=== PATIENT | male | born 1975 | race Caucasian/White ===

== ENCOUNTER 2016-09-22 22:10 | Inpatient (IN) | payer OTHER ==
[~2016-09-22] VITALS: Ht 180.3 cm; Wt 194.6 kg
[~2016-09-22 22:10] MED LIST: APIX1TAB PO; FLUO20CA36 PO; FLUT1INH INH; IPRASOL4 INH; LISI-461 PO; LPT40 PO; LSX80 PO; MCRK20 PO; OMEP40CA41 PO; OXGN; RQP25 PO; SPRIN/30 INH; VNTHFA/IN PO; ZLF50 PO; ZRX5 PO
[2016-09-22] MEDS ORDERED: FUROSEMIDE 40 MG/4 ML VIAL IV STA (22:25)
[2016-09-22] MEDS ORDERED: ALBUT/IPRATROP 3MG/0.5MG NEB 3 ML VIAL INH ONE (22:30)
--- NOTE | 2016-09-22 22:31 | EMERGENCY ROOM VISIT NOTE ---
History Report prepared by Hernandez: Rufina Pacheco Under the Supervision of: Dr. Bharathi Rodas M.D. First contact with patient: 22:20 Chief Complaint: SWELLING TO EXTREMITY Stated Complaint: LEGS SWOLLEN, RIGHT LARGEST History of Present Illness The patient is a 40 year old male who presents to the Emergency Room with complaints of worsening swelling to the right lower extremity starting 2 days SOFTWARE PROGRAM MANAGER. The patient states that he has ran out of his fluid pills 4 days ago and stopped taking them 2 days ago. The patient states that along with the swelling to his legs, he has had worsening SOB. The patient states he usually wears 3 L oxygen at home. Source of History: patient Onset: 2 days SOFTWARE PROGRAM MANAGER Position: leg (right) Timing: worsening Associated Symptoms: + SOB Review of Systems See HPI for pertinent positives & negatives. A total of 10 systems reviewed and were otherwise negative. Past Medical & Surgical Medical Problems: (1) Abscess or cellulitis of foot (2) Anticoagulants,Lt,Current Use (3) Asthma (4) Farley's esophagus (5) Cellulitis (6) Cellulitis of right lower extremity (7) CHF (congestive heart failure) (8) COPD (chronic obstructive pulmonary disease) (9) COPD exacerbation (10) Depression (11) Diaphragmatic Hernia (12) GERD (gastroesophageal reflux disease) (13) History of DVT (deep vein thrombosis) (14) History of metastatic adenocarcinoma (15) History of pulmonary embolus (PE) (16) Hypertension (17) Hypertension Nos (18) Morbid Obesity (19) Morbid obesity with BMI of 50.0-59.9, adult (20) Osteoarthros Nos-Unspec (21) Personal History Of Pulmonary Embolism (22) Reflux Esophagitis (23) S/p insertion of A port (24) S/p sinusotomy and septoplasty (25) Scrotal edema (26) Sleep apnea (27) Tobacco use disorder (28) Unspecified Sleep Apnea (29) UTI (urinary tract infection) Surgical Problems: (1) H/O arthroscopic knee surgery (2) H/O esophagogastroduodenoscopy (3) H/O lymph node biopsy Family History Cancer FATHER (colon CA age 56) Cardiac disorder Diabetes mellitus MOTHER Heart disease MOTHER (DE age 54) FATHER (DE) BROTHER (DE age 48) BROTHER (DE age 57) Hypertension MOTHER Social History Smoking Status: Current Every Day Smoker Alcohol Use: none Drug Use: none Marital Status: Housing Status: lives with family Occupation Status: unemployed, disabled Current/Historical Medications Scheduled Apixaban (Eliquis), 2.5 MG PO BID Atorvastatin (Atorvastatin Calcium), 40 MG PO DAILY Fluoxetine HCl (Fluoxetine HCl), 20 MG PO QAM Fluticasone Furoate-Vilanterol (Breo Ellipta), 1 PUFF INH DAILY Furosemide (Furosemide), 80 MG PO DAILY Lisinopril (Lisinopril), 10 MG PO DAILY Metolazone (Metolazone), 5 MG PO DAILY Omeprazole (Prilosec), 40 MG PO DAILY Oxygen (Oxygen), 2 LITERS NA CONTINOUS Potassium Chloride (Klor-Con M20), 40 MEQ PO QAM Ropinirole Hydrochloride (Requip), 0.5 MG PO HS Sertraline HCl (Sertraline HCl), 50 MG PO DAILY Tiotropium [place] (Spiriva Handihaler), 1 CAP INH DAILY Scheduled PRN Albuterol Hfa (Ventolin Hfa), 2 PUFFS PO Q4H PRN for SOB/Wheezing Ipratropium-Albuterol (Duoneb), 3 ML INH QID PRN for SOB/Wheezing Allergies Coded Allergies: Iodinated Diagnostic Agents (Unverified Allergy, Unknown, turns bright red and on fire feeling, RASH, 09/22/16) Physical Exam Vital Signs Date Time Temp Pulse Resp B/P Pulse Ox O2 Delivery O2 Flow Rate FiO2 09/23/16 00:25 114 22 115/68 96 Nasal Cannula 3.0 09/22/16 23:04 3.0 09/22/16 23:04 Room Air 09/22/16 23:04 112 09/22/16 22:50 113 20 95 Nasal Cannula 3.0 09/22/16 22:16 36.7 116 22 92/55 93 Nasal Cannula 3.0 Physical Exam GENERAL: Patient is a morbidly obese male, covered in dirt HEAD: Normocephalic atraumatic EYES: Ocular movements intact pupils equal and react to light OROPHARYNX mucous membranes are moist no exudates present no erythema or edema present NECK: Supple no nuchal rigidity CHEST: Good equal expansion LUNGS: Tachypneic on exam. CARDIAC: Normal S1 and S2 ABDOMEN: Soft nontender no guarding BACK: No CVA tenderness EXTREMITIES: No pain upon palpation normal muscle strength in all groups. Right leg is bright red with multiple wounds on it. NEURO: Patient is following commands is answering questions appropriately. Alert and oriented x3 Cranial Nerves 2-12 grossly intact Medical Decision & Procedures ER Provider Diagnostic Interpretation: X-ray results as stated below per interpretation by me: Chest X-ray 1 View: pulmonary edema. Ultrasound venous right lower extremity: Exam limited by patient's body habitus. No evidence of deep vein thrombosis. Few borderline enlarged right inguinal lymph nodes, which are nonspecific, including 1.3 cm short axis lymph node. Laboratory Results 09/22/16 22:35 Red Blood Count 3.91, Mean Corpuscular Volume 85.4, Mean Corpuscular Hemoglobin 28.6, Mean Corpuscular Hemoglobin Concent 33.5, Mean Platelet Volume 8.9, Neutrophils (%) (Auto) 89.4, Lymphocytes (%) (Auto) 3.8, Monocytes (%) (Auto) 6.2, Eosinophils (%) (Auto) 0.2, Basophils (%) (Auto) 0.1, Neutrophils # (Auto) 17.39, Lymphocytes # (Auto) 0.74, Monocytes # (Auto) 1.21, Eosinophils # (Auto) 0.03, Basophils # (Auto) 0.02 09/22/16 22:35 Test 09/22/16 22:35 White Blood Count 19.44 K/uL (4.8-10.8) Red Blood Count 3.91 M/uL (4.7-6.1) Hemoglobin 11.2 g/dL (14.0-18.0) Hematocrit 33.4 % (42-52) Mean Corpuscular Volume 85.4 fL (80-100) Mean Corpuscular Hemoglobin 28.6 pg (25-34) Mean Corpuscular Hemoglobin Concent 33.5 g/dl (32-36) Platelet Count 308 K/uL (130-400) Mean Platelet Volume 8.9 fL (7.4-10.4) Neutrophils (%) (Auto) 89.4 % Lymphocytes (%) (Auto) 3.8 % Monocytes (%) (Auto) 6.2 % Eosinophils (%) (Auto) 0.2 % Basophils (%) (Auto) 0.1 % Neutrophils # (Auto) 17.39 K/uL (1.4-6.5) Lymphocytes # (Auto) 0.74 K/uL (1.2-3.4) Monocytes # (Auto) 1.21 K/uL (0.11-0.59) Eosinophils # (Auto) 0.03 K/uL (0-0.5) Basophils # (Auto) 0.02 K/uL (0-0.2) RDW Standard Deviation 50.3 fL (36.4-46.3) RDW Coefficient of Variation 16.0 % (11.5-14.5) Immature Granulocyte % (Auto) 0.3 % Immature Granulocyte # (Auto) 0.05 K/uL (0.00-0.02) Nucleated RBC Absolute Count (auto) 0.06 K/uL (0-0) Nucleated Red Blood Cells % 0.3 % Polychromasia 1+ Basophilic Stippling 1+ Anion Gap 10.0 mmol/L (3-11) Est Creatinine Clear Calc Drug Dose 132.9 ml/min Estimated GFR () 79.7 Estimated GFR (Non- 68.7 BUN/Creatinine Ratio 15.0 (10-20) Calcium Level 8.9 mg/dl (8.5-10.1) Total Bilirubin 1.0 mg/dl (0.2-1) Aspartate Amino Transf (AST/SGOT) 8 U/L (15-37) Alanine Aminotransferase (ALT/SGPT) 13 U/L (12-78) Alkaline Phosphatase 83 U/L (45-117) Total Creatine Kinase 60 U/L (39-308) Creatine Kinase MB < 0.5 ng/ml (0.5-3.6) Creatine Kinase MB Ratio (0-3.0) Troponin I < 0.015 ng/ml (0-0.045) Pro-B-Type Natriuretic Peptide 275 pg/ml (0-450) Total Protein 7.6 gm/dl (6.4-8.2) Albumin 2.8 gm/dl (3.4-5.0) Globulin 4.8 gm/dl (2.5-4.0) Albumin/Globulin Ratio 0.6 (0.9-2) Labs reviewed by ED physician. Medications Administered Medications (Trade) Dose Ordered Sig/Karissa Route Start Time Stop Time Status Last Admin Dose Admin Albuterol/ Ipratropium (Duoneb) 12 ml ONE ONCE INH 09/22/16 22:30 09/22/16 22:31 DC 09/22/16 22:49 12 ML Furosemide (Lasix Inj) 40 mg NOW STAT IV 09/22/16 22:25 09/22/16 22:28 DC 09/22/16 23:00 40 MG Ceftriaxone Sodium (Rocephin Inj) 1 gm NOW STAT IV 09/22/16 23:16 09/22/16 23:17 DC 09/22/16 23:23 1 GM Vancomycin HCl (Vancomycin 1gm/ 270ml Nss) 1 gm NOW STAT IV 09/22/16 23:16 09/22/16 23:17 DC 09/23/16 00:20 1 GM Potassium Chloride (Klor-Con M10) 40 meq NOW STAT PO 09/22/16 23:35 09/22/16 23:36 DC 09/23/16 00:20 40 MEQ ECG Indication: other (edema) Rate (beats per minute): 110 Rhythm: sinus tachycardia Findings: RBBB, no acute ischemic change, no ectopy ED Course 0: Past medical records reviewed. The patient was evaluated in room B12. A complete history and physical examination was performed. 2225: Ordered Lasix Inj 40 mg IV. 2230: Ordered Duoneb 12 ml INH.] 2316: Ordered Vancomycin HCl 1 gm IV, Rocephin Inj 1 gm IV. 2335: Ordered Zofran Inj 4 mg IV, Potassium Chloride 40 meq PO. Medical Decision Differential diagnosis: Etiologies such as infections, reactive airway disease, pneumonia, pneumothorax , COPD, CHF, cardiac ischemia, pulmonary embolism, musculoskeletal, gastrointestinal, as well as others were entertained. This is a 40-year-old male who presents emergency department complaining of right lower extremity swelling as well as acute shortness of breath. The patient did not get Lasix filled and was out of it for 2 days. He is acutely short of breath upon arrival to the emergency department and has an elevation in his carbon dioxide level. His potassium is also low. For these reasons the patient was given potassium in the emergency department along with hour-long breathing treatment and Lasix. He does have a high elevation in his white blood count which I believe is due to the cellulitis of the right lower extremity. He was started on Rocephin and vancomycin here in the emergency department. I did discuss the case with the hospitalist service who agreed to admit the patient. Patient family were in agreement with treatment plan. Impression Primary Impression: CHF (congestive heart failure) Additional Impression: Cellulitis Scribe Attestation The scribe's documentation has been prepared under my direction and personally reviewed by me in its entirety. I confirm that the note above accurately reflects all work, treatment, procedures, and medical decision making performed by me. Departure Information Dispostion Home / Self-Care Referrals Sundar Guerrero M.D.([facility]) (PCP) Patient Instructions My [facility] Problem Qualifiers Primary Impression: CHF (congestive heart failure) Congestive heart failure type: unspecified congestive heart failure type Congestive heart failure chronicity: unspecified congestive heart failure chronicity Qualified Codes: I50.9 - Heart failure, unspecified Additional Impression: Cellulitis Site of cellulitis: extremity Site of cellulitis of extremity: lower extremity Laterality: right Qualified Codes: L03.115 - Cellulitis of right lower limb
[2016-09-22] MEDS ORDERED: ROPI0.5T PO (22:44)
[2016-09-22 22:50] VITALS: PULSE 113; O2SAT 95
[2016-09-22 23:12] LABS: HEMATOCRIT 33.4 % (42-52); MEAN CELL VOLUME 85.4 fL (80-100); MEAN CORPUSCULAR HEMOGLOBIN 28.6 pg (25-34); MEAN CORPUSCULAR HGB CONC 33.5 g/dl (32-36); MEAN PLATELET VOLUME 8.9 fL (7.4-10.4); PLATELET COUNT 308 K/uL (130-400); RED BLOOD COUNT 3.91 M/uL (4.7-6.1); WHITE BLOOD COUNT 19.44 K/uL (4.8-10.8)
[2016-09-22] MEDS ORDERED: CEFTRIAXONE SOD INJ 1 GM ADDVIAL IV STA (23:16)
[2016-09-22] MEDS ORDERED: VANCOMYCIN 1GM/270ML NSS IV STA (23:16)
[2016-09-22 23:31] LABS: ALKALINE PHOSPHATASE 83 U/L (45-117); ALT/SGPT 13 U/L (12-78); AST/SGOT 8 U/L (15-37); BLOOD UREA NITROGEN 20 mg/dl (7-18); CALCIUM 8.9 mg/dl (8.5-10.1); CARBON DIOXIDE 40 mmol/L (21-32); CHLORIDE 84 mmol/L (98-107); GLUCOSE 206 mg/dl (70-99); POTASSIUM 2.6 mmol/L (3.5-5.1); SODIUM 133 mmol/L (136-145)
[2016-09-22] MEDS ORDERED: POTASSIUM CHLORIDE 10 MEQ TABCR PO STA (23:35)
[2016-09-22] MEDS: ONDANSETRON INJ 2 MG/ML 2 ML VIAL IV STA (23:35)
[2016-09-22 23:50] LABS: BASO % 0.1 %; BASO ABS # 0.02 K/uL (0-0.2); COMPLETE YES; EOS % 0.2 %; IG% 0.3 %; LYMPH % 3.8 %; LYMPH ABS # 0.74 K/uL (1.2-3.4); MONO % 6.2 %; NEUT % 89.4 %; POLYCHROMASIA 1+
[2016-09-22 23:52] LABS: ALB/GLOB RATIO 0.6 (0.9-2)
[2016-09-23] VITALS (13 sets, daily range): BP systolic 92–131; BP diastolic 50–71; PULSE 110–119; TEMP 36.9–37.2; O2SAT 91–94; Ht 180.3 cm; Wt 194.6 kg
[2016-09-23] MEDS ORDERED: ALBUTEROL HFA 8 GM INHALER INH PRN (01:00)
[2016-09-23] MEDS ORDERED: ALUMINUM/MAGNESIUM/SIMETH (MAALOX MAX) 30 ML UDC PO PRN (01:15)
[2016-09-23] MEDS ORDERED: NITROGLYCERIN 0.4 MG SL PER TAB CHARGE SL PRN (01:15)
[2016-09-23] MEDS ORDERED: ONDANSETRON INJ 2 MG/ML 2 ML VIAL IV PRN (01:15)
[2016-09-23] MEDS ORDERED: MAGNESIUM HYDROXIDE SUSP 30 ML UDC PO PRN (01:15)
[2016-09-23] MEDS ORDERED: POLYETHYLENE (MIRALAX) 17 GM PACK PO PRN (01:15)
[2016-09-23] MEDS ORDERED: ZOLPIDEM TARTRATE 5 MG TAB PO PRN (01:15)
[2016-09-23 01:36] LABS: PROTHROMBIN TIME (PATIENT) 10.9 SECONDS (9.0-12.0)
[2016-09-23] MEDS ORDERED: VANCOMYCIN CONSULT ACTIVE PRN (01:45)
[2016-09-23] MEDS: MoRPHine SULFATE 2 MG/ML CARP IV PRN ×2 (02:35→19:41)
[2016-09-23] MEDS ORDERED: VANCOMYCIN INJ 2,800 MG in SODIUM CHLORIDE 0.9% 500ML 500 ML IV SCH (02:45)
[2016-09-23 02:53] LABS: URINE APPEARANCE CLEAR (CLEAR); URINE BILIRUBIN NEG (NEG); URINE COLOR DK YELLOW; URINE EPITHELIAL CELL AUTO >30 /lpf (0-5); URINE NITRITE NEG (NEG); URINE PH 6.5 (4.5-7.5); URINE SPECIFIC GRAVITY 1.013 (1.000-1.030); UROBILINOGEN POS (NEG); ZZUR CULT IF INDIC CLEAN CATCH YES
[2016-09-23 02:57] LABS: MANUAL MICROSCOPIC REQUIRED? NO; REVIEW REQ? YES
--- NOTE | 2016-09-23 03:58 | History and Physical ---
History & Physical Date & Time of Service: Sep 23, 2016 at 03:57 Chief Complaint: Cellulitis Of Rt Lower Extremity Primary Care Physician: Sundar Guerrero M.D.(ESTEFANY) History of Present Illness Source: patient This is a 40 yo male with medical hx of Morbid Obesity , ESTEFANI -poorly compliant with CPAP , Pulmonary HTN due to ESTEFANI /obesity Hypoventilation syndrome Bilateral lower ext severe Lymphedema , recurrent lower ext cellulitis , Hx of PE on Eliquis presents to [facility] ED with complains of worsening of swelling of lower leg R/L will foul smelling drainage form rt lower ext infection /cellulitis no complain of chest pain or SOB no Orthopnea no fever or chills Past Medical/Surgical History Medical Problems: (1) Anticoagulants,Lt,Current Use Permanent Comment: Eliquis Status: Chronic (2) Asthma Status: Chronic (3) Farley's esophagus Status: Chronic (4) COPD (chronic obstructive pulmonary disease) Status: Chronic (5) Depression Status: Chronic (6) Diaphragmatic Hernia Status: Chronic (7) GERD (gastroesophageal reflux disease) Status: Chronic (8) History of DVT (deep vein thrombosis) Permanent Comment: LUE Status: Chronic (9) History of metastatic adenocarcinoma Permanent Comment: left axillary lymph liudmila metastatic adenocarcinoma, unknown primary, dx 2007, s/p chemotherapy completed in 2008 Status: Chronic (10) History of pulmonary embolus (PE) Status: Chronic (11) Hypertension Status: Chronic (12) Hypertension Nos Status: Chronic (13) Morbid Obesity Status: Chronic (14) Morbid obesity with BMI of 50.0-59.9, adult Status: Chronic (15) Osteoarthros Nos-Unspec Status: Chronic (16) Personal History Of Pulmonary Embolism Status: Chronic (17) Reflux Esophagitis Status: Chronic (18) S/p insertion of A port Status: Chronic (19) S/p sinusotomy and septoplasty Status: Chronic (20) Sleep apnea Permanent Comment: did not tolerate CPAP Status: Chronic (21) Tobacco use disorder Status: Chronic (22) Unspecified Sleep Apnea Status: Chronic Surgical Problems: (1) H/O arthroscopic knee surgery Status: Chronic (2) H/O esophagogastroduodenoscopy Status: Chronic (3) H/O lymph node biopsy Status: Chronic Family History Cancer FATHER (colon CA age 56) Cardiac disorder Diabetes mellitus MOTHER Heart disease MOTHER (PR age 54) FATHER (PR) BROTHER (PR age 48) BROTHER (PR age 57) Hypertension MOTHER Social History Smoking Status: Current Every Day Smoker Drug Use: none Marital Status: Housing status: lives with family Occupational Status: unemployed, disabled Immunizations History of Influenza Vaccine: No History of Tetanus Vaccine?: Unknown Tetanus Immunization Date: Oct 01, 2004 History of Pneumococcal: No History of Hepatitis B Vaccine: No Multi-Drug Resistant Organisms History of MDRO: Yes Type of MDRO: MRSA Allergies Coded Allergies: Iodinated Diagnostic Agents (Unverified Allergy, Unknown, turns bright red and on fire feeling, RASH, 09/22/16) Home Medications Scheduled Apixaban (Eliquis), 2.5 MG PO BID Atorvastatin (Atorvastatin Calcium), 40 MG PO DAILY Fluoxetine HCl (Fluoxetine HCl), 20 MG PO QAM Fluticasone Furoate-Vilanterol (Breo Ellipta), 1 PUFF INH DAILY Furosemide (Furosemide), 80 MG PO DAILY Lisinopril (Lisinopril), 10 MG PO DAILY Metolazone (Metolazone), 5 MG PO DAILY Omeprazole (Prilosec), 40 MG PO DAILY Oxygen (Oxygen), 2 LITERS NA CONTINOUS Potassium Chloride (Klor-Con M20), 40 MEQ PO QAM Ropinirole Hydrochloride (Requip), 0.5 MG PO HS Sertraline HCl (Sertraline HCl), 50 MG PO DAILY Tiotropium [place] (Spiriva Handihaler), 1 CAP INH DAILY Scheduled PRN Albuterol Hfa (Ventolin Hfa), 2 PUFFS PO Q4H PRN for SOB/Wheezing Ipratropium-Albuterol (Duoneb), 3 ML INH QID PRN for SOB/Wheezing Review of Systems Constitutional: + chills, + fatigue, + weakness Cardiovascular: + edema Abdomen: + nausea Musculoskeletal: + problem reported (severe lower ext edema ; with drainage wound on rt lower ext ) Neurologic: + weakness Psychiatric: + depression symptoms Endocrine: + fatigue Integumentary: + problem reported (bilateral lower ext chronic venous statis change, shallow ulcer on rt lower ext with drainage ) Physical Exam Vital Signs Date Time Temp Pulse Resp B/P Pulse Ox O2 Delivery O2 Flow Rate FiO2 09/23/16 02:52 37.0 118 18 105/52 94 Nasal Cannula 3.0 09/23/16 01:06 113 24 119/71 95 09/23/16 00:25 114 22 115/68 96 Nasal Cannula 3.0 09/22/16 23:04 3.0 09/22/16 23:04 Room Air 09/22/16 23:04 112 09/22/16 22:50 113 20 95 Nasal Cannula 3.0 09/22/16 22:16 36.7 116 22 92/55 93 Nasal Cannula 3.0 General Appearance: + obese (morbid obesity ) Head: normocephalic, atraumatic Eyes: sclerae normal Respiratory/Chest: no respiratory distress, + pertinent finding (diminishe breath sound ) Cardiovascular: regular rate, rhythm, + pertinent finding (severe bilat lower ext edema ) Abdomen/GI: soft Extremities/Musculoskelatal: + pedal edema, + pertinent finding (severe bilat lower ext lymphedema extending to lower thigh, shallow ulcer on rt lower leg with dranainge ) Neurologic/Psych: alert, oriented x 3 Diagnostics Laboratory Results Results Past 24 Hours Test 09/22/16 22:35 09/23/16 01:58 Range/Units White Blood Count 19.44 4.8-10.8 K/uL Red Blood Count 3.91 4.7-6.1 M/uL Hemoglobin 11.2 14.0-18.0 g/dL Hematocrit 33.4 42-52 % Mean Corpuscular Volume 85.4 80-100 fL Mean Corpuscular Hemoglobin 28.6 25-34 pg Mean Corpuscular Hemoglobin Concent 33.5 32-36 g/dl Platelet Count 308 130-400 K/uL Mean Platelet Volume 8.9 7.4-10.4 fL Neutrophils (%) (Auto) 89.4 % Lymphocytes (%) (Auto) 3.8 % Monocytes (%) (Auto) 6.2 % Eosinophils (%) (Auto) 0.2 % Basophils (%) (Auto) 0.1 % Neutrophils # (Auto) 17.39 1.4-6.5 K/uL Lymphocytes # (Auto) 0.74 1.2-3.4 K/uL Monocytes # (Auto) 1.21 0.11-0.59 K/uL Eosinophils # (Auto) 0.03 0-0.5 K/uL Basophils # (Auto) 0.02 0-0.2 K/uL RDW Standard Deviation 50.3 36.4-46.3 fL RDW Coefficient of Variation 16.0 11.5-14.5 % Immature Granulocyte % (Auto) 0.3 % Immature Granulocyte # (Auto) 0.05 0.00-0.02 K/uL Nucleated RBC Absolute Count (auto) 0.06 0-0 K/uL Nucleated Red Blood Cells % 0.3 % Polychromasia 1+ Basophilic Stippling 1+ Prothrombin Time 10.9 9.0-12.0 SECONDS Prothromb Time International Ratio 1.0 0.9-1.1 Sodium Level 133 136-145 mmol/L Potassium Level 2.6 3.5-5.1 mmol/L Chloride Level 84 98-107 mmol/L Carbon Dioxide Level 40 21-32 mmol/L Anion Gap 10.0 3-11 mmol/L Blood Urea Nitrogen 20 7-18 mg/dl Creatinine 1.30 0.60-1.40 mg/dl Est Creatinine Clear Calc Drug Dose 132.9 ml/min Estimated GFR () 79.7 Estimated GFR (Non- 68.7 BUN/Creatinine Ratio 15.0 10-20 Random Glucose 206 70-99 mg/dl Calcium Level 8.9 8.5-10.1 mg/dl Total Bilirubin 1.0 0.2-1 mg/dl Aspartate Amino Transf (AST/SGOT) 8 15-37 U/L Alanine Aminotransferase (ALT/SGPT) 13 12-78 U/L Alkaline Phosphatase 83 45-117 U/L Total Creatine Kinase 60 39-308 U/L Creatine Kinase MB < 0.5 0.5-3.6 ng/ml Creatine Kinase MB Ratio 0-3.0 Troponin I < 0.015 0-0.045 ng/ml Pro-B-Type Natriuretic Peptide 275 0-450 pg/ml Total Protein 7.6 6.4-8.2 gm/dl Albumin 2.8 3.4-5.0 gm/dl Globulin 4.8 2.5-4.0 gm/dl Albumin/Globulin Ratio 0.6 0.9-2 Urine Color DK YELLOW Urine Appearance CLEAR CLEAR Urine pH 6.5 4.5-7.5 Urine Specific [place] 1.013 1.000-1.030 Urine Protein NEG NEG Urine Glucose (UA) NEG NEG Urine Ketones NEG NEG Urine Occult Blood NEG NEG Urine Nitrite NEG NEG Urine Bilirubin NEG NEG Urine Urobilinogen POS NEG Urine Leukocyte Esterase TRACE NEG Urine WBC (Auto) 5-10 0-5 /hpf Urine RBC (Auto) 5-10 0-4 /hpf Urine Hyaline Casts (Auto) 10-30 0-5 /lpf Urine Epithelial Cells (Auto) >30 0-5 /lpf Urine Bacteria (Auto) NEG NEG Urine Renal Epithelial Cells 0-5 /lpf Urine Pathogenic Casts 0 /lpf Urine Yeast (Auto) NONE PRSENT Microbiology Results 09/23/16 Blood Culture, Received Pending 09/23/16 Blood Culture, Received Pending 09/23/16 Urine Culture, Received Pending Diagnostic Radiology RT LOWER EXT DOPPLER : NEGATIVE FOR DVT Normal EKG Impression Assessment and Plan This is a 40 year old male with severe morbid obesity, obesity hypoventilation and ESTEFANI refusing CPAP, severe COPD and chronic respiratory failure on 3L O2 at home, severe lymphedema of b/l LE, hx. of PE on anticoagulation, and multiple other issues presents with worsening swelling of right lower extremity Right Lower Extremity Cellulitis in the setting of Chronic Lymphedema RLE U/S = no DVT noted lymphedema and numerous ulcerations has a hx. of MRSA presented with leukocytosis and tachycardia started on IV Vanco and Rocephin wound culture ordered for Rt lower ext open ulcer wound care consult requested ID consulted Hx. of PE On Eliquis Chronic Respiratory Failure due to obesity hypoventilation syndrome /COPD chronic 2-3L O2 at home was evaluated by Sleep medicine in ED -found to have severe ESTEFANI pt mentions he never got CPAP at home due to insurance issue ordered for CPAP at night continue home inhalers Likely Right Heart Failure with Pulmonary HTN : ECHO ordered prior ECHO was inconclusive study due to body habitus given Lasix 40 IV in ED for concern for CHF /pulmonary congestion in CXray pt is on Lasix 80 po daily changed to 40 mg IV BID -starting form AM had to assess vol status -due to morbid obesity , bilat severe lymphedema Cardiology eval requested FULL CODE DVT ppx Eliquis FULL CODE DISPOSITION ; lives at home with and children at baseline -pretty much stays in [place] , limited activity due to severe lymphedema , body habitus PT/OT eval requested Social Service consulted for discharge planning Medicine follow up with Dr Margot abdi Level of Care Telemetry Advanced Directives Existing Living Will: No Existing Power of Loan Operations Manager: No Resuscitation Status FULL RESUSCITATION VTE Prophylaxis VTE Risk Assessment Done? Y/N: Yes Risk Level: High Given or contraindicated: Other Anticoagulation (Eliquis) Note In my clinical judgment this beneficiary meets acute admission criteria, established by [facility], that includes being hospitalized through two midnights. Additional Copies To Margot Barber D.O.
[2016-09-23] MEDS ORDERED: NURSING VERBAL MED ORDER ONE (04:00)
[2016-09-23] MEDS: NICOTINE 21 MG/24 HR TDSY EXT SCH ×2 (04:27→09:36)
[2016-09-23] MEDS: ACETAMINOPHEN 325 MG TAB PO PRN ×3 (05:39→19:41)
[2016-09-23 06:40] LABS: HEMATOCRIT 30.9 % (42-52); MEAN CELL VOLUME 85.1 fL (80-100); MEAN CORPUSCULAR HEMOGLOBIN 28.1 pg (25-34); MEAN PLATELET VOLUME 8.7 fL (7.4-10.4); PLATELET COUNT 274 K/uL (130-400); RED BLOOD COUNT 3.63 M/uL (4.7-6.1)
[2016-09-23 06:58] LABS: BLOOD UREA NITROGEN 23 mg/dl (7-18); BUN/CREATININE RATIO 17.7 (10-20); CARBON DIOXIDE 40 mmol/L (21-32); CHLORIDE 83 mmol/L (98-107); CHOLESTEROL 135 mg/dl (0-200); GLUCOSE 146 mg/dl (70-99); MAGNESIUM 1.7 mg/dl (1.8-2.4); POTASSIUM 2.7 mmol/L (3.5-5.1); SODIUM 132 mmol/L (136-145); TRIGLYCERIDES 73 mg/dl (0-150); VERY LOW DENSITY LIPOPROT CALC 15 mg/dl
[2016-09-23 07:01] LABS: HDL CHOLESTEROL 34 mg/dl; LDL CHOLESTEROL CALCULATED 86 mg/dl
--- NOTE | 2016-09-23 07:18 | DIAGNOSTIC IMAGING REPORT ---
RIGHT LOWER EXTREMITY VENOUS DOPPLER HISTORY: Right leg swelling. COMPARISON STUDY: Venous Doppler 08/22/2015. FINDINGS: There is normal compressibility, flow, and augmentation within the right lower extremity deep venous system. There are enlarged right inguinal lymph nodes measuring 5.0 x 1.3 x 3.7 cm. IMPRESSION: No DVT within the right lower extremity. Right inguinal lymphadenopathy. Electronically signed by: Rich Chen M.D. 09/23/2016 7:16 AM Dictated Date/Time: 09/23/2016 7:15 AM
[2016-09-23] MEDS: ALBUT/IPRATROP 3MG/0.5MG NEB 3 ML VIAL INH PRN ×3 (07:26→23:08)
--- NOTE | 2016-09-23 07:43 | DIAGNOSTIC IMAGING REPORT ---
SINGLE VIEW CHEST CLINICAL HISTORY: CHF. FINDINGS: An AP, portable, upright chest radiograph is compared to study dated 09/22/2016. The examination is significantly degraded by portable technique, large body habitus, and apical lordotic positioning. The heart is enlarged and the pulmonary vasculature is congested. Bibasilar atelectasis is observed. No large pleural effusion or pneumothorax is seen. The bony thorax is grossly intact. IMPRESSION: Cardiomegaly with evidence of congestive failure. This has not significant changed from yesterday. Electronically signed by: Cruz Christian M.D. 09/23/2016 7:41 AM Dictated Date/Time: 09/23/2016 7:40 AM
[2016-09-23] MEDS ORDERED: POTASSIUM CHLR 20 MEQ / WTR 40 MEQ in PREMIXED WATER 100 ML IV STA (07:44)
--- NOTE | 2016-09-23 08:06 | DIAGNOSTIC IMAGING REPORT ---
CHEST ONE VIEW PORTABLE HISTORY: Short of breath. COMPARISON: Chest 02/17/2016. FINDINGS: The heart is borderline enlarged. There is diffuse interstitial and vascular thickening consistent with mild pulmonary edema. No pleural effusions. No pneumothorax. IMPRESSION: Cardiomegaly with mild interstitial thickening suggesting developing pulmonary edema. This is similar to the prior study. Electronically signed by: Rich Chen M.D. 09/23/2016 8:04 AM Dictated Date/Time: 09/23/2016 7:44 AM
[2016-09-23] MEDS ORDERED: FUROSEMIDE 80 MG TAB PO SCH (09:00)
[2016-09-23] MEDS ORDERED: FUROSEMIDE INJ 40 MG in SYRINGE 0 ML IV SCH (09:00)
[2016-09-23] MEDS ORDERED: APIXABAN 2.5 MG TAB PO SCH (09:00)
[2016-09-23] MEDS ORDERED: METOLAZONE 5 MG TAB PO SCH (09:00)
[2016-09-23] MEDS: POTASSIUM CHLR 10MEQ / WTR IV SCH ×4 (09:27→13:14)
[2016-09-23] MEDS: MAGNESIUM SULFATE 1GM / D5W 1 GM in PREMIXED IN D5W 100 ML IV SCH ×2 (09:27→10:52)
[2016-09-23] MEDS: ASPIRIN 81 MG ECTAB PO SCH (09:36)
[2016-09-23] MEDS: FLUOXETINE HCL 20 MG CAP PO SCH (09:36)
[2016-09-23] MEDS: SERTRALINE HCL 50 MG TAB PO SCH (09:37)
[2016-09-23] MEDS: POTASSIUM CHLORIDE 20 MEQ TABCR PO SCH (09:37)
[2016-09-23] MEDS: LISINOPRIL 10 MG TAB PO SCH (09:37)
[2016-09-23] MEDS: ATORVASTATIN 40 MG TAB PO SCH (09:37)
[2016-09-23] MEDS: TIOTROPIUM BROMIDE 5 PUFF/90 MCG INH INH SCH (09:41)
[2016-09-23] MEDS: PANTOprazole SOD 40 MG TAB PO SCH ×2 (09:42→12:04)
--- NOTE | 2016-09-23 10:08 | CARDIOLOGY CONSULTATION ---
DATE OF CONSULTATION: 09/23/2016 CONSULTATION REQUESTED BY: Dr. Melendrez. REASON FOR CONSULTATION: Questionable heart failure. HISTORY OF PRESENT ILLNESS: Mr. Garcia is a morbidly obese and medically complex 40-year-old gentleman, who presented to [facility] Emergency Department late in the evening of 09/22/2016 with a complaint of right lower extremity edema. The patient states that for the last 2-3 days, he has noticed that his lower extremities have been swollen more than normal, particularly his right. He does not remember any trauma and states it has become swollen to the point where he is having difficulty bearing weight on it. He does admit that he has run out of his water pills and has not taken any for the last 2 days. Otherwise, he states that he is short of breath, but this is a chronic issue and has not significantly changed recently. He denies any chest pain, palpitations, lightheadedness, dizziness, or syncope. He states he has been taking his medications as directed without issue. Upon admission, lower extremity Doppler ruled out DVT and he was started on antibiotics for possible cellulitis. Of note, this is similar presentation to previous episodes of cellulitis in the patient. PAST SURGICAL HISTORY: 1. Lymph node biopsies. 2. Multiple colonoscopies. 3. Multiple upper endoscopies. 4. Knee arthroscopy. 5. Sinus surgery. 6. A-port placement and subsequent removal for chemotherapy. PAST MEDICAL HISTORY: 1. Morbid obesity. 2. Obesity hypoventilation. 3. Obstructive sleep apnea, noncompliant with CPAP. 4. Tobacco abuse. 5. History of PE on long-term DVT prevention with Eliquis. 6. Adenocarcinoma, status post chemoradiation. 7. Farley's esophagitis. 8. Depression. 9. GERD. 10. Hypertension. 11. Prolonged QT interval. FAMILY HISTORY: Noncontributory. SOCIAL HISTORY: The patient is a lifelong smoker and continues to smoke about half pack a day. Denies alcohol or recreational drug use. He is and lives at home with his . He does not work. REVIEW OF SYSTEMS: As per HPI, all other review of systems reviewed and negative at this time. ALLERGIES: IODINE CONTRAST AGENTS CAUSE A RASH; HOWEVER, THE PATIENT STATES HE TOLERATES IT IF BEING PREPPED WITH STEROIDS PRIOR TO RECEIVING THE AGENT. MEDICATIONS AN OUTPATIENT: 1. Eliquis 2.5 mg b.i.d. 2. Atorvastatin 40 mg daily. 3. Lisinopril 10 mg daily. 4. Metolazone 5 mg daily. 5. Lasix 80 mg daily. 6. Potassium chloride 40 mEq daily. 7. Requip daily. 8. Prozac daily. 9. Prilosec daily. 10. Breo inhaler daily. 11. Spiriva daily. 12. Ventolin as needed. PHYSICAL EXAMINATION: VITALS: Temperature 36.9, pulse 114, respiratory rate 16, blood pressure 92/62, and saturating 93% on 3 liters nasal cannula. GENERAL: Awake, alert, and oriented x3 in no acute distress. Morbidly obese. Poor hygiene. HEENT: Normocephalic and atraumatic. Pupils equal, round, and reactive to light and accommodation. Extraocular muscles intact. Anicteric sclerae. Moist mucous membranes. Poor dentition. NECK: No JVD and no bruit. CARDIOVASCULAR: Regular and fast, but distant. Unable to appreciate murmurs, rubs or gallops. PULMONARY: Poor air movement bilaterally, but clear. No rales, rhonchi, or wheezing. ABDOMEN: Obese. Soft. No rebound, guarding, or tenderness. Unable to appreciate any organomegaly. EXTREMITIES: Profound right lower extremity edema. Very tender to palpation. Erythematous. +2 pedal pulses bilaterally. SKIN: Warm and dry. TEST RESULTS: Lower extremity Doppler of the right was negative for DVT. Chest x-ray was read as cardiomegaly with mild interstitial thickening, suggesting developing pulmonary edema similar to prior study. LABORATORY STUDIES OF SIGNIFICANCE: White count of 21.1, hemoglobin 10.2, and platelet count 274. Sodium 132, potassium 2.7, BUN 23, creatinine 1.3, and magnesium 1.7. IMPRESSION: 1. Right lower extremity cellulitis. 2. Possible slight right-sided heart failure secondary to obesity hypoventilation and chronic obstructive pulmonary disease. 3. Morbid obesity. 4. High suspicion for pulmonary embolism. 5. Tobacco abuse. 6. Hyponatremia. 7. Hypokalemia. 8. Prerenal azotemia. RECOMMENDATIONS: Mr. Garcia has an obviously very complex case and I do not see any profound cardiac involvement. There may be some slight RV failure due to his obesity hypoventilation, COPD and obstructive sleep apnea; however, by number, he is volume depleted and I do not believe any further diuretics are necessary at this time. I will give him a trial of fluids and follow his numbers and would consider possibly consulting our nephrology colleagues to further evaluate. My main concern is the fact that I am suspicion that he did have a clot at some point in his leg and given the fact that he is now tachycardic, which is new for him and given that he is normally bradycardic, I do believe that a PE needs to be ruled out, especially since he has been on Eliquis for DVT prevention; however, given his BMI of 60, it is likely not effective. So at this point, I would recommend IV heparin anticoagulation, initiation of Coumadin, discontinuation of Eliquis and a CTA of the chest to rule out PE. He will need steroid prep prior to receiving contrast. Again, the patient states he has had this before and tolerated it well. Otherwise, he was started on antibiotics for likely cellulitis, which I agree with. His potassium is being aggressively repleted. We will attempt an echocardiogram; however, given his body habitus, it had been very limited pictures in the past and I highly doubt that it will be a more successful at this time, but we will attempt it. Also of note, we have attempted to put him through nuclear study in the past; however, he was unable to fit within the machine and the testing was not completed.
--- NOTE | 2016-09-23 10:32 | Medical Consult ---
Consultation Date of Consultation: Sep 23, 2016. Attending Physician: Pedro Luis Bey DO Reason for Consultation: Lower extremity edema History of Present Illness Patient is a 40 yo morbidly obese male presented to the ED with complaints of pain, swelling, and worsening edema of the right lower extremity. He ran out of his 'fluid pills' a few days prior to admission and did have some increased swelling because of that. He did however start to have severe pain especially with walking of the right lower extremity. Resting did make this better. He was having some sweats HUNTER GUIDE but denies chills or fever. He does also have baseline SOB and "smoker's cough" which has not worsened. He otherwise denies chest pain , N/V/D, or urinary symptoms. Blood, urine, and wound cultures are pending. Initial CXR showed cardiomegaly with mild interstitial thickening suggesting pulmonary edema. Right lower extremity Venous Doppler showed no DVT but did show right inguinal lymphadenopathy. WBC count was 19.44 on admission. Urinalysis showed trace leukocyte esterase and only 5-10 WBC's. Past Medical/Surgical History Medical Problems: (1) Bilateral lower extremity edema Status: Acute (2) Bilateral lower leg cellulitis Status: Acute (3) Cellulitis Status: Acute (4) Cellulitis Status: Acute (5) Cellulitis of perineum Status: Acute (6) Cellulitis of right leg Status: Acute (7) Cellulitis of thigh Status: Acute (8) Failure of outpatient treatment Status: Acute (9) Fluid overload Status: Acute (10) Hyperglycemia Status: Acute (11) Hypokalemia Status: Acute (12) Hypoxia Status: Acute (13) Infected stasis ulcer of right lower extremity Status: Acute (14) Intertrigo Status: Acute (15) Lower extremity edema Status: Acute (16) Morbid obesity Status: Acute (17) Shortness of breath Status: Acute (18) UTI (urinary tract infection) Status: Acute Medical Problems: (1) Abscess or cellulitis of foot (2) Anticoagulants,Lt,Current Use (3) Asthma (4) Farley's esophagus (5) Cellulitis (6) Cellulitis of right lower extremity (7) CHF (congestive heart failure) (8) COPD (chronic obstructive pulmonary disease) (9) COPD exacerbation (10) Depression (11) Diaphragmatic Hernia (12) GERD (gastroesophageal reflux disease) (13) History of DVT (deep vein thrombosis) (14) History of metastatic adenocarcinoma (15) History of pulmonary embolus (PE) (16) Hypertension (17) Hypertension Nos (18) Morbid Obesity (19) Morbid obesity with BMI of 50.0-59.9, adult (20) Osteoarthros Nos-Unspec (21) Personal History Of Pulmonary Embolism (22) Reflux Esophagitis (23) S/p insertion of A port (24) S/p sinusotomy and septoplasty (25) Scrotal edema (26) Sleep apnea (27) Tobacco use disorder (28) Unspecified Sleep Apnea (29) UTI (urinary tract infection) Surgical Problems: (1) H/O arthroscopic knee surgery (2) H/O esophagogastroduodenoscopy (3) H/O lymph node biopsy Family History Cancer FATHER (colon CA age 56) Cardiac disorder Diabetes mellitus MOTHER Heart disease MOTHER ([place] age 54) FATHER ([place]) BROTHER ([place] age 48) BROTHER ([place] age 57) Hypertension MOTHER Noncontributory Social History Smoking Status: Current Every Day Smoker Drug Use: none Marital Status: Housing Status: lives with family Occupation Status: unemployed, disabled Allergies Coded Allergies: Iodinated Diagnostic Agents (Unverified Allergy, Unknown, turns bright red and on fire feeling, RASH, 09/22/16) Home Medications Reported Home Medications Medications Dose Route/Sig Max Daily Dose Days Date Category Dose Instructions Requip (Ropinirole Hydrochloride) 0.5 Mg Tab 0.5 Mg PO HS 09/22/16 Reported Klor-Con M20 (Potassium Chloride) 20 Meq Tabcr 40 Meq PO QAM 30 05/29/16 Rx Sertraline HCl 50 Mg Tab 50 Mg PO DAILY 30 05/29/16 Rx Fluoxetine HCl 20 Mg Cap 20 Mg PO QAM 30 05/29/16 Rx Oxygen Gas 2 Liters NA CONTINOUS 02/17/16 Reported Spiriva Handihaler (Tiotropium [place]) 30 Puff/540 Mcg Aerp 1 Cap INH DAILY 02/17/16 Reported Prilosec (Omeprazole) 40 Mg Cap 40 Mg PO DAILY 02/17/16 Reported TAKE THIS MEDICATION ONCE DAILY ONE HOUR BEFORE FIRST MEAL OF THE DAY Atorvastatin Calcium (Atorvastatin) 40 Mg Tab 40 Mg PO DAILY 02/17/16 Reported Metolazone 5 Mg Tab 5 Mg PO DAILY 02/17/16 Reported Eliquis (Apixaban) 2.5 Mg Tab 2.5 Mg PO BID 08/22/15 Reported Furosemide 80 Mg Tab 80 Mg PO DAILY 08/22/15 Reported Duoneb (Ipratropium-Albuterol) 3 Ml Nebu 3 Ml INH QID PRN 08/22/15 Reported Breo Ellipta (Fluticasone Furoate-Vilanterol) 1 Inh Inh 1 Puff INH DAILY 08/22/15 Reported Ventolin Hfa (Albuterol) 200 Puffs/44713 Mcg Aers 2 Puffs PO Q4H PRN 04/28/15 Reported Lisinopril 10 Mg Tab 10 Mg PO DAILY 04/28/15 Reported Current Inpatient Medications Current Inpatient Medications Medications (Trade) Dose Ordered Sig/Karissa Route Start Time Stop Time Status Last Admin Dose Admin Albuterol (Ventolin Hfa Inhaler) 2 puffs Q4H PRN INH 09/23/16 01:00 10/23/16 00:59 Atorvastatin Calcium (Lipitor Tab) 40 mg DAILY PO 09/23/16 09:00 10/23/16 08:59 09/23/16 09:37 40 MG Fluoxetine HCl (Prozac Cap) 20 mg QAM PO 09/23/16 09:00 10/23/16 08:59 09/23/16 09:36 20 MG Albuterol/ Ipratropium (Duoneb) 3 ml QID PRN INH 09/23/16 01:00 10/23/16 00:59 09/23/16 07:26 3 ML Lisinopril (Zestril Tab) 10 mg DAILY PO 09/23/16 09:00 10/23/16 08:59 Metolazone (Zaroxolyn Tab) 5 mg DAILY PO 09/23/16 09:00 10/23/16 08:59 Future Hold 09/23/16 09:38 5 MG Potassium Chloride (Klor-Con Tab) 40 meq QAM PO 09/23/16 09:00 10/23/16 08:59 09/23/16 09:37 40 MEQ Ropinirole HCl (Requip Tab) 0.5 mg HS PO 09/23/16 21:00 10/23/16 20:59 Sertraline HCl (Zoloft Tab) 50 mg DAILY PO 09/23/16 09:00 10/23/16 08:59 09/23/16 09:37 50 MG Tiotropium [place] (Spiriva Handihaler Inhaler) 1 puff DAILY INH 09/23/16 09:00 10/23/16 08:59 09/23/16 09:41 1 PUFF Miscellaneous Information (Order Awaiting Action) 1 ea QS N/A 09/23/16 08:00 10/23/16 07:59 Pantoprazole Sodium 40 mg 40 mg QAM PO 09/23/16 09:00 10/23/16 08:59 Ceftriaxone Sodium 1 gm/ Dextrose 50 ml @ 100 mls/hr Q24H IV 09/23/16 22:00 10/03/16 21:59 Furosemide/Syringe (Lasix Inj/ Syringe) 4 ml @ 4 mls/min Q12 IV 09/23/16 09:00 10/23/16 08:59 Future Hold 09/23/16 09:41 4 MLS/MIN Acetaminophen (Tylenol Tab) 650 mg Q4H PRN PO 09/23/16 01:15 10/23/16 01:14 09/23/16 05:39 650 MG Al Hydrox/Mg Hydrox/Simethicone (Maalox Max Susp) 15 ml Q4H PRN PO 09/23/16 01:15 10/23/16 01:14 Magnesium Hydroxide (Milk Of Magnesia Susp) 30 ml Q12H PRN PO 09/23/16 01:15 10/23/16 01:14 Zolpidem Tartrate (Ambien Tab) 5 mg HSZ PRN PO 09/23/16 01:15 10/23/16 01:14 Ondansetron HCl (Zofran Inj) 4 mg Q6H PRN IV 09/23/16 01:15 10/23/16 01:14 Nitroglycerin (Nitrostat Tab) 0.4 mg UD PRN SL 09/23/16 01:15 10/23/16 01:14 Aspirin (Ecotrin Tab) 81 mg QAM PO 09/23/16 09:00 10/23/16 08:59 09/23/16 09:36 81 MG Polyethylene (Miralax Powder Packet) 17 gm DAILY PRN PO 09/23/16 01:15 10/23/16 01:14 Vancomycin HCl (Consult) 1 ea UD PRN N/A 09/23/16 01:45 10/23/16 01:44 Morphine Sulfate (MoRPHine SULFATE INJ) 1 mg Q4 PRN IV 09/23/16 02:30 10/07/16 02:29 09/23/16 02:35 1 MG Nicotine (Nicoderm Cq 21MG Patch) 1 patch QAM EXT 09/23/16 04:15 10/23/16 04:14 09/23/16 09:36 1 PATCH Miscellaneous 1 ea 1 ea QAM N/A 09/24/16 09:00 10/24/16 08:59 Magnesium Sulfate 1 gm/Prmx 100 ml @ 100 mls/hr Q1H IV 09/23/16 08:30 09/23/16 10:29 09/23/16 09:27 100 MLS/HR Potassium Chloride/Prmx (Kcl 10 Meq / Wtr/Premixed Water) 100 ml @ 100 mls/hr Q1H IV 09/23/16 08:30 09/23/16 12:29 09/23/16 09:27 100 MLS/HR Heparin Sodium/ Dextrose 1 ea NOW STAT N/A 09/23/16 09:57 09/23/16 09:58 UNV Prednisone (PredniSONE TAB) 50 mg PRE-TREAT PO 09/23/16 10:00 10/23/16 09:59 UNV Diphenhydramine HCl (Benadryl Cap) 50 mg PRE-TREAT ONCE PO 09/23/16 10:00 09/23/16 10:01 UNV Review of Systems Constitutional: + fatigue, + sweats, No chills, No fever Eyes: No worsening of vision ENT: No hearing loss, No sore throat Respiratory: + cough, + dyspnea on exertion, + shortness of breath Cardiovascular: No chest pain Abdomen: No diarrhea, No nausea, No pain, No vomiting Musculoskeletal: + joint pain, + swelling (right lower extremity, especially ankle) Genitourinary - Male: No dysuria, No hematuria Integumentary: + color change (erythema RLE, chronic posterior RLE wounds), No itch, No rash Physical Exam Date Time Temp Pulse Resp B/P Pulse Ox O2 Delivery O2 Flow Rate FiO2 09/23/16 07:14 114 20 93 Nasal Cannula 3.0 09/23/16 04:06 115 93 3.0 09/23/16 04:00 36.9 117 16 92/62 93 Nasal Cannula 3.0 09/23/16 03:59 Nasal Cannula 3.0 09/23/16 02:52 37.0 118 18 105/52 94 Nasal Cannula 3.0 09/23/16 01:06 113 24 119/71 95 09/23/16 00:25 114 22 115/68 96 Nasal Cannula 3.0 09/22/16 23:04 3.0 09/22/16 23:04 Room Air 09/22/16 23:04 112 09/22/16 22:50 113 20 95 Nasal Cannula 3.0 09/22/16 22:16 36.7 116 22 92/55 93 Nasal Cannula 3.0 General Appearance: + mild distress (respiratory), + obese (morbidly) Head: normocephalic, atraumatic Eyes: normal inspection, sclerae normal ENT: hearing grossly normal Neck: supple, trachea midline Respiratory/Chest: chest non-tender, + respiratory distress, + wheezing (mild throughout all lobes) Cardiovascular: + tachycardia Abdomen/GI: + tenderness (very mild tenderness generalized of abdomen), + distended, + pertinent finding (obese) Extremities/Musculoskelatal: + swelling ( moderately severe edema right ankle and lower extremity. Tenderness to palpation of the right ankle especially. ) Neurologic/Psych: alert, normal mood/affect Skin: warm/dry, no rash, + pertinent finding (erythema of the right lower extremity) Laboratory Results CHEST ONE VIEW PORTABLE HISTORY: Short of breath. COMPARISON: Chest 02/17/2016. FINDINGS: The heart is borderline enlarged. There is diffuse interstitial and vascular thickening consistent with mild pulmonary edema. No pleural effusions. No pneumothorax. IMPRESSION: Cardiomegaly with mild interstitial thickening suggesting developing pulmonary edema. This is similar to the prior study. RIGHT LOWER EXTREMITY VENOUS DOPPLER HISTORY: Right leg swelling. COMPARISON STUDY: Venous Doppler 08/22/2015. FINDINGS: There is normal compressibility, flow, and augmentation within the right lower extremity deep venous system. There are enlarged right inguinal lymph nodes measuring 5.0 x 1.3 x 3.7 cm. IMPRESSION: No DVT within the right lower extremity. Right inguinal lymphadenopathy. Item Value Date Time Gram Stain Ordered 09/23/16 0430 Ulcer Leg Right Lower Pending Blood Culture Received 09/23/16 0300 Blood Pending Blood Culture Received 09/23/16 0250 Blood Pending Urine Culture Received 09/23/16 0158 Urine , Clean Catch Pending Last 24 Hours Test 09/22/16 22:35 09/23/16 01:58 09/23/16 06:33 09/23/16 10:01 White Blood Count 19.44 K/uL 21.10 K/uL Red Blood Count 3.91 M/uL 3.63 M/uL Hemoglobin 11.2 g/dL 10.2 g/dL Hematocrit 33.4 % 30.9 % Mean Corpuscular Volume 85.4 fL 85.1 fL Mean Corpuscular Hemoglobin 28.6 pg 28.1 pg Mean Corpuscular Hemoglobin Concent 33.5 g/dl 33.0 g/dl Platelet Count 308 K/uL 274 K/uL Mean Platelet Volume 8.9 fL 8.7 fL Neutrophils (%) (Auto) 89.4 % Lymphocytes (%) (Auto) 3.8 % Monocytes (%) (Auto) 6.2 % Eosinophils (%) (Auto) 0.2 % Basophils (%) (Auto) 0.1 % Neutrophils # (Auto) 17.39 K/uL Lymphocytes # (Auto) 0.74 K/uL Monocytes # (Auto) 1.21 K/uL Eosinophils # (Auto) 0.03 K/uL Basophils # (Auto) 0.02 K/uL RDW Standard Deviation 50.3 fL 50.2 fL RDW Coefficient of Variation 16.0 % 16.0 % Immature Granulocyte % (Auto) 0.3 % Immature Granulocyte # (Auto) 0.05 K/uL Nucleated RBC Absolute Count (auto) 0.06 K/uL Nucleated Red Blood Cells % 0.3 % Polychromasia 1+ Basophilic Stippling 1+ Prothrombin Time 10.9 SECONDS Prothromb Time International Ratio 1.0 Sodium Level 133 mmol/L 132 mmol/L Potassium Level 2.6 mmol/L 2.7 mmol/L Chloride Level 84 mmol/L 83 mmol/L Carbon Dioxide Level 40 mmol/L 40 mmol/L Anion Gap 10.0 mmol/L 9.0 mmol/L Blood Urea Nitrogen 20 mg/dl 23 mg/dl Creatinine 1.30 mg/dl 1.30 mg/dl Est Creatinine Clear Calc Drug Dose 132.9 ml/min 133.8 ml/min Estimated GFR () 79.7 79.7 Estimated GFR (Non- 68.7 68.7 BUN/Creatinine Ratio 15.0 17.7 Random Glucose 206 mg/dl 146 mg/dl Calcium Level 8.9 mg/dl 8.3 mg/dl Total Bilirubin 1.0 mg/dl Aspartate Amino Transf (AST/SGOT) 8 U/L Alanine Aminotransferase (ALT/SGPT) 13 U/L Alkaline Phosphatase 83 U/L Total Creatine Kinase 60 U/L 104 U/L Creatine Kinase MB < 0.5 ng/ml < 0.5 ng/ml Creatine Kinase MB Ratio Troponin I < 0.015 ng/ml < 0.015 ng/ml Pro-B-Type Natriuretic Peptide 275 pg/ml Total Protein 7.6 gm/dl Albumin 2.8 gm/dl Globulin 4.8 gm/dl Albumin/Globulin Ratio 0.6 Urine Color DK YELLOW Urine Appearance CLEAR Urine pH 6.5 Urine Specific [place] 1.013 Urine Protein NEG Urine Glucose (UA) NEG Urine Ketones NEG Urine Occult Blood NEG Urine Nitrite NEG Urine Bilirubin NEG Urine Urobilinogen POS Urine Leukocyte Esterase TRACE Urine WBC (Auto) 5-10 /hpf Urine RBC (Auto) 5-10 /hpf Urine Hyaline Casts (Auto) 10-30 /lpf Urine Epithelial Cells (Auto) >30 /lpf Urine Bacteria (Auto) NEG Urine Renal Epithelial Cells /lpf Urine Pathogenic Casts /lpf Urine Yeast (Auto) Magnesium Level 1.7 mg/dl Triglycerides Level 73 mg/dl Cholesterol Level 135 mg/dl HDL Cholesterol 34 mg/dl LDL Cholesterol, Calculated 86 mg/dl VLDL Cholesterol, Calculated 15 mg/dl Cholesterol/HDL Ratio 4.0 Assessment & Plan Morbidly obese with right lower extremity cellulitis, chronic wounds of the right lower extremity, and severe right ankle swelling and tenderness. Cultures pending. Patient is currently on IV Vancomycin and IV Ceftriaxone. Will change to IV Ceftaroline due to previous history of MRSA with Vancomycin [place] of 2 and morbid obesity. This will cover previous gram negatives as well until cultures are available. Will also check X-Ray of the right ankle to R/O effusion. We will follow. case reviewed and agree with above assessment.
[2016-09-23 10:43] LABS: MEAN CORPUSCULAR HEMOGLOBIN 28.2 pg (25-34); PLATELET COUNT 272 K/uL (130-400); RED BLOOD COUNT 3.72 M/uL (4.7-6.1)
[2016-09-23 10:51] LABS: MEAN CORPUSCULAR HGB CONC 32.8 g/dl (32-36)
[2016-09-23 10:54] LABS: INR 1.1 (0.9-1.1); PARTIAL THROMBOPLASTIN RATIO 1.3; PROTHROMBIN TIME (PATIENT) 11.3 SECONDS (9.0-12.0)
--- NOTE | 2016-09-23 12:03 | DIAGNOSTIC IMAGING REPORT ---
RIGHT ANKLE 3 VIEWS CLINICAL HISTORY: Right ankle swelling. FINDINGS: 3 views of the right ankle are obtained. No prior studies are available for comparison at the time of dictation. The skeletal structures are well mineralized. No fracture is seen. The ankle mortise is intact. A tiny plantar calcaneal enthesophyte is identified. There is no significant joint effusion. Diffuse soft tissue edema is present throughout the right lower extremity. IMPRESSION: Soft tissue edema with no acute bony abnormality seen in the right ankle. Electronically signed by: Cruz Christian M.D. 09/23/2016 12:00 PM Dictated Date/Time: 09/23/2016 11:59 AM
[2016-09-23] MEDS: CEFTAROLINE FOSAMIL INJ 600 MG in SODIUM CHLORIDE 0.9% 250ML 250 ML IV SCH (12:05)
[2016-09-23] MEDS: HEPARIN 25,000 UNIT/500ML D5W 500 ML IV PRN ×3 (12:06→22:28)
--- NOTE | 2016-09-23 12:31 | Progress Note ---
Subjective Date of Service: Sep 23, 2016. Subjective Pt evaluation today including: conversation w/ patient, physical exam, lab review, review of studies, review of inpatient medication list Saw/examined the patient in room 103 He is doing okay, somewhat short of breath, but tells me he is at baseline Complains of right ankle swelling and pain; right lower extremity with chronic skin changes/edematous Problem List Medical Problems: (1) Bilateral lower extremity edema Status: Acute (2) Bilateral lower leg cellulitis Status: Acute (3) Cellulitis Status: Acute (4) Cellulitis Status: Acute (5) Cellulitis of perineum Status: Acute (6) Cellulitis of right leg Status: Acute (7) Cellulitis of thigh Status: Acute (8) Failure of outpatient treatment Status: Acute (9) Fluid overload Status: Acute (10) Hyperglycemia Status: Acute (11) Hypokalemia Status: Acute (12) Hypoxia Status: Acute (13) Infected stasis ulcer of right lower extremity Status: Acute (14) Intertrigo Status: Acute (15) Lower extremity edema Status: Acute (16) Morbid obesity Status: Acute (17) Shortness of breath Status: Acute (18) UTI (urinary tract infection) Status: Acute Review of Systems Constitutional: + weakness, No chills, No fever Respiratory: + dyspnea at rest, + dyspnea on exertion, + shortness of breath ( baseline), + wheezing, No cough, No hemoptysis, No sputum Cardiac: + edema, No chest pain, No palpitations Abdomen: No diarrhea, No nausea, No pain, No vomiting Musculoskeletal: + calf pain, + joint pain, + muscle pain, + swelling (RLE) Male : No dysuria, No urinary frequency Heme: No abnormal bleeding/bruising Medications Current Inpatient Medications Medications (Trade) Dose Ordered Sig/Karissa Route Start Time Stop Time Status Last Admin Dose Admin Albuterol (Ventolin Hfa Inhaler) 2 puffs Q4H PRN INH 09/23/16 01:00 10/23/16 00:59 Atorvastatin Calcium (Lipitor Tab) 40 mg DAILY PO 09/23/16 09:00 10/23/16 08:59 09/23/16 09:37 40 MG Fluoxetine HCl (Prozac Cap) 20 mg QAM PO 09/23/16 09:00 10/23/16 08:59 09/23/16 09:36 20 MG Albuterol/ Ipratropium (Duoneb) 3 ml QID PRN INH 09/23/16 01:00 10/23/16 00:59 09/23/16 07:26 3 ML Lisinopril (Zestril Tab) 10 mg DAILY PO 09/23/16 09:00 10/23/16 08:59 Metolazone (Zaroxolyn Tab) 5 mg DAILY PO 09/23/16 09:00 10/23/16 08:59 Future Hold 09/23/16 09:38 5 MG Potassium Chloride (Klor-Con Tab) 40 meq QAM PO 09/23/16 09:00 10/23/16 08:59 09/23/16 09:37 40 MEQ Ropinirole HCl (Requip Tab) 0.5 mg HS PO 09/23/16 21:00 10/23/16 20:59 Sertraline HCl (Zoloft Tab) 50 mg DAILY PO 09/23/16 09:00 10/23/16 08:59 09/23/16 09:37 50 MG Tiotropium [place] (Spiriva Handihaler Inhaler) 1 puff DAILY INH 09/23/16 09:00 10/23/16 08:59 09/23/16 09:41 1 PUFF Miscellaneous Information (Order Awaiting Action) 1 ea QS N/A 09/23/16 08:00 10/23/16 07:59 Pantoprazole Sodium 40 mg 40 mg QAM PO 09/23/16 09:00 10/23/16 08:59 09/23/16 12:04 40 MG Furosemide/Syringe (Lasix Inj/ Syringe) 4 ml @ 4 mls/min Q12 IV 09/23/16 09:00 10/23/16 08:59 Future Hold 09/23/16 09:41 4 MLS/MIN Acetaminophen (Tylenol Tab) 650 mg Q4H PRN PO 09/23/16 01:15 10/23/16 01:14 09/23/16 05:39 650 MG Al Hydrox/Mg Hydrox/Simethicone (Maalox Max Susp) 15 ml Q4H PRN PO 09/23/16 01:15 10/23/16 01:14 Magnesium Hydroxide (Milk Of Magnesia Susp) 30 ml Q12H PRN PO 09/23/16 01:15 10/23/16 01:14 Zolpidem Tartrate (Ambien Tab) 5 mg HSZ PRN PO 09/23/16 01:15 10/23/16 01:14 Ondansetron HCl (Zofran Inj) 4 mg Q6H PRN IV 09/23/16 01:15 10/23/16 01:14 Nitroglycerin (Nitrostat Tab) 0.4 mg UD PRN SL 09/23/16 01:15 10/23/16 01:14 Aspirin (Ecotrin Tab) 81 mg QAM PO 09/23/16 09:00 10/23/16 08:59 09/23/16 09:36 81 MG Polyethylene (Miralax Powder Packet) 17 gm DAILY PRN PO 09/23/16 01:15 10/23/16 01:14 Morphine Sulfate (MoRPHine SULFATE INJ) 1 mg Q4 PRN IV 09/23/16 02:30 10/07/16 02:29 09/23/16 02:35 1 MG Nicotine (Nicoderm Cq 21MG Patch) 1 patch QAM EXT 09/23/16 04:15 10/23/16 04:14 09/23/16 09:36 1 PATCH Miscellaneous 1 ea 1 ea QAM N/A 09/24/16 09:00 10/24/16 08:59 Potassium Chloride/Prmx (Kcl 10 Meq / Wtr/Premixed Water) 100 ml @ 100 mls/hr Q1H IV 09/23/16 08:30 09/23/16 12:29 09/23/16 12:04 100 MLS/HR Prednisone (PredniSONE TAB) 50 mg TODAY@0100,0700,1900 PO 09/23/16 19:00 09/24/16 07:01 Diphenhydramine HCl 50 mg 50 mg TODAY@0700 ONCE PO 09/24/16 07:00 09/24/16 07:01 Ceftaroline Fosamil 600 mg/ Sodium Chloride 270 ml @ 250 mls/hr Q12H IV 09/23/16 12:00 10/03/16 11:59 09/23/16 12:05 250 MLS/HR Heparin Sodium/ Dextrose (Heparin 25,000 Unit/500ml D5W) 500 ml @ 45 mls/hr Q11H7M PRN IV 09/23/16 11:00 10/23/16 10:59 09/23/16 12:06 45 MLS/HR Objective Vital Signs Date Time Temp Pulse Resp B/P Pulse Ox O2 Delivery O2 Flow Rate FiO2 09/23/16 07:14 114 20 93 Nasal Cannula 3.0 09/23/16 04:06 115 93 3.0 09/23/16 04:00 36.9 117 16 92/62 93 Nasal Cannula 3.0 09/23/16 03:59 Nasal Cannula 3.0 09/23/16 02:52 37.0 118 18 105/52 94 Nasal Cannula 3.0 09/23/16 01:06 113 24 119/71 95 09/23/16 00:25 114 22 115/68 96 Nasal Cannula 3.0 09/22/16 23:04 3.0 09/22/16 23:04 Room Air 09/22/16 23:04 112 09/22/16 22:50 113 20 95 Nasal Cannula 3.0 09/22/16 22:16 36.7 116 22 92/55 93 Nasal Cannula 3.0 Physical Exam General Appearance: no apparent distress, + obese (morbid obesity) Respiratory/Chest: no respiratory distress, no accessory muscle use, + decreased breath sounds Cardiovascular: no murmur, + tachycardia Extremities: + swelling, + pertinent finding (chronic venous stasis dermatitis , ulcerations, lymphedematous changes; with skin tautness and redness on the RLE ; warm to touch) Neurologic/Psychiatric: no motor/sensory deficits, alert, normal mood/affect Laboratory Results Last 24 Hours Test 09/22/16 22:35 09/23/16 01:58 09/23/16 06:33 09/23/16 10:01 White Blood Count 19.44 K/uL 21.10 K/uL Red Blood Count 3.91 M/uL 3.63 M/uL Hemoglobin 11.2 g/dL 10.2 g/dL Hematocrit 33.4 % 30.9 % Mean Corpuscular Volume 85.4 fL 85.1 fL Mean Corpuscular Hemoglobin 28.6 pg 28.1 pg Mean Corpuscular Hemoglobin Concent 33.5 g/dl 33.0 g/dl Platelet Count 308 K/uL 274 K/uL Mean Platelet Volume 8.9 fL 8.7 fL Neutrophils (%) (Auto) 89.4 % Lymphocytes (%) (Auto) 3.8 % Monocytes (%) (Auto) 6.2 % Eosinophils (%) (Auto) 0.2 % Basophils (%) (Auto) 0.1 % Neutrophils # (Auto) 17.39 K/uL Lymphocytes # (Auto) 0.74 K/uL Monocytes # (Auto) 1.21 K/uL Eosinophils # (Auto) 0.03 K/uL Basophils # (Auto) 0.02 K/uL RDW Standard Deviation 50.3 fL 50.2 fL RDW Coefficient of Variation 16.0 % 16.0 % Immature Granulocyte % (Auto) 0.3 % Immature Granulocyte # (Auto) 0.05 K/uL Nucleated RBC Absolute Count (auto) 0.06 K/uL Nucleated Red Blood Cells % 0.3 % Polychromasia 1+ Basophilic Stippling 1+ Prothrombin Time 10.9 SECONDS Prothromb Time International Ratio 1.0 Sodium Level 133 mmol/L 132 mmol/L Potassium Level 2.6 mmol/L 2.7 mmol/L Chloride Level 84 mmol/L 83 mmol/L Carbon Dioxide Level 40 mmol/L 40 mmol/L Anion Gap 10.0 mmol/L 9.0 mmol/L Blood Urea Nitrogen 20 mg/dl 23 mg/dl Creatinine 1.30 mg/dl 1.30 mg/dl Est Creatinine Clear Calc Drug Dose 132.9 ml/min 133.8 ml/min Estimated GFR () 79.7 79.7 Estimated GFR (Non- 68.7 68.7 BUN/Creatinine Ratio 15.0 17.7 Random Glucose 206 mg/dl 146 mg/dl Calcium Level 8.9 mg/dl 8.3 mg/dl Total Bilirubin 1.0 mg/dl Aspartate Amino Transf (AST/SGOT) 8 U/L Alanine Aminotransferase (ALT/SGPT) 13 U/L Alkaline Phosphatase 83 U/L Total Creatine Kinase 60 U/L 104 U/L Creatine Kinase MB < 0.5 ng/ml < 0.5 ng/ml Creatine Kinase MB Ratio Troponin I < 0.015 ng/ml < 0.015 ng/ml Pro-B-Type Natriuretic Peptide 275 pg/ml Total Protein 7.6 gm/dl Albumin 2.8 gm/dl Globulin 4.8 gm/dl Albumin/Globulin Ratio 0.6 Urine Color DK YELLOW Urine Appearance CLEAR Urine pH 6.5 Urine Specific [place] 1.013 Urine Protein NEG Urine Glucose (UA) NEG Urine Ketones NEG Urine Occult Blood NEG Urine Nitrite NEG Urine Bilirubin NEG Urine Urobilinogen POS Urine Leukocyte Esterase TRACE Urine WBC (Auto) 5-10 /hpf Urine RBC (Auto) 5-10 /hpf Urine Hyaline Casts (Auto) 10-30 /lpf Urine Epithelial Cells (Auto) >30 /lpf Urine Bacteria (Auto) NEG Urine Renal Epithelial Cells /lpf Urine Pathogenic Casts /lpf Urine Yeast (Auto) Magnesium Level 1.7 mg/dl Triglycerides Level 73 mg/dl Cholesterol Level 135 mg/dl HDL Cholesterol 34 mg/dl LDL Cholesterol, Calculated 86 mg/dl VLDL Cholesterol, Calculated 15 mg/dl Cholesterol/HDL Ratio 4.0 Assessment and Plan This is a 40 year old male with severe morbid obesity, obesity hypoventilation and ESTEFANI refusing CPAP, severe COPD and chronic respiratory failure on 3L O2 at home, severe lymphedema of b/l LE, hx. of PE on anticoagulation, and multiple other issues presents with worsening swelling of right lower extremity Right Lower Extremity Cellulitis in the setting of Chronic Lymphedema RLE U/S = no DVT noted Right Ankle Radiograph = soft tissue edema around right ankle morbid obesity; chronic lymphedema and numerous ulcerations has a hx. of MRSA presented with leukocytosis and tachycardia appreciate ID input - Vanco and Rocephin switched to Teflaro Hx. of PE in the setting of Tachycardia and Shortness of Breath d/c'd Eliquis due to patient's weight IV Heparin --> Coumadin bridge CT chest to r/o PE pretreat with prednisone and Benadryl Severe COPD and Chronic Respiratory Failure chronic 2-3L O2 continue home inhalers no acute exacerbation Likely Right Heart Failure due to Morbid Obesity will hold diuretics for now likely intravascularly depleted Obesity-Hypoventilation refusing nocturnal CPAP DVT ppx IV heparin FULL CODE
[2016-09-23 15:01] LABS: CALCIUM 8.8 mg/dl (8.5-10.1)
[2016-09-23 15:17] LABS: CKMB/CK RATIO 0.9 (0-3.0)
[2016-09-23 18:41] LABS: PARTIAL THROMBOPLASTIN RATIO 1.5
[2016-09-23] MEDS: ROPINIROLE HCL 0.25 MG TAB PO SCH (19:42)
[2016-09-23] MEDS ORDERED: HEPARIN IV BOLUS 10,000 UNIT in SYRINGE 0 ML IV ONE (19:45)
[2016-09-23] MEDS ORDERED: CEFTRIAXONE SOD INJ 1 GM in DEXTROSE 5% ADD-VANTAGE 50ML 50 ML IV SCH (22:00)
[2016-09-24] VITALS (11 sets, daily range): BP systolic 105–135; BP diastolic 57–76; PULSE 101–109; TEMP 36.6–37.1; O2SAT 92–94
[2016-09-24] MEDS: CEFTAROLINE FOSAMIL INJ 600 MG in SODIUM CHLORIDE 0.9% 250ML 250 ML IV SCH ×3 (00:35→23:35)
[2016-09-24] MEDS ORDERED: OPTIRAY 320 IV PRN (01:15)
[2016-09-24 02:39] LABS: PARTIAL THROMBOPLASTIN RATIO 1.7
[2016-09-24] MEDS ORDERED: HEPARIN IV BOLUS 5,000 UNIT in SYRINGE 0 ML IV ONE (04:15)
[2016-09-24] MEDS: HEPARIN 25,000 UNIT/500ML D5W 500 ML IV PRN ×4 (04:21→23:29)
[2016-09-24] MEDS: TIOTROPIUM BROMIDE 5 PUFF/90 MCG INH INH SCH (08:00)
[2016-09-24] MEDS: NICOTINE 21 MG/24 HR TDSY EXT SCH (08:00)
[2016-09-24] MEDS: ASPIRIN 81 MG ECTAB PO SCH (08:04)
[2016-09-24] MEDS: ATORVASTATIN 40 MG TAB PO SCH (08:04)
[2016-09-24] MEDS: SERTRALINE HCL 50 MG TAB PO SCH (08:04)
[2016-09-24] MEDS: POTASSIUM CHLORIDE 20 MEQ TABCR PO SCH (08:04)
[2016-09-24 08:05] LABS: HEMATOCRIT 33.2 % (42-52); MEAN CELL VOLUME 86.2 fL (80-100); MEAN CORPUSCULAR HEMOGLOBIN 29.1 pg (25-34); MEAN CORPUSCULAR HGB CONC 33.7 g/dl (32-36); PLATELET COUNT 321 K/uL (130-400); RED BLOOD COUNT 3.85 M/uL (4.7-6.1); WHITE BLOOD COUNT 19.22 K/uL (4.8-10.8)
[2016-09-24] MEDS: FLUOXETINE HCL 20 MG CAP PO SCH (08:05)
[2016-09-24] MEDS: LISINOPRIL 10 MG TAB PO SCH (08:05)
[2016-09-24] MEDS: PANTOprazole SOD 40 MG TAB PO SCH (08:06)
[2016-09-24 08:29] LABS: PARTIAL THROMBOPLASTIN RATIO 1.8
--- NOTE | 2016-09-24 09:26 | DIAGNOSTIC IMAGING REPORT ---
CHEST CTA for PULMONARY ARTERIES CT DOSE: 837.49 mGy.cm HISTORY: Short of breath. TECHNIQUE: Multiaxial CT images of the chest were performed following the intravenous administration of contrast to evaluate the pulmonary arteries. Maximal intensity projection images were also obtained. COMPARISON STUDY: Chest CT 05/17/2007. FINDINGS: Stable mild anterior wedging within the lower thoracic spine vertebral bodies consistent with old compression deformities. Normal caliber thoracic aorta with no evidence for dissection. The heart is normal in size. No pleural or pericardial effusions. Suboptimal opacification of the subsegmental pulmonary arteries primarily due to artifact from the patient's large body habitus which results in near nondiagnostic evaluation. Otherwise, the remaining pulmonary arteries show no filling defects to suggest pulmonary embolus. Hepatomegaly demonstrating mild fatty change. No hilar lymphadenopathy. No change in the dominant 2.0 x 1.5 cm AP window lymph node. No significant hilar lymphadenopathy. Left axillary lymphadenopathy has decreased in size from the 2009 PET/CT. Dominant left axillary lymph node measures 1.8 cm. Left chest wall subcutaneous venous collaterals persist. Bilateral gynecomastia. The heart remains normal in size. No pneumothorax. The central airways are patent. Punctate calcified granuloma within the left upper lobe. Mild interlobular septal thickening. Bilateral lower lobe densities suggest atelectasis. Stable 9 mm subpleural right upper lobe pulmonary nodule on image 70. Stable 4 mm right lower lobe pulmonary nodule on image 66. Stable 5 mm nodule within the right lung and image 83. Given the long-term stability, these are considered to be benign. No new pulmonary nodules identified. IMPRESSION: 1. No evidence for pulmonary embolus with limitations as described above. 2. Mild interlobular septal thickening consistent with mild congestive change. 3. Decrease in size in left axillary lymphadenopathy. Stable single enlarged AP window lymph node. 4. Left chest wall subcutaneous venous collaterals persists. 5. Stable right lung subcentimeter pulmonary nodules. Therefore, these are considered to be benign. Electronically signed by: Rich Chen M.D. 09/24/2016 9:24 AM Dictated Date/Time: 09/24/2016 9:11 AM
[2016-09-24 09:50] LABS: BUN/CREATININE RATIO 18.1 (10-20); CALCIUM 9.8 mg/dl (8.5-10.1); CREATININE 0.95 mg/dl (0.60-1.40); MAGNESIUM 2.6 mg/dl (1.8-2.4)
[2016-09-24 10:49] LABS: PARTIAL THROMBOPLASTIN RATIO 1.5
--- NOTE | 2016-09-24 12:07 | Infectious Disease Progress Nt ---
Progress Note Date of Service Sep 24, 2016. Subjective Pt evaluation today including: conversation w/ patient, conversation w/ family (), physical exam, chart review, lab review, review of studies, review of inpatient medication list WBC count 19.22 this morning, but he is also on Prednisone. He feels that his right leg has improved. His pain is much less today. He is able to move his foot without worsening pain. Blood cultures showing no growth to date. Urine culture is pending. CTA of the chest showed no evidence of PE, mild interlobular septal thickening consistent with congestive change, and no other acute changes. All Other Systems: Reviewed and Negative Medications Current Inpatient Medications Medications (Trade) Dose Ordered Sig/Karissa Route Start Time Stop Time Status Last Admin Dose Admin Albuterol (Ventolin Hfa Inhaler) 2 puffs Q4H PRN INH 09/23/16 01:00 10/23/16 00:59 Atorvastatin Calcium (Lipitor Tab) 40 mg DAILY PO 09/23/16 09:00 10/23/16 08:59 09/24/16 08:04 40 MG Fluoxetine HCl (Prozac Cap) 20 mg QAM PO 09/23/16 09:00 10/23/16 08:59 09/24/16 08:05 20 MG Albuterol/ Ipratropium (Duoneb) 3 ml QID PRN INH 09/23/16 01:00 10/23/16 00:59 09/23/16 23:08 3 ML Lisinopril (Zestril Tab) 10 mg DAILY PO 09/23/16 09:00 10/23/16 08:59 09/24/16 08:05 10 MG Metolazone (Zaroxolyn Tab) 5 mg DAILY PO 09/23/16 09:00 10/23/16 08:59 Future Hold 09/23/16 09:38 5 MG Potassium Chloride (Klor-Con Tab) 40 meq QAM PO 09/23/16 09:00 10/23/16 08:59 09/24/16 08:04 40 MEQ Ropinirole HCl (Requip Tab) 0.5 mg HS PO 09/23/16 21:00 10/23/16 20:59 09/23/16 19:42 0.5 MG Sertraline HCl (Zoloft Tab) 50 mg DAILY PO 09/23/16 09:00 10/23/16 08:59 09/24/16 08:04 50 MG Tiotropium [place] (Spiriva Handihaler Inhaler) 1 puff DAILY INH 09/23/16 09:00 10/23/16 08:59 09/24/16 08:00 1 PUFF Miscellaneous Information (Order Awaiting Action) 1 ea QS N/A 09/23/16 08:00 10/23/16 07:59 Pantoprazole Sodium 40 mg 40 mg QAM PO 09/23/16 09:00 10/23/16 08:59 09/24/16 08:06 40 MG Furosemide/Syringe (Lasix Inj/ Syringe) 4 ml @ 4 mls/min Q12 IV 09/23/16 09:00 10/23/16 08:59 Future Hold 09/23/16 09:41 4 MLS/MIN Acetaminophen (Tylenol Tab) 650 mg Q4H PRN PO 09/23/16 01:15 10/23/16 01:14 09/23/16 19:41 650 MG Al Hydrox/Mg Hydrox/Simethicone (Maalox Max Susp) 15 ml Q4H PRN PO 09/23/16 01:15 10/23/16 01:14 Magnesium Hydroxide (Milk Of Magnesia Susp) 30 ml Q12H PRN PO 09/23/16 01:15 10/23/16 01:14 Zolpidem Tartrate (Ambien Tab) 5 mg HSZ PRN PO 09/23/16 01:15 10/23/16 01:14 Ondansetron HCl (Zofran Inj) 4 mg Q6H PRN IV 09/23/16 01:15 10/23/16 01:14 Nitroglycerin (Nitrostat Tab) 0.4 mg UD PRN SL 09/23/16 01:15 10/23/16 01:14 Aspirin (Ecotrin Tab) 81 mg QAM PO 09/23/16 09:00 10/23/16 08:59 09/24/16 08:04 81 MG Polyethylene (Miralax Powder Packet) 17 gm DAILY PRN PO 09/23/16 01:15 10/23/16 01:14 Morphine Sulfate (MoRPHine SULFATE INJ) 1 mg Q4 PRN IV 09/23/16 02:30 10/07/16 02:29 09/23/16 19:41 1 MG Nicotine (Nicoderm Cq 21MG Patch) 1 patch QAM EXT 09/23/16 04:15 10/23/16 04:14 09/24/16 08:00 1 PATCH Miscellaneous 1 ea 1 ea QAM N/A 09/24/16 09:00 10/24/16 08:59 09/24/16 08:02 1 EA Ceftaroline Fosamil 600 mg/ Sodium Chloride 270 ml @ 250 mls/hr Q12H IV 09/23/16 12:00 10/03/16 11:59 09/24/16 00:35 250 MLS/HR Heparin Sodium/ Dextrose (Heparin 25,000 Unit/500ml D5W) 500 ml @ 70 mls/hr Q7H9M PRN IV 09/23/16 11:00 10/23/16 10:59 09/24/16 04:21 60 MLS/HR Ioversol 125 ml 125 ml UD PRN IV 09/24/16 01:15 09/28/16 01:14 Heparin Sodium (Porcine)/Syringe (Heparin Iv Bolus/Syringe) 10 ml @ 10 mls/min NOW ONCE IV 09/24/16 12:15 09/24/16 12:16 Objective Vital Signs Date Time Temp Pulse Resp B/P Pulse Ox O2 Delivery O2 Flow Rate FiO2 09/24/16 11:21 36.8 104 22 133/57 92 Nasal Cannula 2.0 09/24/16 08:00 92 Nasal Cannula 3.0 09/24/16 07:40 36.7 105 20 135/71 92 Nasal Cannula 3.0 09/24/16 04:00 37.1 104 20 105/61 93 3.0 09/24/16 04:00 Nasal Cannula 3.0 09/24/16 00:00 Nasal Cannula 3.0 09/24/16 00:00 37.1 101 20 135/64 92 3.0 09/23/16 23:08 112 20 92 Nasal Cannula 3.0 09/23/16 21:33 37.1 115 18 93 3.0 09/23/16 20:53 37.1 112 18 118/58 91 Nasal Cannula 3.0 09/23/16 20:00 Nasal Cannula 3.0 09/23/16 20:00 37.1 119 15 131/71 93 Nasal Cannula 3.0 09/23/16 19:26 113 14 119/62 91 Nasal Cannula 3.0 09/23/16 16:40 115 20 92 Nasal Cannula 3.0 09/23/16 16:00 37.0 117 22 122/53 94 Nasal Cannula 3.0 09/23/16 16:00 Nasal Cannula 3.0 09/23/16 12:13 37.1 110 20 96/62 92 Nasal Cannula 3.0 Physical Exam General Appearance: no apparent distress, + obese Eyes: normal inspection, sclerae normal ENT: hearing grossly normal Neck: supple, trachea midline Respiratory/Chest: chest non-tender, no respiratory distress, no accessory muscle use, + wheezing (mild wheezing throughout right lung, very mild wheezing of left lower lobe) Cardiovascular: + tachycardia Abdomen: normal bowel sounds, + distended Extremities: + swelling (moderate edema of b/l LE, improvement of edema of right ankle. Very mild tenderness today) Neurologic/Psychiatric: alert, normal mood/affect Skin: warm/dry, no rash, + pertinent finding (very mild erythema of RLE, improved. ) Laboratory Results CHEST CTA for PULMONARY ARTERIES CT DOSE: 837.49 mGy.cm HISTORY: Short of breath. TECHNIQUE: Multiaxial CT images of the chest were performed following the intravenous administration of contrast to evaluate the pulmonary arteries. Maximal intensity projection images were also obtained. COMPARISON STUDY: Chest CT 05/17/2007. FINDINGS: Stable mild anterior wedging within the lower thoracic spine vertebral bodies consistent with old compression deformities. Normal caliber thoracic aorta with no evidence for dissection. The heart is normal in size. No pleural or pericardial effusions. Suboptimal opacification of the subsegmental pulmonary arteries primarily due to artifact from the patient's large body habitus which results in near nondiagnostic evaluation. Otherwise, the remaining pulmonary arteries show no filling defects to suggest pulmonary embolus. Hepatomegaly demonstrating mild fatty change. No hilar lymphadenopathy. No change in the dominant 2.0 x 1.5 cm AP window lymph node. No significant hilar lymphadenopathy. Left axillary lymphadenopathy has decreased in size from the 2009 PET/CT. Dominant left axillary lymph node measures 1.8 cm. Left chest wall subcutaneous venous collaterals persist. Bilateral gynecomastia. The heart remains normal in size. No pneumothorax. The central airways are patent. Punctate calcified granuloma within the left upper lobe. Mild interlobular septal thickening. Bilateral lower lobe densities suggest atelectasis. Stable 9 mm subpleural right upper lobe pulmonary nodule on image 70. Stable 4 mm right lower lobe pulmonary nodule on image 66. Stable 5 mm nodule within the right lung and image 83. Given the long-term stability, these are considered to be benign. No new pulmonary nodules identified. IMPRESSION: 1. No evidence for pulmonary embolus with limitations as described above. 2. Mild interlobular septal thickening consistent with mild congestive change. 3. Decrease in size in left axillary lymphadenopathy. Stable single enlarged AP window lymph node. 4. Left chest wall subcutaneous venous collaterals persists. 5. Stable right lung subcentimeter pulmonary nodules. Therefore, these are considered to be benign. Item Value Date Time Blood Culture - Preliminary Resulted 09/23/16 0300 Blood NO GROWTH TO DATE. Blood Culture - Preliminary Resulted 09/23/16 0250 Blood NO GROWTH TO DATE. Urine Culture Received 09/23/16 0158 Urine , Clean Catch Pending Last 24 Hours Test 09/23/16 14:46 09/23/16 18:20 09/24/16 02:20 09/24/16 07:51 Total Creatine Kinase 175 U/L Creatine Kinase MB 1.6 ng/ml Creatine Kinase MB Ratio 0.9 Troponin I 0.075 ng/ml Activated Partial Thromboplast Time 37.8 SECONDS 44.8 SECONDS 47.8 SECONDS Partial Thromboplastin Ratio 1.5 1.7 1.8 White Blood Count 19.22 K/uL Red Blood Count 3.85 M/uL Hemoglobin 11.2 g/dL Hematocrit 33.2 % Mean Corpuscular Volume 86.2 fL Mean Corpuscular Hemoglobin 29.1 pg Mean Corpuscular Hemoglobin Concent 33.7 g/dl RDW Standard Deviation 49.0 fL RDW Coefficient of Variation 15.4 % Platelet Count 321 K/uL Mean Platelet Volume 9.0 fL Sodium Level 129 mmol/L Potassium Level 3.0 mmol/L Chloride Level 82 mmol/L Carbon Dioxide Level 42 mmol/L Anion Gap 5.0 mmol/L Blood Urea Nitrogen 17 mg/dl Creatinine 0.95 mg/dl Est Creatinine Clear Calc Drug Dose 182.1 ml/min Estimated GFR () 116.4 Estimated GFR (Non- 100.4 BUN/Creatinine Ratio 18.1 Random Glucose 228 mg/dl Calcium Level 9.8 mg/dl Magnesium Level 2.6 mg/dl Test 09/24/16 10:26 Activated Partial Thromboplast Time 37.9 SECONDS Partial Thromboplastin Ratio 1.5 Assessment and Plan Morbidly obese male with CHF, severe COPD, and right lower extremity cellulitis , chronic wounds of the right lower extremity, and severe right ankle swelling and tenderness- now improving. Blood cultures showing no growth to date. Patient is currently on IV Ceftaroline. Will continue current therapy pending further improvement. Case reviewed and agree with above assessment.
[2016-09-24] MEDS ORDERED: HEPARIN IV BOLUS 10,000 UNIT in SYRINGE 0 ML IV ONE (12:15)
--- NOTE | 2016-09-24 13:06 | ECHOCARDIOGRAM REPORT ---
*NOTICE TO RECEIVING CON[employer]UTION [employer]Y AGENCY This information is strictly Confidential and protected under [place] law. [place] law prohibits you from making any further disclosure of this information unless further disclosure is expressly permitted by the written consent of the person to whom it pertains or is authorized by law. A general authorization for the release of medical or other information is not sufficient for this purpose. Hospital accepts no responsibility if the information is made available to any other person, INCLUDING THE PATIENT. Interpretation Summary * Name: PRUDENCIO GUERRA Study Date: 09/24/2016 09:43 AM BP: 135/71 mmHg * Patient Location: [facility]\S\N279\S\1 HR: 105 * : 1975 (M/d/yyyy) Gender: Male Height: 71 in * Age: 40 yrs Ethnicity: [place] Weight: 429 lb * Ordering Physician: Amy Melendrez * Performed By: Senia Cuadra RDCS * * Reason For Study: CHF * BSA: 2.9 m2 * -- Conclusions -- * The study was technically difficult. * Limited views were obtained. * The left ventricle is not well visualized. * The left ventricular ejection fraction is grossly normal. * The aortic valve is not well visualized. * Aortic stenosis is absent. * The mitral valve is grossly normal. * Significant mitral regurgitation is absent. * There is no mitral valve stenosis. * There is no pericardial effusion. * The inferior vena cava is moderately dilated. Procedure Details * A complete two-dimensional transthoracic echocardiogram was performed (2D, M-mode, Doppler and color flow Doppler). * The study was technically limited. * The study was technically difficult. * Limited views were obtained. * There were technical limitations due to patient'sbody habitus Left Ventricle * The left ventricle is not well visualized. * The left ventricular ejection fraction is grossly normal. Mitral Valve * The mitral valve is grossly normal. * There is no mitral valve stenosis. * Significant mitral regurgitation is absent. Aortic Valve * The aortic valve is not well visualized. * Aortic stenosis is absent. Pericardium/Pleural * There is no pericardial effusion. Great Vessels * The inferior vena cava is moderately dilated. * Dilated inferior vena cava with reduced collapsability with sniff indicates an elevated right atrial pressure of 15 mmHg
[2016-09-24] MEDS: ACETAMINOPHEN 325 MG TAB PO PRN (13:08)
[2016-09-24 18:34] LABS: PARTIAL THROMBOPLASTIN RATIO 1.6
--- NOTE | 2016-09-24 18:53 | Progress Note ---
Subjective Date of Service: Sep 24, 2016. Subjective Pt evaluation today including: conversation w/ patient, conversation w/ family , physical exam, lab review, review of studies, review of inpatient medication list Saw/examined the patient in room 279 He's doing well, seated in a chair, no chest pain or shortness of breath his leg feels better - denies any other symptoms Problem List Medical Problems: (1) Bilateral lower extremity edema Status: Acute (2) Bilateral lower leg cellulitis Status: Acute (3) Cellulitis Status: Acute (4) Cellulitis Status: Acute (5) Cellulitis of perineum Status: Acute (6) Cellulitis of right leg Status: Acute (7) Cellulitis of thigh Status: Acute (8) Failure of outpatient treatment Status: Acute (9) Fluid overload Status: Acute (10) Hyperglycemia Status: Acute (11) Hypokalemia Status: Acute (12) Hypoxia Status: Acute (13) Infected stasis ulcer of right lower extremity Status: Acute (14) Intertrigo Status: Acute (15) Lower extremity edema Status: Acute (16) Morbid obesity Status: Acute (17) Shortness of breath Status: Acute (18) UTI (urinary tract infection) Status: Acute Review of Systems Respiratory: + shortness of breath (chronic), No cough, No dyspnea on exertion , No sputum, No wheezing Cardiac: No chest pain Musculoskeletal: + muscle pain (left lower extremity, improving) Medications Current Inpatient Medications Medications (Trade) Dose Ordered Sig/Karissa Route Start Time Stop Time Status Last Admin Dose Admin Albuterol (Ventolin Hfa Inhaler) 2 puffs Q4H PRN INH 09/23/16 01:00 10/23/16 00:59 Atorvastatin Calcium (Lipitor Tab) 40 mg DAILY PO 09/23/16 09:00 10/23/16 08:59 09/24/16 08:04 40 MG Fluoxetine HCl (Prozac Cap) 20 mg QAM PO 09/23/16 09:00 10/23/16 08:59 09/24/16 08:05 20 MG Albuterol/ Ipratropium (Duoneb) 3 ml QID PRN INH 09/23/16 01:00 10/23/16 00:59 09/23/16 23:08 3 ML Lisinopril (Zestril Tab) 10 mg DAILY PO 09/23/16 09:00 10/23/16 08:59 09/24/16 08:05 10 MG Metolazone (Zaroxolyn Tab) 5 mg DAILY PO 09/23/16 09:00 10/23/16 08:59 Future Hold 09/23/16 09:38 5 MG Potassium Chloride (Klor-Con Tab) 40 meq QAM PO 09/23/16 09:00 10/23/16 08:59 09/24/16 08:04 40 MEQ Ropinirole HCl (Requip Tab) 0.5 mg HS PO 09/23/16 21:00 10/23/16 20:59 09/23/16 19:42 0.5 MG Sertraline HCl (Zoloft Tab) 50 mg DAILY PO 09/23/16 09:00 10/23/16 08:59 09/24/16 08:04 50 MG Tiotropium [place] (Spiriva Handihaler Inhaler) 1 puff DAILY INH 09/23/16 09:00 10/23/16 08:59 09/24/16 08:00 1 PUFF Miscellaneous Information (Order Awaiting Action) 1 ea QS N/A 09/23/16 08:00 10/23/16 07:59 Pantoprazole Sodium 40 mg 40 mg QAM PO 09/23/16 09:00 10/23/16 08:59 09/24/16 08:06 40 MG Furosemide/Syringe (Lasix Inj/ Syringe) 4 ml @ 4 mls/min Q12 IV 09/23/16 09:00 10/23/16 08:59 Future Hold 09/23/16 09:41 4 MLS/MIN Acetaminophen (Tylenol Tab) 650 mg Q4H PRN PO 09/23/16 01:15 10/23/16 01:14 09/24/16 13:08 650 MG Al Hydrox/Mg Hydrox/Simethicone (Maalox Max Susp) 15 ml Q4H PRN PO 09/23/16 01:15 10/23/16 01:14 Magnesium Hydroxide (Milk Of Magnesia Susp) 30 ml Q12H PRN PO 09/23/16 01:15 10/23/16 01:14 Zolpidem Tartrate (Ambien Tab) 5 mg HSZ PRN PO 09/23/16 01:15 5/12/17 01:14 Ondansetron HCl (Zofran Inj) 4 mg Q6H PRN IV 09/23/16 01:15 10/23/16 01:14 Nitroglycerin (Nitrostat Tab) 0.4 mg UD PRN SL 09/23/16 01:15 10/23/16 01:14 Aspirin (Ecotrin Tab) 81 mg QAM PO 09/23/16 09:00 10/23/16 08:59 09/24/16 08:04 81 MG Polyethylene (Miralax Powder Packet) 17 gm DAILY PRN PO 09/23/16 01:15 10/23/16 01:14 Morphine Sulfate (MoRPHine SULFATE INJ) 1 mg Q4 PRN IV 09/23/16 02:30 10/07/16 02:29 09/23/16 19:41 1 MG Nicotine (Nicoderm Cq 21MG Patch) 1 patch QAM EXT 09/23/16 04:15 10/23/16 04:14 09/24/16 08:00 1 PATCH Miscellaneous 1 ea 1 ea QAM N/A 09/24/16 09:00 10/24/16 08:59 09/24/16 08:02 1 EA Ceftaroline Fosamil 600 mg/ Sodium Chloride 270 ml @ 250 mls/hr Q12H IV 09/23/16 12:00 10/03/16 11:59 09/24/16 13:01 250 MLS/HR Heparin Sodium/ Dextrose (Heparin 25,000 Unit/500ml D5W) 500 ml @ 70 mls/hr Q7H9M PRN IV 09/23/16 11:00 10/23/16 10:59 09/24/16 16:15 70 MLS/HR Ioversol (Optiray 320) 125 ml UD PRN IV 09/24/16 01:15 09/28/16 01:14 Objective Vital Signs Date Time Temp Pulse Resp B/P Pulse Ox O2 Delivery O2 Flow Rate FiO2 09/24/16 16:03 37.0 109 22 123/70 92 Nasal Cannula 3.0 09/24/16 16:00 92 Nasal Cannula 3.0 09/24/16 12:00 92 Nasal Cannula 3.0 09/24/16 11:21 36.8 104 22 133/57 92 Nasal Cannula 2.0 09/24/16 08:00 92 Nasal Cannula 3.0 09/24/16 07:40 36.7 105 20 135/71 92 Nasal Cannula 3.0 09/24/16 04:00 37.1 104 20 105/61 93 3.0 09/24/16 04:00 Nasal Cannula 3.0 09/24/16 00:00 Nasal Cannula 3.0 09/24/16 00:00 37.1 101 20 135/64 92 3.0 09/23/16 23:08 112 20 92 Nasal Cannula 3.0 09/23/16 21:33 37.1 115 18 93 3.0 09/23/16 20:53 37.1 112 18 118/58 91 Nasal Cannula 3.0 09/23/16 20:00 Nasal Cannula 3.0 09/23/16 20:00 37.1 119 15 131/71 93 Nasal Cannula 3.0 09/23/16 19:26 113 14 119/62 91 Nasal Cannula 3.0 Physical Exam General Appearance: no apparent distress, + obese (morbid obesity) Respiratory/Chest: no respiratory distress, no accessory muscle use, + decreased breath sounds Cardiovascular: regular rate, rhythm, no edema, no murmur Extremities: + swelling (LE edema b/l, chronic lymphedematous changes, LLE erythema improving) Laboratory Results Last 24 Hours Test 09/24/16 02:20 09/24/16 07:51 09/24/16 10:26 09/24/16 18:12 Activated Partial Thromboplast Time 44.8 SECONDS 47.8 SECONDS 37.9 SECONDS 41.5 SECONDS Partial Thromboplastin Ratio 1.7 1.8 1.5 1.6 White Blood Count 19.22 K/uL Red Blood Count 3.85 M/uL Hemoglobin 11.2 g/dL Hematocrit 33.2 % Mean Corpuscular Volume 86.2 fL Mean Corpuscular Hemoglobin 29.1 pg Mean Corpuscular Hemoglobin Concent 33.7 g/dl RDW Standard Deviation 49.0 fL RDW Coefficient of Variation 15.4 % Platelet Count 321 K/uL Mean Platelet Volume 9.0 fL Sodium Level 129 mmol/L Potassium Level 3.0 mmol/L Chloride Level 82 mmol/L Carbon Dioxide Level 42 mmol/L Anion Gap 5.0 mmol/L Blood Urea Nitrogen 17 mg/dl Creatinine 0.95 mg/dl Est Creatinine Clear Calc Drug Dose 182.1 ml/min Estimated GFR () 116.4 Estimated GFR (Non- 100.4 BUN/Creatinine Ratio 18.1 Random Glucose 228 mg/dl Calcium Level 9.8 mg/dl Magnesium Level 2.6 mg/dl Assessment and Plan This is a 40 year old male with severe morbid obesity, obesity hypoventilation and ESTEFANI refusing CPAP, severe COPD and chronic respiratory failure on 3L O2 at home, severe lymphedema of b/l LE, hx. of PE on anticoagulation, and multiple other issues presents with worsening swelling of right lower extremity Right Lower Extremity Cellulitis in the setting of Chronic Lymphedema 09/24 appreciate ID input switched abx. to Teflaro cultures pending 09/23 RLE U/S = no DVT noted Right Ankle Radiograph = soft tissue edema around right ankle morbid obesity; chronic lymphedema and numerous ulcerations has a hx. of MRSA presented with leukocytosis and tachycardia appreciate ID input - Vanco and Rocephin switched to Teflaro Hx. of PE in the setting of Tachycardia and Shortness of Breath 09/24 CTA negative for PE switch Eliquis to Coumadin IV heparin --> Coumadin bridge 09/23 d/c'd Eliquis due to patient's weight IV Heparin --> Coumadin bridge CT chest to r/o PE pretreat with prednisone and Benadryl Severe COPD and Chronic Respiratory Failure chronic 2-3L O2 continue home inhalers no acute exacerbation Likely Right Heart Failure due to Morbid Obesity will hold diuretics for now likely intravascularly depleted Obesity-Hypoventilation refusing nocturnal CPAP DVT ppx IV heparin FULL CODE
[2016-09-24] MEDS ORDERED: HEPARIN IV BOLUS 5,000 UNIT in SYRINGE 0 ML IV SCH (19:00)
[2016-09-24] MEDS: ROPINIROLE HCL 0.25 MG TAB PO SCH (20:42)
[2016-09-25] VITALS (8 sets, daily range): BP systolic 119–136; BP diastolic 68–77; PULSE 92–103; TEMP 36.4–37; O2SAT 93–96
[2016-09-25] MEDS: HEPARIN 25,000 UNIT/500ML D5W 500 ML IV PRN ×4 (06:23→20:00)
[2016-09-25 06:57] LABS: MEAN CORPUSCULAR HGB CONC 32.5 g/dl (32-36); PLATELET COUNT 349 K/uL (130-400); RED BLOOD COUNT 3.72 M/uL (4.7-6.1); WHITE BLOOD COUNT 12.95 K/uL (4.8-10.8)
[2016-09-25 07:20] LABS: PARTIAL THROMBOPLASTIN RATIO 1.6
[2016-09-25 08:00] LABS: BUN/CREATININE RATIO 19.3 (10-20); CALCIUM 9.2 mg/dl (8.5-10.1); CREATININE 0.83 mg/dl (0.60-1.40); MAGNESIUM 2.6 mg/dl (1.8-2.4); POTASSIUM 2.8 mmol/L (3.5-5.1)
[2016-09-25] MEDS ORDERED: HEPARIN IV BOLUS 5,000 UNIT in SYRINGE 0 ML IV ONE (08:00)
[2016-09-25] MEDS: NICOTINE 21 MG/24 HR TDSY EXT SCH (08:24)
[2016-09-25] MEDS: TIOTROPIUM BROMIDE 5 PUFF/90 MCG INH INH SCH (08:28)
[2016-09-25] MEDS: POTASSIUM CHLORIDE 20 MEQ TABCR PO SCH (08:29)
[2016-09-25] MEDS: ATORVASTATIN 40 MG TAB PO SCH (08:30)
[2016-09-25] MEDS: ASPIRIN 81 MG ECTAB PO SCH (08:30)
[2016-09-25] MEDS: SERTRALINE HCL 50 MG TAB PO SCH (08:31)
[2016-09-25] MEDS: PANTOprazole SOD 40 MG TAB PO SCH (08:32)
[2016-09-25] MEDS: LISINOPRIL 10 MG TAB PO SCH (08:32)
[2016-09-25] MEDS: FLUOXETINE HCL 20 MG CAP PO SCH (08:33)
[2016-09-25] MEDS ORDERED: POTASSIUM CHLORIDE 20 MEQ TABCR PO ONE (09:00)
[2016-09-25] MEDS: ALBUT/IPRATROP 3MG/0.5MG NEB 3 ML VIAL INH PRN ×2 (11:20→22:00)
--- NOTE | 2016-09-25 12:05 | Infectious Disease Progress Nt ---
Progress Note Date of Service Sep 25, 2016. Subjective Pt evaluation today including: conversation w/ patient, physical exam, chart review, lab review, review of studies, conversation w/ lending consultant, review of inpatient medication list Patient is feeling improved today. He states that he continues to have mild pain in the right lower extremity but it is much improved. Moving his foot does not cause increased pain. He continues to have some SOB on and off. He denies N/ V/D. He is tolerating his abx well. WBC count trending down to 12.95 today. Patient did also have an echocardiogram completed which showed limited views due to patient's body habitus, but showed moderately dilated IVC but was otherwise grossly normal. All Other Systems: Reviewed and Negative Medications Current Inpatient Medications Medications (Trade) Dose Ordered Sig/Karissa Route Start Time Stop Time Status Last Admin Dose Admin Albuterol (Ventolin Hfa Inhaler) 2 puffs Q4H PRN INH 09/23/16 01:00 10/23/16 00:59 Atorvastatin Calcium (Lipitor Tab) 40 mg DAILY PO 09/23/16 09:00 10/23/16 08:59 09/25/16 08:30 40 MG Fluoxetine HCl (Prozac Cap) 20 mg QAM PO 09/23/16 09:00 10/23/16 08:59 09/25/16 08:33 20 MG Albuterol/ Ipratropium (Duoneb) 3 ml QID PRN INH 09/23/16 01:00 10/23/16 00:59 09/25/16 11:20 3 ML Lisinopril (Zestril Tab) 10 mg DAILY PO 09/23/16 09:00 10/23/16 08:59 09/25/16 08:32 10 MG Metolazone (Zaroxolyn Tab) 5 mg DAILY PO 09/23/16 09:00 10/23/16 08:59 Future Hold 09/23/16 09:38 5 MG Potassium Chloride (Klor-Con Tab) 40 meq QAM PO 09/23/16 09:00 10/23/16 08:59 09/25/16 08:29 40 MEQ Ropinirole HCl (Requip Tab) 0.5 mg HS PO 09/23/16 21:00 10/23/16 20:59 09/24/16 20:42 0.5 MG Sertraline HCl (Zoloft Tab) 50 mg DAILY PO 09/23/16 09:00 10/23/16 08:59 09/25/16 08:31 50 MG Tiotropium [place] (Spiriva Handihaler Inhaler) 1 puff DAILY INH 09/23/16 09:00 10/23/16 08:59 09/25/16 08:28 1 PUFF Miscellaneous Information (Order Awaiting Action) 1 ea QS N/A 09/23/16 08:00 10/23/16 07:59 Pantoprazole Sodium 40 mg 40 mg QAM PO 09/23/16 09:00 10/23/16 08:59 09/25/16 08:32 40 MG Furosemide/Syringe (Lasix Inj/ Syringe) 4 ml @ 4 mls/min Q12 IV 09/23/16 09:00 10/23/16 08:59 Future Hold 09/23/16 09:41 4 MLS/MIN Acetaminophen (Tylenol Tab) 650 mg Q4H PRN PO 09/23/16 01:15 10/23/16 01:14 09/24/16 13:08 650 MG Al Hydrox/Mg Hydrox/Simethicone (Maalox Max Susp) 15 ml Q4H PRN PO 09/23/16 01:15 10/23/16 01:14 Magnesium Hydroxide (Milk Of Magnesia Susp) 30 ml Q12H PRN PO 09/23/16 01:15 10/23/16 01:14 Zolpidem Tartrate (Ambien Tab) 5 mg HSZ PRN PO 09/23/16 01:15 10/23/16 01:14 Ondansetron HCl (Zofran Inj) 4 mg Q6H PRN IV 09/23/16 01:15 10/23/16 01:14 Nitroglycerin (Nitrostat Tab) 0.4 mg UD PRN SL 09/23/16 01:15 10/23/16 01:14 Aspirin (Ecotrin Tab) 81 mg QAM PO 09/23/16 09:00 10/23/16 08:59 09/25/16 08:30 81 MG Polyethylene (Miralax Powder Packet) 17 gm DAILY PRN PO 09/23/16 01:15 10/23/16 01:14 Morphine Sulfate (MoRPHine SULFATE INJ) 1 mg Q4 PRN IV 09/23/16 02:30 10/07/16 02:29 09/23/16 19:41 1 MG Nicotine (Nicoderm Cq 21MG Patch) 1 patch QAM EXT 09/23/16 04:15 10/23/16 04:14 09/25/16 08:24 1 PATCH Miscellaneous 1 ea 1 ea QAM N/A 09/24/16 09:00 10/24/16 08:59 09/25/16 08:27 1 EA Ceftaroline Fosamil 600 mg/ Sodium Chloride 270 ml @ 250 mls/hr Q12H IV 09/23/16 12:00 10/03/16 11:59 09/24/16 23:35 250 MLS/HR Heparin Sodium/ Dextrose (Heparin 25,000 Unit/500ml D5W) 500 ml @ 80 mls/hr Q6H15M PRN IV 09/23/16 11:00 10/23/16 10:59 09/25/16 06:23 75 MLS/HR Ioversol (Optiray 320) 125 ml UD PRN IV 09/24/16 01:15 09/28/16 01:14 Objective Vital Signs Date Time Temp Pulse Resp B/P Pulse Ox O2 Delivery O2 Flow Rate FiO2 09/25/16 11:20 95 20 94 Nasal Cannula 3.0 09/25/16 11:15 36.5 92 16 136/72 95 2.0 09/25/16 10:42 Nasal Cannula 3.0 09/25/16 08:06 36.4 96 16 123/71 93 09/25/16 04:47 37.0 103 18 130/77 93 2.0 09/25/16 04:00 Nasal Cannula 3.0 09/25/16 00:00 Nasal Cannula 3.0 09/24/16 23:50 37.0 102 17 117/76 93 Nasal Cannula 3.0 09/24/16 20:00 92 Nasal Cannula 3.0 09/24/16 19:50 36.6 101 22 118/61 94 Nasal Cannula 2.0 09/24/16 16:03 37.0 109 22 123/70 92 Nasal Cannula 3.0 09/24/16 16:00 92 Nasal Cannula 3.0 Physical Exam General Appearance: + obese (morbidly) Eyes: normal inspection, sclerae normal ENT: hearing grossly normal Neck: supple Respiratory/Chest: no accessory muscle use, + respiratory distress (mild) Cardiovascular: regular rate, rhythm Abdomen: + distended Extremities: + swelling (mild edema of the right lower extremity today. Very mild tenderness to palpation) Neurologic/Psychiatric: alert, normal mood/affect Skin: warm/dry, no rash, + pertinent finding (mild erythema of the right lower extremity- stable) Laboratory Results Last 24 Hours Test 09/24/16 18:12 09/25/16 01:04 09/25/16 06:20 Activated Partial Thromboplast Time 41.5 SECONDS 51.2 SECONDS 42.6 SECONDS Partial Thromboplastin Ratio 1.6 2.0 1.6 White Blood Count 12.95 K/uL Red Blood Count 3.72 M/uL Hemoglobin 10.4 g/dL Hematocrit 32.0 % Mean Corpuscular Volume 86.0 fL Mean Corpuscular Hemoglobin 28.0 pg Mean Corpuscular Hemoglobin Concent 32.5 g/dl RDW Standard Deviation 49.0 fL RDW Coefficient of Variation 15.5 % Platelet Count 349 K/uL Mean Platelet Volume 9.0 fL Sodium Level 134 mmol/L Potassium Level 2.8 mmol/L Chloride Level 86 mmol/L Carbon Dioxide Level 40 mmol/L Anion Gap 8.0 mmol/L Blood Urea Nitrogen 16 mg/dl Creatinine 0.83 mg/dl Est Creatinine Clear Calc Drug Dose 208.4 ml/min Estimated GFR () 128.5 Estimated GFR (Non- 110.8 BUN/Creatinine Ratio 19.3 Random Glucose 163 mg/dl Calcium Level 9.2 mg/dl Magnesium Level 2.6 mg/dl Assessment and Plan Morbidly obese male with CHF, severe COPD, and right lower extremity cellulitis , chronic wounds of the right lower extremity, and severe right ankle swelling and tenderness- now improving. Blood cultures showing no growth to date. Patient is currently on IV Ceftaroline. He likely would benefit from at least 1 more day of IV therapy but then may be able to transition to PO Bactrim DS BID and PO Keflex 500 mg QID for at least another week. We will follow up with him as an outpatient. Case reviewed and agree with above assessment.
[2016-09-25] MEDS: CEFTAROLINE FOSAMIL INJ 600 MG in SODIUM CHLORIDE 0.9% 250ML 250 ML IV SCH (12:14)
[2016-09-25 15:05] LABS: PARTIAL THROMBOPLASTIN RATIO 1.6
[2016-09-25] MEDS ORDERED: HEPARIN IV BOLUS 10,000 UNIT in SYRINGE 0 ML IV ONE (15:30)
--- NOTE | 2016-09-25 15:41 | PROGRESS NOTE ---
DATE: 09/25/2016 CARDIOLOGY CONSULTATION FOLLOWUP NOTE SUBJECTIVE: The patient was requested to be seen. Telemetry revealed earlier today while sleeping, transient bradycardia with a single dropped AV conduction beat, on 2 separate occasions. The patient was asymptomatic when aroused. EKG demonstrates sinus rhythm with right bundle branch block and no acute changes from prior studies, there have been no further arrhythmias. The patient notes no changes or acute complaints. He is on no medications to account for increasing AV block with only concern being Requip. The patient notes this medication has been with limited effect. Plan will be to discontinue it. Continue patient on telemetry. Suspect part of bradyarrhythmias was reflection of the patient's underlying hypoventilation syndrome/sleep apnea, currently no indications for pacemaker insertion. FIDEL
[2016-09-25] MEDS ORDERED: NURSING DECISION MEDICATION ORDER SCH ×2 (15:45→16:30)
[2016-09-25] MEDS ORDERED: MICONAZOLE NITRATE POWDER 43 GM EXT PRN (16:30)
[2016-09-25] MEDS: EUCERIN CR 120 GM JAR EXT SCH (20:00)
[2016-09-25] MEDS: ACETAMINOPHEN 325 MG TAB PO PRN (20:00)
--- NOTE | 2016-09-25 22:09 | Progress Note ---
Internal Med Progress Note Date of Service: Sep 25, 2016. Provider Documentation: SUBJECTIVE: feels much better , bilateral lower ext edema, much improved no complain of SOB very eager to go home tomorrow to spend Wednesday with family members OBJECTIVE: Vital Signs-as noted below Exam: General-morbidly obese , no sign of distress Eyes-sclera non icteric Lungs-diminished, Heart-regular S1/S2 Abdomen-soft, Extremities-improved bilateral lower ext since admission, rt lower ext persisted erythema, minimum warmth Neuro-AAO x3, no focal neurological deficit Lab data as noted below. ASSESSMENT & PLAN: Right Lower Extremity Cellulitis in the setting of Chronic Lymphedema hx chronic wound on rt lower ext Blood cultures showing no growth to date. Patient is currently on IV Ceftaroline. appreciate ID input recommend to transition to PO Bactrim DS BID and PO Keflex 500 mg QID for at least another week. outpatient.follow up with ID BRADYCARDIA : Transient Bradycardia while sleeping pt was asymptomatic EKG demonstrates sinus rhythm with right bundle branch block and no acute changes from prior studies, appreciate eval form Cardiology bradyarrhythmias secondary to patient's underlying hypoventilation syndrome/ sleep apnea, recommend continue CPAP while sleeping ( which pt been refusing ) no indications for pacemaker insertion. Hx. of PE CTA negative for PE Eliquis may not be appropriate for anticoagulation for pt;s wt Eliquis D/c IV heparin bridge / Coumadin Severe COPD and Chronic Respiratory Failure chronic 2-3L O2 continue home inhalers no acute exacerbation Likely Right Heart Failure due to Morbid Obesity will benefit form CPAP /wt loss pt has been refusing CPAP Obesity-Hypoventilation refusing nocturnal CPAP DVT ppx IV heparin Coumadin FULL CODE DISPOSITION Possible discharge home tomorrow Vital Signs: Date Time Temp Pulse Resp B/P Pulse Ox O2 Delivery O2 Flow Rate FiO2 09/25/16 19:43 36.8 96 22 132/70 96 Nasal Cannula 2.0 09/25/16 16:01 36.4 101 22 119/68 93 2.0 09/25/16 16:00 93 Nasal Cannula 3.0 09/25/16 14:34 Nasal Cannula 3.0 09/25/16 11:20 95 20 94 Nasal Cannula 3.0 09/25/16 11:15 36.5 92 16 136/72 95 2.0 09/25/16 10:42 Nasal Cannula 3.0 09/25/16 08:06 36.4 96 16 123/71 93 09/25/16 04:47 37.0 103 18 130/77 93 2.0 09/25/16 04:00 Nasal Cannula 3.0 09/25/16 00:00 Nasal Cannula 3.0 09/24/16 23:50 37.0 102 17 117/76 93 Nasal Cannula 3.0 Lab Results: Results Past 24 Hours Test 09/25/16 01:04 09/25/16 06:20 09/25/16 14:44 09/25/16 22:00 Range/Units Activated Partial Thromboplast Time 51.2 42.6 40.9 21.0-31.0 SECONDS Partial Thromboplastin Ratio 2.0 1.6 1.6 White Blood Count 12.95 4.8-10.8 K/uL Red Blood Count 3.72 4.7-6.1 M/uL Hemoglobin 10.4 14.0-18.0 g/dL Hematocrit 32.0 42-52 % Mean Corpuscular Volume 86.0 80-100 fL Mean Corpuscular Hemoglobin 28.0 25-34 pg Mean Corpuscular Hemoglobin Concent 32.5 32-36 g/dl RDW Standard Deviation 49.0 36.4-46.3 fL RDW Coefficient of Variation 15.5 11.5-14.5 % Platelet Count 349 130-400 K/uL Mean Platelet Volume 9.0 7.4-10.4 fL Sodium Level 134 136-145 mmol/L Potassium Level 2.8 3.5-5.1 mmol/L Chloride Level 86 98-107 mmol/L Carbon Dioxide Level 40 21-32 mmol/L Anion Gap 8.0 3-11 mmol/L Blood Urea Nitrogen 16 7-18 mg/dl Creatinine 0.83 0.60-1.40 mg/dl Est Creatinine Clear Calc Drug Dose 208.4 ml/min Estimated GFR () 128.5 Estimated GFR (Non- 110.8 BUN/Creatinine Ratio 19.3 10-20 Random Glucose 163 70-99 mg/dl Calcium Level 9.2 8.5-10.1 mg/dl Magnesium Level 2.6 1.8-2.4 mg/dl
[2016-09-25 22:50] LABS: PARTIAL THROMBOPLASTIN RATIO 2.3
[2016-09-25] MEDS ORDERED: NURSING VERBAL MED ORDER ONE (23:30)
[2016-09-26] VITALS: BP 124/71; PULSE 101; TEMP 37; O2SAT 93; O2SAT 94
[2016-09-26] MEDS: ALBUT/IPRATROP 3MG/0.5MG NEB 3 ML VIAL INH PRN (01:05)
[2016-09-26 04:00] VITALS: O2SAT 93
[2016-09-26 04:21] VITALS: BP 119/60; PULSE 99; TEMP 36.8; O2SAT 95
[2016-09-26 06:41] LABS: HEMATOCRIT 33.9 % (42-52); MEAN CELL VOLUME 87.6 fL (80-100); MEAN CORPUSCULAR HEMOGLOBIN 28.4 pg (25-34); MEAN CORPUSCULAR HGB CONC 32.4 g/dl (32-36); PLATELET COUNT 356 K/uL (130-400); RED BLOOD COUNT 3.87 M/uL (4.7-6.1); WHITE BLOOD COUNT 9.48 K/uL (4.8-10.8)
[2016-09-26 06:54] LABS: INR 0.9 (0.9-1.1); PARTIAL THROMBOPLASTIN RATIO 1.2; PROTHROMBIN TIME (PATIENT) 10.1 SECONDS (9.0-12.0)
[2016-09-26 07:32] LABS: BUN/CREATININE RATIO 18.6 (10-20); CALCIUM 9.2 mg/dl (8.5-10.1); CREATININE 0.76 mg/dl (0.60-1.40); MAGNESIUM 2.5 mg/dl (1.8-2.4); POTASSIUM 3.2 mmol/L (3.5-5.1)
[2016-09-26 07:35] VITALS: BP 160/79; PULSE 98; TEMP 36.7; O2SAT 89
[2016-09-26] MEDS: NICOTINE 21 MG/24 HR TDSY EXT SCH (08:18)
[2016-09-26] MEDS: EUCERIN CR 120 GM JAR EXT SCH (08:21)
[2016-09-26] MEDS: POTASSIUM CHLORIDE 20 MEQ TABCR PO SCH (08:22)
[2016-09-26] MEDS: ATORVASTATIN 40 MG TAB PO SCH (08:22)
[2016-09-26] MEDS: PANTOprazole SOD 40 MG TAB PO SCH (08:22)
[2016-09-26] MEDS: ASPIRIN 81 MG ECTAB PO SCH (08:22)
[2016-09-26] MEDS: TIOTROPIUM BROMIDE 5 PUFF/90 MCG INH INH SCH (08:22)
[2016-09-26] MEDS: LISINOPRIL 10 MG TAB PO SCH (08:22)
[2016-09-26] MEDS: SERTRALINE HCL 50 MG TAB PO SCH (08:22)
[2016-09-26] MEDS: FLUOXETINE HCL 20 MG CAP PO SCH (08:23)
[2016-09-26] MEDS ORDERED: POTASSIUM CHLORIDE 10 MEQ TABCR PO STA (11:16)
[2016-09-26] MEDS ORDERED: ASPEC81 PO (11:20)
[2016-09-26] MEDS: CEFTAROLINE FOSAMIL INJ 600 MG in SODIUM CHLORIDE 0.9% 250ML 250 ML IV SCH ×3 (11:41)
[2016-09-26] MEDS ORDERED: WARFARIN SOD 5 MG TAB PO ONE (11:45)
[2016-09-26 11:47] VITALS: BP 122/78; PULSE 93; TEMP 36.6; O2SAT 92
[2016-09-26] MEDS ORDERED: CEPHALEXIN MONOHYDRATE 500 MG CAP PO SCH (12:00)
[2016-09-26] MEDS ORDERED: SULFAMETHOXAZOLE/TRIMETHOPRIM DS 800/160MG TAB PO SCH (12:00)
[2016-09-26] MEDS ORDERED: FUROSEMIDE 80 MG TAB PO SCH (12:00)
--- NOTE | 2016-09-26 14:13 | Discharge Instructions ---
Discharge Instructions Date of Service Sep 26, 2016. Admission Reason for Admission: Cellulitis Of Rt Lower Extremity Discharge Discharge Diagnosis / Problem: RIGHT LOWER EXTREMITY CELLULITIS /HX OF DVT / PULMONARY HTN /ESTEFANI Discharge Goals Goal(s): Improve disease control, Diagnostic testing, Therapeutic intervention Activity Recommendations Activity Limitations: resume your previous activity . Instructions / Follow-Up Instructions / Follow-Up HOSPITAL FOLLOW UP ON 10/01/2016 @ 1:10 PM Sundar Guerrero MD Family [facility] FOLLOW UP WITH INFECTIOUS DISEASE DR MATIAS IN 1-2 WEEK , PLEASE CALL OFFICE FOR APPOINTMENT MEDICATION CHANGE : DO NOT TAKE ELIQUIS YOU ARE STARTED ON A NEW MEDICATION BLOOD THINNERS( TO PREVENT BLOOD CLOT ) IT IS COUMADIN /WARFARIN WILL NEED PERIODIC BLOOD WORK /PT-INR CHECK AND FOLLOW UP WITH ANTICOAGULATION CLINIC PLEASE HAVE LAB WORK PT/INR CHECK ON 09/28 FINISH THE ANTIBIOTIC COURSE NEED TO FOLLOW UP WITH ID DR MATIAS FOR CONTINUED CARE FOR THE LOWER EXTREMITY CELLULITIS Current Hospital Diet Patient's current hospital diet: AHA Diet (Heart Healthy) Discharge Diet Recommended Diet: AHA Diet (Heart Healthy) Pending Studies Studies pending at discharge: yes List of pending studies: LAB CHECK PT/INR ON 09/28/16 Laboratory Results Lipid Panel Test 09/23/16 06:33 Range/Units Triglycerides Level 73 0-150 mg/dl Cholesterol Level 135 0-200 mg/dl HDL Cholesterol 34 mg/dl Cholesterol/HDL Ratio 4.0 LDL Cholesterol, Calculated 86 mg/dl Medical Emergencies . Who to Call and When: Medical Emergencies: If at any time you feel your situation is an emergency, please call 911 immediately. . Non-Emergent Contact Non-Emergency issues call your: Primary Care Provider . . "Provider Documentation" section prepared by Amy Melendrez. VTE Core Measure Inpt VTE Proph given/why not?: Warfarin (Coumadin)
[2016-09-26] MEDS ORDERED: CEPH500C2 PO (14:16)
[2016-09-26] MEDS ORDERED: SULF800T23 PO (14:16)
[2016-09-26] MEDS ORDERED: CMD75 PO (14:16)
[2016-09-26 14:25] VITALS: BP 122/78; PULSE 93; TEMP 36.6; O2SAT 92
--- NOTE | 2016-09-26 15:23 | Discharge Summary ---
Discharge Summary Date of Service Sep 26, 2016. Discharge Summary Admission Date: Sep 23, 2016 at 00:55 Discharge Date: Sep 26, 2016 Discharge Disposition: Home with services Principal Diagnosis: RIGHT LOWER EXTREMITY CELLULITIS /HX OF DVT /PULMONARY HTN /ESTEFANI Procedures: ECHO 09/24/2016 : The study was technically difficult. Limited views were obtained. The left ventricle is not well visualized. The left ventricular ejection fraction is grossly normal. The aortic valve is not well visualized. Aortic stenosis is absent. The mitral valve is grossly normal. Significant mitral regurgitation is absent. There is no mitral valve stenosis. There is no pericardial effusion. The inferior vena cava is moderately dilated. CHEST CTA for PULMONARY ARTERIES IMPRESSION: 1. No evidence for pulmonary embolus with limitations as described above. 2. Mild interlobular septal thickening consistent with mild congestive change. 3. Decrease in size in left axillary lymphadenopathy. Stable single enlarged AP window lymph node. 4. Left chest wall subcutaneous venous collaterals persists. 5. Stable right lung subcentimeter pulmonary nodules. Therefore, these are considered to be benign. RIGHT LOWER EXTREMITY VENOUS DOPPLER HISTORY: Right leg swelling. COMPARISON STUDY: Venous Doppler 08/22/2015. FINDINGS: There is normal compressibility, flow, and augmentation within the right lower extremity deep venous system. There are enlarged right inguinal lymph nodes measuring 5.0 x 1.3 x 3.7 cm. IMPRESSION: No DVT within the right lower extremity. Right inguinal lymphadenopathy. Consultations: ID DR MONTALVO -LOWER EXTREMITY RECURRENT CELLULITIS [facility] Pending Studies/Follow-Up: HOSPITAL FOLLOW UP ON 10/01/2016 @ 1:10 PM Sundar Guerrero MD Family [facility] FOLLOW UP WITH INFECTIOUS DISEASE DR MONTALVO IN 1-2 WEEK , PLEASE CALL OFFICE FOR APPOINTMENT MEDICATION CHANGE : DO NOT TAKE ELIQUIS YOU ARE STARTED ON A NEW MEDICATION BLOOD THINNERS( TO PREVENT BLOOD CLOT ) IT IS COUMADIN /WARFARIN WILL NEED PERIODIC BLOOD WORK /PT-INR CHECK AND FOLLOW UP WITH ANTICOAGULATION CLINIC PLEASE HAVE LAB WORK PT/INR CHECK ON 09/28 FINISH THE ANTIBIOTIC COURSE NEED TO FOLLOW UP WITH RILEY MONTALVO FOR CONTINUED CARE FOR THE LOWER EXTREMITY CELLULITIS Medication Reconciliation New Medications: Cephalexin Monohydrate (Keflex) 500 Mg Cap 500 MG PO QID for 7 Days, #28 CAP Sulfa/Trimethoprim (Bactrim Ds 800MG/160MG) Tab 1 TAB PO BID for 7 Days, #14 TAB Warfarin Sod (Coumadin) 7.5 Mg Tab 1 TAB PO DAILY for 30 Days, #30 TABS 5 Refills Aspirin (Aspirin EC Low Dose) 81 Mg Ectab 81 MG PO QAM for 30 Days, #30 TABS 3 Refills Continued Medications: Albuterol Hfa (Ventolin Hfa) 200 Puffs/63369 Mcg Aers 2 PUFFS PO Q4H PRN for SOB/Wheezing Atorvastatin (Atorvastatin Calcium) 40 Mg Tab 40 MG PO DAILY Fluoxetine HCl (Fluoxetine HCl) 20 Mg Cap 20 MG PO QAM for 30 Days, #30 CAP 5 Refills Fluticasone Furoate-Vilanterol (Breo Ellipta) 1 Inh Inh 1 PUFF INH DAILY Furosemide (Furosemide) 80 Mg Tab 80 MG PO DAILY Ipratropium-Albuterol (Duoneb) 3 Ml Nebu 3 ML INH QID PRN for SOB/Wheezing, INHA Lisinopril (Lisinopril) 10 Mg Tab 10 MG PO DAILY Metolazone (Metolazone) 5 Mg Tab 5 MG PO DAILY Omeprazole (Prilosec) 40 Mg Cap 40 MG PO DAILY TAKE THIS MEDICATION ONCE DAILY ONE HOUR BEFORE FIRST MEAL OF THE DAY Oxygen (Oxygen) Gas 2 LITERS NA CONTINOUS Potassium Chloride (Klor-Con M20) 20 Meq Tabcr 40 MEQ PO QAM for 30 Days, #30 MEQ 6 Refills Sertraline HCl (Sertraline HCl) 50 Mg Tab 50 MG PO DAILY for 30 Days, #30 TAB 6 Refills Tiotropium [place] (Spiriva Handihaler) 30 Puff/540 Mcg Aerp 1 CAP INH DAILY, INHALER Discontinued Medications: Apixaban (Eliquis) 2.5 Mg Tab 2.5 MG PO BID Ropinirole Hydrochloride (Requip) 0.5 Mg Tab 0.5 MG PO HS, #30 Referrals At Discharge Follow up Referrals: Physician Referral - Please Call For Appointment with Oumar Montalvo MD Admission Information HPI (per Admitting provider): This is a 40 yo male with medical hx of Morbid Obesity , ESTEFANI -poorly compliant with CPAP , Pulmonary HTN due to ESTEFANI /obesity Hypoventilation syndrome Bilateral lower ext severe Lymphedema , recurrent lower ext cellulitis , Hx of PE on Eliquis presents to [facility] ED with complains of worsening of swelling of lower leg R/L will foul smelling drainage form rt lower ext infection /cellulitis no complain of chest pain or SOB no Orthopnea no fever or chills Physical Exam (per Admitting): General Appearance: + obese (morbid obesity ) Head: normocephalic, atraumatic Eyes: sclerae normal Respiratory/Chest: no respiratory distress, + pertinent finding (diminishe breath sound ) Cardiovascular: regular rate, rhythm, + pertinent finding (severe bilat lower ext edema ) Abdomen/GI: soft Extremities/Musculoskelatal: + pedal edema, + pertinent finding (severe bilat lower ext lymphedema extending to lower thigh, shallow ulcer on rt lower leg with dranainge ) Neurologic/Psych: alert, oriented x 3 Hospital Course EXAM ON DAY OF DISCHARGE : Exam: General-morbidly obese , no sign of distress Eyes-sclera non icteric Lungs-diminished, Heart-regular S1/S2 Abdomen-soft, Extremities-markedly improved bilateral lower ext since admission, minimum erythema on rt lower ext bilateral lower ext chronic venous stasis change Neuro-AAO x3, no focal neurological deficit A/p Right Lower Extremity Cellulitis in the setting of Chronic Lymphedema hx chronic wound on rt lower ext Blood cultures showing no growth to date. Patient is was treated with IV Ceftaroline. appreciate ID input transitioned to PO Bactrim DS BID and PO Keflex 500 mg QID for 1 week -as per ID recommendation script sent to Pharmacy outpatient.follow up with ID pt is asked to call and schedule appointment with Dr Montalvo in 1-2 weeks after completion of antibiotic treatment patient will benefit form out patient Lymphedema clinic Cont on Lasix BRADYCARDIA : Transient Bradycardia while sleeping -possible due to ESTEFANI pt was asymptomatic EKG demonstrates sinus rhythm with right bundle branch block and no acute changes from prior studies, appreciate eval form Cardiology bradyarrhythmias secondary to patient's underlying hypoventilation syndrome/ sleep apnea, recommend continue CPAP while sleeping ( which pt been refusing ) no indications for pacemaker insertion. Hx. of PE CTA negative for PE Eliquis may not be appropriate for anticoagulation for pt;s wt Eliquis discontinued pt was started on IV Heparin bridge and Coumadin not a candidate for home Lovenox bridge therapy , Morbid obesity -high dose on 1mg/kg SC dose , increased risk for sub q hematoma pt is discharged home with PO Coumadin only will need to be establish care with Coumadin clinic PT/INR monitoring as out patient Severe COPD and Chronic Respiratory Failure chronic home oxygen 2-3L O2 ; which he wears continuously at 2-3L and is supplied by [facility]. pt has portable O2 tanks. continue home inhalers not in acute exacerbation Likely Right Heart Failure due to Morbid Obesity will benefit form CPAP /wt loss pt has been refusing CPAP cont Lasix Obesity-Hypoventilation refusing nocturnal CPAP has been following with Sleep Medicine Dr chen at [facility] DVT ppx Coumadin FULL CODE DISPOSITION Discharge home today Total time spent on discharge = 40 MINS This includes examination of the patient, discharge planning, medication reconciliation, and communication with other providers. Discharge Instructions Discharge Instructions Date of Service Sep 26, 2016. Admission Reason for Admission: Cellulitis Of Rt Lower Extremity Discharge Discharge Diagnosis / Problem: RIGHT LOWER EXTREMITY CELLULITIS /HX OF DVT / PULMONARY HTN /ESTEFANI Discharge Goals Goal(s): Improve disease control, Diagnostic testing, Therapeutic intervention Activity Recommendations Activity Limitations: resume your previous activity . Instructions / Follow-Up Instructions / Follow-Up HOSPITAL FOLLOW UP ON 10/01/2016 @ 1:10 PM Sundar Guerrero MD Family Practice [facility] FOLLOW UP WITH INFECTIOUS DISEASE DR MONTALVO IN 1-2 WEEK , PLEASE CALL OFFICE FOR APPOINTMENT MEDICATION CHANGE : DO NOT TAKE ELIQUIS YOU ARE STARTED ON A NEW MEDICATION BLOOD THINNERS( TO PREVENT BLOOD CLOT ) IT IS COUMADIN /WARFARIN WILL NEED PERIODIC BLOOD WORK /PT-INR CHECK AND FOLLOW UP WITH ANTICOAGULATION CLINIC PLEASE HAVE LAB WORK PT/INR CHECK ON 09/28 FINISH THE ANTIBIOTIC COURSE NEED TO FOLLOW UP WITH ID DR MONTALVO FOR CONTINUED CARE FOR THE LOWER EXTREMITY CELLULITIS Current Hospital Diet Patient's current hospital diet: AHA Diet (Heart Healthy) Discharge Diet Recommended Diet: AHA Diet (Heart Healthy) Pending Studies Studies pending at discharge: yes List of pending studies: LAB CHECK PT/INR ON 09/28/16 Laboratory Results Lipid Panel Test 09/23/16 06:33 Range/Units Triglycerides Level 73 0-150 mg/dl Cholesterol Level 135 0-200 mg/dl HDL Cholesterol 34 mg/dl Cholesterol/HDL Ratio 4.0 LDL Cholesterol, Calculated 86 mg/dl Medical Emergencies . Who to Call and When: Medical Emergencies: If at any time you feel your situation is an emergency, please call 911 immediately. . Non-Emergent Contact Non-Emergency issues call your: Primary Care Provider . . "Provider Documentation" section prepared by Amy Melendrez. VTE Core Measure Inpt VTE Proph given/why not?: Warfarin (Coumadin) Additional Copies To Sundar Guerrero M.D.(ESTEFANY) Oumar Montalvo MD
== END 2016-09-26 16:20 | disposition home or self-care (01) | DRG 603 ==
LOC: ENRESERVDT → ENRESERVTM → C.EDB 22:11 → C.MSICU 09-23 00:55 → C.MED 09-23 21:47
PROVIDERS: ADMIT Hospitalist; ATTEND Hospitalist
DX: L03.115 Cellulitis of right lower limb (principal); E87.1 Hypo-osmolality and hyponatremia; E66.2 Morbid (severe) obesity with alveolar hypoventilation; Z68.44 Body mass index [BMI] 60.0-69.9, adult; J96.10 Chronic respiratory failure, unspecified whether with hypoxia or hypercapnia; E87.6 Hypokalemia; I50.9 Heart failure, unspecified; R00.1 Bradycardia, unspecified; K21.9 Gastro-esophageal reflux disease without esophagitis; I10 Essential (primary) hypertension; J44.9 Chronic obstructive pulmonary disease, unspecified; F17.210 Nicotine dependence, cigarettes, uncomplicated; I89.0 Lymphedema, not elsewhere classified; D72.829 Elevated white blood cell count, unspecified; I45.10 Unspecified right bundle-branch block; R00.0 Tachycardia, unspecified; F32.9 Major depressive disorder, single episode, unspecified; I45.81 Long QT syndrome; K22.70 Barrett's esophagus without dysplasia; J45.909 Unspecified asthma, uncomplicated; K44.9 Diaphragmatic hernia without obstruction or gangrene; I44.30 Unspecified atrioventricular block; R79.89 Other specified abnormal findings of blood chemistry; I27.2 Other secondary pulmonary hypertension; Z53.29 Procedure and treatment not carried out because of patient's decision for other reasons; M19.90 Unspecified osteoarthritis, unspecified site; Z86.718 Personal history of other venous thrombosis and embolism; Z91.15 Patient's noncompliance with renal dialysis; Z85.858 Personal history of malignant neoplasm of other endocrine glands; Z92.21 Personal history of antineoplastic chemotherapy; Z86.711 Personal history of pulmonary embolism; Z86.14 Personal history of Methicillin resistant Staphylococcus aureus infection; Z99.81 Dependence on supplemental oxygen; Z79.01 Long term (current) use of anticoagulants; Z79.899 Other long term (current) drug therapy; Z79.51 Long term (current) use of inhaled steroids; Z95.828 Presence of other vascular implants and grafts

== ENCOUNTER 2017-01-18 23:06 | Emergency (ER) | payer OTHER ==
[~2017-01-18] VITALS: Ht 180.3 cm; Wt 195.0 kg
[~2017-01-18 23:06] MED LIST changes: -APIX1TAB PO; +ASPEC81 PO; +CMD75 PO; -RQP25 PO
[2017-01-18 23:14] VITALS: TEMP 36.7; Ht 180.3 cm; Wt 195.0 kg
[2017-01-18] MEDS ORDERED: METHYLPREDNISOLONE 125 MG VIAL IV STA (23:25)
[2017-01-18] MEDS ORDERED: ALBUT/IPRATROP 3MG/0.5MG NEB 3 ML VIAL INH ONE (23:30)
[2017-01-19] MEDS ORDERED: RQP25 PO
[2017-01-19] MEDS ORDERED: POTA20TA13 PO
[2017-01-19] MEDS ORDERED: GLC500 PO
[2017-01-19 01:01] LABS: BASO % 0.2 %; BASO ABS # 0.02 K/uL (0-0.2); COMPLETE YES; EOS % 2.5 %; HEMATOCRIT 37.2 % (42-52); IG% 0.4 %; LYMPH % 11.1 %; LYMPH ABS # 1.11 K/uL (1.2-3.4); MEAN CELL VOLUME 90.7 fL (80-100); MEAN CORPUSCULAR HEMOGLOBIN 28.8 pg (25-34); MEAN CORPUSCULAR HGB CONC 31.7 g/dl (32-36); MEAN PLATELET VOLUME 8.7 fL (7.4-10.4); MONO % 5.3 %; NEUT % 80.5 %; PLATELET COUNT 329 K/uL (130-400); WHITE BLOOD COUNT 9.99 K/uL (4.8-10.8)
[2017-01-19 01:07] LABS: VEN BLOOD GAS BASE EXCESS 12.3 mEq/L
[2017-01-19 01:09] LABS: INR 0.9 (0.9-1.1); PARTIAL THROMBOPLASTIN RATIO 1.1; PROTHROMBIN TIME (PATIENT) 10.1 SECONDS (9.0-12.0)
[2017-01-19 01:19] LABS: ALT/SGPT 21 U/L (12-78); AST/SGOT 13 U/L (15-37); BLOOD UREA NITROGEN 11 mg/dl (7-18); BUN/CREATININE RATIO 13.8 (10-20); CALCIUM 9.2 mg/dl (8.5-10.1); CARBON DIOXIDE 38 mmol/L (21-32); CHLORIDE 95 mmol/L (98-107); CREATININE 0.77 mg/dl (0.60-1.40); GLUCOSE 126 mg/dl (70-99); POTASSIUM 3.2 mmol/L (3.5-5.1); SODIUM 138 mmol/L (136-145)
[2017-01-19 01:23] LABS: ALB/GLOB RATIO 0.6 (0.9-2); ALKALINE PHOSPHATASE 83 U/L (45-117)
[2017-01-19] MEDS ORDERED: AZITTAB PO (02:07)
[2017-01-19] MEDS ORDERED: PRED50TA PO (02:07)
[2017-01-19] MEDS ORDERED: WARFARIN SOD 5 MG TAB PO ONE (02:15)
[2017-01-19 02:30] VITALS: BP 116/68; PULSE 101; O2SAT 94
--- NOTE | 2017-01-19 03:39 | EMERGENCY ROOM VISIT NOTE ---
History First contact with patient: 23:20 Chief Complaint: RESPIRATORY PROBLEMS Stated Complaint: TROUBLE BREATHING Nursing Triage Summary: Increasing dyspnea, pt is on 3 lpm oxygen at home at all times. History of Present Illness The patient is a 41 year old male who presents to the Emergency Room with complaints of difficulty breathing over the past one to 2 days. The patient has a history of COPD and is on 3 L of oxygen at home. The patient has not had fever or chills. He does not have a productive cough. The patient has used his inhalers at home with only minimal improvement of symptoms. He rates his overall discomfort a 4/10. He does not have distinct chest pain or abdominal pain. Review of Systems More than 10 systems were reviewed and otherwise negative with the exception of history of present illness. Past Medical/Surgical History Medical Problems: (1) Abscess or cellulitis of foot (2) Anticoagulants,Lt,Current Use (3) Asthma (4) Farley's esophagus (5) Cellulitis (6) Cellulitis of right lower extremity (7) CHF (congestive heart failure) (8) COPD (chronic obstructive pulmonary disease) (9) COPD exacerbation (10) Depression (11) Diaphragmatic Hernia (12) GERD (gastroesophageal reflux disease) (13) History of DVT (deep vein thrombosis) (14) History of metastatic adenocarcinoma (15) History of pulmonary embolus (PE) (16) Hypertension (17) Hypertension Nos (18) Morbid Obesity (19) Morbid obesity with BMI of 50.0-59.9, adult (20) Osteoarthros Nos-Unspec (21) Personal History Of Pulmonary Embolism (22) Reflux Esophagitis (23) S/p insertion of A port (24) S/p sinusotomy and septoplasty (25) Scrotal edema (26) Sleep apnea (27) Tobacco use disorder (28) Unspecified Sleep Apnea (29) UTI (urinary tract infection) Surgical Problems: (1) H/O arthroscopic knee surgery (2) H/O esophagogastroduodenoscopy (3) H/O lymph node biopsy Family History Cancer FATHER (colon CA age 56) Cardiac disorder Diabetes mellitus MOTHER Heart disease MOTHER ([place] age 54) FATHER ([place]) BROTHER ([place] age 48) BROTHER ([place] age 57) Hypertension MOTHER Social History Smoking Status: Current Every Day Smoker Alcohol Use: none Drug Use: none Marital Status: Housing Status: lives with family Occupation Status: unemployed, disabled Current/Historical Medications Scheduled Atorvastatin (Atorvastatin Calcium), 40 MG PO DAILY Azithromycin (Zithromax Z-Nilay), 0 PO UD Fluoxetine HCl (Fluoxetine HCl), 20 MG PO QAM Furosemide (Furosemide), 80 MG PO DAILY Home O2 Therapy (Oxygen), 2 LITERS NA CONTINOUS Lisinopril (Lisinopril), 10 MG PO DAILY Metformin HCl (Metformin HCl), 500 MG PO DAILY Metolazone (Metolazone), 5 MG PO DAILY Omeprazole (Prilosec), 40 MG PO DAILY Potassium Chloride Microencaps (Potassium Chloride Er), 20 MEQ PO BID Prednisone (Prednisone), 50 MG PO DAILY Ropinirole HCl (Ropinirole HCl), 0.25 MG PO HS Warfarin Sod (Coumadin), 1 TAB PO DAILY Scheduled PRN Albuterol Hfa (Ventolin Hfa), 2 PUFFS PO Q4H PRN for SOB/Wheezing Ipratropium-Albuterol (Duoneb), 3 ML INH QID PRN for SOB/Wheezing Physical Exam Vital Signs Date Time Temp Pulse Resp B/P (MAP) Pulse Ox O2 Delivery O2 Flow Rate FiO2 01/19/17 02:30 101 20 116/68 94 Nasal Cannula 2.0 01/19/17 02:16 116/68 94 01/19/17 02:01 164/71 01/19/17 01:31 107/80 01/19/17 01:12 132/68 01/19/17 01:11 105 15 01/19/17 00:56 101 16 01/19/17 00:41 96 26 01/19/17 00:36 100 19 98 01/19/17 00:21 96 24 100 01/19/17 00:06 99 30 98 01/18/17 23:51 99 26 100 Nasal Cannula 3.0 01/18/17 23:36 96 26 97 01/18/17 23:34 97 01/18/17 23:30 131/63 01/18/17 23:14 36.7 98 18 114/68 97 Nasal Cannula Pain Rating (0-10): 0 Physical Exam VITALS: Vitals are noted on the nurse's note and reviewed by myself. Vital signs stable. GENERAL: Well-developed, well-nourished, white male, who is in no acute distress and resting comfortably. Patient is cooperative with the examination. NECK: Supple without nuchal rigidity. No lymphadenopathy. No thyromegaly. Cervical spine is nontender. HEART: Regular rate and rhythm without murmurs gallops or rubs. LUNGS: Coarse breath sounds throughout. After DuoNeb and prednisone breath sounds were significantly improved with scattered wheezing. NEURO: Patient was alert and oriented to person place and time. Medical Decision & Procedures Laboratory Results 01/19/17 00:51 Red Blood Count 4.10, Mean Corpuscular Volume 90.7, Mean Corpuscular Hemoglobin 28.8, Mean Corpuscular Hemoglobin Concent 31.7, Mean Platelet Volume 8.7, Neutrophils (%) (Auto) 80.5, Lymphocytes (%) (Auto) 11.1, Monocytes (%) (Auto) 5.3, Eosinophils (%) (Auto) 2.5, Basophils (%) (Auto) 0.2, Neutrophils # (Auto) 8.04, Lymphocytes # (Auto) 1.11, Monocytes # (Auto) 0.53, Eosinophils # (Auto) 0.25, Basophils # (Auto) 0.02 01/19/17 00:51 Test 01/19/17 00:51 White Blood Count 9.99 K/uL (4.8-10.8) Red Blood Count 4.10 M/uL (4.7-6.1) Hemoglobin 11.8 g/dL (14.0-18.0) Hematocrit 37.2 % (42-52) Mean Corpuscular Volume 90.7 fL (80-100) Mean Corpuscular Hemoglobin 28.8 pg (25-34) Mean Corpuscular Hemoglobin Concent 31.7 g/dl (32-36) Platelet Count 329 K/uL (130-400) Mean Platelet Volume 8.7 fL (7.4-10.4) Neutrophils (%) (Auto) 80.5 % Lymphocytes (%) (Auto) 11.1 % Monocytes (%) (Auto) 5.3 % Eosinophils (%) (Auto) 2.5 % Basophils (%) (Auto) 0.2 % Neutrophils # (Auto) 8.04 K/uL (1.4-6.5) Lymphocytes # (Auto) 1.11 K/uL (1.2-3.4) Monocytes # (Auto) 0.53 K/uL (0.11-0.59) Eosinophils # (Auto) 0.25 K/uL (0-0.5) Basophils # (Auto) 0.02 K/uL (0-0.2) RDW Standard Deviation 52.3 fL (36.4-46.3) RDW Coefficient of Variation 15.7 % (11.5-14.5) Immature Granulocyte % (Auto) 0.4 % Immature Granulocyte # (Auto) 0.04 K/uL (0.00-0.02) Nucleated RBC Absolute Count (auto) 0.02 K/uL (0-0) Nucleated Red Blood Cells % 0.2 % Prothrombin Time 10.1 SECONDS (9.0-12.0) Prothromb Time International Ratio 0.9 (0.9-1.1) Activated Partial Thromboplast Time 27.5 SECONDS (21.0-31.0) Partial Thromboplastin Ratio 1.1 Venous Blood pH 7.44 (7.36-7.41) Venous Blood Partial Pressure CO2 59 mmHg (38.0-50.0) Venous Blood Partial Pressure O2 36 mmHg Venous Blood HCO3 39 mmol/L Venous Blood Oxygen Saturation 67.0 % Venous Blood Base Excess 12.3 mEq/L Anion Gap 5.0 mmol/L (3-11) Est Creatinine Clear Calc Drug Dose 222.1 ml/min Estimated GFR () 131.6 Estimated GFR (Non- 113.5 BUN/Creatinine Ratio 13.8 (10-20) Calcium Level 9.2 mg/dl (8.5-10.1) Total Bilirubin 0.3 mg/dl (0.2-1) Aspartate Amino Transf (AST/SGOT) 13 U/L (15-37) Alanine Aminotransferase (ALT/SGPT) 21 U/L (12-78) Alkaline Phosphatase 83 U/L (45-117) Troponin I < 0.015 ng/ml (0-0.045) Total Protein 7.7 gm/dl (6.4-8.2) Albumin 3.0 gm/dl (3.4-5.0) Globulin 4.7 gm/dl (2.5-4.0) Albumin/Globulin Ratio 0.6 (0.9-2) Medications Administered Medications (Trade) Dose Ordered Sig/Karissa Route Start Time Stop Time Status Last Admin Dose Admin Methylprednisolone Sodium Succinate (Solu-Medrol IV) 125 mg NOW STAT IV 01/18/17 23:25 01/18/17 23:28 DC 01/19/17 01:07 125 MG Albuterol/ Ipratropium (Duoneb) 3 ml NOW ONCE INH 01/18/17 23:30 01/18/17 23:31 DC 01/18/17 23:40 3 ML Warfarin Sodium (Coumadin Tab) 10 mg NOW ONCE PO 01/19/17 02:15 01/19/17 02:16 DC 01/19/17 02:42 10 MG ED Course Physical exam and history were performed. Nursing notes, EMR, and Medication List were personally reviewed. Patient appears to have shortness of breath with wheezing and coughing. On examination the patient does not appear toxic. He has a history of COPD. IV access was established and labs were obtained. EKG was sinus rhythm at 98 bpm without evidence of ischemia. This is essentially unchanged from previous EKGs. The patient was placed on a immigration lawyer. He was given IV Solu- Medrol and a breathing treatment. X-ray was performed. The patient's blood work is as above and was reviewed. He does not have a significant elevated white blood cell count, gross anemia, bandemia, or significant electrolyte imbalance. Troponin 1 is negative. X-ray does not show obvious process with radiology read pending. His INR is low, as he is evidently being treated for a past history of DVT. He was given additional dose of his Coumadin here in the department. On reevaluation the patient felt significantly improved. I discussed options of care with the patient including admission to the hospital for further management. The patient was insistent on discharge home. I explained the importance of very close follow-up with his primary care physician, preferably in the next 12-24 hours. The patient will be given a course of Zithromax and prednisone as I suspect that he has a COPD exacerbation. The patient states that his symptoms do seem similar to an episode like this, and he was comfortable with going home. The patient was certainly invited back to the ER with any new, worsening, or concerning symptoms. The chart was completed utilizing [employer] Voice Recognition Software. Grammatical errors, random word insertions, pronoun errors, and incomplete sentences are an occasional consequence of this system due to software limitations, ambient noise, and hardware issues. Any formal questions or concerns about the content, text, or information contained within the body of this dictation should be directly addressed to the provider for clarification. . Medical Decision Differential diagnosis: Etiologies such as infections, reactive airway disease, pneumonia, pneumothorax , COPD, CHF, cardiac ischemia, pulmonary embolism, musculoskeletal, gastrointestinal, as well as others were entertained. Blood Pressure Screening Blood pressure disposition: Referred to PCP Impression Primary Impression: COPD with exacerbation Departure Information Dispostion Home / Self-Care Condition GOOD Prescriptions Prednisone (Prednisone) 50 Mg Tab 50 MG PO DAILY for 4 Days, #4 TAB Prov: Colten Pan PA-C 01/19/17 Azithromycin (ZITHROMAX Z-NILAY) 250 Mg Tab 0 PO UD, #1 PKT 2 TABS DAY 1, THEN 1 TAB DAILY FOR 4 DAYS Prov: Colten Pan PA-C 01/19/17 Forms HOME CARE DOCUMENTATION FORM, IMPORTANT VISIT INFORMATION Patient Instructions [facility] Additional Instructions You were seen and evaluated today on an emergency basis only. This is not a substitute for, or an effort to provide, complete comprehensive medical care. It is not possible to recognize and treat all injuries or illnesses in a single emergency department visit. For this reason it is recommended that you followup with your primary care physician in the next 1-2 days for recheck of your condition. Take Zithromax as prescribed. Take prednisone as prescribed. Continue your at-home medications. Contact your Coumadin clinic as your Coumadin number was low ([phone]) today. You are welcome to return to the emergency department anytime with new, worsening, or concerning symptoms.
--- NOTE | 2017-01-19 06:48 | DIAGNOSTIC IMAGING REPORT ---
CHEST 2 VIEWS ROUTINE CLINICAL HISTORY: Chest pain. Shortness of breath. COMPARISON STUDY: Chest radiograph September 23, [address] September 24, 2016. FINDINGS: There is no pneumothorax or pleural effusion. There is no lobar consolidation. Prominent pleural/extrapleural opacity within each hemithorax is due to extrapleural fat shown on prior CT. Mild interstitial thickening is present which has been shown on prior imaging studies. Cardiomegaly is unchanged. IMPRESSION: No change in appearance of the chest. Stable cardiomegaly and age indeterminate interstitial thickening. This may reflect mild pulmonary edema. Electronically signed by: Jamar Garcia M.D. 01/19/2017 6:46 AM Dictated Date/Time: 01/19/2017 6:43 AM
== END 2017-01-19 02:44 | disposition home or self-care (01) ==
LOC: C.EDB 23:07
DX: J44.1 Chronic obstructive pulmonary disease with (acute) exacerbation (principal); I10 Essential (primary) hypertension; K21.0 Gastro-esophageal reflux disease with esophagitis; J45.909 Unspecified asthma, uncomplicated; F32.9 Major depressive disorder, single episode, unspecified; K22.70 Barrett's esophagus without dysplasia; I50.9 Heart failure, unspecified; M19.90 Unspecified osteoarthritis, unspecified site; G47.39 Other sleep apnea; F17.200 Nicotine dependence, unspecified, uncomplicated; Z87.440 Personal history of urinary (tract) infections; Z86.711 Personal history of pulmonary embolism; Z86.718 Personal history of other venous thrombosis and embolism; Z85.9 Personal history of malignant neoplasm, unspecified; Z86.19 Personal history of other infectious and parasitic diseases; Z79.01 Long term (current) use of anticoagulants; Z79.84 Long term (current) use of oral hypoglycemic drugs; Z79.899 Other long term (current) drug therapy; Z80.9 Family history of malignant neoplasm, unspecified; Z83.3 Family history of diabetes mellitus; Z82.49 Family history of ischemic heart disease and other diseases of the circulatory system

== ENCOUNTER 2017-05-28 20:39 | Inpatient (IN) | payer OTHER ==
[~2017-05-28] VITALS: Ht 175.3 cm; Wt 206.0 kg
[~2017-05-28 20:39] MED LIST changes: -ASPEC81 PO; -FLUT1INH INH; +GLC500 PO; -MCRK20 PO; +POTA20TA13 PO; +RQP25 PO; -SPRIN/30 INH; -ZLF50 PO
[2017-05-28 21:29] LABS: ISTAT CARBON DIOXIDE > 40 mEq/l (24-31); ISTAT CHLORIDE 92 mEq/L (101-112); ISTAT CREATININE 0.8 mg/dl (0.6-1.3); ISTAT HEMATOCRIT 34 % (42-52); ISTAT HEMOGLOBIN 11.6 g/dl (14.0-18.0); ISTAT IONIZED CALCIUM 1.09 mmol/l (1.12-1.32); ISTAT SODIUM 138 mEq/L (135-144)
[2017-05-28] MEDS ORDERED: ROPI0.5T15 PO (21:45)
[2017-05-28] MEDS ORDERED: WARF-284 PO ×2 (21:45)
--- NOTE | 2017-05-28 21:45 | DIAGNOSTIC IMAGING REPORT ---
CHEST ONE VIEW PORTABLE CLINICAL HISTORY: 41 years-old Male presenting with fever. TECHNIQUE: Portable upright AP view of the chest was obtained. COMPARISON: 01/19/2017. FINDINGS: The cardiac silhouette is moderately enlarged, unchanged. Prominence of pulmonary vasculature. Hazy perihilar opacities suggested. Overall limited image quality secondary to body habitus. No large pleural effusions. No pneumothorax. Osseous structures poorly assessed. IMPRESSION: 1. Cardiomegaly with evidence of volume overload and possible early pulmonary edema area no focal infiltrate to suggest pneumonia. Overall limited image quality secondary to body habitus. Electronically signed by: Bharat Dubois M.D. 05/28/2017 9:44 PM Dictated Date/Time: 05/28/2017 9:43 PM
[2017-05-28 21:46] LABS: BASO % 0.2 %; BASO ABS # 0.02 K/uL (0-0.2); COMPLETE YES; HEMATOCRIT 37.9 % (42-52); IG% 0.3 %; LYMPH % 9.6 %; LYMPH ABS # 1.01 K/uL (1.2-3.4); MEAN CELL VOLUME 91.3 fL (80-100); MEAN CORPUSCULAR HEMOGLOBIN 28.4 pg (25-34); MEAN CORPUSCULAR HGB CONC 31.1 g/dl (32-36); MEAN PLATELET VOLUME 9.3 fL (7.4-10.4); MONO % 6.7 %; NEUT % 81.2 %; PLATELET COUNT 312 K/uL (130-400); RED BLOOD COUNT 4.15 M/uL (4.7-6.1); WHITE BLOOD COUNT 10.48 K/uL (4.8-10.8)
[2017-05-28] MEDS ORDERED: VANCOMYCIN 1GM/270ML NSS IV STA (21:52)
[2017-05-28 21:58] LABS: ISTAT CREATININE 0.7 mg/dl (0.6-1.3); ISTAT HEMOGLOBIN 12.2 g/dl (14.0-18.0); ISTAT IONIZED CALCIUM 1.06 mmol/l (1.12-1.32)
[2017-05-28 22:07] LABS: ALT/SGPT 18 U/L (12-78); BLOOD UREA NITROGEN 14 mg/dl (7-18); BUN/CREATININE RATIO 17.8 (10-20); CALCIUM 8.6 mg/dl (8.5-10.1); CARBON DIOXIDE 37 mmol/L (21-32); CHLORIDE 95 mmol/L (98-107); CREATININE 0.79 mg/dl (0.60-1.40); GLUCOSE 237 mg/dl (70-99); POTASSIUM 3.8 mmol/L (3.5-5.1); SODIUM 136 mmol/L (136-145)
[2017-05-28 22:13] LABS: ALKALINE PHOSPHATASE 87 U/L (45-117); AST/SGOT 11 U/L (15-37)
[2017-05-28] MEDS ORDERED: INSULIN GLARGINE SOLOSTAR 100 UNITS/ML 3 ML PEN SC STA (22:23)
[2017-05-28] MEDS ORDERED: GLUCOSE 40% GEL 15 GM TUBE PO PRN ×2 (22:30→23:30)
[2017-05-28] MEDS ORDERED: GLUCOSE 10 TABS/TUBE PO PRN ×2 (22:30→23:30)
[2017-05-28] MEDS ORDERED: GLUCAGON FOR INJ 1 MG VIAL SQ PRN ×2 (22:30→23:30)
[2017-05-28] MEDS ORDERED: DEXTROSE 50% 50 ML SYR IV PRN ×2 (22:30→23:30)
[2017-05-28 22:46] LABS: PROTHROMBIN TIME (PATIENT) 10.8 SECONDS (9.0-12.0)
--- NOTE | 2017-05-28 23:03 | EMERGENCY ROOM VISIT NOTE ---
History Report prepared by Hernandez: Pk Ruiz Under the Supervision of: Dr. Cristo Rivera D.O. First contact with patient: 20:43 Chief Complaint: WOUND INFECTION Stated Complaint: SOB/LOWER EXTREM-CELLULITIS Nursing Triage Summary: cellulitis in BLLE with open cuts History of Present Illness The patient is a 41 year old male who presents to the Emergency Room with complaints of constant lower extremity swelling that started two days ago. He rates his discomfort as an 8/10 in severity. He reports that he has been here five times for the same problem and was diagnosed with cellulitis. The patient states that his legs have been intermittently red and constantly swollen for the last two days. He reports that he takes Lasix for his history of hypertension and lower extremity swelling, but denies any relief of symptoms. The patient states that he saw his PCP who told him to report to the ED. He states that he has a history of hypertension, hyperlipidemia, and borderline diabetes. The patient states that he typically wears 3 L of oxygen and uses a walker to get around. He denies chest pain and shortness of breath. Source of History: patient Onset: two days ago Position: leg (bilateral) Symptom Intensity: 8/10 Quality: other (swelling, erythema) Timing: constant Associated Symptoms: No chest pain, No SOB Review of Systems See HPI for pertinent positives & negatives. A total of 10 systems reviewed and were otherwise negative. Past Medical & Surgical Medical Problems: (1) Abscess or cellulitis of foot (2) Anticoagulants,Lt,Current Use (3) Asthma (4) Farley's esophagus (5) Cellulitis (6) Cellulitis of right lower extremity (7) CHF (congestive heart failure) (8) COPD (chronic obstructive pulmonary disease) (9) COPD exacerbation (10) Depression (11) Diaphragmatic Hernia (12) GERD (gastroesophageal reflux disease) (13) History of DVT (deep vein thrombosis) (14) History of metastatic adenocarcinoma (15) History of pulmonary embolus (PE) (16) Hypertension (17) Hypertension Nos (18) Morbid Obesity (19) Morbid obesity with BMI of 50.0-59.9, adult (20) Osteoarthros Nos-Unspec (21) Personal History Of Pulmonary Embolism (22) Reflux Esophagitis (23) Respiratory failure (24) S/p insertion of A port (25) S/p sinusotomy and septoplasty (26) Scrotal edema (27) Sleep apnea (28) Tobacco use disorder (29) Unspecified Sleep Apnea (30) UTI (urinary tract infection) Surgical Problems: (1) H/O arthroscopic knee surgery (2) H/O esophagogastroduodenoscopy (3) H/O lymph node biopsy Family History Cancer FATHER (colon CA age 56) Cardiac disorder Diabetes mellitus MOTHER Heart disease MOTHER (MO age 54) FATHER (MO) BROTHER (MO age 48) BROTHER (MO age 57) Hypertension MOTHER Social History Smoking Status: Current Every Day Smoker Alcohol Use: none Drug Use: none Marital Status: Housing Status: lives with family Occupation Status: unemployed, disabled Current/Historical Medications Scheduled Atorvastatin (Atorvastatin Calcium), 40 MG PO DAILY Fluoxetine HCl (Fluoxetine HCl), 20 MG PO QAM Furosemide (Furosemide), 80 MG PO DAILY Home O2 Therapy (Oxygen), 3 LITERS NA CONTINOUS Lisinopril (Lisinopril), 10 MG PO DAILY Metformin HCl (Metformin HCl), 500 MG PO DAILY Metolazone (Metolazone), 5 MG PO DAILY Omeprazole (Prilosec), 40 MG PO DAILY Potassium Chloride Microencaps (Potassium Chloride Er), 20 MEQ PO BID Ropinirole (Requip), 0.5 MG PO HS Ropinirole HCl (Ropinirole HCl), 0.25 MG PO HS Warfarin Sodium (Warfarin Sodium), 7.5 MG PO 5XD Warfarin Sodium (Warfarin Sodium), 15 MG PO 2XWK Scheduled PRN Albuterol Hfa (Ventolin Hfa), 2 PUFFS PO Q4H PRN for SOB/Wheezing Ipratropium-Albuterol (Duoneb), 3 ML INH QID PRN for SOB/Wheezing Allergies Coded Allergies: Iodinated Diagnostic Agents (Unverified Allergy, Unknown, turns bright red and on fire feeling, RASH, 05/28/17) Physical Exam Vital Signs Date Time Temp Pulse Resp B/P (MAP) Pulse Ox O2 Delivery O2 Flow Rate FiO2 05/28/17 22:13 110 112/51 93 Nasal Cannula 3.0 05/28/17 21:05 110 05/28/17 20:42 36.9 119 20 123/59 95 Nasal Cannula 3.0 Physical Exam GENERAL: morbidly obese, chronically ill appearing, covered in dirt and stool, on nasal canula 3 L of oxygen. EYE EXAM: normal conjunctiva. OROPHARYNX: no exudate, no erythema, lips, buccal mucosa, and tongue normal and mucous membranes are moist NECK: supple, no nuchal rigidity, no adenopathy, non-tender LUNGS: Clear to auscultation. Normal chest wall mechanics HEART: Distant beat, no murmurs, S1 normal and S2 normal ABDOMEN: Morbidly obese abdomen soft, non-tender, normo-active bowel sounds, no masses, no rebound or guarding. BACK: Back is symmetrical on inspection and there is no deformity, no midline tenderness, no CVA tenderness. SKIN: no rashes and no bruising UPPER EXTREMITIES: upper extremities are grossly normal. LOWER EXTREMITIES: Bilateral pitting edema with bilateral erythema. NEURO EXAM: Normal sensorium, cranial nerves II-XII intact, normal speech, no weakness of arms, no weakness of legs. Gross sensation intact. : erythema of the scrotum and inguinal canals. Erythema from medial thighs tracking posteriorly to both buttocks. Foul smelling stool engulfing upper posterior thighs. Abrasion to right inguinal canal. Medical Decision & Procedures ER Provider Diagnostic Interpretation: Radiology results as stated below per my review and the radiologist's interpretation: CHEST ONE VIEW PORTABLE CLINICAL HISTORY: 41 years-old Male presenting with fever. TECHNIQUE: Portable upright AP view of the chest was obtained. COMPARISON: 01/19/2017. FINDINGS: The cardiac silhouette is moderately enlarged, unchanged. Prominence of pulmonary vasculature. Hazy perihilar opacities suggested. Overall limited image quality secondary to body habitus. No large pleural effusions. No pneumothorax. Osseous structures poorly assessed. IMPRESSION: 1. Cardiomegaly with evidence of volume overload and possible early pulmonary edema area no focal infiltrate to suggest pneumonia. Overall limited image quality secondary to body habitus. Electronically signed by: Bharat Dubois M.D. 05/28/2017 9:44 PM Dictated Date/Time: 05/28/2017 9:43 PM Laboratory Results 05/28/17 21:30 Red Blood Count 4.15, Mean Corpuscular Volume 91.3, Mean Corpuscular Hemoglobin 28.4, Mean Corpuscular Hemoglobin Concent 31.1, Mean Platelet Volume 9.3, Neutrophils (%) (Auto) 81.2, Lymphocytes (%) (Auto) 9.6, Monocytes (%) (Auto) 6.7, Eosinophils (%) (Auto) 2.0, Basophils (%) (Auto) 0.2, Neutrophils # (Auto) 8.51, Lymphocytes # (Auto) 1.01, Monocytes # (Auto) 0.70, Eosinophils # (Auto) 0.21, Basophils # (Auto) 0.02 05/28/17 21:30 Test 05/28/17 21:30 05/28/17 21:39 05/28/17 21:46 05/28/17 22:17 White Blood Count 10.48 K/uL (4.8-10.8) Red Blood Count 4.15 M/uL (4.7-6.1) Hemoglobin 11.8 g/dL (14.0-18.0) Hematocrit 37.9 % (42-52) Mean Corpuscular Volume 91.3 fL (80-100) Mean Corpuscular Hemoglobin 28.4 pg (25-34) Mean Corpuscular Hemoglobin Concent 31.1 g/dl (32-36) Platelet Count 312 K/uL (130-400) Mean Platelet Volume 9.3 fL (7.4-10.4) Neutrophils (%) (Auto) 81.2 % Lymphocytes (%) (Auto) 9.6 % Monocytes (%) (Auto) 6.7 % Eosinophils (%) (Auto) 2.0 % Basophils (%) (Auto) 0.2 % Neutrophils # (Auto) 8.51 K/uL (1.4-6.5) Lymphocytes # (Auto) 1.01 K/uL (1.2-3.4) Monocytes # (Auto) 0.70 K/uL (0.11-0.59) Eosinophils # (Auto) 0.21 K/uL (0-0.5) Basophils # (Auto) 0.02 K/uL (0-0.2) RDW Standard Deviation 52.9 fL (36.4-46.3) RDW Coefficient of Variation 15.8 % (11.5-14.5) Immature Granulocyte % (Auto) 0.3 % Immature Granulocyte # (Auto) 0.03 K/uL (0.00-0.02) Est Creatinine Clear Calc Drug Dose 223.7 ml/min Estimated GFR () 130.2 Estimated GFR (Non- 112.3 BUN/Creatinine Ratio 17.8 (10-20) Calcium Level 8.6 mg/dl (8.5-10.1) Magnesium Level 2.0 mg/dl (1.8-2.4) Total Bilirubin 0.2 mg/dl (0.2-1) Direct Bilirubin < 0.1 mg/dl (0-0.2) Aspartate Amino Transf (AST/SGOT) 11 U/L (15-37) Alanine Aminotransferase (ALT/SGPT) 18 U/L (12-78) Alkaline Phosphatase 87 U/L (45-117) Total Creatine Kinase 57 U/L (39-308) Troponin I < 0.015 ng/ml (0-0.045) Pro-B-Type Natriuretic Peptide 31 pg/ml (0-450) Total Protein 7.6 gm/dl (6.4-8.2) Albumin 3.0 gm/dl (3.4-5.0) Bedside Hemoglobin 12.2 g/dl (14.0-18.0) Bedside Hematocrit 36 % (42-52) Bedside Sodium 138 mEq/L (135-144) Bedside Potassium 3.8 mEq/L (3.3-5.0) Bedside Chloride 93 mEq/L (101-112) Bedside Total CO2 37 mEq/l (24-31) Anion Gap 13.0 mmol/L (16-25) Bedside Blood Urea Nitrogen 15 mg/dl (7-18) Bedside Creatinine 0.7 mg/dl (0.6-1.3) Bedside Glucose (other) 247 mg/dl (70-99) Bedside Ionized Calcium (Sheyla) 1.06 mmol/l (1.12-1.32) Bedside Lactic Acid Venous 1.76 mmol/L (0.90-1.70) Test 05/28/17 22:26 05/28/17 22:28 Prothrombin Time 10.8 SECONDS (9.0-12.0) Prothromb Time International Ratio 1.0 (0.9-1.1) Laboratory results per my review. Medications Administered Medications (Trade) Dose Ordered Sig/Karissa Route Start Time Stop Time Status Last Admin Dose Admin Vancomycin HCl (Vancomycin 1gm/ 270ml Nss) 2 gm NOW STAT IV 05/28/17 21:52 05/28/17 21:54 DC 05/28/17 22:08 2 GM Insulin Glargine (Lantus Solostar Pen) 10 units NOW STAT SC 05/28/17 22:23 05/28/17 22:24 DC 05/28/17 22:37 10 UNITS ECG Indication: SOB/dyspnea Rate (beats per minute): 112 Rhythm: sinus tachycardia Findings: RBBB, ST depression (Lateral, Inferior) Comparison ECG Date: 01/18/17 Change: no significant change ED Course ED COURSE: Vital signs were reviewed and showed tachycardia. The patients medical record was reviewed The above diagnostic studies were performed and reviewed. ED treatments and interventions as stated above. 2046: The patient was evaluated in room C06. A complete history and physical examination was performed. 2151: Ordered Vancomycin HCl 2 gm IV. 2199: I discussed the patient's case with Flakita Martel. He understands the patient's condition and agrees to accept the patient. The patient will be further evaluated. 2201: I reevaluated the patient and updated him on his results. I discussed his treatment plan and he agrees. The patient will be further evaluated. Medical Decision Differential diagnoses includes but is not limited to pneumonia, bronchitis, COPD/Asthma exacerbation, pneumothorax, pulmonary embolism, congestive heart failure, acute coronary syndrome. Patient is a 41-year-old male who presents to ER for swelling in his lower extremities associated with erythema. On exam he has diffuse pitting edema and erythema. He is morbidly obese. CBC along with BMP was unremarkable. INR was normal. Patient was on his typical 3 L nasal cannula. He is given IV Ancef and vancomycin. EKG was unremarkable. He was updated bedside. Chest x-ray shows faint pulmonary edema. He is admitted to internal medicine for cellulitis associated with CHF. Medication Reconcilliation Current Medication List: was personally reviewed by me Blood Pressure Screening Patient's blood pressure: Normal blood pressure Consults Time Called: 2199 Consulting Physician: Flakita Martel Returned Call: 2199 I discussed the patient's case with Flakita Martel. He understands the patient's condition and agrees to accept the patient. The patient will be further evaluated. Impression Primary Impression: Bilateral cellulitis of lower leg Additional Impression: CHF (congestive heart failure) Scribe Attestation The scribe's documentation has been prepared under my direction and personally reviewed by me in its entirety. I confirm that the note above accurately reflects all work, treatment, procedures, and medical decision making performed by me. Departure Information Dispostion Being Evaluated By Hospitalist Referrals Sundar Guerrero M.D.([facility]) (PCP) Patient Instructions My [facility] Problem Qualifiers Additional Impression: CHF (congestive heart failure) Congestive heart failure type: unspecified congestive heart failure type Congestive heart failure chronicity: unspecified congestive heart failure chronicity Qualified Codes: I50.9 - Heart failure, unspecified
[2017-05-28] MEDS ORDERED: LEVALBUTEROL/IPRATROPIUM NEB INH STA (23:11)
[2017-05-28 23:14] VITALS: BP 133/69; PULSE 113; TEMP 36.9; BMI 68.4
[2017-05-28] MEDS ORDERED: LEVALBUTEROL/IPRATROPIUM NEB INH PRN (23:15)
[2017-05-28] MEDS ORDERED: ENOXAPARIN 30 MG/0.3 ML SYR SQ ONE (23:18)
[2017-05-28] MEDS ORDERED: DOXYCYCLINE IV 100 MG in DEXTROSE 5% 100ML 100 ML IV STA (23:20)
[2017-05-28] MEDS ORDERED: INSULIN ASPART 100 UNITS/ML 3 ML PEN SC ONE (23:22)
[2017-05-28] MEDS ORDERED: LEVALBUTEROL 1.25MG/0.5ML NEB INH STA (23:24)
[2017-05-28] MEDS ORDERED: IPRATROPIUM BROMIDE NEB SOLN 0.02% 2.5 ML VIAL INH STA (23:24)
[2017-05-28] MEDS ORDERED: WARFARIN SOD 5 MG TAB PO STA (23:25)
[2017-05-28 23:29] LABS: PARTIAL THROMBOPLASTIN RATIO 0.9
[2017-05-28] MEDS ORDERED: LEVALBUTEROL 1.25MG/0.5ML NEB INH PRN (23:30)
[2017-05-28] MEDS ORDERED: NITROGLYCERIN 0.4 MG SL PER TAB CHARGE SL PRN (23:30)
[2017-05-28] MEDS ORDERED: TRAMADOL HCL 50 MG TAB PO PRN (23:30)
[2017-05-28] MEDS ORDERED: IPRATROPIUM BROMIDE NEB SOLN 0.02% 2.5 ML VIAL INH PRN (23:30)
[2017-05-28] MEDS ORDERED: PROCHLORPERAZINE INJ 5 MG in SYRINGE 4 ML IV PRN (23:30)
[2017-05-28] MEDS ORDERED: HYDROmorphone INJ 0.5 MG/0.5 ML SYR IV PRN (23:30)
[2017-05-28] MEDS ORDERED: ACETAMINOPHEN 325 MG TAB PO PRN (23:30)
[2017-05-28] MEDS ORDERED: ENOXAPARIN 100 MG/1ML SYR SQ STA (23:40)
[2017-05-28] MEDS ORDERED: ENOXAPARIN 80 MG/0.8 ML SYR SQ STA (23:40)
[2017-05-28] MEDS ORDERED: METHYLPREDNISOLONE IV 20 MG in SYRINGE 0 ML IV STA (23:41)
[2017-05-29] VITALS (9 sets, daily range): BP systolic 111–136; BP diastolic 47–85; PULSE 102–120; TEMP 36.7–37.2; O2SAT 87–96
[2017-05-29 00:08] LABS: URINE APPEARANCE CLEAR (CLEAR); URINE BILIRUBIN NEG (NEG); URINE COLOR DK YELLOW; URINE EPITHELIAL CELL AUTO 20-30 /lpf (0-5); URINE NITRITE NEG (NEG); URINE SPECIFIC GRAVITY 1.029 (1.000-1.030); UROBILINOGEN NEG (NEG); ZZUR CULT IF INDIC CLEAN CATCH NO
[2017-05-29 00:10] LABS: MANUAL MICROSCOPIC REQUIRED? NO; REVIEW REQ? NO
[2017-05-29] MEDS ORDERED: FUROSEMIDE INJ 80 MG in SYRINGE 0 ML IV STA (00:14)
[2017-05-29 00:15] LABS: VEN BLD GAS O2 SATURATION 70.7 %; VEN BLOOD GAS BASE EXCESS 10.8 mEq/L
[2017-05-29] MEDS ORDERED: POTASSIUM CHLORIDE 10 MEQ TABCR PO STA (00:29)
[2017-05-29] MEDS: IPRATROPIUM BROMIDE NEB SOLN 0.02% 2.5 ML VIAL INH SCH ×4 (02:03→19:22)
[2017-05-29] MEDS: LEVALBUTEROL 1.25MG/0.5ML NEB INH SCH ×4 (02:03→19:22)
[2017-05-29] MEDS: ROPINIROLE HCL 0.25 MG TAB PO SCH ×2 (02:30→20:27)
--- NOTE | 2017-05-29 02:31 | HISTORY & PHYSICAL EXAMINATION ---
DATE OF ADMISSION: 05/28/2017 PCP : Dr. Guerrero. CHIEF COMPLAINT: Leg swelling, pain. HISTORY OF PRESENT ILLNESS: History obtained from patient, patient's , and records. Medical history significant for chronic respiratory failure secondary to COPD, OHS, CPAP intolerance, hypertension, ongoing tobacco abuse, DM2 on oral medications, pulmonary embolism on Coumadin, chronic anemia (baseline hemoglobin of 12), hx adenocarcinoma of unknown primary sp chemotherapy. Recent confinement last September 2016 for right lower extremity cellulitis in the setting of chronic lymphedema. Last few days, the patient noted more bilateral leg swelling, redness than usual. Unquantified weight gain over the last few months despite compliance with home diuretics. A little more short of breath than usual, cough productive of yellow sputum. Denies aspiration. No chest pain. Patient brought to Emergency Room by . Given vancomycin in the ER for cellulitis. MEDICAL HISTORY: As above. Previously on CPAP for sleep disordered breathing. Encountered insurance issues due to the patient's inability to wear a CPAP mask for long. Still has to reschedule a new sleep study for titration as per outpatient notes. 2D echo from September 2016 showed grossly normal EF, aortic valve not well visualized. No aortic stenosis. The patient had a moderate IVC dilatation. SURGERIES: Knee surgery, lymph node biopsy, sinus surgery. HOME MEDICATIONS: Include albuterol, atorvastatin, furosemide, home O2, DuoNeb, lisinopril, metformin, metolazone, Prilosec, potassium chloride, propranolol, Requip, Coumadin. ALLERGIES: DYE. FAMILY HISTORY: Leukemia, diabetes, breast cancer and lung cancer. PERSONAL AND SOCIAL HISTORY: Half pack daily. No chronic intake of alcoholic beverages. Disabled. REVIEW OF SYSTEMS: As per HPI, all 10 systems reviewed. All other ROS negative. PHYSICAL EXAMINATION: VITAL SIGNS: Blood pressure was noted to be 133/69, pulse rate 110, RR 22, temperature 36.9, sats 98 on 3 liters. GENERAL: Noted to be obese, uncomfortable, looks older for stated age. some respiratory distress. speaks in phrases. Unkempt SKIN: Pallor, warm. HEENT: Pale palpebral conjunctivae, no ptosis. dry buccal mucosa. NECK: Short, supple. No tenderness. CHEST: Occasional expiratory wheezes. Diminished breath sounds. HEART: Tachycardic. No murmur. ABDOMEN: Some distention, nontender. EXTREMITIES: Bilateral lower extremity edema, induration, minimal tenderness. NEUROLOGIC: Coherent , no gross focality. LABORATORY DATA: Hemoglobin 11, hematocrit 37.9, white cell count 10.4, platelets noted to be 312. Sodium noted to be 136, potassium 3.8, chloride 95, CO2 37, BUN 40, creatinine 0.7, glucose 240. Troponin 0, BNP was normal. INR 1 Hemoglobin A1c from 02/28/2016 was 6.6. EKG as per my interpretation, rate 115, sinus tachycardia, right bundle branch block. TW abnormality inferior leads Chest x-ray cardiomegaly, congestion. ASSESSMENT: 1. Acute on chronic hypoxemic, hypercapnic respiratory failure Multifactorial : chronic obstructive pulmonary disease exacerbation/complicated bronchitis, no sepsis congestive heart failure exacerbation, right-sided heart failure (Weight gain of about 15 pounds from patient baseline from 3 months ago on review of recent inpatient weights, OHS, CPAP noncompliance) 2. History of pulmonary embolism/deep venous thrombosis on Coumadin. INR subtherapeutic ? compliance. 3. HTN, stable 4. Bilateral LE cellulitis Underlying chronic venous insufficiency/lymphedema as per records Increased LE redness as per patient account No sepsis Rule out LE DVT 5. DM2, on oral meds elevated blood sugars at home and on admission blood work well controlled as of recent outpatient hemoglobin A1c from last year however 6. history of adenocarcinoma unknown primary sp chemotherapy. 7. Chronic anemia, hemoglobin at baseline 8. Ongoing tobacco abuse PLAN: PCU supplemental O2 baseline ABG. May need BiPAP Doxycycline for complicated bronchitis and LE cellulitis. Nebs RTC, prn steroids Pulmonary consult RE respiratory failure, COPD exacerbation diuretic therapy. CHF education, strict IOS, daily weights. Cardiology consult. RE decompensated heart failure Need to reschedule outpatient sleep study upon discharge. (Patient willing to retry home CPAP.) Venous LE Dopplers RE LE Swelling rule out DVT Basal insulin, ISS BG goal 140-180. Patient due for hemoglobin A1C recheck. May need diabetic education pending HgA1c results Nicotine patch DVT prophylaxis. Coumadin-Lovenox bridge tx (Lovenox 180 mg SQ BID dosing as per Pharmacy recommendations for now.) Full code. MTDD
[2017-05-29] MEDS ORDERED: LEVALBUTEROL/IPRATROPIUM NEB INH SCH (03:00)
[2017-05-29] MEDS ORDERED: INSULIN GLARGINE SOLOSTAR 100 UNITS/ML 3 ML PEN SC ONE (06:38)
--- NOTE | 2017-05-29 06:54 | DIAGNOSTIC IMAGING REPORT ---
BILATERAL LOWER EXTREMITY VENOUS DOPPLER HISTORY: leg swelling COMPARISON STUDY: None. FINDINGS: Near nondiagnostic study due to the patient's body habitus. No definite evidence for DVT within the right lower extremity. The left lower extremity was not evaluated due to patient unable to cooperate for the examination. IMPRESSION: 1. No definite DVT within the right lower extremity. 2. The left lower extremity was not evaluated. Electronically signed by: Rich Chen M.D. 05/29/2017 6:53 AM Dictated Date/Time: 05/29/2017 6:51 AM
--- NOTE | 2017-05-29 06:55 | DIAGNOSTIC IMAGING REPORT ---
ASCITES-ABDOMEN LIMITED CLINICAL HISTORY: abd distension COMPARISON STUDY: None. FINDINGS: Hepatic steatosis. No ascites identified. IMPRESSION: No ascites. Electronically signed by: Rich Chen M.D. 05/29/2017 6:53 AM Dictated Date/Time: 05/29/2017 6:53 AM
[2017-05-29 06:58] LABS: ESTIMATED AVERAGE GLUCOSE 206 mg/dl; HA1C FLAG Normal (Normal)
[2017-05-29 07:05] LABS: BASO % 0.2 %; BASO ABS # 0.02 K/uL (0-0.2); COMPLETE YES; EOS % 0.2 %; IG% 0.3 %; LYMPH % 4.8 %; LYMPH ABS # 0.46 K/uL (1.2-3.4); MEAN CELL VOLUME 90.7 fL (80-100); MEAN CORPUSCULAR HEMOGLOBIN 28.2 pg (25-34); MEAN CORPUSCULAR HGB CONC 31.1 g/dl (32-36); MEAN PLATELET VOLUME 9.2 fL (7.4-10.4); MONO % 3.2 %; NEUT % 91.3 %; PLATELET COUNT 284 K/uL (130-400); RED BLOOD COUNT 4.19 M/uL (4.7-6.1); WHITE BLOOD COUNT 9.63 K/uL (4.8-10.8)
[2017-05-29 07:31] LABS: INR 1.1 (0.9-1.1); PROTHROMBIN TIME (PATIENT) 11.9 SECONDS (9.0-12.0)
[2017-05-29 07:32] LABS: BLOOD UREA NITROGEN 14 mg/dl (7-18); BUN/CREATININE RATIO 19.4 (10-20); CALCIUM 8.7 mg/dl (8.5-10.1); CARBON DIOXIDE 38 mmol/L (21-32); CHLORIDE 97 mmol/L (98-107); CREATININE 0.71 mg/dl (0.60-1.40); GLUCOSE 195 mg/dl (70-99); SODIUM 135 mmol/L (136-145)
[2017-05-29] MEDS: INSULIN ASPART 100 UNITS/ML 3 ML PEN SC SCH ×4 (08:18→20:29)
[2017-05-29] MEDS: INSULIN GLARGINE SOLOSTAR 100 UNITS/ML 3 ML PEN SC SCH ×2 (08:19→21:52)
[2017-05-29] MEDS: ATORVASTATIN 40 MG TAB PO SCH (08:22)
[2017-05-29] MEDS: FLUOXETINE HCL 20 MG CAP PO SCH (08:22)
[2017-05-29] MEDS: LISINOPRIL 10 MG TAB PO SCH (08:22)
[2017-05-29] MEDS: POTASSIUM CHLORIDE 20 MEQ TABCR PO SCH ×2 (08:22→20:28)
[2017-05-29] MEDS: NICOTINE 14 MG/24 HR TDSY TD SCH (08:23)
[2017-05-29] MEDS: PANTOprazole SOD 40 MG TAB PO SCH (08:23)
[2017-05-29] MEDS ORDERED: INSULIN GLARGINE SOLOSTAR 100 UNITS/ML 3 ML PEN SC SCH ×3 (09:00→21:00)
[2017-05-29] MEDS ORDERED: FUROSEMIDE INJ 80 MG in SYRINGE 0 ML IV SCH (09:00)
[2017-05-29] MEDS ORDERED: ENOXAPARIN 30 MG/0.3 ML SYR SQ SCH ×2 (09:00)
[2017-05-29] MEDS: DOXYCYCLINE IV 100 MG in DEXTROSE 5% 100ML 100 ML IV SCH ×2 (09:08→21:57)
[2017-05-29] MEDS ORDERED: HEPARIN 25,000 UNIT/500ML D5W 500 ML IV PRN (10:00)
[2017-05-29] MEDS ORDERED: PERFLUTREN LIPID MICROSPHERE (DEFINITY) IV ONE (10:01)
[2017-05-29 11:20] LABS: PARTIAL THROMBOPLASTIN RATIO 1.2
--- NOTE | 2017-05-29 12:46 | ECHOCARDIOGRAM REPORT ---
*NOTICE TO RECEIVING CONSTITUTION PARTY AGENCY This information is strictly Confidential and protected under [place] law. [place] law prohibits you from making any further disclosure of this information unless further disclosure is expressly permitted by the written consent of the person to whom it pertains or is authorized by law. A general authorization for the release of medical or other information is not sufficient for this purpose. Hospital accepts no responsibility if the information is made available to any other person, INCLUDING THE PATIENT. Interpretation Summary * Conclusions -- * The study was technically difficult. * Limited views were obtained. * Limited images obtained due to body habitus, subcostal images reveal grossly normal LV systolic function. * Grossly normal RV size and borderline reduced systolic function visually. * Valves inadequately viewed. Procedure Details * The study was technically limited. * The study was technically difficult. * Limited views were obtained. * There were technical limitations due to patient'sbody habitus * A contrast injection of Definity was performed to improve assessment of LV function. * Contrast was injected into an intravenous site in the right arm. * One vial of Definity ultrasound contrast was diluted in normal saline to a total volume of 10 ml. A total of '4' ml of solution was administered during imaging. * Lot # [id number] of Definity utilized for procedure. * Expiration date JUN 01. * The attending nurse who injected the contrast agent was EMILIA MORENO, RN. Left Ventricle * Limited images obtained due to body habitus, subcostal images reveal grossly normal LV systolic function. Right Ventricle * The right ventricle is normal size. * The right ventricular systolic function is borderline reduced. Atria * The left atrium is not well visualized. * Right atrium not well visualized. Mitral Valve * Grossly normal in appearance without significant stenosis or regurgitaton with limited views obtained. Tricuspid Valve * Grossly normal in appearance without significant stenosis or regurgitaton with limited views obtained. Aortic Valve * The aortic valve is not well visualized. Pulmonic Valve * The pulmonic valve is not well visualized. Pericardium/Pleural * There is no pericardial effusion. Great Vessels * Normal inferior vena cava size and collapsability with sniff indicates a normal right atrial pressure of 3 mmHg
[2017-05-29] MEDS: ENOXAPARIN 100 MG/1ML SYR SQ SCH (13:02)
--- NOTE | 2017-05-29 15:14 | CARDIOLOGY CONSULTATION ---
DATE OF CONSULTATION: 05/29/2017 CONSULTATION REQUESTED BY: Buck Hidalgo MD REASON FOR CONSULTATION: Volume overload, questionable CHF. HISTORY OF PRESENT ILLNESS: Mr. Garcia is a very medically complex 41-year-old gentleman who I had previously seen when he was admitted here in September. He presented to [facility] in the evening of 05/28/2017 with a complaint of lower extremity edema and redness. The patient states that this is exactly similar to his multiple previous admissions. He states that over the last several days, he has noticed bilateral lower extremities becoming swollen, and red and erythematous. He states that this is exactly similar to his previous episode of cellulitis. He states that with his legs swelling, he did not experience any chest pain, shortness of breath, palpitations, lightheadedness, dizziness, or syncope. He states it is just his legs bother him. He states he has been compliant with all his medications at home; however, he is on Coumadin and his INR was only 1.1. Upon admission, he was given antibiotics for cellulitis and he was started on a heparin bridge for his INR. He was also given a dose of IV Lasix, but he denies any significant diuresis. PAST SURGICAL HISTORY: 1. Lymph node biopsies. 2. Multiple colonoscopies. 3. Multiple upper endoscopies. 4. Knee arthroscopy. 5. Sinus surgery. 6. A-port placement and subsequent removal for chemotherapy. 7. Morbid obesity. 8. Obesity hypoventilation. 9. Obstructive sleep apnea, noncompliant with CPAP. 10. Ongoing tobacco abuse. 11. History of PE and DVT. 12. Adenocarcinoma of unknown source, status post chemoradiation. 13. Farley esophagitis. 14. Prolonged QT interval with some hypertension. 15. Diabetes. 16. Chronic anemia. 17. Recurrent lower extremity cellulitis. FAMILY HISTORY: Noncontributory. SOCIAL HISTORY: The patient is a lifelong smoker and continues to smoke daily. Denies any alcohol or recreational drug use. He is and lives at home with his . He does not work. He is on disability. REVIEW OF SYSTEMS: As per HPI. All other review of systems reviewed and negative at this time. ALLERGIES: IODINE CONTRAST AGENTS CAUSE A RASH. However, patient states he tolerates ____ if prepped with steroids prior to receiving the AGENTS. MEDICATIONS AN OUTPATIENT: 1. Zaroxolyn 5 mg daily. 2. Atorvastatin 40 mg daily 3. Lisinopril 10 mg daily. 4. Coumadin alternating doses of 7.5 and 15 mg daily as directed by the [facility]madin Clinic. 5. Requip at bedtime. 6. Nicotine patch. 7. Lasix 80 mg p.o. daily. 8. Prozac daily. 9. Potassium chloride 20 mEq daily. 10. Nebulizers. PHYSICAL EXAMINATION: VITALS: Temperature 37, pulse 112, respiratory rate 14, blood pressure 114/85, saturating 95% on 3 liters nasal cannula. GENERAL: Awake, alert, oriented x3 in no acute distress. Morbidly obese, very unkempt in appearance. HEENT: Normocephalic, atraumatic. Pupils equal, round, and reactive to light and accommodation. Extraocular muscles intact. Anicteric sclerae. Moist mucous membranes. Poor dentition. NECK: No JVD, no bruit. CARDIOVASCULAR: Regular but distant. Unable to appreciate any murmurs, rubs or gallops. PULMONARY: Poor air movement bilaterally but clear. No rales, rhonchi or wheezing. ABDOMEN: Bowel sounds x4, soft. No rebound, guarding, tenderness. No organomegaly. EXTREMITIES: +2 bilateral lower extremity pitting edema with diffuse erythema, +1 pedal pulses bilaterally. TEST RESULTS: A 12-lead EKG performed in the Emergency Department, independently reviewed at this time shows sinus tachycardia at 112 beats per minute, underlying right bundle branch block, inverted T waves in the anterior leads are improved compared to previous studies. Most recent echocardiogram performed on 09/24/2016, was read as technically difficult study, limited views, left ventricle was not well visualized but grossly normal systolic function, poorly visualized valvular structures with no significant regurgitation or stenosis by Doppler. The inferior vena cava is mildly dilated. Chest x-ray is a poor study secondary to body habitus. LABORATORY STUDIES OF SIGNIFICANCE: White count 9.6, hemoglobin 11.8, platelet count 284. INR of 1. Sodium 135, potassium 4, BUN 14, creatinine 0.7. IMPRESSION: 1. Bilateral lower extremity cellulitis. 2. Chronic venous insufficiency. 3. Likely underlying cor pulmonale with severe chronic obstructive pulmonary disease, obesity hypoventilation, obstructive sleep apnea, and history of pulmonary embolisms. 4. Morbid obesity. 5. Diabetes. 6. Questionable noncompliance. RECOMMENDATIONS: Mr. Garcia is an obviously very complex medical conditions, but I did not see any profound cardiac involvement at this time. I have no doubt that ____ likely reduced RV function. Given his multiple pulmonary issues, but again due to his body habitus, we were unable to perform adequate an echocardiogram, and nuclear testing has been unhelpful in the past, given the fact the patient and patient's habitus precluded him from having the study completed. So, at this point I agree with ongoing antibiotics to treat his lower extremity edema. He should have his INR bridged and restarted on Coumadin. Review of EPIC notes show multiple no shows for his Coumadin Clinic and this makes me significantly suspicious that he is not compliant with his medications, especially given his INR of 1. He has also been placed on Lasix 80 mg b.i.d. for now. I have no reason to stop it at this point. We will follow his volume status.
--- NOTE | 2017-05-29 15:23 | Pulmonary Consultation ---
History General Date of Service: May 29, 2017. Stated Complaint: Lower extremity edema/cellulitis and history of chronic respiratory insufficiency. HPI The patient is a 41 year old male who presents to [facility] with complaints of Respiratory Failure. The patient's primary care provider is Sundar Guerrero M.D.(ESTEFANY). 41-year-old gentleman admitted with lower extremity wounds/edema possible cellulitis. He has a PmHx: Significant for severe obstructive sleep apnea/ obesity hypoventilation syndrome and poor compliance with his BiPAP machine. The patient has been experiencing increasing lower extremity edema and discomfort over the last 2 days in initially rated his pain at 8/10 currently only at 4/10. He has had multiple admissions for similar episodes. At this time he denies: Fever, chills, shortness of breath, productive cough, pleurisy , classic cardiac chest pain, hemoptysis or GERD. EKG: Sinus tachycardia, right bundle-branch block WBC: 10K (Neutro# > 8.79) Platelet: 284K VB.40/63 correction factor 7.44/53 INR: 1.1 APTT: > 31.5 Albumin: < 3.0 CO2: 38 UA: Ketones-trace, leukocyte Estrace-trace, WBCs-within normal limits Microbiology: Expectorated sputum, blood x2 pending Echocardiogram 05/28/2017 Left ventricle: Grossly normal poor visualization Right ventricle: Normal in size and function Atria: Poor visualization Valves: Grossly within normal limits Great vessels: Good IVC collapsibility during sniff exam Radiology CXR: Poor penetration, cephalization, peribronchial cuffing, right costophrenic blunting CT of the abdomen: No ascites DVT study: No DVT within the right lower extremity CTA chest 09/24/2016 next o Minimal bilateral dependent atelectasis CXR 09/23/2016: Hilar fullness, peribronchial cuffing, signs of volume overload Microbiology Throat 08/09/99: Beta hemolytic strep group C Left leg 08/22/2015: Group B beta strep, MRSA Right leg 10/30/2015: Alpha strep, Escherichia coli Right leg 11/23/2015: Enterococcus faecalis, MRSA Right leg 01/13/2016: S trachea coli, Morganella morganii Blood 02/17/2016: Coag-negative staph x1 Urine and 05/25/2016: MRSA PmHx: 1. Morbid obesity 2. Chronic bilateral lower extremity edema 3. History of Bilateral lower extremity cellulitis 4. Cellulitis of perineum 5. Cellulitis of right thigh 6. Intertrigo 7. History of asthma 8. History of Farley's esophagus 9. Asthma/COPD diagnosis 10. Depression 11. Diaphragmatic hernia 12. Esophageal reflux disease 13. History of deep venous thrombosis 14. History of metastatic adenocarcinoma--uncertain primary status post chemotherapy for left axillary lymph node 15. History of pulmonary embolism/DVT--unspecified date 16. Hypertension 17. Osteoarthritis 18. Severe ESTEFANI (C-PAP: Auto titration setting of 5-15 cm of water pressure/AHI : 57) 19. Tobacco use disorder PsHx: 1. Insertion of a Port-A-Cath 2. Septoplasty/sinus-ostomy 3. Arthroscopic knee surgery 4. EGD 5. Lymph node biopsy Family history Father: of lung cancer age 56, cardiac disease, diabetes mellitus Mother: Heart disease Brother: Hypertension Social history Tobacco: Current every day smoker (started age 15, 2-2.5 packs per day) IV drug use: No history Marital status: How seeing status: Lives with his family Occupation: Unemployed/disabled Allergies Iodinated diagnostic agents Historian: patient, EMS Review of Systems Constitutional: reports: as stated in HPI Eyes: reports: no symptoms ENT: reports: no symptoms Cardiovascular: reports: no symptoms Respiratory: reports: as stated in HPI Gastrointestinal: reports: no symptoms Genitourinary - Male: reports: no symptoms Musculoskeletal: reports: as stated in HPI Integumentary: reports: as stated in HPI Neurologic: reports: no symptoms Psychiatric: reports: no symptoms Endocrine: no symptoms Hematologic / Lymphatic: no symptoms Allergic / Immunologic: no symptoms Past Medical History Past Medical History: Please see HPI Past Surgical History: Please refer to the HPI Family History Cancer FATHER (colon CA age 56) Cardiac disorder Diabetes mellitus MOTHER Heart disease MOTHER (CT age 54) FATHER (CT) BROTHER (CT age 48) BROTHER (CT age 57) Hypertension MOTHER Please refer to the HPI Social History Please refer to the HPI Hx Tobacco Use In Past Year?: Yes Smoking Status: Current Every Day Smoker Marital status: Housing status: lives with family Occupational Status: unemployed, disabled Immunizations History of Influenza Vaccine: No History of Tetanus Vaccine?: Unknown Tetanus Immunization Date: Oct 01, 2004 History of Pneumococcal: No History of Hepatitis B Vaccine: No History of MDRO History of MDRO: Yes Type of MDRO: MRSA Allergies Coded Allergies: Iodinated Diagnostic Agents (Unverified Allergy, Unknown, turns bright red and on fire feeling, RASH, 05/28/17) Current Medications Reported Home Medications Medications Dose Route/Sig Max Daily Dose Days Date Category Dose Instructions Requip (Ropinirole HCl) 0.5 Mg Tab 0.5 Mg PO HS 05/28/17 Reported Warfarin Sodium 7.5 Mg Tab 15 Mg PO 2XWK 05/28/17 Reported TAKES THURS AND SUN Warfarin Sodium 7.5 Mg Tab 7.5 Mg PO 5XD 05/28/17 Reported TAKES MON,TUES,WED,FRI,SAT, Potassium Chloride Er (Potassium Chloride Microencaps) 20 Meq Tab 20 Meq PO BID 01/19/17 Reported Metformin HCl 500 Mg Tab 500 Mg PO DAILY 01/19/17 Reported Ropinirole HCl 0.25 Mg Tab 0.25 Mg PO HS 01/19/17 Reported Fluoxetine HCl 20 Mg Cap 20 Mg PO QAM 30 05/29/16 Rx Oxygen Gas 3 Liters NA CONTINOUS 02/17/16 Reported Prilosec (Omeprazole) 40 Mg Cap 40 Mg PO DAILY 02/17/16 Reported TAKE THIS MEDICATION ONCE DAILY ONE HOUR BEFORE FIRST MEAL OF THE DAY Atorvastatin Calcium (Atorvastatin) 40 Mg Tab 40 Mg PO DAILY 02/17/16 Reported Metolazone 5 Mg Tab 5 Mg PO DAILY 02/17/16 Reported Furosemide 80 Mg Tab 80 Mg PO DAILY 08/22/15 Reported Duoneb (Ipratropium-Albuterol) 3 Ml Nebu 3 Ml INH QID PRN 08/22/15 Reported Ventolin Hfa (Albuterol) 200 Puffs/37408 Mcg Aers 2 Puffs PO Q4H PRN 04/28/15 Reported Lisinopril 10 Mg Tab 10 Mg PO DAILY 04/28/15 Reported Physical Physical Exam Vital Signs: Date Time Temp Pulse Resp B/P (MAP) Pulse Ox O2 Delivery O2 Flow Rate FiO2 05/29/17 14:13 109 20 87 Room Air 05/29/17 12:00 Nasal Cannula 3.0 05/29/17 11:39 37.0 116 28 127/52 (77) 96 3.0 05/29/17 08:17 37.0 112 26 114/85 (95) 95 3.0 05/29/17 08:00 Nasal Cannula 3.0 05/29/17 07:24 102 20 94 Nasal Cannula 3.0 97 05/29/17 04:08 37.2 106 22 136/78 (97) 95 Nasal Cannula 3.0 05/29/17 04:00 Nasal Cannula 3.0 05/29/17 02:02 108 20 94 Nasal Cannula 3.0 05/29/17 00:00 Nasal Cannula 3.0 05/28/17 23:14 36.9 113 23 133/69 Nasal Cannula 3.0 05/28/17 23:00 107 92/47 93 05/28/17 22:13 110 112/51 93 Nasal Cannula 3.0 05/28/17 21:05 110 05/28/17 20:42 36.9 119 20 123/59 95 Nasal Cannula 3.0 General Appearance: NO APPARENT DISTRESS, obese Head: NORMOCEPHALIC, ATRAUMATIC Eyes: PERRLA, NO DISCHARGE, EOMI, SCLERAE NORMAL, CONJUNCTIVAE NORMAL ENT: NORMAL EAR EXAM, NORMAL NASAL EXAM, NORMAL MOUTH EXAM, NORMAL THROAT EXAM Neck: other (Short thick neck no stridor noted midline trachea) Respiratory: other (Decreased breath sounds bilaterally but no active wheezing or rhonchi appreciated) Cardiovasular: other (Regular rate and rhythm distant heart sounds unable to auscultate for murmurs rubs or gallops) Abdomen: NON TENDER, NORMAL BOWEL SOUNDS, NO REBOUND Genitourinary - Male: other (Fair catheter in place no signs of tissue breakdown at this time erythema noted throughout the groin region status post cleaning) Back: NORMAL INSPECTION, NO MIDLINE TENDERNESS, NO CVA TENDERNESS Upper Extremities: NO EDEMA, NO DEFORMITY, NORMAL ROM Lower Extremities: other (Bilateral lower extremity 3+ edema with erythema noted) Pulses: carotid (R) (2+), carotid (L) (2+), dorsalis pedis (R) (Unable to palpate but good cap refill noted), dorsalis pedis (L) (Unable to palpate but good cap refill noted) Neuro: ALERT, ORIENTED x 3, NORMAL MOTOR EXAM, NORMAL SENSATION, NORMAL CEREBELLAR EXAM Reflexes: biceps (R) (1+), bicpes (L) (1+), achilles (R) (0), achilles (L) (0) Babinski Testing: right (equivocal), left (equivocal) Psychiatric: NORMAL AFFECT, NO SUICIDAL IDEATION Diagnostics Labs Results Past 24 Hours Test 05/28/17 20:53 05/28/17 21:17 05/28/17 21:30 05/28/17 21:39 Range/Units Activated Partial Thromboplast Time 22.3 21.0-31.0 SECONDS Partial Thromboplastin Ratio 0.9 Bedside Hemoglobin 11.6 12.2 14.0-18.0 g/dl Bedside Hematocrit 34 36 42-52 % Bedside Sodium 138 138 135-144 mEq/L Bedside Potassium 4.4 3.8 3.3-5.0 mEq/L Bedside Chloride 92 93 101-112 mEq/L Bedside Total CO2 > 40 37 24-31 mEq/l Anion Gap 9.0 3.0 13.0 16-25 mmol/L Bedside Blood Urea Nitrogen 17 15 7-18 mg/dl Bedside Creatinine 0.8 0.7 0.6-1.3 mg/dl Bedside Glucose (other) 252 247 70-99 mg/dl Bedside Ionized Calcium ([place]yla) 1.09 1.06 1.12-1.32 mmol/l White Blood Count 10.48 4.8-10.8 K/uL Red Blood Count 4.15 4.7-6.1 M/uL Hemoglobin 11.8 14.0-18.0 g/dL Hematocrit 37.9 42-52 % Mean Corpuscular Volume 91.3 80-100 fL Mean Corpuscular Hemoglobin 28.4 25-34 pg Mean Corpuscular Hemoglobin Concent 31.1 32-36 g/dl Platelet Count 312 130-400 K/uL Mean Platelet Volume 9.3 7.4-10.4 fL Neutrophils (%) (Auto) 81.2 % Lymphocytes (%) (Auto) 9.6 % Monocytes (%) (Auto) 6.7 % Eosinophils (%) (Auto) 2.0 % Basophils (%) (Auto) 0.2 % Neutrophils # (Auto) 8.51 1.4-6.5 K/uL Lymphocytes # (Auto) 1.01 1.2-3.4 K/uL Monocytes # (Auto) 0.70 0.11-0.59 K/uL Eosinophils # (Auto) 0.21 0-0.5 K/uL Basophils # (Auto) 0.02 0-0.2 K/uL RDW Standard Deviation 52.9 36.4-46.3 fL RDW Coefficient of Variation 15.8 11.5-14.5 % Immature Granulocyte % (Auto) 0.3 % Immature Granulocyte # (Auto) 0.03 0.00-0.02 K/uL Sodium Level 136 136-145 mmol/L Potassium Level 3.8 3.5-5.1 mmol/L Chloride Level 95 98-107 mmol/L Carbon Dioxide Level 37 21-32 mmol/L Blood Urea Nitrogen 14 7-18 mg/dl Creatinine 0.79 0.60-1.40 mg/dl Est Creatinine Clear Calc Drug Dose 223.7 ml/min Estimated GFR () 130.2 Estimated GFR (Non- 112.3 BUN/Creatinine Ratio 17.8 10-20 Random Glucose 237 70-99 mg/dl Calcium Level 8.6 8.5-10.1 mg/dl Magnesium Level 2.0 1.8-2.4 mg/dl Total Bilirubin 0.2 0.2-1 mg/dl Direct Bilirubin < 0.1 0-0.2 mg/dl Aspartate Amino Transf (AST/SGOT) 11 15-37 U/L Alanine Aminotransferase (ALT/SGPT) 18 12-78 U/L Alkaline Phosphatase 87 45-117 U/L Total Creatine Kinase 57 39-308 U/L Troponin I < 0.015 0-0.045 ng/ml Pro-B-Type Natriuretic Peptide 31 0-450 pg/ml Total Protein 7.6 6.4-8.2 gm/dl Albumin 3.0 3.4-5.0 gm/dl Test 05/28/17 21:46 05/28/17 22:17 05/28/17 22:26 05/28/17 23:45 Range/Units Bedside Lactic Acid Venous 1.76 0.90-1.70 mmol/L Estimated Average Glucose 206 mg/dl Hemoglobin A1c 8.8 4.5-5.6 % Lactic Acid Level 1.3 0.4-2.0 mmol/L Thyroid Stimulating Hormone (TSH) 3.960 0.300-4.500 uIu/ml Prothrombin Time 10.8 9.0-12.0 SECONDS Prothromb Time International Ratio 1.0 0.9-1.1 Urine Color DK YELLOW Urine Appearance CLEAR CLEAR Urine pH 5.0 4.5-7.5 Urine Specific [place] 1.029 1.000-1.030 Urine Protein NEG NEG Urine Glucose (UA) NEG NEG Urine Ketones TRACE NEG Urine Occult Blood NEG NEG Urine Nitrite NEG NEG Urine Bilirubin NEG NEG Urine Urobilinogen NEG NEG Urine Leukocyte Esterase TRACE NEG Urine WBC (Auto) 1-5 0-5 /hpf Urine RBC (Auto) 0-4 0-4 /hpf Urine Hyaline Casts (Auto) 5-10 0-5 /lpf Urine Epithelial Cells (Auto) 20-30 0-5 /lpf Urine Bacteria (Auto) NEG NEG Test 05/29/17 00:07 05/29/17 00:18 05/29/17 06:17 05/29/17 06:50 Range/Units Venous Blood pH 7.40 7.36-7.41 Venous Blood Partial Pressure CO2 63 38.0-50.0 mmHg Venous Blood Partial Pressure O2 38 mmHg Venous Blood HCO3 38 mmol/L Venous Blood Oxygen Saturation 70.7 % Venous Blood Base Excess 10.8 mEq/L Bedside Glucose 212 206 70-99 mg/dl White Blood Count 9.63 4.8-10.8 K/uL Red Blood Count 4.19 4.7-6.1 M/uL Hemoglobin 11.8 14.0-18.0 g/dL Hematocrit 38.0 42-52 % Mean Corpuscular Volume 90.7 80-100 fL Mean Corpuscular Hemoglobin 28.2 25-34 pg Mean Corpuscular Hemoglobin Concent 31.1 32-36 g/dl Platelet Count 284 130-400 K/uL Mean Platelet Volume 9.2 7.4-10.4 fL Neutrophils (%) (Auto) 91.3 % Lymphocytes (%) (Auto) 4.8 % Monocytes (%) (Auto) 3.2 % Eosinophils (%) (Auto) 0.2 % Basophils (%) (Auto) 0.2 % Neutrophils # (Auto) 8.79 1.4-6.5 K/uL Lymphocytes # (Auto) 0.46 1.2-3.4 K/uL Monocytes # (Auto) 0.31 0.11-0.59 K/uL Eosinophils # (Auto) 0.02 0-0.5 K/uL Basophils # (Auto) 0.02 0-0.2 K/uL RDW Standard Deviation 52.8 36.4-46.3 fL RDW Coefficient of Variation 16.0 11.5-14.5 % Immature Granulocyte % (Auto) 0.3 % Immature Granulocyte # (Auto) 0.03 0.00-0.02 K/uL Prothrombin Time 11.9 9.0-12.0 SECONDS Prothromb Time International Ratio 1.1 0.9-1.1 Sodium Level 135 136-145 mmol/L Potassium Level 4.0 3.5-5.1 mmol/L Chloride Level 97 98-107 mmol/L Carbon Dioxide Level 38 21-32 mmol/L Anion Gap 0.0 3-11 mmol/L Blood Urea Nitrogen 14 7-18 mg/dl Creatinine 0.71 0.60-1.40 mg/dl Est Creatinine Clear Calc Drug Dose 249.2 ml/min Estimated GFR () 136.0 Estimated GFR (Non- 117.4 BUN/Creatinine Ratio 19.4 10-20 Random Glucose 195 70-99 mg/dl Calcium Level 8.7 8.5-10.1 mg/dl Troponin I < 0.015 0-0.045 ng/ml Test 05/29/17 10:52 05/29/17 11:17 Range/Units Activated Partial Thromboplast Time 31.5 21.0-31.0 SECONDS Partial Thromboplastin Ratio 1.2 Bedside Glucose 202 70-99 mg/dl Microbiology Results 05/28/17 Blood Culture, Received Pending 05/28/17 Blood Culture, Received Pending Diagnostic Radiology Please refer to HPI EKG Please refer to HPI Impression Assessment and Plan 41-year-old gentleman with chronic severe sleep apnea and obesity hypoventilation syndrome: 1. Obesity hypoventilation syndrome/ESTEFANI: The patient does not have a definitive diagnosis of obesity hypoventilation syndrome but does fit criteria having an elevated serum bicarbonate greater than 27, awake PA CO2 greater than 45 and notable PaO2 less than 70 mmHg. There has been multiple times to get this patient to be compliant with his BiPAP and also repeat polysomnogram so for continual evaluation. At this time the patient has agreed to attempt BiPAP with nocturnal desaturation study performed. I will order BiPAP at low pressures of 10/5 and bleed in oxygen as required to maintain SaO2 greater than 88% in monitor with oximetry study. Prior to discharge will have to work on acquiring home BiPAP which may require an overnight non BiPAP oximetry study. 2. Respiratory: I believe at this time the patient has baseline respiratory status.
--- NOTE | 2017-05-29 15:41 | Pharmacy Progress Note ---
Enoxaparin Dosing Consult Date of Service: May 29, 2017. Pharmacy Dosing Scope Pharmacy is consulted to ORDER enoxaparin for DVT prophylaxis in setting of extreme body habitus & order Xa levels as appropriate. Subjective The patient is a 41 year old male admitted on May 28, 2017 at 22:30 for Respiratory Failure, leg pain/swelling. * Pt is on warfarin as an out-patient, there is a question of non-compliance. * warfarin reported as 15mg po q /, 7.5mg x 5 days = 67.5mg/week. Pertinent PMH: BMI 69, history PE/DVT-last event 2005, hx adenocarcinoma s/p chemo, HTN, chronic anemia. Objective Height (Feet): 5 Height (Inches): 9.00 Weight (Kilograms): 212.400 BMI (kg/m2): 69.1 Laboratory Results: Last 24 Hours Test 05/28/17 20:53 05/28/17 21:30 05/29/17 06:50 05/29/17 10:52 Activated Partial Thromboplast Time 22.3 SECONDS (21.0-31.0) 31.5 SECONDS (21.0-31.0) Partial Thromboplastin Ratio 0.9 1.2 Blood Urea Nitrogen 14 mg/dl (7-18) 14 mg/dl (7-18) Creatinine 0.79 mg/dl (0.60-1.40) 0.71 mg/dl (0.60-1.40) White Blood Count 10.48 K/uL (4.8-10.8) 9.63 K/uL (4.8-10.8) Red Blood Count 4.15 M/uL (4.7-6.1) 4.19 M/uL (4.7-6.1) Hemoglobin 11.8 g/dL (14.0-18.0) 11.8 g/dL (14.0-18.0) Hematocrit 37.9 % (42-52) 38.0 % (42-52) Mean Corpuscular Volume 91.3 fL (80-100) 90.7 fL (80-100) Mean Corpuscular Hemoglobin 28.4 pg (25-34) 28.2 pg (25-34) Mean Corpuscular Hemoglobin Concent 31.1 g/dl (32-36) 31.1 g/dl (32-36) Platelet Count 312 K/uL (130-400) 284 K/uL (130-400) Mean Platelet Volume 9.3 fL (7.4-10.4) 9.2 fL (7.4-10.4) Neutrophils (%) (Auto) 81.2 % 91.3 % Lymphocytes (%) (Auto) 9.6 % 4.8 % Monocytes (%) (Auto) 6.7 % 3.2 % Eosinophils (%) (Auto) 2.0 % 0.2 % Basophils (%) (Auto) 0.2 % 0.2 % Neutrophils # (Auto) 8.51 K/uL (1.4-6.5) 8.79 K/uL (1.4-6.5) Lymphocytes # (Auto) 1.01 K/uL (1.2-3.4) 0.46 K/uL (1.2-3.4) Monocytes # (Auto) 0.70 K/uL (0.11-0.59) 0.31 K/uL (0.11-0.59) Eosinophils # (Auto) 0.21 K/uL (0-0.5) 0.02 K/uL (0-0.5) Basophils # (Auto) 0.02 K/uL (0-0.2) 0.02 K/uL (0-0.2) Last 72 Hours Test 05/28/17 21:30 05/28/17 22:26 05/29/17 06:50 Alanine Aminotransferase (ALT/SGPT) 18 U/L Aspartate Amino Transf (AST/SGOT) 11 U/L Direct Bilirubin < 0.1 mg/dl White Blood Count 10.48 K/uL 9.63 K/uL Red Blood Count 4.15 M/uL 4.19 M/uL Hemoglobin 11.8 g/dL 11.8 g/dL Hematocrit 37.9 % 38.0 % Mean Corpuscular Volume 91.3 fL 90.7 fL Mean Corpuscular Hemoglobin 28.4 pg 28.2 pg Mean Corpuscular Hemoglobin Concent 31.1 g/dl 31.1 g/dl Platelet Count 312 K/uL 284 K/uL Mean Platelet Volume 9.3 fL 9.2 fL Neutrophils (%) (Auto) 81.2 % 91.3 % Lymphocytes (%) (Auto) 9.6 % 4.8 % Monocytes (%) (Auto) 6.7 % 3.2 % Eosinophils (%) (Auto) 2.0 % 0.2 % Basophils (%) (Auto) 0.2 % 0.2 % Neutrophils # (Auto) 8.51 K/uL 8.79 K/uL Lymphocytes # (Auto) 1.01 K/uL 0.46 K/uL Monocytes # (Auto) 0.70 K/uL 0.31 K/uL Eosinophils # (Auto) 0.21 K/uL 0.02 K/uL Basophils # (Auto) 0.02 K/uL 0.02 K/uL Total Bilirubin 0.2 mg/dl Prothromb Time International Ratio 1.0 1.1 Recent Anticoagulant Meds * warfarin 15mg po x 1 on admission (05/28/17), warfarin 15mg today@16. * enoxaparin 180mg (0.85mg/kg) sub-q x 1 05/28/17 @ 2352 * Changed to IV Wt-based heparin (no bolus) 05/29 1000 (for therapeutic AC therapy in setting of extreme habitus pending review from [facility] [place] [facility]) Assessment & Plan Dr Sinclair ([facility] [place]) spoke with [facility] Lin to change to PROPHYLACTIC AC therapy. PLAN: Scr 0.71 (est GFR > 100mL/min) * D/C Therapeutic UFH * Continue warfarin. Goal INR 2-3. * Start bridge, enox 0.5mg/kg sub-q daily for DVT prophy in setting of morbid obesity * D/C enox for INR 2 or above on warfarin * Draw peak LMWH Xa level 4 hours after dose @ Css (after 4 doses for q 24 hour frequency). Goal LMWH Xa 0.2-0.4iu/mL. Labs: * Ongoing Labs (P&T Approved): CBC q 2 days x 2 weeks, serum creat q 2 days Discussed this plan of care with Dr. Guerrero. We will continue to monitor this patient and make adjustments as needed. Thank you.
--- NOTE | 2017-05-29 16:27 | Progress Note ---
Medicine Progress Note Date & Time of Visit: May 29, 2017 at 11:17. Subjective 41 yoM with chronic O2-dependence 2/2 severe COPD, ESTEFANI/obesity hypoventilation syndrome presents with worsening LE edema. He currently denies SOB, chest pain , cough, fevers, chills. Objective Last 8 Hrs Date Time Temp Pulse Resp B/P (MAP) Pulse Ox O2 Delivery O2 Flow Rate FiO2 05/29/17 08:17 37.0 112 26 114/85 (95) 95 3.0 05/29/17 07:24 102 20 94 Nasal Cannula 3.0 97 05/29/17 04:08 37.2 106 22 136/78 (97) 95 Nasal Cannula 3.0 05/29/17 04:00 Nasal Cannula 3.0 Physical Exam: GEN: obese, in no acute distress, alert and appropriate, no conversational dyspnea on 3L NC HEENT: NC/AT, normal sclerae, MMM CARDIO: reg rate, S1/2 heard without m/g/r LUNGS: CTA bilaterally, diminished breath sounds bilaterally ABD: soft, non-tender, non-distended, no rebound or guarding, large skin folds that are causing pressure on lower pelvic area and enlarged scrotum with interfold skin breakdown. Powder in folds. Odor present. EXTREMITY: very large, edematous legs with changes consistent with chronic swelling including woody appearance to skin, dark hues to skin on LEs bilaterally (R>L). Warm to touch. NEURO: CN 2-12 grossly intact, sensation intact throughout MUSC: 5/5 strength throughout, no gross focal deficits, limited movement 2/2 body habitus SKIN: warm and dry and as above. Laboratory Results: 05/29/17 06:50 Red Blood Count 4.19, Mean Corpuscular Volume 90.7, Mean Corpuscular Hemoglobin 28.2, Mean Corpuscular Hemoglobin Concent 31.1, Mean Platelet Volume 9.2, Neutrophils (%) (Auto) 91.3, Lymphocytes (%) (Auto) 4.8, Monocytes (%) (Auto) 3.2, Eosinophils (%) (Auto) 0.2, Basophils (%) (Auto) 0.2, Neutrophils # (Auto) 8.79, Lymphocytes # (Auto) 0.46, Monocytes # (Auto) 0.31, Eosinophils # (Auto) 0.02, Basophils # (Auto) 0.02 05/29/17 06:50 Test 05/28/17 21:30 05/28/17 21:39 05/28/17 21:46 05/28/17 22:17 Magnesium Level 2.0 mg/dl (1.8-2.4) Total Bilirubin 0.2 mg/dl (0.2-1) Direct Bilirubin < 0.1 mg/dl (0-0.2) Aspartate Amino Transf (AST/SGOT) 11 U/L (15-37) Alanine Aminotransferase (ALT/SGPT) 18 U/L (12-78) Alkaline Phosphatase 87 U/L (45-117) Total Creatine Kinase 57 U/L (39-308) Pro-B-Type Natriuretic Peptide 31 pg/ml (0-450) Total Protein 7.6 gm/dl (6.4-8.2) Albumin 3.0 gm/dl (3.4-5.0) Bedside Hemoglobin 12.2 g/dl (14.0-18.0) Bedside Hematocrit 36 % (42-52) Bedside Sodium 138 mEq/L (135-144) Bedside Potassium 3.8 mEq/L (3.3-5.0) Bedside Chloride 93 mEq/L (101-112) Bedside Total CO2 37 mEq/l (24-31) Bedside Blood Urea Nitrogen 15 mg/dl (7-18) Bedside Creatinine 0.7 mg/dl (0.6-1.3) Bedside Glucose (other) 247 mg/dl (70-99) Bedside Ionized Calcium (Sheyla) 1.06 mmol/l (1.12-1.32) Bedside Lactic Acid Venous 1.76 mmol/L (0.90-1.70) Estimated Average Glucose 206 mg/dl Hemoglobin A1c 8.8 % (4.5-5.6) Lactic Acid Level 1.3 mmol/L (0.4-2.0) Thyroid Stimulating Hormone (TSH) 3.960 uIu/ml (0.300-4.500) Test 05/28/17 23:45 05/29/17 00:07 05/29/17 06:50 05/29/17 10:52 Urine Color DK YELLOW Urine Appearance CLEAR (CLEAR) Urine pH 5.0 (4.5-7.5) Urine Specific [place] 1.029 (1.000-1.030) Urine Protein NEG (NEG) Urine Glucose (UA) NEG (NEG) Urine Ketones TRACE (NEG) Urine Occult Blood NEG (NEG) Urine Nitrite NEG (NEG) Urine Bilirubin NEG (NEG) Urine Urobilinogen NEG (NEG) Urine Leukocyte Esterase TRACE (NEG) Urine WBC (Auto) 1-5 /hpf (0-5) Urine RBC (Auto) 0-4 /hpf (0-4) Urine Hyaline Casts (Auto) 5-10 /lpf (0-5) Urine Epithelial Cells (Auto) 20-30 /lpf (0-5) Urine Bacteria (Auto) NEG (NEG) Venous Blood pH 7.40 (7.36-7.41) Venous Blood Partial Pressure CO2 63 mmHg (38.0-50.0) Venous Blood Partial Pressure O2 38 mmHg Venous Blood HCO3 38 mmol/L Venous Blood Oxygen Saturation 70.7 % Venous Blood Base Excess 10.8 mEq/L White Blood Count 9.63 K/uL (4.8-10.8) Red Blood Count 4.19 M/uL (4.7-6.1) Hemoglobin 11.8 g/dL (14.0-18.0) Hematocrit 38.0 % (42-52) Mean Corpuscular Volume 90.7 fL (80-100) Mean Corpuscular Hemoglobin 28.2 pg (25-34) Mean Corpuscular Hemoglobin Concent 31.1 g/dl (32-36) Platelet Count 284 K/uL (130-400) Mean Platelet Volume 9.2 fL (7.4-10.4) Neutrophils (%) (Auto) 91.3 % Lymphocytes (%) (Auto) 4.8 % Monocytes (%) (Auto) 3.2 % Eosinophils (%) (Auto) 0.2 % Basophils (%) (Auto) 0.2 % Neutrophils # (Auto) 8.79 K/uL (1.4-6.5) Lymphocytes # (Auto) 0.46 K/uL (1.2-3.4) Monocytes # (Auto) 0.31 K/uL (0.11-0.59) Eosinophils # (Auto) 0.02 K/uL (0-0.5) Basophils # (Auto) 0.02 K/uL (0-0.2) RDW Standard Deviation 52.8 fL (36.4-46.3) RDW Coefficient of Variation 16.0 % (11.5-14.5) Immature Granulocyte % (Auto) 0.3 % Immature Granulocyte # (Auto) 0.03 K/uL (0.00-0.02) Prothrombin Time 11.9 SECONDS (9.0-12.0) Prothromb Time International Ratio 1.1 (0.9-1.1) Anion Gap 0.0 mmol/L (3-11) Est Creatinine Clear Calc Drug Dose 249.2 ml/min Estimated GFR () 136.0 Estimated GFR (Non- 117.4 BUN/Creatinine Ratio 19.4 (10-20) Calcium Level 8.7 mg/dl (8.5-10.1) Troponin I < 0.015 ng/ml (0-0.045) Activated Partial Thromboplast Time 31.5 SECONDS (21.0-31.0) Partial Thromboplastin Ratio 1.2 Test 05/29/17 20:01 Bedside Glucose 150 mg/dl (70-99) Date/Time Source Procedure Growth Status 05/28/17 21:36 Blood Blood Culture Pending Received Last 24 Hours Test 05/28/17 20:53 05/28/17 21:17 05/28/17 21:30 05/28/17 21:39 Activated Partial Thromboplast Time 22.3 SECONDS Partial Thromboplastin Ratio 0.9 Bedside Hemoglobin 11.6 g/dl 12.2 g/dl Bedside Hematocrit 34 % 36 % Bedside Sodium 138 mEq/L 138 mEq/L Bedside Potassium 4.4 mEq/L 3.8 mEq/L Bedside Chloride 92 mEq/L 93 mEq/L Bedside Total CO2 > 40 mEq/l 37 mEq/l Anion Gap 9.0 mmol/L 3.0 mmol/L 13.0 mmol/L Bedside Blood Urea Nitrogen 17 mg/dl 15 mg/dl Bedside Creatinine 0.8 mg/dl 0.7 mg/dl Bedside Glucose (other) 252 mg/dl 247 mg/dl Bedside Ionized Calcium (Sheyla) 1.09 mmol/l 1.06 mmol/l White Blood Count 10.48 K/uL Red Blood Count 4.15 M/uL Hemoglobin 11.8 g/dL Hematocrit 37.9 % Mean Corpuscular Volume 91.3 fL Mean Corpuscular Hemoglobin 28.4 pg Mean Corpuscular Hemoglobin Concent 31.1 g/dl Platelet Count 312 K/uL Mean Platelet Volume 9.3 fL Neutrophils (%) (Auto) 81.2 % Lymphocytes (%) (Auto) 9.6 % Monocytes (%) (Auto) 6.7 % Eosinophils (%) (Auto) 2.0 % Basophils (%) (Auto) 0.2 % Neutrophils # (Auto) 8.51 K/uL Lymphocytes # (Auto) 1.01 K/uL Monocytes # (Auto) 0.70 K/uL Eosinophils # (Auto) 0.21 K/uL Basophils # (Auto) 0.02 K/uL RDW Standard Deviation 52.9 fL RDW Coefficient of Variation 15.8 % Immature Granulocyte % (Auto) 0.3 % Immature Granulocyte # (Auto) 0.03 K/uL Sodium Level 136 mmol/L Potassium Level 3.8 mmol/L Chloride Level 95 mmol/L Carbon Dioxide Level 37 mmol/L Blood Urea Nitrogen 14 mg/dl Creatinine 0.79 mg/dl Est Creatinine Clear Calc Drug Dose 223.7 ml/min Estimated GFR () 130.2 Estimated GFR (Non- 112.3 BUN/Creatinine Ratio 17.8 Random Glucose 237 mg/dl Calcium Level 8.6 mg/dl Magnesium Level 2.0 mg/dl Total Bilirubin 0.2 mg/dl Direct Bilirubin < 0.1 mg/dl Aspartate Amino Transf (AST/SGOT) 11 U/L Alanine Aminotransferase (ALT/SGPT) 18 U/L Alkaline Phosphatase 87 U/L Total Creatine Kinase 57 U/L Troponin I < 0.015 ng/ml Pro-B-Type Natriuretic Peptide 31 pg/ml Total Protein 7.6 gm/dl Albumin 3.0 gm/dl Test 05/28/17 21:46 05/28/17 22:17 05/28/17 22:26 05/28/17 23:45 Bedside Lactic Acid Venous 1.76 mmol/L Estimated Average Glucose 206 mg/dl Hemoglobin A1c 8.8 % Lactic Acid Level 1.3 mmol/L Thyroid Stimulating Hormone (TSH) 3.960 uIu/ml Prothrombin Time 10.8 SECONDS Prothromb Time International Ratio 1.0 Urine Color DK YELLOW Urine Appearance CLEAR Urine pH 5.0 Urine Specific [place] 1.029 Urine Protein NEG Urine Glucose (UA) NEG Urine Ketones TRACE Urine Occult Blood NEG Urine Nitrite NEG Urine Bilirubin NEG Urine Urobilinogen NEG Urine Leukocyte Esterase TRACE Urine WBC (Auto) 1-5 /hpf Urine RBC (Auto) 0-4 /hpf Urine Hyaline Casts (Auto) 5-10 /lpf Urine Epithelial Cells (Auto) 20-30 /lpf Urine Bacteria (Auto) NEG Test 05/29/17 00:07 05/29/17 00:18 05/29/17 06:17 05/29/17 06:50 Venous Blood pH 7.40 Venous Blood Partial Pressure CO2 63 mmHg Venous Blood Partial Pressure O2 38 mmHg Venous Blood HCO3 38 mmol/L Venous Blood Oxygen Saturation 70.7 % Venous Blood Base Excess 10.8 mEq/L Bedside Glucose 212 mg/dl 206 mg/dl White Blood Count 9.63 K/uL Red Blood Count 4.19 M/uL Hemoglobin 11.8 g/dL Hematocrit 38.0 % Mean Corpuscular Volume 90.7 fL Mean Corpuscular Hemoglobin 28.2 pg Mean Corpuscular Hemoglobin Concent 31.1 g/dl Platelet Count 284 K/uL Mean Platelet Volume 9.2 fL Neutrophils (%) (Auto) 91.3 % Lymphocytes (%) (Auto) 4.8 % Monocytes (%) (Auto) 3.2 % Eosinophils (%) (Auto) 0.2 % Basophils (%) (Auto) 0.2 % Neutrophils # (Auto) 8.79 K/uL Lymphocytes # (Auto) 0.46 K/uL Monocytes # (Auto) 0.31 K/uL Eosinophils # (Auto) 0.02 K/uL Basophils # (Auto) 0.02 K/uL RDW Standard Deviation 52.8 fL RDW Coefficient of Variation 16.0 % Immature Granulocyte % (Auto) 0.3 % Immature Granulocyte # (Auto) 0.03 K/uL Prothrombin Time 11.9 SECONDS Prothromb Time International Ratio 1.1 Sodium Level 135 mmol/L Potassium Level 4.0 mmol/L Chloride Level 97 mmol/L Carbon Dioxide Level 38 mmol/L Anion Gap 0.0 mmol/L Blood Urea Nitrogen 14 mg/dl Creatinine 0.71 mg/dl Est Creatinine Clear Calc Drug Dose 249.2 ml/min Estimated GFR () 136.0 Estimated GFR (Non- 117.4 BUN/Creatinine Ratio 19.4 Random Glucose 195 mg/dl Calcium Level 8.7 mg/dl Troponin I < 0.015 ng/ml Test 05/29/17 10:52 Date/Time Source Procedure Growth Status 12/15/17 21:36 Blood Blood Culture Pending Received 05/28/17 21:11 Blood Blood Culture Pending Received Assessment & Plan 41 yoM with chronic O2-dependence 2/2 severe COPD, ESTEFANI/obesity hypoventilation syndrome presents with worsening LE edema. He currently denies SOB, chest pain , cough, fevers, chills. 1. LE edema-chronic edema of lower extremities including thighs and scrotum. Pt also has large pannus-new onset swelling is not easy to determine. He denies worsening SOB and has very low exercise tolerance and orthopnea at baseline. TTE reveals RV dysfunction, however, patient appears to be at baseline and this is likely cor pulmonale 2/2 severe lung disease and ESTEFANI. Continuing Lasix IV for now. Cardiology consulted. 2. Chronic hypoxic respiratory failure-no worsening SOB reported and pt denies cough. Do not think patient has URI or COPD exacerbation at this time. No wheezing on exam. Will switch to PRN bronchodilators and stop prednisone as this will increase blood sugar and cause increased fluid retention. 3. ESTEFANI/obesity hypoventilation syndrome-Pulm consulted. Apprec recs. 4. 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 Lost to follow-up and will need to follow-up with Oncology for a repeat PET scan. PE that was provoked by cancer in the past, however, patient is on lifelong coumadin. Consulted Hematology to clarify the need for persistent coumadin. As an aside, this patient reports compliance, but has not been checked at the [facility] for several months. INR was normal. Per Dr. Sinclair, no bridge needed, so weight based Lovenox and subsequent heparin drip was stopped. DVT prophylaxis was started. Of note, patient was on Eliquis at one point in the past. Daily INR. 5. HTN-controlled, cont lisinopril. 6. bilateral LE cellulitis-pt has chronic venous stasis and questionable cellulitis. Skin is warm. There are also several open areas between skin folds and on backside. Cont doxycycline for now. LE US was negative. 7. DMII-ISS/glargine 8. Ongoing tobacco abuse 9. Obesity-we discussed the importance for efforts at weight loss as this is at the root of most of his problems and a barrier to care. Full Code DVT Prophy-Mya Dispo-will be hospitalized for next couple of days. Pt informed nursing staff today that he has no running water at his home, he sits in urine because of incontinence and limited ability to move, etc. He appears to have many barriers to care and will need Equipment Validation Specialist involved to ensure max resources available. Zo Guerrero DO [facility] Hospitalist Consultants: Cardiology Pulmonology. Current Inpatient Medications: Current Inpatient Medications Medications (Trade) Dose Ordered Sig/Karissa Route Start Time Stop Time Status Last Admin Dose Admin Glucose (Glucose 40% Gel) 15-30 GRAMS 15 GRAMS... UD PRN PO 05/28/17 22:30 06/27/17 22:29 Glucose (Glucose Chew Tab) 4-8 Tablets 4 Tabl... UD PRN PO 05/28/17 22:30 06/27/17 22:29 Dextrose (Dextrose 50% 50ML Syringe) 25-50ML OF 50% DW IV FOR... UD PRN IV 05/28/17 22:30 06/27/17 22:29 Glucagon (Glucagon Inj) 1 mg UD PRN SQ 05/28/17 22:30 06/27/17 22:29 Doxycycline Hyclate 100 mg/ Dextrose 110 ml @ 50 mls/hr BID IV 05/29/17 09:00 06/05/17 08:59 05/29/17 09:08 50 MLS/HR Nicotine (Nicoderm Cq 14MG Patch) 1 patch QAM TD 05/29/17 09:00 06/28/17 08:59 05/29/17 08:23 1 PATCH Miscellaneous (Remove Nicoderm Patch) 1 ea HS N/A 05/29/17 21:00 06/28/17 20:59 Warfarin Sodium (Coumadin Tab) 15 mg DAILY@16 PO 05/29/17 16:00 06/28/17 15:59 Ipratropium [place] (Atrovent 0.02% 0.5MG/2.5ML Neb) 0.5 mg Q6R INH 05/29/17 03:00 06/28/17 02:59 05/29/17 07:23 0.5 MG Levalbuterol (Xopenex 1.25MG/ 0.5ML Neb) 1.25 mg Q6R INH 05/29/17 03:00 06/28/17 02:59 05/29/17 07:23 1.25 MG Ipratropium [place] (Atrovent 0.02% 0.5MG/2.5ML Neb) 0.5 mg Q4H PRN INH 05/28/17 23:30 06/27/17 23:29 Levalbuterol (Xopenex 1.25MG/ 0.5ML Neb) 1.25 mg Q4H PRN INH 05/28/17 23:30 06/27/17 23:29 Acetaminophen (Tylenol Tab) 650 mg Q4H PRN PO 05/28/17 23:30 06/27/17 23:29 05/29/17 00:15 650 MG Nitroglycerin (Nitrostat Tab) 0.4 mg UD PRN SL 05/28/17 23:30 06/27/17 23:29 Insulin Aspart (novoLOG ASPART) SLIDING SCALE If C... ACHS SC 05/29/17 07:00 06/28/17 06:59 05/29/17 08:18 4 UNITS Glucose (Glucose 40% Gel) 15-30 GRAMS 15 GRAMS... UD PRN PO 05/28/17 23:30 06/27/17 23:29 Glucose (Glucose Chew Tab) 4-8 Tablets 4 Tabl... UD PRN PO 05/28/17 23:30 06/27/17 23:29 Dextrose (Dextrose 50% 50ML Syringe) 25-50ML OF 50% DW IV FOR... UD PRN IV 05/28/17 23:30 06/27/17 23:29 Glucagon (Glucagon Inj) 1 mg UD PRN SQ 05/28/17 23:30 06/27/17 23:29 Atorvastatin Calcium (Lipitor Tab) 40 mg DAILY PO 05/29/17 09:00 06/28/17 08:59 05/29/17 08:22 40 MG Fluoxetine HCl (Prozac Cap) 20 mg QAM PO 05/29/17 09:00 06/28/17 08:59 05/29/17 08:22 20 MG Lisinopril (Zestril Tab) 10 mg DAILY PO 05/29/17 09:00 06/28/17 08:59 05/29/17 08:22 10 MG Potassium Chloride (Klor-Con Tab) 20 meq BID PO 05/29/17 09:00 06/28/17 08:59 05/29/17 08:22 20 MEQ Ropinirole HCl (Requip Tab) 0.25 mg HS PO 05/29/17 21:00 06/28/17 20:59 05/29/17 02:30 0.25 MG Pantoprazole Sodium (Protonix Tab) 40 mg DAILY PO 05/29/17 09:00 06/28/17 08:59 05/29/17 08:23 40 MG Tramadol HCl (Ultram Tab) not relieved by tylenol @ Q6H PRN PO 05/28/17 23:30 06/27/17 23:29 05/29/17 00:45 25 MG Prochlorperazine Edisylate 5 mg/ Syringe 5 ml @ 5 mls/min Q6H PRN IV 05/28/17 23:30 06/27/17 23:29 Hydromorphone HCl (Dilaudid Inj) 0.5 mg Q6H PRN IV 05/28/17 23:30 06/11/17 23:29 05/29/17 03:59 0.5 MG Furosemide 80 mg/ Syringe 8 ml @ 4 mls/min BID IV 05/29/17 09:00 05/30/17 08:59 05/29/17 08:21 4 MLS/MIN Miscellaneous Information (Pending Order) 1 ea QS N/A 05/29/17 08:00 06/28/17 07:59 Prednisone (PredniSONE TAB) 20 mg DAILY PO 05/29/17 09:00 06/03/17 08:59 05/29/17 08:23 20 MG Insulin Glargine (Lantus Solostar Pen) 20 units BID SC 05/29/17 09:00 06/28/17 08:59 05/29/17 08:19 20 UNITS Heparin Sodium/ Dextrose 500 ml @ 46 mls/hr [id number] PRN IV 05/29/17 10:00 06/28/17 09:59 05/29/17 11:07 46 MLS/HR
[2017-05-29] MEDS: WARFARIN SOD 5 MG TAB PO SCH (16:30)
[2017-05-29] MEDS: TRAMADOL HCL 50 MG TAB PO PRN (17:26)
[2017-05-30] VITALS (9 sets, daily range): BP systolic 111–151; BP diastolic 60–94; PULSE 96–112; TEMP 36.7–37.1; O2SAT 93–97
[2017-05-30 08:07] LABS: HEMATOCRIT 35.8 % (42-52); MEAN CELL VOLUME 90.4 fL (80-100); MEAN CORPUSCULAR HEMOGLOBIN 28.5 pg (25-34); MEAN CORPUSCULAR HGB CONC 31.6 g/dl (32-36); MEAN PLATELET VOLUME 9.2 fL (7.4-10.4); PLATELET COUNT 282 K/uL (130-400); RED BLOOD COUNT 3.96 M/uL (4.7-6.1); WHITE BLOOD COUNT 7.87 K/uL (4.8-10.8)
[2017-05-30 08:15] LABS: INR 1.8 (0.9-1.1); PARTIAL THROMBOPLASTIN RATIO 1.2; PROTHROMBIN TIME (PATIENT) 18.7 SECONDS (9.0-12.0)
[2017-05-30] MEDS: INSULIN ASPART 100 UNITS/ML 3 ML PEN SC SCH ×4 (08:29→20:40)
[2017-05-30] MEDS: INSULIN GLARGINE SOLOSTAR 100 UNITS/ML 3 ML PEN SC SCH ×2 (08:29→20:54)
[2017-05-30] MEDS: DOXYCYCLINE IV 100 MG in DEXTROSE 5% 100ML 100 ML IV SCH ×2 (08:30→20:54)
[2017-05-30] MEDS: PANTOprazole SOD 40 MG TAB PO SCH (08:34)
[2017-05-30] MEDS: POTASSIUM CHLORIDE 20 MEQ TABCR PO SCH ×2 (08:35→20:50)
[2017-05-30] MEDS: ATORVASTATIN 40 MG TAB PO SCH (08:35)
[2017-05-30 08:36] LABS: BUN/CREATININE RATIO 19.8 (10-20); CALCIUM 8.7 mg/dl (8.5-10.1); CREATININE 0.68 mg/dl (0.60-1.40); POTASSIUM 3.4 mmol/L (3.5-5.1)
[2017-05-30] MEDS: LISINOPRIL 10 MG TAB PO SCH (08:36)
[2017-05-30] MEDS: FLUOXETINE HCL 20 MG CAP PO SCH (08:36)
[2017-05-30] MEDS: NICOTINE 14 MG/24 HR TDSY TD SCH (08:37)
[2017-05-30] MEDS ORDERED: FUROSEMIDE INJ 40 MG in SYRINGE 0 ML IV SCH (09:00)
[2017-05-30] MEDS ORDERED: POTASSIUM CHLORIDE 20 MEQ TABCR PO STA (10:39)
[2017-05-30] MEDS: TRAMADOL HCL 50 MG TAB PO PRN ×2 (11:04→17:25)
[2017-05-30] MEDS: ENOXAPARIN 100 MG/1ML SYR SQ SCH (12:07)
--- NOTE | 2017-05-30 14:44 | Pulmonology Progress Note ---
Pulmonary Progress Note Date of Service May 30, 2017. Attending Dr. López Subjective The patient notes he is at his baseline pulmonary status. Objective Patient is not showing signs of active respiratory distress. Is not using accessory muscles at this time are notably tachypneic during our conversation. VS: I/Os: -4.7L SaO2%: 93 and 97 % FiO2: 2-3 liters BiPAP: 12/5 (Oxygen 3L) rate 16 RR: 17-22 HR: 97-112 Resp: Decreased breath sounds globally Card: S1-S2 distant heart sounds Abd: Morbidly obese but positive bowel sounds no tenderness or rebound noted Ext: 3+ pitting edema with chronic stasis dermatitis, erythema Studies WBC: 8K VB.40/63 correction factor 7.44/53 Assessment & Plan 41-year-old male with obesity hypoventilation syndrome: 1. Obesity Hypoventilation Syndrome: The patient initially agreed to use the BiPAP device but per the nursing staff the patient took it off in the middle of the evening and refused to place it back on. The patient has a long history of poor compliance with BiPAP therapy. The Pulmonary Sleep team has been attempting to get the patient's PSG repeated for multiple months and they have been unsuccessful at this time. The patient does need a sleep study for proper titration of his BiPAP device. Once again we will attempt to have the patient use BiPAP as much as he can was awakened continue while he is sleeping starting off flow at 10/5 maintaining his SaO2 greater than 88%. 2. Compliance: I have spoken to the patient about the importance using his BiPAP been as well a weight loss program. The patient once again does not seem interested in either issue at this time. I did stress how these place a great deal of stress on your cardiac system and increase the risk of multiple different pulmonary, cardiac and THERAPY SITE COORDINATOR issues. 3. Baseline: At this time I believe the patient has baseline respiratory status. Sign off: The patient is to follow-up with the [facility] Sleep team either Dr. Buck Herr are Kirsten Cullen after his discharge. Data Medications: Current Inpatient Medications Medications (Trade) Dose Ordered Sig/Karissa Route Start Time Stop Time Status Last Admin Dose Admin Glucose (Glucose 40% Gel) 15-30 GRAMS 15 GRAMS... UD PRN PO 05/28/17 22:30 1/14/18 22:29 Glucose (Glucose Chew Tab) 4-8 Tablets 4 Tabl... UD PRN PO 05/28/17 22:30 06/27/17 22:29 Dextrose (Dextrose 50% 50ML Syringe) 25-50ML OF 50% DW IV FOR... UD PRN IV 05/28/17 22:30 06/27/17 22:29 Glucagon (Glucagon Inj) 1 mg UD PRN SQ 05/28/17 22:30 06/27/17 22:29 Doxycycline Hyclate 100 mg/ Dextrose 110 ml @ 50 mls/hr BID IV 05/29/17 09:00 06/05/17 08:59 05/30/17 08:30 50 MLS/HR Nicotine (Nicoderm Cq 14MG Patch) 1 patch QAM TD 05/29/17 09:00 06/28/17 08:59 05/30/17 08:37 1 PATCH Miscellaneous (Remove Nicoderm Patch) 1 ea HS N/A 05/29/17 21:00 06/28/17 20:59 05/29/17 20:27 1 EA Warfarin Sodium (Coumadin Tab) 15 mg DAILY@16 PO 05/29/17 16:00 06/28/17 15:59 05/29/17 16:30 15 MG Ipratropium [place] (Atrovent 0.02% 0.5MG/2.5ML Neb) 0.5 mg Q4H PRN INH 05/28/17 23:30 06/27/17 23:29 05/30/17 01:45 0.5 MG Levalbuterol (Xopenex 1.25MG/ 0.5ML Neb) 1.25 mg Q4H PRN INH 05/28/17 23:30 06/27/17 23:29 05/30/17 01:45 1.25 MG Acetaminophen (Tylenol Tab) 650 mg Q4H PRN PO 05/28/17 23:30 06/27/17 23:29 05/29/17 00:15 650 MG Nitroglycerin (Nitrostat Tab) 0.4 mg UD PRN SL 05/28/17 23:30 06/27/17 23:29 Insulin Aspart (novoLOG ASPART) SLIDING SCALE If C... ACHS SC 05/29/17 07:00 06/28/17 06:59 05/30/17 12:07 5 UNITS Glucose (Glucose 40% Gel) 15-30 GRAMS 15 GRAMS... UD PRN PO 05/28/17 23:30 06/27/17 23:29 Glucose (Glucose Chew Tab) 4-8 Tablets 4 Tabl... UD PRN PO 05/28/17 23:30 06/27/17 23:29 Dextrose (Dextrose 50% 50ML Syringe) 25-50ML OF 50% DW IV FOR... UD PRN IV 05/28/17 23:30 06/27/17 23:29 Glucagon (Glucagon Inj) 1 mg UD PRN SQ 05/28/17 23:30 06/27/17 23:29 Atorvastatin Calcium (Lipitor Tab) 40 mg DAILY PO 05/29/17 09:00 06/28/17 08:59 05/30/17 08:35 40 MG Fluoxetine HCl (Prozac Cap) 20 mg QAM PO 05/29/17 09:00 06/28/17 08:59 05/30/17 08:36 20 MG Lisinopril (Zestril Tab) 10 mg DAILY PO 05/29/17 09:00 06/28/17 08:59 05/30/17 08:36 10 MG Ropinirole HCl (Requip Tab) 0.25 mg HS PO 05/29/17 21:00 06/28/17 20:59 05/29/17 20:27 0.25 MG Pantoprazole Sodium (Protonix Tab) 40 mg DAILY PO 05/29/17 09:00 06/28/17 08:59 05/30/17 08:34 40 MG Prochlorperazine Edisylate 5 mg/ Syringe 5 ml @ 5 mls/min Q6H PRN IV 05/28/17 23:30 06/27/17 23:29 Miscellaneous Information (Pending Order) 1 ea QS N/A 05/29/17 08:00 06/28/17 07:59 05/30/17 08:47 1 EA Insulin Glargine (Lantus Solostar Pen) 20 units BID SC 05/29/17 09:00 06/28/17 08:59 05/30/17 08:29 20 UNITS Enoxaparin Sodium (Consult) 1 ea UD PRN N/A 05/29/17 11:50 06/28/17 11:49 Tramadol HCl (Ultram Tab) 50 mg Q6H PRN PO 05/29/17 12:00 06/27/17 23:29 05/30/17 11:04 50 MG Enoxaparin Sodium (Lovenox Inj) 100 mg DAILY@1200 SQ 05/29/17 12:45 06/28/17 12:44 05/30/17 12:07 100 MG Furosemide 40 mg/ Syringe 4 ml @ 4 mls/min BID IV 05/30/17 09:00 05/31/17 08:59 05/30/17 08:24 4 MLS/MIN Potassium Chloride (Klor-Con Tab) 40 meq BID PO 05/30/17 21:00 06/28/17 08:59 I & O: 24-Hour Column 05/31/17 08:00 Intake Total 440 ml Output Total 1700 ml Balance -1260 ml Vital Signs: Date Time Temp Pulse Resp B/P (MAP) Pulse Ox O2 Delivery O2 Flow Rate FiO2 05/30/17 12:01 37.0 97 20 115/60 (78) 93 05/30/17 12:00 Nasal Cannula 2.0 05/30/17 08:16 36.7 107 17 134/75 (94) 93 05/30/17 08:00 Nasal Cannula 2.0 05/30/17 04:00 Nasal Cannula 2.0 05/30/17 03:06 36.8 105 22 141/65 (90) 93 Nasal Cannula 3.0 05/30/17 01:46 105 97 3.0 05/30/17 01:45 107 20 94 Nasal Cannula 3.0 05/30/17 00:12 37.1 112 22 143/69 (93) 94 Nasal Cannula 3.0 05/30/17 00:00 Nasal Cannula 2.0 05/29/17 20:00 Nasal Cannula 2.0 05/29/17 19:49 36.7 114 23 111/47 (68) 94 Nasal Cannula 4.0 05/29/17 19:22 104 20 94 Nasal Cannula 3.0 05/29/17 16:00 Nasal Cannula 3.0 05/29/17 15:53 37.2 120 21 124/74 (91) 93 Nasal Cannula 3.0 Laboratory Results: Last 24 Hours Test 05/29/17 15:55 05/29/17 20:01 05/30/17 06:44 05/30/17 07:40 Bedside Glucose 184 mg/dl 150 mg/dl 140 mg/dl White Blood Count 7.87 K/uL Red Blood Count 3.96 M/uL Hemoglobin 11.3 g/dL Hematocrit 35.8 % Mean Corpuscular Volume 90.4 fL Mean Corpuscular Hemoglobin 28.5 pg Mean Corpuscular Hemoglobin Concent 31.6 g/dl RDW Standard Deviation 53.1 fL RDW Coefficient of Variation 16.2 % Platelet Count 282 K/uL Mean Platelet Volume 9.2 fL Prothrombin Time 18.7 SECONDS Prothromb Time International Ratio 1.8 Activated Partial Thromboplast Time 31.5 SECONDS Partial Thromboplastin Ratio 1.2 Sodium Level 136 mmol/L Potassium Level 3.4 mmol/L Chloride Level 97 mmol/L Carbon Dioxide Level 35 mmol/L Anion Gap 4.0 mmol/L Blood Urea Nitrogen 14 mg/dl Creatinine 0.68 mg/dl Est Creatinine Clear Calc Drug Dose 254.9 ml/min Estimated GFR () 138.5 Estimated GFR (Non- 119.5 BUN/Creatinine Ratio 19.8 Random Glucose 129 mg/dl Calcium Level 8.7 mg/dl Test 05/30/17 11:08 Bedside Glucose 170 mg/dl
[2017-05-30] MEDS: WARFARIN SOD 5 MG TAB PO SCH (15:52)
--- NOTE | 2017-05-30 17:06 | Cardiology Follow-Up ---
Subjective Subjective Date of Service: May 30, 2017. Pt evaluation today including: conversation w/ patient, physical exam, chart review, lab review, review of studies, review of inpatient medication list Additional Details: Pt seen and examined, oob in chair. States that he feels well. No significant change in leg discomfort. Continues to deny cp, sob, palpitations, lightheadedness or dizziness. Tele reviewed: sinus rhythm/tach while awake, episodes of significant bradycardia while asleep after patient removed his own bipap. Problem List Medical Problems: (1) Bilateral cellulitis of lower leg Status: Acute (2) Bilateral lower extremity edema Status: Acute (3) Bilateral lower leg cellulitis Status: Acute (4) Cellulitis Status: Acute (5) Cellulitis Status: Acute (6) Cellulitis of perineum Status: Acute (7) Cellulitis of right leg Status: Acute (8) Cellulitis of thigh Status: Acute (9) COPD with exacerbation Status: Acute (10) Failure of outpatient treatment Status: Acute (11) Fluid overload Status: Acute (12) Hyperglycemia Status: Acute (13) Hypokalemia Status: Acute (14) Hypoxia Status: Acute (15) Infected stasis ulcer of right lower extremity Status: Acute (16) Intertrigo Status: Acute (17) Lower extremity edema Status: Acute (18) Morbid obesity Status: Acute (19) Shortness of breath Status: Acute (20) UTI (urinary tract infection) Status: Acute Review of Systems Constitutional: + weakness Respiratory: + shortness of breath, No see HPI, No cough, No sputum, No wheezing, No dyspnea on exertion, No dyspnea at rest, No hemoptysis, No problem reported Cardiac: No see HPI, No chest pain, No orthopnea, No PND, No edema, No claudication, No palpitations, No problem reported Musculoskeletal: + muscle pain Skin: + rash Objective Vital Signs Last Vital Signs Documentation Date Time Temp Pulse Resp B/P (MAP) Pulse Ox O2 Delivery O2 Flow Rate FiO2 05/30/17 16:00 Nasal Cannula 2.0 05/30/17 15:46 36.8 102 27 151/94 (113) 95 05/29/17 07:24 97 Physical Exam: General Appearance: WD/WN, no apparent distress, + obese Eyes: bilateral eyes normal inspection, bilateral eyes PERRL, bilateral eyes EOMI ENT: normal ENT inspection, hearing grossly normal, pharynx normal Neck: supple, no adenopathy, thyroid normal, no JVD, no carotid bruits, trachea midline Respiratory/Chest: chest non-tender, lungs clear, normal breath sounds, no respiratory distress, no accessory muscle use, + respiratory distress Cardiovascular: regular rate, rhythm (but distant) Abdomen: normal bowel sounds, non tender, soft, no organomegaly, no pulsatile mass Extremities: + swelling, + pertinent finding (chronic venous stasis changes) 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 LE cellulitis receiving antibiotics 2. hx of dvt/pe doubt compliance with coumadin as outpatient INR of 1 on presentation has 'no showed' for last several coumadin clinic visits 3. obesity hypoventilation/copd/ongoing tobacco abuse stable 4. diastolic dysfunction has diuresed diuretics redosed today, appropriate for renal function K being followed and repleted AM diurectics to be held and follow volume status clinically 5. bradycardia while sleeping occurred after patient removed bipap need for bipap adherence reviewed with patient along with possible complications should he not
--- NOTE | 2017-05-30 17:23 | Progress Note ---
Medicine Progress Note Date & Time of Visit: May 30, 2017 at 17:13. Subjective 41 yoM with chronic O2-dependence 2/2 severe COPD, ESTEFANI/obesity hypoventilation syndrome presents with worsening LE edema. He currently denies SOB, chest pain , cough, fevers, chills. Reports his legs are somewhat better today. Very good diuresis with several liters out overnight. Lasix was decreased to 40 IV BID and will be held in am with continued monitoring of output. He was unable to handle his BIPAP overnight for more than a few hours and his HR dropped into the 20s. Pt was asymptomatic and states that he was sleeping at this time. We continued to discuss the importance of weight loss and eating right as well as wearing his BIPAP consistently. He verbalized understanding of the gravity of the situation. Objective Last 8 Hrs Date Time Temp Pulse Resp B/P (MAP) Pulse Ox O2 Delivery O2 Flow Rate FiO2 05/30/17 16:00 Nasal Cannula 2.0 05/30/17 15:46 36.8 102 27 151/94 (113) 95 3.0 05/30/17 12:01 37.0 97 20 115/60 (78) 93 05/30/17 12:00 Nasal Cannula 2.0 Physical Exam: GEN: obese, in no acute distress, alert and appropriate, no conversational dyspnea on 3L NC HEENT: NC/AT, normal sclerae, MMM CARDIO: reg rate, S1/2 heard without m/g/r LUNGS: scattered wheezing at the bases bilaterally, diminished breath sounds bilaterally ABD: soft, non-tender, non-distended, no rebound or guarding, large skin folds that are causing pressure on lower pelvic area and enlarged scrotum with interfold skin breakdown. EXTREMITY: very large, edematous legs with changes consistent with chronic swelling including woody appearance to skin, dark hues to skin on LEs bilaterally (R>L). Warm to touch but redness and warmth appear to have improved somewhat. NEURO: CN 2-12 grossly intact, sensation intact throughout MUSC: 5/5 strength throughout, no gross focal deficits, limited movement 2/2 body habitus SKIN: warm and dry and as above. Laboratory Results: 05/30/17 07:40 05/30/17 07:40 Test 05/28/17 21:30 05/28/17 21:39 05/28/17 21:46 05/28/17 22:17 Magnesium Level 2.0 mg/dl (1.8-2.4) Total Bilirubin 0.2 mg/dl (0.2-1) Direct Bilirubin < 0.1 mg/dl (0-0.2) Aspartate Amino Transf (AST/SGOT) 11 U/L (15-37) Alanine Aminotransferase (ALT/SGPT) 18 U/L (12-78) Alkaline Phosphatase 87 U/L (45-117) Total Creatine Kinase 57 U/L (39-308) Pro-B-Type Natriuretic Peptide 31 pg/ml (0-450) Total Protein 7.6 gm/dl (6.4-8.2) Albumin 3.0 gm/dl (3.4-5.0) Bedside Hemoglobin 12.2 g/dl (14.0-18.0) Bedside Hematocrit 36 % (42-52) Bedside Sodium 138 mEq/L (135-144) Bedside Potassium 3.8 mEq/L (3.3-5.0) Bedside Chloride 93 mEq/L (101-112) Bedside Total CO2 37 mEq/l (24-31) Bedside Blood Urea Nitrogen 15 mg/dl (7-18) Bedside Creatinine 0.7 mg/dl (0.6-1.3) Bedside Glucose (other) 247 mg/dl (70-99) Bedside Ionized Calcium ([place]) 1.06 mmol/l (1.12-1.32) Bedside Lactic Acid Venous 1.76 mmol/L (0.90-1.70) Estimated Average Glucose 206 mg/dl Hemoglobin A1c 8.8 % (4.5-5.6) Lactic Acid Level 1.3 mmol/L (0.4-2.0) Thyroid Stimulating Hormone (TSH) 3.960 uIu/ml (0.300-4.500) Test 05/28/17 23:45 05/29/17 00:07 05/29/17 06:50 05/30/17 07:40 Urine Color DK YELLOW Urine Appearance CLEAR (CLEAR) Urine pH 5.0 (4.5-7.5) Urine Specific [place] 1.029 (1.000-1.030) Urine Protein NEG (NEG) Urine Glucose (UA) NEG (NEG) Urine Ketones TRACE (NEG) Urine Occult Blood NEG (NEG) Urine Nitrite NEG (NEG) Urine Bilirubin NEG (NEG) Urine Urobilinogen NEG (NEG) Urine Leukocyte Esterase TRACE (NEG) Urine WBC (Auto) 1-5 /hpf (0-5) Urine RBC (Auto) 0-4 /hpf (0-4) Urine Hyaline Casts (Auto) 5-10 /lpf (0-5) Urine Epithelial Cells (Auto) 20-30 /lpf (0-5) Urine Bacteria (Auto) NEG (NEG) Venous Blood pH 7.40 (7.36-7.41) Venous Blood Partial Pressure CO2 63 mmHg (38.0-50.0) Venous Blood Partial Pressure O2 38 mmHg Venous Blood HCO3 38 mmol/L Venous Blood Oxygen Saturation 70.7 % Venous Blood Base Excess 10.8 mEq/L Immature Granulocyte % (Auto) 0.3 % White Blood Count 9.63 K/uL (4.8-10.8) Red Blood Count 4.19 M/uL (4.7-6.1) 3.96 M/uL (4.7-6.1) Hemoglobin 11.8 g/dL (14.0-18.0) Hematocrit 38.0 % (42-52) Mean Corpuscular Volume 90.7 fL (80-100) 90.4 fL (80-100) Mean Corpuscular Hemoglobin 28.2 pg (25-34) 28.5 pg (25-34) Mean Corpuscular Hemoglobin Concent 31.1 g/dl (32-36) 31.6 g/dl (32-36) Platelet Count 284 K/uL (130-400) Mean Platelet Volume 9.2 fL (7.4-10.4) 9.2 fL (7.4-10.4) Neutrophils (%) (Auto) 91.3 % Lymphocytes (%) (Auto) 4.8 % Monocytes (%) (Auto) 3.2 % Eosinophils (%) (Auto) 0.2 % Basophils (%) (Auto) 0.2 % Neutrophils # (Auto) 8.79 K/uL (1.4-6.5) Lymphocytes # (Auto) 0.46 K/uL (1.2-3.4) Monocytes # (Auto) 0.31 K/uL (0.11-0.59) Eosinophils # (Auto) 0.02 K/uL (0-0.5) Basophils # (Auto) 0.02 K/uL (0-0.2) Immature Granulocyte # (Auto) 0.03 K/uL (0.00-0.02) Troponin I < 0.015 ng/ml (0-0.045) RDW Standard Deviation 53.1 fL (36.4-46.3) RDW Coefficient of Variation 16.2 % (11.5-14.5) Prothrombin Time 18.7 SECONDS (9.0-12.0) Prothromb Time International Ratio 1.8 (0.9-1.1) Activated Partial Thromboplast Time 31.5 SECONDS (21.0-31.0) Partial Thromboplastin Ratio 1.2 Anion Gap 4.0 mmol/L (3-11) Est Creatinine Clear Calc Drug Dose 254.9 ml/min Estimated GFR () 138.5 Estimated GFR (Non- 119.5 BUN/Creatinine Ratio 19.8 (10-20) Calcium Level 8.7 mg/dl (8.5-10.1) Test 05/30/17 15:49 Bedside Glucose 168 mg/dl (70-99) Date/Time Source Procedure Growth Status 05/28/17 21:36 Blood Blood Culture - Preliminary NO GROWTH TO DATE. Resulted Last 24 Hours Test 05/29/17 20:01 05/30/17 06:44 05/30/17 07:40 05/30/17 11:08 Bedside Glucose 150 mg/dl 140 mg/dl 170 mg/dl White Blood Count 7.87 K/uL Red Blood Count 3.96 M/uL Hemoglobin 11.3 g/dL Hematocrit 35.8 % Mean Corpuscular Volume 90.4 fL Mean Corpuscular Hemoglobin 28.5 pg Mean Corpuscular Hemoglobin Concent 31.6 g/dl RDW Standard Deviation 53.1 fL RDW Coefficient of Variation 16.2 % Platelet Count 282 K/uL Mean Platelet Volume 9.2 fL Prothrombin Time 18.7 SECONDS Prothromb Time International Ratio 1.8 Activated Partial Thromboplast Time 31.5 SECONDS Partial Thromboplastin Ratio 1.2 Sodium Level 136 mmol/L Potassium Level 3.4 mmol/L Chloride Level 97 mmol/L Carbon Dioxide Level 35 mmol/L Anion Gap 4.0 mmol/L Blood Urea Nitrogen 14 mg/dl Creatinine 0.68 mg/dl Est Creatinine Clear Calc Drug Dose 254.9 ml/min Estimated GFR () 138.5 Estimated GFR (Non- 119.5 BUN/Creatinine Ratio 19.8 Random Glucose 129 mg/dl Calcium Level 8.7 mg/dl Test 05/30/17 15:49 Bedside Glucose 168 mg/dl Assessment & Plan 41 yoM with chronic O2-dependence 2/2 severe COPD, ESTEFANI/obesity hypoventilation syndrome presents with worsening LE edema. He currently denies SOB, chest pain , cough, fevers, chills. Reports his legs are somewhat better today. Very good diuresis with several liters out overnight. Lasix was decreased to 40 IV BID and will be held in am with continued monitoring of output. He was unable to handle his BIPAP overnight for more than a few hours and his HR dropped into the 20s. Pt was asymptomatic and states that he was sleeping at this time. We continued to discuss the importance of weight loss and eating right as well as wearing his BIPAP consistently. He verbalized understanding of the gravity of the situation. 1. LE edema-chronic edema of lower extremities including thighs and scrotum. Pt also has large pannus-new onset swelling is not easy to determine. He denies worsening SOB and has very low exercise tolerance and orthopnea at baseline. TTE reveals RV dysfunction, however, patient appears to be at baseline and this is likely cor pulmonale 2/2 severe lung disease and obesity hypoventilation syndrome. IV Lasix was decreased and based on response, will be held at this time with monitoring of output. Apprec Cards input. 2. Chronic hypoxic respiratory failure-no worsening SOB reported and pt denies cough. Do not think patient has URI or COPD exacerbation at this time. Some minor wheezing on exam which patient states is always present. Denies worsening of symptoms or flare at this time. Cont off prednisone and cont bronchodilators. Cont supplemental oxygen. 3. Obesity hypoventilation syndrome-Pulm consulted. PT needs to comply with BIPAP and will need a repeat PSG as an outpatient. Follow-up with Sleep Lab on discharge. 4. 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 Lost to follow-up and will need to follow-up with Oncology for a repeat PET scan. PE that was provoked by cancer in the past, however, patient is on lifelong coumadin. Consulted Hematology to clarify the need for persistent coumadin. As an aside, this patient reports compliance, but has not been checked at the [facility] for several months. INR was normal on admission and is now 1.8. Per Dr. Sinclair, no bridge needed, so weight based Lovenox and subsequent heparin drip was stopped. DVT prophylaxis was started. Of note, patient was on Eliquis at one point in the past. Daily INR. 5. HTN-controlled, cont lisinopril. 6. bilateral LE cellulitis-pt has chronic venous stasis and questionable cellulitis. Skin is warm. There are also several open areas between skin folds and on backside. Cont doxycycline for now. LE US was negative. 7. DMII-ISS/glargine 8. Ongoing tobacco abuse 9. Obesity-we discussed the importance for efforts at weight loss as this is at the root of most of his problems and a barrier to care. Full Code DVT Prophy-Lovenox Dispo-Dispo to home in next 1-2 days. Pt informed nursing staff today that he has no running water at his home, he sits in urine because of incontinence and limited ability to move, etc. He appears to have many barriers to care and will need Hiv Cts Specialist involved to ensure max resources available. Zo Guerrero DO [facility] Hospitalist Consultants: Cardiology Pulmonology. Current Inpatient Medications: Current Inpatient Medications Medications (Trade) Dose Ordered Sig/Karissa Route Start Time Stop Time Status Last Admin Dose Admin Glucose (Glucose 40% Gel) 15-30 GRAMS 15 GRAMS... UD PRN PO 05/28/17 22:30 06/27/17 22:29 Glucose (Glucose Chew Tab) 4-8 Tablets 4 Tabl... UD PRN PO 05/28/17 22:30 06/27/17 22:29 Dextrose (Dextrose 50% 50ML Syringe) 25-50ML OF 50% DW IV FOR... UD PRN IV 05/28/17 22:30 06/27/17 22:29 Glucagon (Glucagon Inj) 1 mg UD PRN SQ 05/28/17 22:30 06/27/17 22:29 Doxycycline Hyclate 100 mg/ Dextrose 110 ml @ 50 mls/hr BID IV 05/29/17 09:00 06/05/17 08:59 05/30/17 08:30 50 MLS/HR Nicotine (Nicoderm Cq 14MG Patch) 1 patch QAM TD 05/29/17 09:00 06/28/17 08:59 05/30/17 08:37 1 PATCH Miscellaneous (Remove Nicoderm Patch) 1 ea HS N/A 05/29/17 21:00 06/28/17 20:59 05/29/17 20:27 1 EA Warfarin Sodium (Coumadin Tab) 15 mg DAILY@16 PO 05/29/17 16:00 06/28/17 15:59 05/30/17 15:52 15 MG Ipratropium [place] (Atrovent 0.02% 0.5MG/2.5ML Neb) 0.5 mg Q4H PRN INH 05/28/17 23:30 06/27/17 23:29 05/30/17 01:45 0.5 MG Levalbuterol (Xopenex 1.25MG/ 0.5ML Neb) 1.25 mg Q4H PRN INH 05/28/17 23:30 06/27/17 23:29 05/30/17 01:45 1.25 MG Acetaminophen (Tylenol Tab) 650 mg Q4H PRN PO 05/28/17 23:30 06/27/17 23:29 05/29/17 00:15 650 MG Nitroglycerin (Nitrostat Tab) 0.4 mg UD PRN SL 05/28/17 23:30 06/27/17 23:29 Insulin Aspart (novoLOG ASPART) SLIDING SCALE If C... ACHS SC 05/29/17 07:00 06/28/17 06:59 05/30/17 12:07 5 UNITS Glucose (Glucose 40% Gel) 15-30 GRAMS 15 GRAMS... UD PRN PO 05/28/17 23:30 06/27/17 23:29 Glucose (Glucose Chew Tab) 4-8 Tablets 4 Tabl... UD PRN PO 05/28/17 23:30 06/27/17 23:29 Dextrose (Dextrose 50% 50ML Syringe) 25-50ML OF 50% DW IV FOR... UD PRN IV 05/28/17 23:30 06/27/17 23:29 Glucagon (Glucagon Inj) 1 mg UD PRN SQ 05/28/17 23:30 06/27/17 23:29 Atorvastatin Calcium (Lipitor Tab) 40 mg DAILY PO 05/29/17 09:00 06/28/17 08:59 05/30/17 08:35 40 MG Fluoxetine HCl (Prozac Cap) 20 mg QAM PO 05/29/17 09:00 06/28/17 08:59 05/30/17 08:36 20 MG Lisinopril (Zestril Tab) 10 mg DAILY PO 05/29/17 09:00 06/28/17 08:59 05/30/17 08:36 10 MG Ropinirole HCl (Requip Tab) 0.25 mg HS PO 05/29/17 21:00 06/28/17 20:59 05/29/17 20:27 0.25 MG Pantoprazole Sodium (Protonix Tab) 40 mg DAILY PO 05/29/17 09:00 06/28/17 08:59 05/30/17 08:34 40 MG Prochlorperazine Edisylate 5 mg/ Syringe 5 ml @ 5 mls/min Q6H PRN IV 05/28/17 23:30 06/27/17 23:29 Miscellaneous Information (Pending Order) 1 ea QS N/A 05/29/17 08:00 06/28/17 07:59 05/30/17 15:10 1 EA Insulin Glargine (Lantus Solostar Pen) 20 units BID SC 05/29/17 09:00 06/28/17 08:59 05/30/17 08:29 20 UNITS Enoxaparin Sodium (Consult) 1 ea UD PRN N/A 05/29/17 11:50 06/28/17 11:49 Tramadol HCl (Ultram Tab) 50 mg Q6H PRN PO 05/29/17 12:00 06/27/17 23:29 05/30/17 11:04 50 MG Enoxaparin Sodium (Lovenox Inj) 100 mg DAILY@1200 SQ 05/29/17 12:45 06/28/17 12:44 05/30/17 12:07 100 MG Furosemide 40 mg/ Syringe 4 ml @ 4 mls/min BID IV 05/30/17 09:00 05/31/17 08:59 05/30/17 08:24 4 MLS/MIN Potassium Chloride (Klor-Con Tab) 40 meq BID PO 05/30/17 21:00 06/28/17 08:59
[2017-05-30] MEDS: ROPINIROLE HCL 0.25 MG TAB PO SCH (20:51)
[2017-05-31] VITALS (9 sets, daily range): BP systolic 109–137; BP diastolic 57–89; PULSE 64–106; TEMP 36.7–37.3; O2SAT 93–97; Ht 175.3 cm; Wt 206.0 kg
[2017-05-31] MEDS: TRAMADOL HCL 50 MG TAB PO PRN ×2 (02:14→09:27)
[2017-05-31 04:07] LABS: BASO % 0.4 %; BASO ABS # 0.03 K/uL (0-0.2); COMPLETE YES; EOS % 2.7 %; HEMATOCRIT 37.9 % (42-52); IG% 0.2 %; LYMPH % 13.2 %; LYMPH ABS # 1.13 K/uL (1.2-3.4); MEAN CELL VOLUME 91.5 fL (80-100); MEAN CORPUSCULAR HEMOGLOBIN 28.5 pg (25-34); MEAN CORPUSCULAR HGB CONC 31.1 g/dl (32-36); MEAN PLATELET VOLUME 9.2 fL (7.4-10.4); MONO % 7.4 %; NEUT % 76.1 %; PLATELET COUNT 294 K/uL (130-400); RED BLOOD COUNT 4.14 M/uL (4.7-6.1); WHITE BLOOD COUNT 8.55 K/uL (4.8-10.8)
[2017-05-31 04:14] LABS: INR 2.2 (0.9-1.1); PROTHROMBIN TIME (PATIENT) 22.9 SECONDS (9.0-12.0)
[2017-05-31 04:29] LABS: BUN/CREATININE RATIO 26.6 (10-20); CREATININE 0.62 mg/dl (0.60-1.40); MAGNESIUM 2.1 mg/dl (1.8-2.4); POTASSIUM 3.9 mmol/L (3.5-5.1)
[2017-05-31] MEDS ORDERED: WARFARIN SOD 5 MG TAB PO ONE (04:45)
[2017-05-31] MEDS ORDERED: DOXYCYCLINE HYCLATE 100 MG CAP PO SCH (09:00)
[2017-05-31] MEDS: ATORVASTATIN 40 MG TAB PO SCH (09:04)
[2017-05-31] MEDS: POTASSIUM CHLORIDE 20 MEQ TABCR PO SCH (09:04)
[2017-05-31] MEDS: FLUOXETINE HCL 20 MG CAP PO SCH (09:04)
[2017-05-31] MEDS: PANTOprazole SOD 40 MG TAB PO SCH (09:05)
[2017-05-31] MEDS: LISINOPRIL 10 MG TAB PO SCH (09:05)
[2017-05-31] MEDS: NICOTINE 14 MG/24 HR TDSY TD SCH (09:05)
[2017-05-31] MEDS: INSULIN GLARGINE SOLOSTAR 100 UNITS/ML 3 ML PEN SC SCH (09:14)
[2017-05-31] MEDS: INSULIN ASPART 100 UNITS/ML 3 ML PEN SC SCH ×3 (09:15→16:15)
[2017-05-31] MEDS ORDERED: DXY100 PO (12:22)
[2017-05-31] MEDS ORDERED: FURO40TA3 PO (12:22)
--- NOTE | 2017-05-31 12:30 | Discharge Instructions ---
Discharge Instructions Date of Service May 31, 2017. Admission Reason for Admission: Respiratory Failure Discharge Discharge Diagnosis / Problem: LE swelling Discharge Goals Goal(s): Prevent Disease Progression Activity Recommendations Activity Limitations: per Instructions/Follow-up section . Instructions / Follow-Up Instructions / Follow-Up Please take all medications as instructed. Your Lasix has been decreased, your metolazone stopped, and you have been given a course of antibiotic for cellulitis to complete. You have a hospital follow-up appointment with Dr. Guerrero on 06/02 @ 11: 05am. Please bring all paperwork with you to this appointment. You will need to contact the [facility] Hematology group (Dr. Beck) for a follow -up appointment within the next 2-4 weeks. This is for followup of your cancer diagnosis. You will need to follow-up at the [facility] in [place] for continued management of your INR for goal 2-3. I recommend a repeat check there within one week. It is highly recommended that you follow-up with the Sleep Lab for a repeat sleep study to obtain a home BIPAP to use at night. You should also set up a follow-up with [facility] Pulmonary (Drs. López or Manjula saw you in the hospital) . Please follow-up with [facility] Cardiology as an outpatient (Dr. Kincaid saw you in the hospital). Home Health for wound care was ordered in the short term to monitor the open areas of skin on your body. It may be a good idea to get a referral to the Wound Clinic for closer monitoring of this. You should be able to get a referral through Dr. Guerrero's office. It was a pleasure taking care of you! Call if you have any questions or problems. You can reach a [facility] hospitalist on duty at [facility] 24 hours a day by calling [phone]. Take care of yourself. Zo Guerrero, [facility] Hospitalist Current Hospital Diet Patient's current hospital diet: Diabetes Type 2 Diet, Low Sodium Diet (2gm Na) Discharge Diet Recommended Diet: Low Sodium Diet (2gm Na), Diabetes Type 2 Diet Procedures Procedures Performed: TTE Pending Studies Studies pending at discharge: yes List of pending studies: Preliminary blood cultures are negative, final results still pending. Laboratory Results Hemoglobin A1c Test 05/28/17 22:17 Range/Units Estimated Average Glucose 206 mg/dl Hemoglobin A1c 8.8 H 4.5-5.6 % Medical Emergencies . Who to Call and When: Medical Emergencies: If at any time you feel your situation is an emergency, please call 911 immediately. . Non-Emergent Contact Non-Emergency issues call your: Primary Care Provider . . "Provider Documentation" section prepared by Zo Guerrero. . VTE Core Measure Inpt VTE Proph given/why not?: Enoxaparin (Lovenox)SQ, Warfarin (Coumadin)
[2017-05-31] MEDS ORDERED: NURSING DECISION MEDICATION ORDER SCH (12:45)
--- NOTE | 2017-05-31 12:49 | Cardiology Follow-Up ---
Subjective Subjective Date of Service: May 31, 2017. Pt evaluation today including: conversation w/ patient, physical exam, chart review, lab review, review of studies, review of inpatient medication list Additional Details: Pt seen and examined, states that he's feeling well. Leg discomfort improving. Denies cp, sob, palpitations, lightheadedness or dizziness. Tele reviewed: sinus rhythm/tachycardia, significant bradycardic episodes again present while sleeping and not wearing bipap. Problem List Medical Problems: (1) Bilateral cellulitis of lower leg Status: Acute (2) Bilateral lower extremity edema Status: Acute (3) Bilateral lower leg cellulitis Status: Acute (4) Cellulitis Status: Acute (5) Cellulitis Status: Acute (6) Cellulitis of perineum Status: Acute (7) Cellulitis of right leg Status: Acute (8) Cellulitis of thigh Status: Acute (9) COPD with exacerbation Status: Acute (10) Failure of outpatient treatment Status: Acute (11) Fluid overload Status: Acute (12) Hyperglycemia Status: Acute (13) Hypokalemia Status: Acute (14) Hypoxia Status: Acute (15) Infected stasis ulcer of right lower extremity Status: Acute (16) Intertrigo Status: Acute (17) Lower extremity edema Status: Acute (18) Morbid obesity Status: Acute (19) Shortness of breath Status: Acute (20) UTI (urinary tract infection) Status: Acute Review of Systems Constitutional: + weakness Respiratory: + shortness of breath, No see HPI, No cough, No sputum, No wheezing, No dyspnea on exertion, No dyspnea at rest, No hemoptysis, No problem reported Cardiac: No see HPI, No chest pain, No orthopnea, No PND, No edema, No claudication, No palpitations, No problem reported Musculoskeletal: + muscle pain Skin: + rash Objective Vital Signs Last Vital Signs Documentation Date Time Temp Pulse Resp B/P (MAP) Pulse Ox O2 Delivery O2 Flow Rate FiO2 05/31/17 11:06 37.0 99 24 115/68 (84) 97 Nasal Cannula 2.0 05/31/17 04:00 45 Physical Exam: General Appearance: WD/WN, no apparent distress, + obese Eyes: bilateral eyes normal inspection, bilateral eyes PERRL, bilateral eyes EOMI ENT: normal ENT inspection, hearing grossly normal, pharynx normal Neck: supple, no adenopathy, thyroid normal, no JVD, no carotid bruits, trachea midline Respiratory/Chest: chest non-tender, lungs clear, normal breath sounds, no respiratory distress, no accessory muscle use, + respiratory distress Cardiovascular: regular rate, rhythm (but distant) Abdomen: normal bowel sounds, non tender, soft, no organomegaly, no pulsatile mass Extremities: + swelling, + pertinent finding (chronic venous stasis changes) 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 LE cellulitis receiving antibiotics 2. hx of dvt/pe doubt compliance with coumadin as outpatient INR of 1 on presentation has 'no showed' for last several coumadin clinic visits 3. obesity hypoventilation/copd/ongoing tobacco abuse stable 4. diastolic dysfunction has diuresed given his normal renal function would d/c home on lasix 40mg po QAM with an afternoon prn dose for fluid retention 5. bradycardia while sleeping occurred after patient removed bipap need for bipap adherence reviewed with patient along with possible complications should he not ok to d/c to home from cardiac status.
[2017-05-31] MEDS ORDERED: WARF-284 PO (14:29)
--- NOTE | 2017-05-31 14:33 | Discharge Summary ---
Discharge Summary Date of Service May 31, 2017. 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 Consultations: Cardiology Pulmonology. Pending Studies/Follow-Up: see instructions below. Medication Reconciliation New Medications: Furosemide (Lasix) 40 Mg Tab 40 MG PO QAM for 30 Days, #30 TAB 1 Refill Take 40mg daily and if increased fluid retention, take extra 40mg in the afternoon. Doxycycline Hyclate (Doxycycline Hyclate) 100 Mg Cap 100 MG PO BID for 7 Days, #14 CAP Changed Medications: Warfarin Sodium (Warfarin Sodium) 7.5 Mg Tab 7.5 MG PO UD for 30 Days, #38 TAB 1 Refill (Changed from: 5XD; Refills: ; TAKES MON,TU,WED,WED,SAT,) Take 1 tab (7.5mg) daily , , , , Sa. Take 2 tabs(15mg) daily on and Wed. Continued Medications: Albuterol Hfa (Ventolin Hfa) 200 Puffs/87962 Mcg Aers 2 PUFFS PO Q4H PRN for SOB/Wheezing Atorvastatin (Atorvastatin Calcium) 40 Mg Tab 40 MG PO DAILY Fluoxetine HCl (Fluoxetine HCl) 20 Mg Cap 20 MG PO QAM for 30 Days, #30 CAP 5 Refills Home O2 Therapy (Oxygen) Gas 3 LITERS NA CONTINOUS Ipratropium-Albuterol (Duoneb) 3 Ml Nebu 3 ML INH QID PRN for SOB/Wheezing, INHA Lisinopril (Lisinopril) 10 Mg Tab 10 MG PO DAILY Metformin HCl (Metformin HCl) 500 Mg Tab 500 MG PO DAILY Omeprazole (Prilosec) 40 Mg Cap 40 MG PO DAILY TAKE THIS MEDICATION ONCE DAILY ONE HOUR BEFORE FIRST MEAL OF THE DAY Potassium Chloride Microencaps (Potassium Chloride Er) 20 Meq Tab 20 MEQ PO BID, #60 Ropinirole (Requip) 0.5 Mg Tab 0.5 MG PO HS Ropinirole HCl (Ropinirole HCl) 0.25 Mg Tab 0.25 MG PO HS Warfarin Sodium (Warfarin Sodium) 7.5 Mg Tab 15 MG PO 2XWK TAKES THURS AND SUN Discontinued Medications: Furosemide (Furosemide) 80 Mg Tab 80 MG PO DAILY Metolazone (Metolazone) 5 Mg Tab 5 MG PO DAILY Admission Information HPI (per Admitting provider): HISTORY OF PRESENT ILLNESS: History obtained from patient, patient's , and records. Medical history significant for chronic respiratory failure secondary to COPD, OHS, CPAP intolerance, hypertension, ongoing tobacco abuse, DM2 on oral medications, pulmonary embolism on Coumadin, chronic anemia (baseline hemoglobin of 12), hx adenocarcinoma of unknown primary sp chemotherapy. Recent confinement last September 2016 for right lower extremity cellulitis in the setting of chronic lymphedema. Last few days, the patient noted more bilateral leg swelling, redness than usual. Unquantified weight gain over the last few months despite compliance with home diuretics. A little more short of breath than usual, cough productive of yellow sputum. Denies aspiration. No chest pain. Patient brought to Emergency Room by . Given vancomycin in the ER for cellulitis. Physical Exam (per Admitting): PHYSICAL EXAMINATION: VITAL SIGNS: Blood pressure was noted to be 133/69, pulse rate 110, RR 22, temperature 36.9, sats 98 on 3 liters. GENERAL: Noted to be obese, uncomfortable, looks older for stated age. some respiratory distress. speaks in phrases. Unkempt SKIN: Pallor, warm. HEENT: Pale palpebral conjunctivae, no ptosis. dry buccal mucosa. NECK: Short, supple. No tenderness. CHEST: Occasional expiratory wheezes. Diminished breath sounds. HEART: Tachycardic. No murmur. ABDOMEN: Some distention, nontender. EXTREMITIES: Bilateral lower extremity edema, induration, minimal tenderness. NEUROLOGIC: Coherent , no gross focality. Hospital Course 41 yoM with chronic O2-dependence 2/2 severe COPD, ESTEFANI/obesity hypoventilation syndrome presents with worsening LE edema. He currently denies SOB, chest pain , cough, fevers, chills. Reports his legs are somewhat better today. Very good diuresis with 6-7 out over two days. Lasix was decreased to 40 IV BID and will be held in am with continued monitoring of output. He was unable to handle his BIPAP overnight for more than a few hours and his HR dropped into the 20s. The following night he maintained the BIPAP for a few hours. Pt was asymptomatic and states that he was sleeping at this time. We continued to discuss the importance of weight loss and eating right as well as wearing his BIPAP consistently. He verbalized understanding of the gravity of the situation. 1. LE edema-chronic edema of lower extremities including thighs and scrotum. Pt also has large pannus-new onset swelling is not easy to determine. He denies worsening SOB and has very low exercise tolerance and orthopnea at baseline. TTE reveals RV dysfunction, however, patient appears to be at baseline and this is likely cor pulmonale 2/2 severe lung disease and obesity hypoventilation syndrome. IV Lasix was decreased and based on response, will be held at this time with monitoring of output. Apprec Cards input. 2. Chronic hypoxic respiratory failure-no worsening SOB reported and pt denies cough. Do not think patient has URI or COPD exacerbation at this time. Some minor wheezing on exam which patient states is always present. Denies worsening of symptoms or flare at this time. Cont off prednisone and cont bronchodilators. Cont supplemental oxygen. 3. Obesity hypoventilation syndrome-Pulm consulted. PT needs to comply with BIPAP and will need a repeat PSG as an outpatient. Follow-up with Sleep Lab on discharge. 4. 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 Lost to follow-up and will need to follow-up with Oncology for a repeat PET scan. PE that was provoked by cancer in the past, however, patient is on lifelong coumadin. Consulted Hematology to clarify the need for persistent coumadin. As an aside, this patient reports compliance, but has not been checked at the [place] [facility] for several months. INR was normal on admission and is now 1.8. Per Dr. Sinclair, no bridge needed, so weight based Lovenox and subsequent heparin drip was stopped. DVT prophylaxis was started. Of note, patient was on Eliquis at one point in the past. Daily INR. 5. HTN-controlled, cont lisinopril. 6. bilateral LE cellulitis-pt has chronic venous stasis and questionable cellulitis. Skin is warm. There are also several open areas between skin folds and on backside. Cont doxycycline for now. LE US was negative. 7. DMII-ISS/glargine 8. Ongoing tobacco abuse 9. Obesity-we discussed the importance for efforts at weight loss as this is at the root of most of his problems and a barrier to care. On discharge he was afebrile and asymptomatic. He reported a big difference in his leg swelling since admission. His heart rate was slightly tachycardic which is likely physiologic from the stress put onto his heart from his obesity hypoventilation syndrome. Physical exam was remarkable for some improvement in erythema and warmth in his legs, chronic woody appearance to his skin especially his legs, large heavy skin folds with excoriated wounds in the folds and on his backside. HR was slightly tachycardic and lungs were clear to auscultation. He was discharged in fair condition with Home Health for wound care and a recommendation to follow with PCP and Oncology for updated PET scan. Zo Guerrero DO [facility] Hospitalist Total time spent on discharge = 60 minutes This includes examination of the patient, discharge planning, medication reconciliation, and communication with other providers. Discharge Instructions [address] [address] Discharge Medical Patient Name: Bharathi Garcia Unit Number: [id number] Date of : 1975 Patient Status: Admitted Inpatient Attending Doctor: Zo Guerrero DO DI: Medical v4 Discharge Instructions Date of Service May 31, 2017. Admission Reason for Admission: Respiratory Failure Discharge Discharge Diagnosis / Problem: LE swelling Discharge Goals Goal(s): Prevent Disease Progression Activity Recommendations Activity Limitations: per Instructions/Follow-up section . Instructions / Follow-Up Instructions / Follow-Up Please take all medications as instructed. Your Lasix has been decreased, your metolazone stopped, and you have been given a course of antibiotic for cellulitis to complete. You have a hospital follow-up appointment with Dr. Guerrero on 06/02 @ 11: 05am. Please bring all paperwork with you to this appointment. You will need to contact the [facility] Hematology group (Dr. Beck) for a follow -up appointment within the next 2-4 weeks. This is for followup of your cancer diagnosis. You will need to follow-up at the [facility] in [place] for continued management of your INR for goal 2-3. I recommend a repeat check there within one week. It is highly recommended that you follow-up with the Sleep Lab for a repeat sleep study to obtain a home BIPAP to use at night. You should also set up a follow-up with [facility] Pulmonary (Drs. López or Manjula saw you in the hospital) . Please follow-up with [facility] Cardiology as an outpatient (Dr. Kincaid saw you in the hospital). Home Health for wound care was ordered in the short term to monitor the open areas of skin on your body. It may be a good idea to get a referral to the Wound Clinic for closer monitoring of this. You should be able to get a referral through Dr. Guerrero's office. It was a pleasure taking care of you! Call if you have any questions or problems. You can reach a [facility] hospitalist on duty at [facility] 24 hours a day by calling [phone]. Take care of yourself. Zo Guerrero, DO [facility] Hospitalist Current Hospital Diet Patient's current hospital diet: Diabetes Type 2 Diet, Low Sodium Diet (2gm Na) Discharge Diet Recommended Diet: Low Sodium Diet (2gm Na), Diabetes Type 2 Diet Procedures Procedures Performed: TTE Pending Studies Studies pending at discharge: yes List of pending studies: Preliminary blood cultures are negative, final results still pending. Laboratory Results Hemoglobin A1c Test 05/28/17 22:17 Range/Units Estimated Average Glucose 206 mg/dl Hemoglobin A1c 8.8 H 4.5-5.6 % Medical Emergencies . Who to Call and When: Medical Emergencies: If at any time you feel your situation is an emergency, please call 911 immediately. . Non-Emergent Contact Non-Emergency issues call your: Primary Care Provider . . "Provider Documentation" section prepared by Zo Guerrero. . VTE Core Measure Inpt VTE Proph given/why not?: Enoxaparin (Lovenox)SQ, Warfarin (Coumadin) Additional Copies To Sundar Guerrero M.D.(ESTEFANY)
[2017-05-31] MEDS ORDERED: WARFARIN SOD 10 MG TAB PO SCH (16:00)
[2017-05-31] MEDS ORDERED: GLC500 PO (16:18)
--- NOTE | 2017-05-31 19:03 | Medical Consult ---
Consultation Date of Consultation: May 31, 2017. Attending Physician: Zo Guerrero DO History of Present Illness Hematology/Oncology consult: Evaluation and management of anticoagulant treatment in known case with history of left upper extremity DVT and pulmonary embolism. Date of consultation: 05/31/2017 HPI: 41-year-old male, admitted at [facility] on 05/28/2017 for repeated episodes of the cellulitis and chronic lower extremity lymphedema, this time noticed increasing bilateral leg swelling, redness, significant weight gain noted, he says that his current weight is over 400 lb, received antibiotic treatment gradual improvement of the lower extremity cellulitis. Earlier I saw him in December,, he is a case of metastatic adenocarcinoma in left axillary lymph nodes with unknown primary, S/P 3 cycles of chemotherapy with paclitaxel and carboplatin, last cycle of chemotherapy received in June. Last follow-up PET-CT scan done in September, scattered areas of lymphadenopathy without any FDG uptake, it has remained stable since 2008. Increase uptake noted in the L5 vertebral body within no underlying bone lesions noted. May,--> he was admitted at [facility] for symptomatic pulmonary embolism, no DVT noted in the lower extremities but noticed to have thrombosis involving left jugular vein and left subclavian vein , he was started on oral Coumadin treatment at that time, in between he did receive Eliquis, now once again he is on oral Coumadin but appears to be somewhat noncompliant. He is likely to go home today. I saw him at bedside, he is sitting comfortably in the chair, receiving oxygen therapy, has few other comorbid conditions. REVIEW OF SYSTEMS: He does complain of bilateral leg swelling, cellulitis of both lower extremities, weight gain present, increasing shortness of breath on minimal exertion, he is not much ambulating, denies any increasing new chest pain or back pain no bleeding from any sites, Past medical and surgical history: -hypertension, history of pulmonary embolism as described above. -chronic respiratory failure secondary to COPD and obesity hypoventilation syndrome, sleep apnea, diabetes mellitus, chronic anemia with hemoglobin around 12 g/dL. Social history: Smoking present. Denies any ETOH abuse. Family history: Not significant Medications: Please review his chart for detailed list of medications. Allergies: None On exam: - Alert and oriented x3, well built obese man, not in any distress. - HEENT: no icterus, no pallor, Throat: Normal. - Neck: No palpable cervical lymphadenopathy. - Chest: Emphysematous chest noted. - Abdomen: soft, nontender, no hepatomegaly, no splenomegaly. - No focal neuro deficit. - Extremities: no finger clubbing, bilateral leg edema noted. Lab: Blood workup done on 05/31/2017 -WBC 8500, H&H of 11.8/37.9, Platelet count of 294,000. -BUN/Creat: 16/0.6 -Normal liver function test. -proBNP 31 Imaging: -bilateral lower extremity Doppler evaluation done on 05/28/2017--> no evidence of DVT noted a right lower extremity, lower extremity was not evaluated because he was unable to cooperate for the examination. -ultrasound abdomen--> no evidence of ascites. ASSESSMENT AND PLAN: 41-year-old male, who has quite a few comorbid conditions , recent the significant weight gain noted, his weight is around over 400 lb, diagnosed a case of metastatic adenocarcinoma involving the left axilla with unknown primary in 2007, finished 3 cycles of chemotherapy with paclitaxel carboplatin at that time, no evidence of recurrent disease noted in the subsequent imaging studies done, last PET-CT scan was done in 2014. He then lost to follow-up, also had DVT involving the left upper extremity with pulmonary embolism earlier in 2005 (3 years before the cancer diagnosis), on Coumadin treatment, noncompliant about Coumadin therapy, no new thrombotic complications, has chronic bilateral leg edema and cellulitis, significantly declining performed status. Because of his comorbid conditions, he is at a high risk for recurrent the thrombotic complications. He will continue Coumadin treatment as an outpatient, hopefully he will be compliant. Regarding follow-up about the cancer diagnosis, we could consider for CT scan of the chest, abdomen pelvis as an outpatient. Will follow up in the office. Thanks. Justin Beck MD Hematology/Oncology Past Medical/Surgical History Medical Problems: (1) Bilateral cellulitis of lower leg Status: Acute (2) Bilateral lower extremity edema Status: Acute (3) Bilateral lower leg cellulitis Status: Acute (4) Cellulitis Status: Acute (5) Cellulitis Status: Acute (6) Cellulitis of perineum Status: Acute (7) Cellulitis of right leg Status: Acute (8) Cellulitis of thigh Status: Acute (9) COPD with exacerbation Status: Acute (10) Failure of outpatient treatment Status: Acute (11) Fluid overload Status: Acute (12) Hyperglycemia Status: Acute (13) Hypokalemia Status: Acute (14) Hypoxia Status: Acute (15) Infected stasis ulcer of right lower extremity Status: Acute (16) Intertrigo Status: Acute (17) Lower extremity edema Status: Acute (18) Morbid obesity Status: Acute (19) Shortness of breath Status: Acute (20) UTI (urinary tract infection) Status: Acute Family History Cancer FATHER (colon CA age 56) Cardiac disorder Diabetes mellitus MOTHER Heart disease MOTHER (NE age 54) FATHER (NE) BROTHER (NE age 48) BROTHER (NE age 57) Hypertension MOTHER Social History Smoking Status: Current Every Day Smoker Drug Use: none Marital Status: Housing Status: lives with family Occupation Status: unemployed, disabled Allergies Coded Allergies: Iodinated Diagnostic Agents (Unverified Allergy, Unknown, turns bright red and on fire feeling, RASH, 05/28/17) Current Inpatient Medications Current Inpatient Medications Medications (Trade) Dose Ordered Sig/Karissa Route Start Time Stop Time Status Last Admin Dose Admin Glucose (Glucose 40% Gel) 15-30 GRAMS 15 GRAMS... UD PRN PO 05/28/17 22:30 06/27/17 22:29 Glucose (Glucose Chew Tab) 4-8 Tablets 4 Tabl... UD PRN PO 05/28/17 22:30 06/27/17 22:29 Dextrose (Dextrose 50% 50ML Syringe) 25-50ML OF 50% DW IV FOR... UD PRN IV 05/28/17 22:30 06/27/17 22:29 Glucagon (Glucagon Inj) 1 mg UD PRN SQ 05/28/17 22:30 06/27/17 22:29 Nicotine (Nicoderm Cq 14MG Patch) 1 patch QAM TD 05/29/17 09:00 06/28/17 08:59 05/31/17 09:05 1 PATCH Miscellaneous (Remove Nicoderm Patch) 1 ea HS N/A 05/29/17 21:00 06/28/17 20:59 05/30/17 20:49 1 EA Ipratropium [place] (Atrovent 0.02% 0.5MG/2.5ML Neb) 0.5 mg Q4H PRN INH 05/28/17 23:30 06/27/17 23:29 05/30/17 01:45 0.5 MG Levalbuterol (Xopenex 1.25MG/ 0.5ML Neb) 1.25 mg Q4H PRN INH 05/28/17 23:30 06/27/17 23:29 05/30/17 01:45 1.25 MG Acetaminophen (Tylenol Tab) 650 mg Q4H PRN PO 05/28/17 23:30 06/27/17 23:29 05/29/17 00:15 650 MG Nitroglycerin (Nitrostat Tab) 0.4 mg UD PRN SL 05/28/17 23:30 06/27/17 23:29 Insulin Aspart (novoLOG ASPART) SLIDING SCALE If C... ACHS SC 05/29/17 07:00 06/28/17 06:59 05/31/17 09:15 3 UNITS Glucose (Glucose 40% Gel) 15-30 GRAMS 15 GRAMS... UD PRN PO 05/28/17 23:30 06/27/17 23:29 Glucose (Glucose Chew Tab) 4-8 Tablets 4 Tabl... UD PRN PO 05/28/17 23:30 06/27/17 23:29 Dextrose (Dextrose 50% 50ML Syringe) 25-50ML OF 50% DW IV FOR... UD PRN IV 05/28/17 23:30 06/27/17 23:29 Glucagon (Glucagon Inj) 1 mg UD PRN SQ 05/28/17 23:30 06/27/17 23:29 Atorvastatin Calcium (Lipitor Tab) 40 mg DAILY PO 05/29/17 09:00 06/28/17 08:59 05/31/17 09:04 40 MG Fluoxetine HCl (Prozac Cap) 20 mg QAM PO 05/29/17 09:00 06/28/17 08:59 05/31/17 09:04 20 MG Lisinopril (Zestril Tab) 10 mg DAILY PO 05/29/17 09:00 06/28/17 08:59 05/31/17 09:05 10 MG Ropinirole HCl (Requip Tab) 0.25 mg HS PO 05/29/17 21:00 06/28/17 20:59 12/17/17 20:51 0.25 MG Pantoprazole Sodium (Protonix Tab) 40 mg DAILY PO 05/29/17 09:00 06/28/17 08:59 05/31/17 09:05 40 MG Prochlorperazine Edisylate 5 mg/ Syringe 5 ml @ 5 mls/min Q6H PRN IV 05/28/17 23:30 06/27/17 23:29 Insulin Glargine (Lantus Solostar Pen) 20 units BID SC 05/29/17 09:00 06/28/17 08:59 05/31/17 09:14 20 UNITS Tramadol HCl (Ultram Tab) 50 mg Q6H PRN PO 05/29/17 12:00 06/27/17 23:29 05/31/17 09:27 50 MG Potassium Chloride (Klor-Con Tab) 40 meq BID PO 05/30/17 21:00 06/28/17 08:59 05/31/17 09:04 40 MEQ Doxycycline Hyclate (Vibramycin Cap) 100 mg BID PO 05/31/17 09:00 06/10/17 08:59 05/31/17 09:04 100 MG Warfarin Sodium (Coumadin Tab) 7.5 mg MoTuWeFrSa@1600 PO 06/01/17 16:00 07/01/17 15:59 Warfarin Sodium (Coumadin Tab) 15 mg SuTh@1600 PO 06/03/17 16:00 07/03/17 15:59 Miconazole Nitrate (Desenex Powder) 1 appln BID EXT 05/31/17 21:00 06/30/17 20:59 Multi-Ingredient Ointment (Eucerin Unscented Cr) 1 appln BID EXT 05/31/17 21:00 06/30/17 20:59 Physical Exam Date Time Temp Pulse Resp B/P (MAP) Pulse Ox O2 Delivery O2 Flow Rate FiO2 05/31/17 18:53 37.0 90 22 97 Room Air 05/31/17 16:02 37.0 90 22 130/89 (103) 97 Nasal Cannula 3.0 05/31/17 16:00 Nasal Cannula 3.0 05/31/17 12:00 Nasal Cannula 3.0 05/31/17 11:06 37.0 99 24 115/68 (84) 97 Nasal Cannula 2.0 05/31/17 08:04 37.1 105 20 109/57 (74) 93 Nasal Cannula 2.0 05/31/17 08:00 Nasal Cannula 3.0 05/31/17 04:00 BiPAP 3.0 45 05/31/17 03:57 37.3 97 18 116/65 (82) 94 BiPAP 3.0 56 05/31/17 03:19 64 21 137/79 (98) BiPAP 05/31/17 01:20 106 96 3.0 05/31/17 00:23 36.7 105 20 123/76 (92) 94 05/31/17 00:00 94 Nasal Cannula 3.0 05/30/17 20:00 94 Nasal Cannula 3.0 05/30/17 19:40 37.1 96 23 111/64 (80) 93 Nasal Cannula 2.0 Laboratory Results Last 24 Hours Test 05/30/17 19:46 05/31/17 03:49 05/31/17 06:47 05/31/17 11:11 Bedside Glucose 134 mg/dl 119 mg/dl 117 mg/dl White Blood Count 8.55 K/uL Red Blood Count 4.14 M/uL Hemoglobin 11.8 g/dL Hematocrit 37.9 % Mean Corpuscular Volume 91.5 fL Mean Corpuscular Hemoglobin 28.5 pg Mean Corpuscular Hemoglobin Concent 31.1 g/dl Platelet Count 294 K/uL Mean Platelet Volume 9.2 fL Neutrophils (%) (Auto) 76.1 % Lymphocytes (%) (Auto) 13.2 % Monocytes (%) (Auto) 7.4 % Eosinophils (%) (Auto) 2.7 % Basophils (%) (Auto) 0.4 % Neutrophils # (Auto) 6.51 K/uL Lymphocytes # (Auto) 1.13 K/uL Monocytes # (Auto) 0.63 K/uL Eosinophils # (Auto) 0.23 K/uL Basophils # (Auto) 0.03 K/uL RDW Standard Deviation 54.2 fL RDW Coefficient of Variation 16.3 % Immature Granulocyte % (Auto) 0.2 % Immature Granulocyte # (Auto) 0.02 K/uL Prothrombin Time 22.9 SECONDS Prothromb Time International Ratio 2.2 Sodium Level 134 mmol/L Potassium Level 3.9 mmol/L Chloride Level 98 mmol/L Carbon Dioxide Level 36 mmol/L Anion Gap 0.0 mmol/L Blood Urea Nitrogen 16 mg/dl Creatinine 0.62 mg/dl Est Creatinine Clear Calc Drug Dose 279.6 ml/min Estimated GFR () 143.8 Estimated GFR (Non- 124.1 BUN/Creatinine Ratio 26.6 Random Glucose 119 mg/dl Calcium Level 9.0 mg/dl Magnesium Level 2.1 mg/dl Test 05/31/17 16:06 Bedside Glucose 85 mg/dl
[2017-05-31] MEDS ORDERED: EUCERIN CR 120 GM JAR EXT SCH (21:00)
[2017-05-31] MEDS ORDERED: MICONAZOLE NITRATE POWDER 43 GM EXT SCH (21:00)
[2017-06-01] MEDS ORDERED: WARFARIN SOD 7.5 MG TAB PO SCH (16:00)
[2017-06-03] MEDS ORDERED: WARFARIN SOD 7.5 MG TAB PO SCH (16:00)
== END 2017-05-31 19:25 | disposition home health service (06) | DRG 603 ==
LOC: EDBD 20:39 → C.EDC 20:41 → C.2E 22:30 → ENRESERV 22:47
PROVIDERS: ADMIT Hospitalist; ATTEND Hospitalist
DX: L03.114 Cellulitis of left upper limb (principal); J96.11 Chronic respiratory failure with hypoxia; L03.115 Cellulitis of right lower limb; Z68.43 Body mass index [BMI] 50.0-59.9, adult; I83.208 Varicose veins of unspecified lower extremity with both ulcer of other part of lower extremity and inflammation; J44.9 Chronic obstructive pulmonary disease, unspecified; E66.2 Morbid (severe) obesity with alveolar hypoventilation; C80.1 Malignant (primary) neoplasm, unspecified; Z79.01 Long term (current) use of anticoagulants; N50.89 Other specified disorders of the male genital organs; I89.0 Lymphedema, not elsewhere classified; K22.70 Barrett's esophagus without dysplasia; I11.0 Hypertensive heart disease with heart failure; I50.9 Heart failure, unspecified; K21.9 Gastro-esophageal reflux disease without esophagitis; Z86.718 Personal history of other venous thrombosis and embolism; F17.200 Nicotine dependence, unspecified, uncomplicated; E11.9 Type 2 diabetes mellitus without complications; Z86.711 Personal history of pulmonary embolism; D64.9 Anemia, unspecified; Z91.19 Patient's noncompliance with other medical treatment and regimen; I87.2 Venous insufficiency (chronic) (peripheral); R00.1 Bradycardia, unspecified; Z99.81 Dependence on supplemental oxygen

== ENCOUNTER 2017-08-30 16:25 | Inpatient (IN) | payer OTHER ==
[~2017-08-30] VITALS: Ht 180.3 cm; Wt 191.1 kg
[~2017-08-30 16:25] MED LIST changes: -CMD75 PO; +DXY100 PO; +FURO40TA3 PO; -LISI-461 PO; -LSX80 PO; +ROPI0.5T15 PO; -VNTHFA/IN PO; +WARF-284 PO; -ZRX5 PO
--- NOTE | 2017-08-30 16:52 | EMERGENCY ROOM VISIT NOTE ---
History Report prepared by Hernandez: Vlad Duenas Under the Supervision of: Dr. Melissa Dominguez M.D. First contact with patient: 16:37 Chief Complaint: RESPIRATORY PROBLEMS Stated Complaint: TROUBLE BREATHING History of Present Illness The patient is a 41 year old male who presents to the Emergency Room with complaints of worsening respiratory problems that started 2 to 3 days ago. He states that he "cannot breathe", and his legs are bothering him due to cellulitis. He says that the cellulitis is chronic and not worsened, but is not sure why his legs are draining so much. He adds that he is feeling dry. The patient is noted to have a cough. The patient notes that he is on Lasix daily. The patient is on Xarelto and wears 4 liters of oxygen at home. He notes that he is on the blood thinner because there were clots found in his lungs. Source of History: patient Onset: 2 to 3 days ago Position: other (global) Symptom Intensity: says he "cannot breathe" Quality: other (respiratory problems) Associated Symptoms: + cough, + SOB Note: Associated symptoms: Lower extremity cellulitis with pain. Worsening drainage. Feeling dry. Review of Systems See HPI for pertinent positives & negatives. A total of 10 systems reviewed and were otherwise negative. Past Medical & Surgical Medical Problems: (1) Abscess or cellulitis of foot (2) Anticoagulants,Lt,Current Use (3) Asthma (4) Farley's esophagus (5) Cellulitis (6) Cellulitis of right lower extremity (7) CHF (congestive heart failure) (8) COPD (chronic obstructive pulmonary disease) (9) COPD exacerbation (10) Depression (11) Diaphragmatic Hernia (12) GERD (gastroesophageal reflux disease) (13) History of DVT (deep vein thrombosis) (14) History of metastatic adenocarcinoma (15) History of pulmonary embolus (PE) (16) Hypertension (17) Hypertension Nos (18) Morbid Obesity (19) Morbid obesity with BMI of 50.0-59.9, adult (20) Osteoarthros Nos-Unspec (21) Personal History Of Pulmonary Embolism (22) Reflux Esophagitis (23) Respiratory failure (24) S/p insertion of A port (25) S/p sinusotomy and septoplasty (26) Scrotal edema (27) Sleep apnea (28) Tobacco use disorder (29) Unspecified Sleep Apnea (30) UTI (urinary tract infection) Surgical Problems: (1) H/O arthroscopic knee surgery (2) H/O esophagogastroduodenoscopy (3) H/O lymph node biopsy Family History Cancer FATHER (colon CA age 56) Cardiac disorder Diabetes mellitus MOTHER Heart disease MOTHER ([place] age 54) FATHER (MN) BROTHER (MN age 48) BROTHER ([place] age 57) Hypertension MOTHER Social History Smoking Status: Current Every Day Smoker Alcohol Use: none Drug Use: none Marital Status: Housing Status: lives with family Occupation Status: unemployed, disabled Current/Historical Medications Scheduled Atorvastatin (Lipitor), 40 MG PO DAILY Furosemide (Furosemide), 80 MG PO QAM Home O2 Therapy (Oxygen), 3 LITERS NA CONTINOUS Lisinopril (Lisinopril), 10 MG PO DAILY Metformin Hcl (Glucophage), 500 MG PO DAILY Metolazone (Metolazone), 5 MG PO QAM Omeprazole (Prilosec), 40 MG PO DAILY Potassium Chloride Microencaps (Potassium Chloride Er), 20 MEQ PO BID Rivaroxaban (Xarelto), 20 MG PO DAILY Ropinirole HCl (Ropinirole HCl), 0.25 MG PO HS Ropinirole Hydrochloride (Requip), 0.5 MG PO HS Scheduled PRN Albuterol Hfa (Ventolin Hfa), 2 PUFFS INH Q4H PRN for SOB/Wheezing Ipratropium-Albuterol (Duoneb), 3 ML INH QID PRN for SOB/Wheezing Allergies Coded Allergies: Iodinated Diagnostic Agents (Unverified Allergy, Unknown, turns bright red and on fire feeling, RASH, 05/28/17) Physical Exam Vital Signs Date Time Temp Pulse Resp B/P (MAP) Pulse Ox O2 Delivery O2 Flow Rate FiO2 08/30/17 23:40 170/76 08/30/17 22:45 92 Oxymask 08/30/17 22:39 88 Nasal Cannula 2.0 08/30/17 21:24 112 22 103/52 92 Nasal Cannula 2.0 08/30/17 21:14 117 08/30/17 20:56 118 24 122/65 96 Nasal Cannula 3.0 08/30/17 19:20 116 20 137/49 94 Room Air 2.0 Nasal Cannula 08/30/17 17:43 36.9 117 26 115/58 93 Nasal Cannula 2.0 08/30/17 17:29 93 Nasal Cannula 2.0 08/30/17 17:20 117 08/30/17 16:33 36.9 113 26 115/58 94 Room Air Physical Exam Vital signs reviewed. Physical exam markedly limited due to body habitus. General: Morbidly obese 41 year old male, disheveled, in no significant distress on nasal cannula oxygen. Malodorous. HEENT: No scleral icterus, PERRLA, neck supple. Atraumatic. Cardiovascular: Heart tones are tachycardic and regular, as well as distant. Pulmonary: Lung sounds are distant with occasional scattered wheezes. Abdomen: Soft, nontender, nondistended, positive bowel sounds. Musculoskeletal: Atraumatic, no peripheral edema. Rectal: Limited by body habitus. Skin breakdown noted along gluteal cleft, small amount of stool obtained and is faintly guaiac + Neurologic: Patient awake alert and oriented x 3, full strength in all 4 extremities. Cranial nerves 2 through 12 grossly intact. Skin: Dried stool to the feet/toes bilaterally. Skin fold, yeast dermatitis to the legs, bilateral lower extremity venous stasis changes with multiple ulcerations draining serous fluid. No acute cellulitic change appreciated. Medical Decision & Procedures ER Provider Diagnostic Interpretation: X-ray results as stated below per interpretation by me and the radiologist: CHEST ONE VIEW PORTABLE CLINICAL HISTORY: SOB COMPARISON STUDY: 05/28/2017 FINDINGS: The study is limited from a technical standpoint due to the patient's large body habitus. The heart is enlarged. There is vascular prominence, likely secondary to pulmonary vascular congestion. There is no lobar consolidation.[ IMPRESSION: 1. Cardiomegaly and suspected mild pulmonary vascular congestion 2. No evidence of lobar consolidation 3. Technically limited study secondary to the patient's large body habitus Electronically signed by: Jonathan Squires M.D. 08/30/2017 5:36 PM Dictated Date/Time: 08/30/2017 5:34 PM Laboratory Results 08/30/17 17:20 Red Blood Count 3.34, Mean Corpuscular Volume 94.6, Mean Corpuscular Hemoglobin 29.0, Mean Corpuscular Hemoglobin Concent 30.7, Mean Platelet Volume 8.5, Neutrophils (%) (Auto) 77.3, Lymphocytes (%) (Auto) 10.8, Monocytes (%) (Auto) 8.9, Eosinophils (%) (Auto) 2.2, Basophils (%) (Auto) 0.4, Neutrophils # (Auto) 7.26, Lymphocytes # (Auto) 1.02, Monocytes # (Auto) 0.84, Eosinophils # (Auto) 0.21, Basophils # (Auto) 0.04 08/30/17 17:20 Test 08/30/17 17:20 08/30/17 17:29 08/30/17 20:06 08/30/17 21:07 White Blood Count 9.41 K/uL (4.8-10.8) Red Blood Count 3.34 M/uL (4.7-6.1) Hemoglobin 9.7 g/dL (14.0-18.0) Hematocrit 31.6 % (42-52) Mean Corpuscular Volume 94.6 fL (80-100) Mean Corpuscular Hemoglobin 29.0 pg (25-34) Mean Corpuscular Hemoglobin Concent 30.7 g/dl (32-36) Platelet Count 392 K/uL (130-400) Mean Platelet Volume 8.5 fL (7.4-10.4) Neutrophils (%) (Auto) 77.3 % Lymphocytes (%) (Auto) 10.8 % Monocytes (%) (Auto) 8.9 % Eosinophils (%) (Auto) 2.2 % Basophils (%) (Auto) 0.4 % Neutrophils # (Auto) 7.26 K/uL (1.4-6.5) Lymphocytes # (Auto) 1.02 K/uL (1.2-3.4) Monocytes # (Auto) 0.84 K/uL (0.11-0.59) Eosinophils # (Auto) 0.21 K/uL (0-0.5) Basophils # (Auto) 0.04 K/uL (0-0.2) RDW Standard Deviation 61.2 fL (36.4-46.3) RDW Coefficient of Variation 17.8 % (11.5-14.5) Immature Granulocyte % (Auto) 0.4 % Immature Granulocyte # (Auto) 0.04 K/uL (0.00-0.02) Nucleated RBC Absolute Count (auto) 0.05 K/uL (0-0) Nucleated Red Blood Cells % 0.5 % Prothrombin Time 9.8 SECONDS (9.0-12.0) Prothromb Time International Ratio 0.9 (0.9-1.1) Activated Partial Thromboplast Time 25.4 SECONDS (21.0-31.0) Partial Thromboplastin Ratio 1.0 Anion Gap -2.0 mmol/L (3-11) Est Creatinine Clear Calc Drug Dose 200.9 ml/min Estimated GFR () 124.0 Estimated GFR (Non- 107.0 BUN/Creatinine Ratio 25.5 (10-20) Calcium Level 9.1 mg/dl (8.5-10.1) Magnesium Level 2.0 mg/dl (1.8-2.4) Total Bilirubin 0.2 mg/dl (0.2-1) Direct Bilirubin < 0.1 mg/dl (0-0.2) Aspartate Amino Transf (AST/SGOT) 11 U/L (15-37) Alanine Aminotransferase (ALT/SGPT) 13 U/L (12-78) Alkaline Phosphatase 72 U/L (45-117) Troponin I < 0.015 ng/ml (0-0.045) Pro-B-Type Natriuretic Peptide 51 pg/ml (0-450) Total Protein 7.6 gm/dl (6.4-8.2) Albumin 2.7 gm/dl (3.4-5.0) Thyroid Stimulating Hormone (TSH) 2.680 uIu/ml (0.300-4.500) Bedside Lactic Acid Venous 1.07 mmol/L (0.90-1.70) Ammonia 29.6 umol/L (11-32) Venous Blood pH 7.39 (7.36-7.41) Venous Blood Partial Pressure CO2 87 mmHg (38.0-50.0) Venous Blood Partial Pressure O2 46 mmHg Venous Blood HCO3 52 mmol/L Venous Blood Oxygen Saturation 78.6 % Venous Blood Base Excess 22.7 mEq/L Laboratory results per my review. Medications Administered Medications (Trade) Dose Ordered Sig/Karissa Route Start Time Stop Time Status Last Admin Dose Admin Potassium Chloride (Klor-Con M10) 40 meq NOW STAT PO 08/30/17 18:26 08/30/17 18:27 DC 08/30/17 19:33 40 MEQ Oxycodone HCl (Roxicodone Immediate Rel Tab) 10 mg NOW STAT PO 08/30/17 19:07 08/30/17 19:08 DC 08/30/17 19:31 10 MG Potassium Chloride (Klor-Con M10) 20 meq NOW STAT PO 08/30/17 19:41 08/30/17 19:48 DC 08/30/17 19:41 20 MEQ Morphine Sulfate (MoRPHine SULFATE INJ) 4 mg Q3H PRN IV 08/30/17 20:45 09/13/17 20:44 08/30/17 21:38 4 MG Doxycycline Hyclate 100 mg/ Dextrose 110 ml @ 50 mls/hr NOW STAT IV 08/30/17 22:38 08/31/17 00:49 08/30/17 22:54 50 MLS/HR Furosemide (Lasix Inj) 80 mg STK-MED ONCE .ROUTE 08/30/17 21:22 08/30/17 21:23 DC 08/30/17 21:22 80 MG Ipratropium Dorothy (Atrovent 0.02% 0.5MG/2.5ML Neb) 0.5 mg NOW STAT INH 08/30/17 21:26 08/30/17 21:27 DC 08/30/17 23:00 0.5 MG Levalbuterol (Xopenex 1.25MG/ 0.5ML Neb) 1.25 mg NOW STAT INH 08/30/17 21:26 08/30/17 21:27 DC 08/30/17 23:00 1.25 MG ECG Per My Interpretation Indication: SOB/dyspnea Rate (beats per minute): 114 Rhythm: sinus tachycardia, other (poor quality baseline for interpretation) Findings: other (nonspecific intraventricular conduction delay with repolarization abnormality, QTC is 650, prlonged QT interval) Change: 2nd ECG: Sinus tachycardia at 115 bpm, RBBB, repolarization abnormality, QTC of 489. ED Course 1645: Past medical records reviewed. The patient was evaluated in room C3. A complete history and physical examination was performed. 1756: I reevaluated and updated the patient. 6: Klor-Con M10 40 meq PO. 1852: Upon reevaluation, the patient is resting but wants something for pain. I discussed laboratory and radiographic results with him. He verbalized agreement of the treatment plan. The patient will be evaluated for further management and care. 1904: I reviewed the patient's case with Nieves Boggs. She will evaluate the patient for further management. 1906: Roxicodone Immediate Rel Tab 10 mg PO. Medical Decision Differential diagnosis: Etiologies such as infections, reactive airway disease, pneumonia, pneumothorax , COPD, cardiac ischemia, pulmonary embolism, musculoskeletal, gastrointestinal , DVT, musculoskeletal, infection, joint effusion, trauma, lymphedema, idiopathic, CHF, as well as others were entertained. This patient was evaluated and appeared to be in no significant distress. IV access was obtained and laboratory work was drawn. Chest x-ray was performed and is limited by the patient's body habitus but reveals some vascular congestion and no focal lung consolidation. Patient is found to be hypokalemic and given 40 mEq of oral potassium. EKG reveals no evidence of acute ischemia. Laboratory work reveals hemoglobin of 9.7. Patient is on Xarelto for history of PE. Stool is faintly guaiac positive. As the patient is tachycardic with increased shortness of breath, and is difficult to interpret if this is related to his anemia or if this is the restriction of his morbid obesity. It is likely combination of both. This time the patient does not appear to be septic. He did request something for pain in his legs, he was given Oxy 10 milligrams p.o. Case was discussed with the [facility] hospitalist service, he will be evaluated for further management. Medication Reconcilliation Current Medication List: was personally reviewed by me Blood Pressure Screening Patient's blood pressure: Normal blood pressure Consults Time Called: 1899 Consulting Physician: Nieves Boggs Returned Call: 1904 I reviewed the patient's case with Nieves Boggs. She will evaluate the patient for further management. Impression Primary Impression: Anemia Additional Impressions: Restrictive lung disease Hypoxia Tachycardia Hypercarbia Scribe Attestation The scribe's documentation has been prepared under my direction and personally reviewed by me in its entirety. I confirm that the note above accurately reflects all work, treatment, procedures, and medical decision making performed by me. Departure Information Dispostion Being Evaluated By Hospitalist Referrals Sundar Guerrero M.D. ([facility]) (PCP) Patient Instructions My [facility] Problem Qualifiers
[2017-08-30] MEDS ORDERED: LSX80 PO (17:20)
[2017-08-30] MEDS ORDERED: ZRX5 PO (17:20)
[2017-08-30] MEDS ORDERED: XRL20 PO (17:20)
[2017-08-30] MEDS ORDERED: GLC/500 PO (17:20)
[2017-08-30] MEDS ORDERED: ROPI0.5T PO (17:20)
--- NOTE | 2017-08-30 17:37 | DIAGNOSTIC IMAGING REPORT ---
CHEST ONE VIEW PORTABLE CLINICAL HISTORY: SOB COMPARISON STUDY: 05/28/2017 FINDINGS: The study is limited from a technical standpoint due to the patient's large body habitus. The heart is enlarged. There is vascular prominence, likely secondary to pulmonary vascular congestion. There is no lobar consolidation.[ IMPRESSION: 1. Cardiomegaly and suspected mild pulmonary vascular congestion 2. No evidence of lobar consolidation 3. Technically limited study secondary to the patient's large body habitus Electronically signed by: Jonathan Squires M.D. 08/30/2017 5:36 PM Dictated Date/Time: 08/30/2017 5:34 PM
[2017-08-30 17:57] LABS: BASO % 0.4 %; BASO ABS # 0.04 K/uL (0-0.2); EOS % 2.2 %; EOS ABS # 0.21 K/uL (0-0.5); HEMATOCRIT 31.6 % (42-52); HEMOGLOBIN 9.7 g/dL (14.0-18.0); IG# 0.04 K/uL (0.00-0.02); LYMPH % 10.8 %; LYMPH ABS # 1.02 K/uL (1.2-3.4); MEAN CELL VOLUME 94.6 fL (80-100); MEAN CORPUSCULAR HGB CONC 30.7 g/dl (32-36); MEAN PLATELET VOLUME 8.5 fL (7.4-10.4); MONO % 8.9 %; MONO ABS # 0.84 K/uL (0.11-0.59); NEUT % 77.3 %; NEUT ABS # 7.26 K/uL (1.4-6.5); NUCLEATED RED BLOOD CELL ABS 0.05 K/uL (0-0); PLATELET COUNT 392 K/uL (130-400); RED CELL DISTRIBUTION WIDTH CV 17.8 % (11.5-14.5); RED CELL DISTRIBUTION WIDTH SD 61.2 fL (36.4-46.3); WHITE BLOOD COUNT 9.41 K/uL (4.8-10.8)
[2017-08-30 18:13] LABS: INR 0.9 (0.9-1.1); PTT PATIENT 25.4 SECONDS (21.0-31.0)
[2017-08-30 18:15] LABS: ALBUMIN 2.7 gm/dl (3.4-5.0); ALT/SGPT 13 U/L (12-78); BLOOD UREA NITROGEN 23 mg/dl (7-18); CALCIUM 9.1 mg/dl (8.5-10.1); CREATININE 0.89 mg/dl (0.60-1.40); GLUCOSE 184 mg/dl (70-99); POTASSIUM 2.9 mmol/L (3.5-5.1); SODIUM 132 mmol/L (136-145)
[2017-08-30 18:20] LABS: ALKALINE PHOSPHATASE 72 U/L (45-117); AST/SGOT 11 U/L (15-37); TOTAL PROTEIN 7.6 gm/dl (6.4-8.2)
[2017-08-30] MEDS ORDERED: POTASSIUM CHLORIDE 10 MEQ TABCR PO STA ×3 (18:26→22:12)
[2017-08-30 18:39] LABS: CARBON DIOXIDE 54 mmol/L (21-32)
[2017-08-30] MEDS ORDERED: OXYCODONE HCL IR 5 MG TAB (IMMEDIATE RELEASE) PO STA (19:07)
[2017-08-30] MEDS ORDERED: LEVALBUTEROL/IPRATROPIUM NEB INH STA (20:43)
[2017-08-30] MEDS ORDERED: FUROSEMIDE INJ 80 MG in SYRINGE 0 ML IV STA (20:43)
[2017-08-30] MEDS ORDERED: LEVALBUTEROL/IPRATROPIUM NEB INH PRN ×2 (20:45→22:15)
[2017-08-30] MEDS ORDERED: MoRPHine SULFATE 4 MG/ML 1 ML CARP\\VIAL IV PRN (20:45)
[2017-08-30] MEDS ORDERED: VNTHFA/IN INH (20:51)
[2017-08-30] MEDS ORDERED: LISI-461 PO (20:51)
--- NOTE | 2017-08-30 21:00 | DIAGNOSTIC IMAGING REPORT ---
CT HEAD WITHOUT CONTRAST (CT) CLINICAL HISTORY: syncope, dizziness COMPARISON STUDY: No previous studies for comparison. TECHNIQUE: Axial CT of the brain is performed from the vertex to the skull base. IV contrast was not administered for this examination. A dose lowering technique was utilized adhering to the principles of ALARA. CT DOSE: 3031.14 mGy.cm FINDINGS: No intra or extra-axial mass lesions are visualized. There is no CT evidence of acute cortical infarction. There is no evidence of midline shift. There is no acute hemorrhage. No calvarial fractures are visualized. The examination is mildly compromised due to motion artifact. There is no evidence of pathologic ventricular dilatation. There are inflammatory changes within the left frontal ethmoid and maxillary sinuses. IMPRESSION: 1. Inflammatory changes within the left frontal ethmoid and maxillary sinuses 2. Otherwise no acute intracranial findings Electronically signed by: Jonathan Squires M.D. 08/30/2017 8:58 PM Dictated Date/Time: 08/30/2017 8:57 PM
--- NOTE | 2017-08-30 21:17 | DIAGNOSTIC IMAGING REPORT ---
CT SCAN OF THE ABDOMEN AND PELVIS WITHOUT CONTRAST CLINICAL HISTORY: Generalized abdominal pain COMPARISON STUDY: No previous studies for comparison. TECHNIQUE: CT scan of the abdomen and pelvis was performed from the lung bases to the proximal femurs. Images are reviewed in the axial, sagittal, and coronal planes. IV contrast was not administered for this examination. A dose lowering technique was utilized adhering to the principles of ALARA. CT DOSE: 2213.37 mGy.cm FINDINGS: Lower chest: There is prominent pleural and extrapleural fat. There is mild basilar atelectatic change. Liver: The unenhanced liver is normal in size, contour, and attenuation. There is no intrahepatic biliary ductal dilatation. Gallbladder: Unremarkable. Spleen: The spleen is mildly enlarged measuring 14.4 cm Pancreas: Unremarkable. Adrenal glands: Unremarkable. Kidneys: The unenhanced kidneys are normal in size without hydronephrosis. There is no contour deforming renal mass lesion. No renal calculi are identified. Bowel: Evaluation the bowel is limited from a technical standpoint due to the patient's large body habitus and lack of intravenous and oral contrast. Anterior abdominal wall and anterior bowel is not fully included on the study. There are no transition zones to indicate bowel obstruction. Peritoneum: There is no intraperitoneal free air or abdominal ascites. Vasculature: The abdominal aorta is normal in course and caliber. Adenopathy: There are mildly enlarged left para-aortic and iliac and inguinal lymph nodes. Pelvic viscera: The bladder, and pelvic viscera are unremarkable. Skeletal structures: No destructive osseous lesions are seen. IMPRESSION: 1. Technically limited study secondary to the patient's large body habitus 2. No evidence of bowel obstruction. No evidence of free air 3. No acute inflammatory changes identified 4. Mildly enlarged left para-aortic, iliac and inguinal lymph nodes Electronically signed by: Jonathan Squires M.D. 08/30/2017 9:16 PM Dictated Date/Time: 08/30/2017 9:09 PM
[2017-08-30] MEDS ORDERED: FUROSEMIDE 40 MG/4 ML VIAL ONE (21:22)
[2017-08-30] MEDS ORDERED: LEVALBUTEROL 1.25MG/0.5ML NEB INH STA (21:26)
[2017-08-30] MEDS ORDERED: IPRATROPIUM BROMIDE NEB SOLN 0.02% 2.5 ML VIAL INH STA (21:26)
[2017-08-30] MEDS ORDERED: IPRATROPIUM BROMIDE NEB SOLN 0.02% 2.5 ML VIAL INH PRN ×2 (21:30→22:30)
[2017-08-30] MEDS ORDERED: LEVALBUTEROL 1.25MG/0.5ML NEB INH PRN ×2 (21:30→22:30)
[2017-08-30] MEDS ORDERED: GLUCOSE 40% GEL 15 GM TUBE PO PRN (22:15)
[2017-08-30] MEDS ORDERED: DEXTROSE 50% 50 ML SYR IV PRN (22:15)
[2017-08-30] MEDS ORDERED: GLUCAGON FOR INJ 1 MG VIAL SQ PRN (22:15)
[2017-08-30] MEDS ORDERED: NITROGLYCERIN 0.4 MG SL PER TAB CHARGE SL PRN (22:15)
[2017-08-30] MEDS ORDERED: PROCHLORPERAZINE INJ 5 MG in SYRINGE 4 ML IV PRN (22:15)
[2017-08-30] MEDS ORDERED: GLUCOSE 10 TABS/TUBE PO PRN (22:15)
[2017-08-30] MEDS ORDERED: OXYCODONE HCL IR 5 MG TAB (IMMEDIATE RELEASE) PO PRN (22:15)
[2017-08-30] MEDS ORDERED: INSULIN ASPART 100 UNITS/ML 3 ML PEN SC ONE (22:30)
[2017-08-30] MEDS ORDERED: DOXYCYCLINE IV 100 MG in DEXTROSE 5% 100ML 100 ML IV STA (22:38)
[2017-08-31] VITALS (32 sets, daily range): BP systolic 90–147; BP diastolic 47–90; PULSE 94–125; TEMP 36.8–38.8; O2SAT 79–97; Ht 180.3 cm; Wt 191.1 kg
[2017-08-31] MEDS ORDERED: LISINOPRIL 10 MG TAB PO ONE (00:49)
[2017-08-31] MEDS ORDERED: INSULIN GLARGINE SOLOSTAR 100 UNITS/ML 3 ML PEN SC ONE ×2 (00:53→05:41)
[2017-08-31] MEDS ORDERED: MoRPHine SULFATE 4 MG/ML 1 ML CARP\\VIAL IV PRN (01:00)
[2017-08-31 01:57] LABS: HEMATOCRIT 34.9 % (42-52); HEMOGLOBIN 10.6 g/dL (14.0-18.0)
[2017-08-31] MEDS: IPRATROPIUM BROMIDE NEB SOLN 0.02% 2.5 ML VIAL INH SCH ×4 (01:57→19:23)
[2017-08-31] MEDS: LEVALBUTEROL 1.25MG/0.5ML NEB INH SCH ×4 (01:57→19:23)
[2017-08-31] MEDS ORDERED: LEVALBUTEROL/IPRATROPIUM NEB INH SCH ×2 (03:00)
[2017-08-31] MEDS ORDERED: IPRATROPIUM BROMIDE NEB SOLN 0.02% 2.5 ML VIAL INH SCH (03:00)
[2017-08-31] MEDS ORDERED: LEVALBUTEROL 1.25MG/0.5ML NEB INH SCH (03:00)
[2017-08-31] MEDS ORDERED: NALOXONE HCL 0.4 MG/1 ML VIAL/CARP IV STA ×2 (05:39→06:15)
[2017-08-31] MEDS ORDERED: LEVALBUTEROL/IPRATROPIUM NEB INH STA (05:41)
[2017-08-31] MEDS ORDERED: INSULIN ASPART 100 UNITS/ML 3 ML PEN SC ONE (05:42)
[2017-08-31] MEDS ORDERED: METHYLPREDNISOLONE IV 20 MG in SYRINGE 0 ML IV STA (05:42)
[2017-08-31] MEDS ORDERED: NALOXONE HCL 0.4 MG/1 ML VIAL/CARP ONE (05:43)
[2017-08-31] MEDS ORDERED: IPRATROPIUM BROMIDE NEB SOLN 0.02% 2.5 ML VIAL INH STA (05:44)
[2017-08-31] MEDS ORDERED: LEVALBUTEROL 1.25MG/0.5ML NEB INH STA (05:44)
[2017-08-31] MEDS ORDERED: FUROSEMIDE INJ 80 MG in SYRINGE 0 ML IV STA (05:47)
[2017-08-31] MEDS ORDERED: INSULIN GLARGINE SOLOSTAR 100 UNITS/ML 3 ML PEN SC STA (05:47)
[2017-08-31] MEDS ORDERED: FUROSEMIDE 40 MG/4 ML VIAL ONE (05:59)
[2017-08-31 06:05] LABS: BASO % 0.2 %; BASO ABS # 0.02 K/uL (0-0.2); EOS % 1.7 %; EOS ABS # 0.18 K/uL (0-0.5); HEMATOCRIT 33.9 % (42-52); HEMOGLOBIN 10.3 g/dL (14.0-18.0); IG# 0.09 K/uL (0.00-0.02); LYMPH % 4.5 %; LYMPH ABS # 0.46 K/uL (1.2-3.4); MEAN CELL VOLUME 95.8 fL (80-100); MEAN CORPUSCULAR HEMOGLOBIN 29.1 pg (25-34); MEAN CORPUSCULAR HGB CONC 30.4 g/dl (32-36); MEAN PLATELET VOLUME 8.6 fL (7.4-10.4); MONO % 11.8 %; MONO ABS # 1.21 K/uL (0.11-0.59); NEUT % 80.9 %; NEUT ABS # 8.33 K/uL (1.4-6.5); NUCLEATED RED BLOOD CELL ABS 0.07 K/uL (0-0); PLATELET COUNT 364 K/uL (130-400); WHITE BLOOD COUNT 10.29 K/uL (4.8-10.8)
[2017-08-31 06:14] LABS: RETIC COUNT % 4.1 % (0.5-2.0)
[2017-08-31] MEDS ORDERED: OXYCODONE HCL IR 5 MG TAB (IMMEDIATE RELEASE) PO PRN ×2 (06:30→07:45)
--- NOTE | 2017-08-31 06:50 | DIAGNOSTIC IMAGING REPORT ---
CHEST ONE VIEW PORTABLE CLINICAL HISTORY: resp distress dyspnea COMPARISON STUDY: 08/30/2017 FINDINGS: Moderate cardiomegaly. Limited study due to patient body habitus. Pulmonary vasculature. Diaphragms are smooth. IMPRESSION: 1. Limited exam due to body habitus. 2. Findings suggesting congestive failure. Similar compared to the prior study. The above report was generated using voice recognition software. It may contain grammatical, syntax or spelling errors. Electronically signed by: Prosper Bucio M.D. 08/31/2017 6:49 AM Dictated Date/Time: 08/31/2017 6:48 AM
[2017-08-31 06:55] LABS: CALCIUM 9.2 mg/dl (8.5-10.1); CREATININE 0.72 mg/dl (0.60-1.40); POTASSIUM 3.6 mmol/L (3.5-5.1)
[2017-08-31] MEDS ORDERED: INSULIN ASPART 100 UNITS/ML 3 ML PEN SC SCH (07:00)
[2017-08-31 07:40] LABS: HEMOGLOBIN A1C 7.2 % (4.5-5.6)
[2017-08-31] MEDS ORDERED: INSULIN GLARGINE SOLOSTAR 100 UNITS/ML 3 ML PEN SC SCH ×3 (09:00→21:00)
[2017-08-31] MEDS ORDERED: FUROSEMIDE INJ 80 MG in SYRINGE 0 ML IV SCH ×2 (09:00→21:00)
[2017-08-31] MEDS ORDERED: POTASSIUM CHLORIDE 10 MEQ TABCR PO SCH (09:00)
[2017-08-31] MEDS: LISINOPRIL 10 MG TAB PO SCH (09:00)
--- NOTE | 2017-08-31 09:11 | Progress Note ---
Medicine Progress Note Date & Time of Visit: Aug 31, 2017 at 08:48. Subjective 41 yo morbidly obese man with COPD, CHF and ESTEFANI with chronic hypoxia (on 4L O2 at home) presents with worsening SOB x 2-3 days and skin irritation on his legs in setting of cellulitis and multiple skin wounds. The patient is currently not responding to me, but will withdraw to physical stimulus. I cannot obtain a history or ROS from him at this time. Objective Last 8 Hrs Date Time Temp Pulse Resp B/P (MAP) Pulse Ox O2 Delivery O2 Flow Rate FiO2 08/31/17 07:59 38.8 94 20 135/75 (95) 94 BiPAP 08/31/17 07:13 110 93 60 08/31/17 07:11 110 20 93 BiPAP/CPAP 60 08/31/17 06:11 117 31 95 BiPAP/CPAP 60 08/31/17 06:11 115 95 60 08/31/17 04:20 37.3 112 30 139/72 (94) 96 BiPAP 60 08/31/17 04:16 118 95 60 08/31/17 04:00 95 BiPAP 60 08/31/17 01:59 114 95 60 08/31/17 01:58 114 28 95 BiPAP/CPAP 60 08/31/17 01:02 125 31 147/88 (107) 93 Oxymask 7.0 08/31/17 00:52 37.3 122 30 120/68 Mask 7.0 Physical Exam: GEN: morbid obesity, BIPAP in place, appears comfortable without tachypnea, however, only will withdraw intermittently to physical stimuli HEENT: NC/AT, PERRL, normal sclerae CARDIO: tachy rate, S1/2 heard without m/g/r LUNGS: coarse breath sounds throughout, limited 2/2 body habitus and inability to follow directions. ABD: soft, obese EXTREMITY: warm and well perfused. NEURO: obtunded MUSC: could not assess 2/2 mental status. SKIN: warm, dry, multiple wounds all over legs and in various different skin folds all over body. Continuous erythema of legs with increased warmth to touch bilaterally up to knee level. Laboratory Results: 08/31/17 05:56 Red Blood Count 3.54, Mean Corpuscular Volume 95.8, Mean Corpuscular Hemoglobin 29.1, Mean Corpuscular Hemoglobin Concent 30.4, Mean Platelet Volume 8.6, Neutrophils (%) (Auto) 80.9, Lymphocytes (%) (Auto) 4.5, Monocytes (%) (Auto) 11.8, Eosinophils (%) (Auto) 1.7, Basophils (%) (Auto) 0.2, Neutrophils # (Auto ) 8.33, Lymphocytes # (Auto) 0.46, Monocytes # (Auto) 1.21, Eosinophils # (Auto ) 0.18, Basophils # (Auto) 0.02 08/31/17 05:56 Test 08/30/17 17:20 08/30/17 17:29 08/30/17 20:06 08/30/17 21:07 Prothrombin Time 9.8 SECONDS (9.0-12.0) Prothromb Time International Ratio 0.9 (0.9-1.1) Activated Partial Thromboplast Time 25.4 SECONDS (21.0-31.0) Partial Thromboplastin Ratio 1.0 Estimated Average Glucose 160 mg/dl Hemoglobin A1c 7.2 % (4.5-5.6) Magnesium Level 2.0 mg/dl (1.8-2.4) Total Bilirubin 0.2 mg/dl (0.2-1) Direct Bilirubin < 0.1 mg/dl (0-0.2) Aspartate Amino Transf (AST/SGOT) 11 U/L (15-37) Alanine Aminotransferase (ALT/SGPT) 13 U/L (12-78) Alkaline Phosphatase 72 U/L (45-117) Pro-B-Type Natriuretic Peptide 51 pg/ml (0-450) Total Protein 7.6 gm/dl (6.4-8.2) Albumin 2.7 gm/dl (3.4-5.0) Thyroid Stimulating Hormone (TSH) 2.680 uIu/ml (0.300-4.500) Bedside Lactic Acid Venous 1.07 mmol/L (0.90-1.70) Ammonia 29.6 umol/L (11-32) Venous Blood pH 7.39 (7.36-7.41) Venous Blood Partial Pressure CO2 87 mmHg (38.0-50.0) Venous Blood Partial Pressure O2 46 mmHg Venous Blood HCO3 52 mmol/L Venous Blood Oxygen Saturation 78.6 % Venous Blood Base Excess 22.7 mEq/L Test 08/31/17 05:35 08/31/17 05:56 08/31/17 07:24 Bedside Glucose 209 mg/dl (70-99) White Blood Count 10.29 K/uL (4.8-10.8) Red Blood Count 3.54 M/uL (4.7-6.1) Hemoglobin 10.3 g/dL (14.0-18.0) Hematocrit 33.9 % (42-52) Mean Corpuscular Volume 95.8 fL (80-100) Mean Corpuscular Hemoglobin 29.1 pg (25-34) Mean Corpuscular Hemoglobin Concent 30.4 g/dl (32-36) Platelet Count 364 K/uL (130-400) Mean Platelet Volume 8.6 fL (7.4-10.4) Neutrophils (%) (Auto) 80.9 % Lymphocytes (%) (Auto) 4.5 % Monocytes (%) (Auto) 11.8 % Eosinophils (%) (Auto) 1.7 % Basophils (%) (Auto) 0.2 % Neutrophils # (Auto) 8.33 K/uL (1.4-6.5) Lymphocytes # (Auto) 0.46 K/uL (1.2-3.4) Monocytes # (Auto) 1.21 K/uL (0.11-0.59) Eosinophils # (Auto) 0.18 K/uL (0-0.5) Basophils # (Auto) 0.02 K/uL (0-0.2) RDW Standard Deviation 63.0 fL (36.4-46.3) RDW Coefficient of Variation 18.0 % (11.5-14.5) Immature Granulocyte % (Auto) 0.9 % Immature Granulocyte # (Auto) 0.09 K/uL (0.00-0.02) Nucleated RBC Absolute Count (auto) 0.07 K/uL (0-0) Nucleated Red Blood Cells % 0.7 % Absolute Reticulocyte Count 0.14 10^6/uL (0.02-0.10) Percent Reticulocyte Count 4.1 % (0.5-2.0) Anion Gap 4.0 mmol/L (3-11) Est Creatinine Clear Calc Drug Dose 242.2 ml/min Estimated GFR () 135.2 Estimated GFR (Non- 116.7 BUN/Creatinine Ratio 24.9 (10-20) Calcium Level 9.2 mg/dl (8.5-10.1) Iron Level 42 mcg/dl (35-175) Total Iron Binding Capacity 328 mcg/dl (250-450) Transferrin 238 mg/dl (200-360) Transferrin % Saturation 13 % (20-50) Ferritin 81.9 ng/ml (8.0-388.0) Troponin I < 0.015 ng/ml (0-0.045) Vitamin B12 Level 335 pg/mL (211-911) Folate 7.96 ng/mL (>5.38) Arterial Blood pH 7.37 (7.35-7.45) Arterial Blood Partial Pressure CO2 95 mmHg (35-46) Arterial Blood Partial Pressure O2 65 mm/Hg (80-95) Arterial Blood HCO3 54 mmol/L (19-24) Arterial Blood Oxygen Saturation 89.4 % (90-95) Arterial Blood Base Excess 24.4 mEq/L (-9-1.8) Arterial Blood Gas Delivery BIPAP 30/5 60% Fran Test POS (POS) Date/Time Source Procedure Growth Status 08/30/17 17:47 Blood Blood Culture Pending Received Last 24 Hours Test 08/30/17 17:20 08/30/17 17:29 08/30/17 20:06 08/30/17 21:07 White Blood Count 9.41 K/uL Red Blood Count 3.34 M/uL Hemoglobin 9.7 g/dL Hematocrit 31.6 % Mean Corpuscular Volume 94.6 fL Mean Corpuscular Hemoglobin 29.0 pg Mean Corpuscular Hemoglobin Concent 30.7 g/dl Platelet Count 392 K/uL Mean Platelet Volume 8.5 fL Neutrophils (%) (Auto) 77.3 % Lymphocytes (%) (Auto) 10.8 % Monocytes (%) (Auto) 8.9 % Eosinophils (%) (Auto) 2.2 % Basophils (%) (Auto) 0.4 % Neutrophils # (Auto) 7.26 K/uL Lymphocytes # (Auto) 1.02 K/uL Monocytes # (Auto) 0.84 K/uL Eosinophils # (Auto) 0.21 K/uL Basophils # (Auto) 0.04 K/uL RDW Standard Deviation 61.2 fL RDW Coefficient of Variation 17.8 % Immature Granulocyte % (Auto) 0.4 % Immature Granulocyte # (Auto) 0.04 K/uL Nucleated RBC Absolute Count (auto) 0.05 K/uL Nucleated Red Blood Cells % 0.5 % Prothrombin Time 9.8 SECONDS Prothromb Time International Ratio 0.9 Activated Partial Thromboplast Time 25.4 SECONDS Partial Thromboplastin Ratio 1.0 Sodium Level 132 mmol/L Potassium Level 2.9 mmol/L Chloride Level 79 mmol/L Carbon Dioxide Level 54 mmol/L Anion Gap -2.0 mmol/L Blood Urea Nitrogen 23 mg/dl Creatinine 0.89 mg/dl Est Creatinine Clear Calc Drug Dose 200.9 ml/min Estimated GFR () 124.0 Estimated GFR (Non- 107.0 BUN/Creatinine Ratio 25.5 Random Glucose 184 mg/dl Estimated Average Glucose 160 mg/dl Hemoglobin A1c 7.2 % Calcium Level 9.1 mg/dl Magnesium Level 2.0 mg/dl Total Bilirubin 0.2 mg/dl Direct Bilirubin < 0.1 mg/dl Aspartate Amino Transf (AST/SGOT) 11 U/L Alanine Aminotransferase (ALT/SGPT) 13 U/L Alkaline Phosphatase 72 U/L Troponin I < 0.015 ng/ml Pro-B-Type Natriuretic Peptide 51 pg/ml Total Protein 7.6 gm/dl Albumin 2.7 gm/dl Thyroid Stimulating Hormone (TSH) 2.680 uIu/ml Bedside Lactic Acid Venous 1.07 mmol/L Ammonia 29.6 umol/L Venous Blood pH 7.39 Venous Blood Partial Pressure CO2 87 mmHg Venous Blood Partial Pressure O2 46 mmHg Venous Blood HCO3 52 mmol/L Venous Blood Oxygen Saturation 78.6 % Venous Blood Base Excess 22.7 mEq/L Test 08/31/17 00:33 08/31/17 01:29 08/31/17 05:35 08/31/17 05:56 Bedside Glucose 201 mg/dl 209 mg/dl Hemoglobin 10.6 g/dL 10.3 g/dL Hematocrit 34.9 % 33.9 % White Blood Count 10.29 K/uL Red Blood Count 3.54 M/uL Mean Corpuscular Volume 95.8 fL Mean Corpuscular Hemoglobin 29.1 pg Mean Corpuscular Hemoglobin Concent 30.4 g/dl Platelet Count 364 K/uL Mean Platelet Volume 8.6 fL Neutrophils (%) (Auto) 80.9 % Lymphocytes (%) (Auto) 4.5 % Monocytes (%) (Auto) 11.8 % Eosinophils (%) (Auto) 1.7 % Basophils (%) (Auto) 0.2 % Neutrophils # (Auto) 8.33 K/uL Lymphocytes # (Auto) 0.46 K/uL Monocytes # (Auto) 1.21 K/uL Eosinophils # (Auto) 0.18 K/uL Basophils # (Auto) 0.02 K/uL RDW Standard Deviation 63.0 fL RDW Coefficient of Variation 18.0 % Immature Granulocyte % (Auto) 0.9 % Immature Granulocyte # (Auto) 0.09 K/uL Nucleated RBC Absolute Count (auto) 0.07 K/uL Nucleated Red Blood Cells % 0.7 % Absolute Reticulocyte Count 0.14 10^6/uL Percent Reticulocyte Count 4.1 % Arterial Blood pH 7.33 Arterial Blood Partial Pressure CO2 102 mmHg Arterial Blood Partial Pressure O2 78 mm/Hg Arterial Blood HCO3 52 mmol/L Arterial Blood Oxygen Saturation 92.5 % Arterial Blood Base Excess 22.0 mEq/L Arterial Blood Gas Delivery 60% Fran Test POS Sodium Level 131 mmol/L Potassium Level 3.6 mmol/L Chloride Level 78 mmol/L Carbon Dioxide Level 49 mmol/L Anion Gap 4.0 mmol/L Blood Urea Nitrogen 18 mg/dl Creatinine 0.72 mg/dl Est Creatinine Clear Calc Drug Dose 242.2 ml/min Estimated GFR () 135.2 Estimated GFR (Non- 116.7 BUN/Creatinine Ratio 24.9 Random Glucose 186 mg/dl Calcium Level 9.2 mg/dl Iron Level 42 mcg/dl Total Iron Binding Capacity 328 mcg/dl Transferrin 238 mg/dl Transferrin % Saturation 13 % Ferritin 81.9 ng/ml Troponin I < 0.015 ng/ml Vitamin B12 Level 335 pg/mL Folate 7.96 ng/mL Test 08/31/17 07:24 Arterial Blood pH 7.37 Arterial Blood Partial Pressure CO2 95 mmHg Arterial Blood Partial Pressure O2 65 mm/Hg Arterial Blood HCO3 54 mmol/L Arterial Blood Oxygen Saturation 89.4 % Arterial Blood Base Excess 24.4 mEq/L Arterial Blood Gas Delivery BIPAP 30/5 60% Fran Test POS Date/Time Source Procedure Growth Status 08/30/17 17:47 Blood Blood Culture Pending Received 08/30/17 17:20 Blood Blood Culture Pending Received Diagnostic Imaging: CHEST ONE VIEW PORTABLE CLINICAL HISTORY: resp distress dyspnea COMPARISON STUDY: 08/30/2017 FINDINGS: Moderate cardiomegaly. Limited study due to patient body habitus. Pulmonary vasculature. Diaphragms are smooth. IMPRESSION: 1. Limited exam due to body habitus. 2. Findings suggesting congestive failure. Similar compared to the prior study. Assessment & Plan 41 yo morbidly obese man with COPD, CHF and ESTEFANI with chronic hypoxia (on 4L O2 at home) presents with worsening SOB x 2-3 days and skin irritation on his legs in setting of cellulitis and multiple skin wounds. 1. Acute respiratory failure in setting of chronic hypoxemia 2/2 COPD on 4L oxygen at home-pt was given morphine prior to midnight for neuropathy pain in his legs, and was foudn to be less responsive this morning. He was given Narcan x 2 doses with some response but is still not responding appropriately. He is on BIPAP at 30/5 on 60% with most recent ABG 7.37/95/65. He is pulling a tidal volume in the 300s on BIPAP. It is difficult to tell if the decreased responsiveness is from the elevated CO2 or persistent opioid sensitivity. Transferring to the ICU for closer monitoring and consideration for intubation if no improvement on BIPAP. 2. CHF exacerbation-known diastolic dysfunction. Weight is 201kg this admission and was 206 during last admission in May 2017. He was given Lasix 80 IV x 2 doses overnight and has diuresed approx 3 L. His lung exam reveals coarse breath sounds, and he is not tachypneic (see below). Cont Lasix and await cardiology recommendations. 3. Bilateral lower extremity cellulitis-patient has multiple wounds all over legs and a body habitus that precludes thotough examination. There appear to be multiple scratches on his legs. He is currently tachycardic in the 120s and is now febrile with an axillary temp of 38.8. He appears to be becoming septic, currently on Doxycycline. Defer further management, including broadening abx spectrum, to the ICU staff. 4. 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 Justin Beck. Had a DVT with PE in 2005 prior to cancer, however, was recommended to continue anticoagulant therapy per Oncology recs while he was here in May 2017. Currently on xarelto. 5. h/o metastatic adenocarcinoma of L axilla with unknown primary site-in remission as above. 6. DMII-metformin held, cont ISS/Lantus while inpatient. 7. HTN-cont lisinopril, currently at goal 8. Morbid obesity 9. smoker 10. Noncompliance 11. Anemia-likely related to chronic disease. Slightly decreased from H/H in may 2017, but has been around this level in the past consistently. Heme positive stool in the ER poss 2/2 hemorrhoids. No active bleeding at this time. Cont to monitor. Cont Xarelto. DVT proph-Xarelto Full Code Dispo-to ICU. I called the , Melany, regarding his change in status and left a vmail for her to call the nurses station. I spoke with the current nurse , Sarmad, regarding that message. Zo Guerrero DO [facility] Hospitalist Consultants: Cardiology Current Inpatient Medications: Current Inpatient Medications Medications (Trade) Dose Ordered Sig/Karissa Route Start Time Stop Time Status Last Admin Dose Admin Ipratropium [place] (Atrovent 0.02% 0.5MG/2.5ML Neb) 0.5 mg Q4H PRN INH 08/30/17 21:30 09/29/17 21:29 Levalbuterol (Xopenex 1.25MG/ 0.5ML Neb) 1.25 mg Q4H PRN INH 08/30/17 21:30 09/29/17 21:29 Acetaminophen (Tylenol Tab) 325 mg Q6H PRN PO 08/30/17 22:15 09/29/17 22:14 Nitroglycerin (Nitrostat Tab) 0.4 mg UD PRN SL 08/30/17 22:15 09/29/17 22:14 Glucose (Glucose 40% Gel) 15-30 GRAMS 15 GRAMS... UD PRN PO 08/30/17 22:15 09/29/17 22:14 Glucose (Glucose Chew Tab) 4-8 Tablets 4 Tabl... UD PRN PO 08/30/17 22:15 09/29/17 22:14 Dextrose (Dextrose 50% 50ML Syringe) 25-50ML OF 50% DW IV FOR... UD PRN IV 08/30/17 22:15 09/29/17 22:14 Glucagon (Glucagon Inj) 1 mg UD PRN SQ 08/30/17 22:15 09/29/17 22:14 Prochlorperazine Edisylate 5 mg/ Syringe 5 ml @ 5 mls/min Q6H PRN IV 08/30/17 22:15 09/29/17 22:14 Doxycycline Hyclate (Vibramycin Cap) 100 mg BID PO 08/31/17 09:00 09/07/17 08:59 Atorvastatin Calcium (Lipitor Tab) 40 mg DAILY PO 08/31/17 09:00 09/30/17 08:59 Ropinirole HCl (Requip Tab) 0.75 mg HS PO 08/31/17 21:00 09/30/17 20:59 Pantoprazole Sodium (Protonix Tab) 40 mg QAM PO 08/31/17 09:00 09/30/17 08:59 Lisinopril (Zestril Tab) 10 mg DAILY PO 08/31/17 09:00 10/01/17 08:59 Potassium Chloride (Klor-Con M10) 40 meq DAILY PO 08/31/17 09:00 09/30/17 08:59 Ipratropium [place] (Atrovent 0.02% 0.5MG/2.5ML Neb) 0.5 mg Q6R INH 08/31/17 03:00 09/30/17 02:59 08/31/17 07:10 0.5 MG Levalbuterol (Xopenex 1.25MG/ 0.5ML Neb) 1.25 mg Q6R INH 08/31/17 03:00 09/30/17 02:59 08/31/17 07:10 1.25 MG Furosemide 80 mg/ Syringe 8 ml @ 4 mls/min BID IV 08/31/17 21:00 09/01/17 20:59 Insulin Aspart (novoLOG ASPART) SLIDING SCALE If C... ACHS SC 08/31/17 11:00 09/30/17 06:59 Rivaroxaban (Xarelto Tab) 20 mg DAILY PO 08/31/17 09:00 09/30/17 08:59 UNV Oxycodone HCl (Roxicodone Immediate Rel Tab) 5 mg Q6H PRN PO 08/31/17 07:45 4/2/18 22:14 UNV Insulin Glargine (Lantus Solostar Pen) 20 units BID SC 08/31/17 21:00 09/30/17 08:59 UNV
[2017-08-31] MEDS ORDERED: VANCOMYCIN CONSULT ACTIVE PRN (09:30)
[2017-08-31] MEDS ORDERED: VANCOMYCIN IV 2,800 MG in SODIUM CHLORIDE 0.9% 500ML 500 ML IV SCH (10:30)
[2017-08-31] MEDS: CEFTRIAXONE SOD INJ 2,000 MG in DEXTROSE 5% 50ML 50 ML IV SCH (10:37)
[2017-08-31] MEDS: DOXYCYCLINE HYCLATE 100 MG CAP PO SCH ×2 (11:32→20:37)
[2017-08-31] MEDS: PANTOprazole SOD 40 MG TAB PO SCH (11:32)
[2017-08-31] MEDS: ATORVASTATIN 40 MG TAB PO SCH (11:32)
[2017-08-31] MEDS: ACETAMINOPHEN 325 MG TAB PO PRN (11:33)
[2017-08-31] MEDS: INSULIN ASPART 100 UNITS/ML 3 ML PEN SC SCH ×3 (11:34→20:41)
[2017-08-31] MEDS: METHYLPREDNISOLONE IV 40 MG in SYRINGE 0 ML IV SCH ×2 (11:35→17:45)
--- NOTE | 2017-08-31 11:59 | Critical Care Consultation ---
Critical Care Consultation Date of Consultation: Aug 31, 2017. Attending Physician: Zo Guerrero DO Reason for Consultation: Acute on chronic respiratory failure. History of Present Illness Dear Dr. Guerrero: Thank you for your kind referral of Mr. Garcia to critical care service. This is a 41-year-old gentleman with overlap syndrome, active smoker, COPD, morbid obesity, BMI over them 50, multiple admissions to the hospital with acute on chronic respiratory failure, presented to the hospital with increasing shortness of breath accompanied with semiobtundation obtundation. The patient initially was admitted to the regular floor and started on the BiPAP due to acute on chronic hypercapnia. Patient has been taken also narcotics for lower extremity pain due to neuropathy. Unclear whether it was neuropathy or an infectious process. The patient transferred to the ICU due to altered mental status. However his pH was remained in the range of 737. The patient tolerated higher level of the BiPAP including 30/5. When he arrived to the ICU , the patient was answering questions but he was agitated and emotional wants something to drink. The patient was taken off the BiPAP and was placed only on the high flow oxygen. The patient started to do well after cutting down the oxygen supply from 70% down to 45%. The patient O2 sat remains at 88% and we will keep it above than 85% only. The patient become more awake and able to answer questions. When I interviewed with the patient, he denies any fever although he did have low-grade temperatures when we examined him. He denies any chest pain, he does have shortness of breath even with minimal exertion. Swelling in his lower extremities has been chronic, and he denies any sputum production but he had persistent cough. He feels thirsty and he does not have any hemoptysis. No loss of consciousness in fact his level of consciousness has improved significantly. The patient in the past was planned to be seen by Dr. López as an outpatient but he did not follow through. The patient continued to smoke daily according to the . And he is noncompliant with the CPAP where it was taken away from him years ago. He has no positive airway pressure machine at home. He lives in a trailer with no running water. He has very poor body hygiene. Family History Cancer FATHER (colon CA age 56) Cardiac disorder Diabetes mellitus MOTHER Heart disease MOTHER (MS age 54) FATHER (MS) BROTHER (MS age 48) BROTHER (MS age 57) Hypertension MOTHER Social History Smoking Status: Current Every Day Smoker Drug Use: none Marital Status: Housing Status: lives with family Occupation Status: unemployed, disabled Allergies Coded Allergies: Morphine (Verified Allergy, Intermediate, 0, 08/31/17) oversedation Iodinated Diagnostic Agents (Unverified Allergy, Unknown, turns bright red and on fire feeling, RASH, 05/28/17) Home Medications Scheduled Atorvastatin (Lipitor), 40 MG PO DAILY Furosemide (Furosemide), 80 MG PO QAM Home O2 Therapy (Oxygen), 3 LITERS NA CONTINOUS Lisinopril (Lisinopril), 10 MG PO DAILY Metformin Hcl (Glucophage), 500 MG PO DAILY Metolazone (Metolazone), 5 MG PO QAM Omeprazole (Prilosec), 40 MG PO DAILY Potassium Chloride Microencaps (Potassium Chloride Er), 20 MEQ PO BID Rivaroxaban (Xarelto), 20 MG PO DAILY Ropinirole HCl (Ropinirole HCl), 0.25 MG PO HS Ropinirole Hydrochloride (Requip), 0.5 MG PO HS Scheduled PRN Albuterol Hfa (Ventolin Hfa), 2 PUFFS INH Q4H PRN for SOB/Wheezing Ipratropium-Albuterol (Duoneb), 3 ML INH QID PRN for SOB/Wheezing Current Inpatient Medications Current Inpatient Medications Medications (Trade) Dose Ordered Sig/Karissa Route Start Time Stop Time Status Last Admin Dose Admin Ipratropium [place] (Atrovent 0.02% 0.5MG/2.5ML Neb) 0.5 mg Q4H PRN INH 08/30/17 21:30 09/29/17 21:29 Levalbuterol (Xopenex 1.25MG/ 0.5ML Neb) 1.25 mg Q4H PRN INH 08/30/17 21:30 09/29/17 21:29 Acetaminophen (Tylenol Tab) 325 mg Q6H PRN PO 08/30/17 22:15 09/29/17 22:14 Nitroglycerin (Nitrostat Tab) 0.4 mg UD PRN SL 08/30/17 22:15 09/29/17 22:14 Glucose (Glucose 40% Gel) 15-30 GRAMS 15 GRAMS... UD PRN PO 08/30/17 22:15 09/29/17 22:14 Glucose (Glucose Chew Tab) 4-8 Tablets 4 Tabl... UD PRN PO 08/30/17 22:15 09/29/17 22:14 Dextrose (Dextrose 50% 50ML Syringe) 25-50ML OF 50% DW IV FOR... UD PRN IV 08/30/17 22:15 09/29/17 22:14 Glucagon (Glucagon Inj) 1 mg UD PRN SQ 08/30/17 22:15 09/29/17 22:14 Prochlorperazine Edisylate 5 mg/ Syringe 5 ml @ 5 mls/min Q6H PRN IV 08/30/17 22:15 09/29/17 22:14 Doxycycline Hyclate (Vibramycin Cap) 100 mg BID PO 08/31/17 09:00 09/07/17 08:59 Atorvastatin Calcium (Lipitor Tab) 40 mg DAILY PO 08/31/17 09:00 09/30/17 08:59 Ropinirole HCl (Requip Tab) 0.75 mg HS PO 08/31/17 21:00 09/30/17 20:59 Pantoprazole Sodium (Protonix Tab) 40 mg QAM PO 08/31/17 09:00 09/30/17 08:59 Lisinopril (Zestril Tab) 10 mg DAILY PO 08/31/17 09:00 10/01/17 08:59 Potassium Chloride (Klor-Con M10) 40 meq DAILY PO 08/31/17 09:00 09/30/17 08:59 Ipratropium [place] (Atrovent 0.02% 0.5MG/2.5ML Neb) 0.5 mg Q6R INH 08/31/17 03:00 09/30/17 02:59 08/31/17 07:10 0.5 MG Levalbuterol (Xopenex 1.25MG/ 0.5ML Neb) 1.25 mg Q6R INH 08/31/17 03:00 09/30/17 02:59 08/31/17 07:10 1.25 MG Insulin Aspart (novoLOG ASPART) SLIDING SCALE If C... ACHS SC 08/31/17 11:00 09/30/17 06:59 Rivaroxaban (Xarelto Tab) 20 mg DAILYBD PO 08/31/17 16:00 09/30/17 15:59 Oxycodone HCl (Roxicodone Immediate Rel Tab) 5 mg Q6H PRN PO 08/31/17 07:45 09/13/17 22:14 Insulin Glargine (Lantus Solostar Pen) 20 units BID SC 08/31/17 21:00 09/30/17 08:59 UNV Vancomycin HCl 1000 mg/Sodium Chloride 270 ml @ 125 mls/hr Q12 IV 08/31/17 21:00 09/07/17 20:59 UNV Miscellaneous Information (Consult) 1 ea UD PRN N/A 08/31/17 09:30 09/30/17 09:29 Ceftriaxone Sodium 2000 mg/ Dextrose 70 ml @ 100 mls/hr Q24H IV 08/31/17 10:00 09/07/17 09:59 08/31/17 10:37 100 MLS/HR Furosemide 40 mg/ Syringe 4 ml @ 4 mls/min Q8H IV 08/31/17 14:00 09/30/17 13:59 Methylprednisolone Sodium Succinate 40 mg/Syringe 0.64 ml @ 1.5 mls/min Q6H IV 08/31/17 12:00 09/30/17 11:59 Miscellaneous Information (Consult Glycemic Management Pharmacy) 1 ea NOW N/A 08/31/17 09:32 09/30/17 09:31 UNV Vancomycin HCl 2800 mg/Sodium Chloride 556 ml @ 200 mls/hr 1030 IV 08/31/17 10:30 08/31/17 13:17 08/31/17 10:37 200 MLS/HR Nystatin (Mycostatin Powder) 1 appln DAILY EXT 09/01/17 09:00 10/01/17 08:59 UNV Review of Systems Constitutional: + fever Eyes: No worsening of vision, No eye pain, No redness, No discharge, No diplopia, No problem reported ENT: No hearing loss, No unusual epistaxis, No nasal symptoms, No sore throat, No tinnitus, No dental problems, No trouble swallowing, No problem reported Respiratory: + cough, + wheezing, + shortness of breath Cardiovascular: No chest pain, No orthopnea, No PND, No edema, No claudication , No palpitations, No problem reported Abdomen: No pain, No nausea, No vomiting, No diarrhea, No constipation, No GI bleeding, No problem reported Musculoskeletal: No joint pain, No muscle pain, No swelling, No calf pain, No problem reported Neurologic: No memory loss, No paralysis, No weakness, No numbness/tingling, No vertigo, No balance problems, No problem reported Psychiatric: No depression symptoms, No anhedonism, No anxiety, No insomnia, No substance abuse, No problem reported Endocrine: No fatigue, No excessive thirst, No excessive urination, No problem reported Allergic / Immunologic: No environmental allergies, No seasonal allergies, No pet sensitivities, No food allergies, No hives, No frequent infections, No poor healing, No prolonged convalescence, No problem reported Physical Exam Date Time Temp Pulse Resp B/P (MAP) Pulse Ox O2 Delivery O2 Flow Rate FiO2 08/31/17 09:04 110 93 70 08/31/17 08:50 38.8 94 20 94 08/31/17 08:00 88 BiPAP 60 08/31/17 07:59 38.8 94 20 135/75 (95) 94 BiPAP 08/31/17 07:13 110 93 60 08/31/17 07:11 110 20 93 BiPAP/CPAP 60 08/31/17 06:11 117 31 95 BiPAP/CPAP 60 08/31/17 06:11 115 95 60 08/31/17 04:20 37.3 112 30 139/72 (94) 96 BiPAP 60 08/31/17 04:16 118 95 60 08/31/17 04:00 95 BiPAP 60 08/31/17 01:59 114 95 60 08/31/17 01:58 114 28 95 BiPAP/CPAP 60 08/31/17 01:02 125 31 147/88 (107) 93 Oxymask 7.0 08/31/17 00:52 37.3 122 30 120/68 Mask 7.0 08/31/17 00:32 37.3 124 29 120/68 (85) 88 Oxymask 4.0 08/30/17 23:40 170/76 08/30/17 22:45 92 Oxymask 08/30/17 22:39 88 Nasal Cannula 2.0 08/30/17 21:24 112 22 103/52 92 Nasal Cannula 2.0 08/30/17 21:14 117 08/30/17 20:56 118 24 122/65 96 Nasal Cannula 3.0 08/30/17 19:20 116 20 137/49 94 Room Air 2.0 Nasal Cannula 08/30/17 17:43 36.9 117 26 115/58 93 Nasal Cannula 2.0 08/30/17 17:29 93 Nasal Cannula 2.0 08/30/17 17:20 117 08/30/17 16:33 36.9 113 26 115/58 94 Room Air General Appearance: uncomfortable Head: normocephalic Eyes: PERRLA, EOMI ENT: normal throat exam Neck: no stridor Respiratory: other (Distant breath sounds bilaterally) Cardiovasular: regular rate/rhythm, normal S1S2, no M/G/R, no murmur, other ( Mild tachycardia) Abdomen: non tender, normal bowel sounds, no rebound, no masses Back: no midline tenderness Upper Extremities: no edema Lower Extremities: other (Edema and pain bilaterally in lower extremities with multiple excoriation of the skin and cellulitic changes. Also candidal infection at the skin folds.) Neuro: alert, normal motor exam, normal sensation Psychiatric: other (Anxious and sometimes dozing.) Laboratory Results Last 24 Hours Test 08/30/17 17:20 08/30/17 17:29 08/30/17 20:06 08/30/17 21:07 White Blood Count 9.41 K/uL Red Blood Count 3.34 M/uL Hemoglobin 9.7 g/dL Hematocrit 31.6 % Mean Corpuscular Volume 94.6 fL Mean Corpuscular Hemoglobin 29.0 pg Mean Corpuscular Hemoglobin Concent 30.7 g/dl Platelet Count 392 K/uL Mean Platelet Volume 8.5 fL Neutrophils (%) (Auto) 77.3 % Lymphocytes (%) (Auto) 10.8 % Monocytes (%) (Auto) 8.9 % Eosinophils (%) (Auto) 2.2 % Basophils (%) (Auto) 0.4 % Neutrophils # (Auto) 7.26 K/uL Lymphocytes # (Auto) 1.02 K/uL Monocytes # (Auto) 0.84 K/uL Eosinophils # (Auto) 0.21 K/uL Basophils # (Auto) 0.04 K/uL RDW Standard Deviation 61.2 fL RDW Coefficient of Variation 17.8 % Immature Granulocyte % (Auto) 0.4 % Immature Granulocyte # (Auto) 0.04 K/uL Nucleated RBC Absolute Count (auto) 0.05 K/uL Nucleated Red Blood Cells % 0.5 % Prothrombin Time 9.8 SECONDS Prothromb Time International Ratio 0.9 Activated Partial Thromboplast Time 25.4 SECONDS Partial Thromboplastin Ratio 1.0 Sodium Level 132 mmol/L Potassium Level 2.9 mmol/L Chloride Level 79 mmol/L Carbon Dioxide Level 54 mmol/L Anion Gap -2.0 mmol/L Blood Urea Nitrogen 23 mg/dl Creatinine 0.89 mg/dl Est Creatinine Clear Calc Drug Dose 200.9 ml/min Estimated GFR () 124.0 Estimated GFR (Non- 107.0 BUN/Creatinine Ratio 25.5 Random Glucose 184 mg/dl Estimated Average Glucose 160 mg/dl Hemoglobin A1c 7.2 % Calcium Level 9.1 mg/dl Magnesium Level 2.0 mg/dl Total Bilirubin 0.2 mg/dl Direct Bilirubin < 0.1 mg/dl Aspartate Amino Transf (AST/SGOT) 11 U/L Alanine Aminotransferase (ALT/SGPT) 13 U/L Alkaline Phosphatase 72 U/L Troponin I < 0.015 ng/ml Pro-B-Type Natriuretic Peptide 51 pg/ml Total Protein 7.6 gm/dl Albumin 2.7 gm/dl Thyroid Stimulating Hormone (TSH) 2.680 uIu/ml Bedside Lactic Acid Venous 1.07 mmol/L Ammonia 29.6 umol/L Venous Blood pH 7.39 Venous Blood Partial Pressure CO2 87 mmHg Venous Blood Partial Pressure O2 46 mmHg Venous Blood HCO3 52 mmol/L Venous Blood Oxygen Saturation 78.6 % Venous Blood Base Excess 22.7 mEq/L Test 08/31/17 00:33 08/31/17 01:29 08/31/17 05:35 08/31/17 05:56 Bedside Glucose 201 mg/dl 209 mg/dl Hemoglobin 10.6 g/dL 10.3 g/dL Hematocrit 34.9 % 33.9 % White Blood Count 10.29 K/uL Red Blood Count 3.54 M/uL Mean Corpuscular Volume 95.8 fL Mean Corpuscular Hemoglobin 29.1 pg Mean Corpuscular Hemoglobin Concent 30.4 g/dl Platelet Count 364 K/uL Mean Platelet Volume 8.6 fL Neutrophils (%) (Auto) 80.9 % Lymphocytes (%) (Auto) 4.5 % Monocytes (%) (Auto) 11.8 % Eosinophils (%) (Auto) 1.7 % Basophils (%) (Auto) 0.2 % Neutrophils # (Auto) 8.33 K/uL Lymphocytes # (Auto) 0.46 K/uL Monocytes # (Auto) 1.21 K/uL Eosinophils # (Auto) 0.18 K/uL Basophils # (Auto) 0.02 K/uL RDW Standard Deviation 63.0 fL RDW Coefficient of Variation 18.0 % Immature Granulocyte % (Auto) 0.9 % Immature Granulocyte # (Auto) 0.09 K/uL Nucleated RBC Absolute Count (auto) 0.07 K/uL Nucleated Red Blood Cells % 0.7 % Absolute Reticulocyte Count 0.14 10^6/uL Percent Reticulocyte Count 4.1 % Arterial Blood pH 7.33 Arterial Blood Partial Pressure CO2 102 mmHg Arterial Blood Partial Pressure O2 78 mm/Hg Arterial Blood HCO3 52 mmol/L Arterial Blood Oxygen Saturation 92.5 % Arterial Blood Base Excess 22.0 mEq/L Arterial Blood Gas Delivery 60% Fran Test POS Sodium Level 131 mmol/L Potassium Level 3.6 mmol/L Chloride Level 78 mmol/L Carbon Dioxide Level 49 mmol/L Anion Gap 4.0 mmol/L Blood Urea Nitrogen 18 mg/dl Creatinine 0.72 mg/dl Est Creatinine Clear Calc Drug Dose 242.2 ml/min Estimated GFR () 135.2 Estimated GFR (Non- 116.7 BUN/Creatinine Ratio 24.9 Random Glucose 186 mg/dl Calcium Level 9.2 mg/dl Iron Level 42 mcg/dl Total Iron Binding Capacity 328 mcg/dl Transferrin 238 mg/dl Transferrin % Saturation 13 % Ferritin 81.9 ng/ml Troponin I < 0.015 ng/ml Vitamin B12 Level 335 pg/mL Folate 7.96 ng/mL Test 08/31/17 07:24 08/31/17 09:31 Arterial Blood pH 7.37 Arterial Blood Partial Pressure CO2 95 mmHg Arterial Blood Partial Pressure O2 65 mm/Hg Arterial Blood HCO3 54 mmol/L Arterial Blood Oxygen Saturation 89.4 % Arterial Blood Base Excess 24.4 mEq/L Arterial Blood Gas Delivery BIPAP 30/5 60% Fran Test POS Anti-Streptolysin O Antibody Screen POS IU/ml Anti-Streptolysin O Antibody Titer 200 IU/ml Diagnostic Results His labs were reviewed which showed chronic hypercapnia with minimal acute factor to it. Hypoxia also was noted. BUN/creatinine slightly elevated. The patient is diabetic with elevated glucose. Chest x-ray showed cardiomegaly and small lung volume. Abdominal CT showing the lower part of the lungs showed lipomatosis bilaterally in the pleural space. No infiltrate. Emphysematous changes. Assessment & Plan 1. Overlap syndrome. 2. Acute on chronic hypercapnic respiratory failure. 3. Morbid obesity with BMI more than 50. 4. COPD, gold level 3, grade C. 5. Diabetes. 6. Active smoker. 7. Cor pulmonale. 8. Obstructive sleep apnea with noncompliance. 9. History of venous thromboembolic event, PE and DVT. Plan: 1. I would minimize his oxygen intake to keep his O2 sat around 85% only. 2. If the patient oxygen requirement is less than 50% we will change him to 6 L via nasal cannula. 3. I will start the patient on high flow oxygen. 4. I will use a BiPAP 4 hours on 04 hours of during the daytime and standing during the nighttime. 5. I will start the patient empirically on steroids systemically due to COPD exacerbation. 6. Diuresis for cor pulmonale. 40 mg of Lasix every 8 hours. 7. I would avoid using Diamox this patient due to lack of buffer given his hypercapnia. Washing of the buffer will result in severe acute hypercapnia which could require intubation. 8. I will broaden his antibiotic coverage. Discussed with pharmacy. Appreciate their input. The patient is currently on doxycycline and we will add ceftriaxone and change vancomycin to daptomycin due to difficulty dosing vancomycin and this overweight patient. 9. Minimize narcotics as the patient's respiratory drive has very high threshold. 10. Continue with Xarelto. The patient has a history of PE in the past but he is at high risk for venous thromboembolic event as well. 11. We will review the echo report. 12. Appreciate cardiology input. 13. All the patient's symptoms are explained by overlap syndrome and related to respiratory issues. 14. The patient should be more compliant for his own health including using the CPAP properly, preferably BiPAP. 15. Smoking cessation. 16. Incentive spirometry. 17. Discussed with the family details. 18. Continue with clear liquid diet. 19. Low threshold for intubation however I will try to avoid it until it is a last resort. The patient is high risk for intubation including even future extubation if needed. Case discussed with the staff on rounds and details and with Dr. Guerrero, appreciate all inputs, critical care time spent with the patient was 60 minutes
--- NOTE | 2017-08-31 12:35 | HISTORY & PHYSICAL EXAMINATION ---
DATE OF ADMISSION: 08/30/2017 PRIMARY CARE PROVIDER: Dr. Guerrero. CHIEF COMPLAINT: Shortness of breath, lower extremity pain, cough. HISTORY OF PRESENT ILLNESS: History obtained from the patient, , and records. Medical history significant for chronic respiratory failure on home O2, COPD, ongoing tobacco abuse, OHS/CPAP noncompliance, history of PE on Xarelto, HTN, DM2, on oral meds, history of adenocarcinoma, unknown primary status post chemotherapy, lymphoma as per records, chronic anemia (baseline hemoglobin of 9-11). Recent confinement, last May 2017 for lower extremity edema secondary to RV dysfunction. Patient discharged home. Has not had follow up with PCP or Sleep Medicine for refitting of CPAP. A few days history of increasing shortness of breath, increased fluid retention , bilateral lower extremity pain, redness. Denies chest pain. Cough productive of some junk as per . Denies aspiration. Compliant with home diuretics. Achy abdominal pain from coughing. Patient brought to the Emergency Room. MEDICAL HISTORY: As above. A 2D echo from May 2017 was technically limited study, grossly normal RV size, borderline reduced systolic function, visually. SURGERIES: Knee surgery, lymph node biopsy, sinus surgery. HOME MEDICATIONS: Include metformin, metolazone, Prilosec, potassium chloride, Requip, Xarelto, ropinirole, Ventolin, Lipitor, furosemide, oxygen, DuoNeb and lisinopril. ALLERGIES: DYE. FAMILY HISTORY: There is a family history of leukemia, diabetes, breast cancer. PERSONAL AND SOCIAL HISTORY: Half pack daily. No chronic alcohol intake. Disabled. REVIEW OF SYSTEMS: As per HPI. All 10 systems reviewed, all other ROS negative. PHYSICAL EXAMINATION: Blood pressure noted to be 103/52, pulse rate 112, RR 26, temperature 37 O2 sats 93% on 2 liters. GENERAL: Noted to be morbidly obese, unkempt, min resp distress. Looks older for stated age. SKIN: Pallor, warm. HEENT: Pale palpebral conjunctivae. No ptosis. Dry mucosa. NECK: Short, supple. CHEST: Decreased effort, exp wheezes. HEART: Tachycardic, no murmur. ABDOMEN: Some distention. Hypogastric bulge, some tenderness. RECTAL: Brown stool, heme positive, as per ER provider. EXTREMITIES: Bilateral lower extremity edema, induration, tenderness. NEUROLOGIC: Coherent. No gross focality. LABORATORY DATA: Hemoglobin was noted to be 9.7, white cell count 9.4, platelets 180 Sodium 132, potassium 2.9, chloride 79, CO2 54, BUN 30, creatinine 0.8, glucose 204 BNP was normal. Hemoglobin A1c from 05/2017 was 8.8. IMAGING DATA: Chest x-ray - cardiomegaly, congestion. Venous blood gas pH 7.[address] head - sinusitis. CT abdomen and pelvis - mildly enlarged left paraaortic inguinal nodes. EKG as per my interpretation, rate 115, sinus tachycardia, right bundle branch block, no ischemia. ASSESSMENT AND PLAN: 1. Acute on chronic hypoxemic, hypercapnic respiratory failure multifactorial : Decompensated right side heart failure, hx OHS, CPAP noncompliance chronic obstructive pulmonary disease exacerbation, complicated bronchitis, possible sepsis. 2. LE pain 2 to neuropathy, cellulitis, hypokalemia 3. hypertension, stable. 4. History of PE on Xarelto. 5. Chronic anemia, hemoglobin at the lower baseline. heme-positive stool as per ER MD. 6. History DM2, on oral meds, suboptimal control as of recent inpatient HgA1c. 7. Adenocarcinoma, unknown primary, status post chemotherapy. 8. Ongoing tobacco abuse. 9. Noncompliance. 10. Functional disability PCU BiPAP. Patient re-counseled about need for outpatient sleep medicine follow IV diuretic Replace K Strict IOs, daily weights, CHF education Doxycycline, nebs; steroids for one dose possible COPD exacerbation (Additional steroid dosing pending response) Pulmo consult RE respiratory failure Cardio consult RE decompensated R side HF Follow H&H, anemia workup PT/OT eval. Social service RE discharge planning, Basal insulin, ISS BG goal 140-180, carb count coverage indicated for suboptimal blood sugar control Patient due for HgA1c recheck. Nicotine patch as needed DVT prophylaxis Xarelto. Full code. MTDD
[2017-08-31] MEDS ORDERED: PHARMACY GLYCEMIC MGMT CONSULT PRN (13:00)
--- NOTE | 2017-08-31 13:28 | CARDIOLOGY CONSULTATION ---
DATE OF CONSULTATION: 08/31/2017 REFERRING PHYSICIAN: Dr. Buck Hidalgo. PRIMARY CARE PHYSICIAN: Dr. Sundar Guerrero. INDICATIONS: Hypercarbic respiratory failure. HISTORY OF PRESENT ILLNESS: The patient is a 41-year-old male who has notable history for that of hospitalization in May 2017 with bilateral lower extremity cellulitis and Pickwickian right heart failure with obesity hypoventilation syndrome. The patient per review of records has not sought followup appointments since hospital discharge, presents on this admission by review of records and discussion with the patient's family with several weeks' worsening cough, malaise, lower extremity edema, now with weeping wounds, increasing shortness of breath. The patient presented to the Emergency Room for the above evaluation. He did receive pain medications. This morning, he was more somnolent and has been transferred to the ICU with evidence of hypercarbic respiratory failure. His x-rays read as congestive heart failure. Due to abdominal bloating and lower extremity edema, he was given IV Lasix overnight. He was referred for an ongoing cardiac management. Echo is pending. PAST MEDICAL HISTORY: Notable for morbid obesity with Pickwickian syndrome, severe chronic obstructive lung disease with chronic tobacco use, obstructive sleep apnea with patient noncompliant with CPAP, past history of DVT and pulmonary embolus on chronic anticoagulation with notable change from warfarin to Xarelto in the recent past due to noncompliance. 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 ALLERGIES: NOTED TO BE IODINE CONTRAST AND CEPHALEXIN. MEDICATIONS: Per list prior to hospitalization oxygen 3 liters nasal cannula, albuterol 2 puffs q. 4 hours, atorvastatin 40 mg daily, furosemide 80 mg q.a.m., lisinopril 10 mg p.o. daily, metformin 500 mg p.o. daily, metolazone 5 mg q.a.m., omeprazole 40 mg p.o. daily, potassium chloride 20 b.i.d., rivaroxaban 20 mg daily, ropinirole 0.25 mg at bedtime and 0.5 mg at bedtime for a total of 0.75. PAST SURGICAL HISTORY: Notable for lymph node biopsy in 2007, endoscopies for Farley esophagus, remote left knee arthroscopic surgery, sinus septoplasty and prior A-port insertion. FAMILY HISTORY: Positive for coronary artery disease, hypertension. SOCIAL HISTORY: The patient resides in [place]. He does not work outside of the home. He is a continued smoker, 0.5-1 pack per day. He uses no alcoholic beverages. PHYSICAL EXAMINATION: GENERAL: The patient is a morbidly obese male, in respiratory distress, on BiPAP supplementation through nasal prongs. HEENT: Mucous membranes are dry. Face is plethoric. LUNGS: Reveal markedly diminished breath sounds diffusely with coarse crackles. CARDIOVASCULAR: Regular and tachycardic with distant heart sounds. ABDOMEN: Morbidly obese, large panniculus with abdominal distention. EXTREMITIES: Reveal 3+ edema to the hips with diffuse erythema, weeping cellulitis and excoriations to both lower extremities with chronic stasis changes. There are non-diminished, but present pulses. NEUROLOGIC: The patient will respond to questioning. DATA: EKG on presentation revealed sinus tachycardia with right bundle-branch block, rate 114. EKG this morning demonstrated similar findings, sinus tachycardia with right bundle-branch block, not significantly changed from prior studies. Chest x-ray technically poor study demonstrates increased interstitial markings diffusely, though this may be a reflection of the patient's body habitus. LABORATORY STUDIES: Blood gas this morning revealed a pH of 7.3, pCO2 of 102, pO2 of 78 on 60% O2. Sodium is 131, potassium is 3.6, chloride is 78, bicarbonate is 49, BUN is 18, creatinine is 0.72, troponins x2 are negative at less than 0.015. TSH was 2.6. White cell count is 10.2, hemoglobin is 10.3, platelet count is 364,000. IMPRESSION: A complex 41-year-old male who presents now with worsening lower extremity edema and right heart failure with a complicated superimposed cellulitis secondary to morbidity obesity, Pickwickian syndrome, hypoventilation syndrome. He has had significant hypercarbic respiratory failure this morning, is now on BiPAP. Likely, he has manifestation of his underlying illnesses, pain medications and hypercarbia and contraction alkalosis with elevated CO2. RECOMMENDATIONS: We will review echocardiogram as noted. I agree with diuresis cautiously, though potassium will need to be replaced aggressively. BiPAP supplementation continues to be warranted. I agree with ICU management, no signs suggest acute coronary syndrome and overall, findings likely reflect [id number] worsening right heart failure secondary to Pickwickian syndrome, complicated by cellulitis and hypercarbia. Overall prognosis is limited, though we will treat as outlined above. Broad-spectrum antibiotics and steroids have all been ordered. MTDD
[2017-08-31] MEDS ORDERED: CONSULT PHARMACY PRN (13:30)
[2017-08-31] MEDS: FUROSEMIDE INJ 40 MG in SYRINGE 0 ML IV SCH ×2 (14:05→21:48)
--- NOTE | 2017-08-31 15:18 | Pharmacy Progress Note ---
Glycemic Control Intl Consult Date of Service Aug 31, 2017. Scope Glycemic Pharmacist consulted by Dr Falcon on 08/31 for glycemic control and to write orders per [facility] inpatient glycemic control protocol Objective Weight (Kilograms): 201.000 Accuchecks BSG (last 24hrs): Test 08/30/17 17:20 08/31/17 00:33 08/31/17 05:35 08/31/17 05:56 Random Glucose 184 mg/dl (70-99) 186 mg/dl (70-99) Bedside Glucose 201 mg/dl (70-99) 209 mg/dl (70-99) Laboratory Data (last 24hrs) Test 08/30/17 17:20 08/31/17 05:56 Anion Gap -2.0 mmol/L 4.0 mmol/L BUN/Creatinine Ratio 25.5 24.9 Blood Urea Nitrogen 23 mg/dl 18 mg/dl Creatinine 0.89 mg/dl 0.72 mg/dl Hemoglobin A1c 7.2 % Potassium Level 2.9 mmol/L 3.6 mmol/L Sodium Level 132 mmol/L 131 mmol/L White Blood Count 9.41 K/uL 10.29 K/uL Red Blood Count 3.34 M/uL 3.54 M/uL Hemoglobin 9.7 g/dL 10.3 g/dL Hematocrit 31.6 % 33.9 % Mean Corpuscular Volume 94.6 fL 95.8 fL Mean Corpuscular Hemoglobin 29.0 pg 29.1 pg Mean Corpuscular Hemoglobin Concent 30.7 g/dl 30.4 g/dl Platelet Count 392 K/uL 364 K/uL Mean Platelet Volume 8.5 fL 8.6 fL Neutrophils (%) (Auto) 77.3 % 80.9 % Lymphocytes (%) (Auto) 10.8 % 4.5 % Monocytes (%) (Auto) 8.9 % 11.8 % Eosinophils (%) (Auto) 2.2 % 1.7 % Basophils (%) (Auto) 0.4 % 0.2 % Neutrophils # (Auto) 7.26 K/uL 8.33 K/uL Lymphocytes # (Auto) 1.02 K/uL 0.46 K/uL Monocytes # (Auto) 0.84 K/uL 1.21 K/uL Eosinophils # (Auto) 0.21 K/uL 0.18 K/uL Basophils # (Auto) 0.04 K/uL 0.02 K/uL HbA1c Test 08/30/17 17:20 Hemoglobin A1c 7.2 % (4.5-5.6) H Recent Pertinent Medications Outpatient Anti-diabetic Regimen: * metformin 500mg QD * A1c = 7.2 % 08/30/17 The patient is currently receiving: * Basal insulin: Lantus 25 units total this morning * Correctional Insulin: Novolog Correction per scale ACHS Goal Range: Low 140 mg/dL - High 180 mg/dL Correction Factor: 25 mg/dL/unit * Prandial insulin: Per carb ratio of 1 unit per 15 grams CHO consumed Risk Factors for Insulin Resistance: * Steroids: SM 40mg q6 * Infection: yes * Pressors: * IVF: * Recent Surgery * Diet: clear liquid * Mechanical Ventilation: Assessment & Plan ASSESSMENT: * Patient with numerous recent admission but not known to our service. Given, mild outpatient regimen and high doses of insulin suggested via weight based dosing (BMI 62), I will initiate conservatively at a stress level of one. I do anticipate the need for insulin given steroids and acute illness. PLAN FOR INPATIENT GLYCEMIC CONTROL: * Start Lantus 20 units SQ BID tonight * Changing correction factor to 20 mg/dl/unit * Changing carb ratio to 1 unit per 7 grams CHO consumed * Changing goal range to Low 140 mg/dL - High 180 mg/dL * Please note that the plan above was derived based on current level of insulin resistance and hospital stress. These recommendations are appropriate for inpatient admission only. Plan of care upon discharge will need to be reassessed to avoid potential outpatient hypo/hyperglycemia. Thank you.
[2017-08-31] MEDS: RIVAROXABAN 20 MG TAB PO SCH (16:41)
--- NOTE | 2017-08-31 18:15 | ECHOCARDIOGRAM REPORT ---
*NOTICE TO RECEIVING [employer]Y This information is strictly Confidential and protected under [place] law. [place] law prohibits you from making any further disclosure of this information unless further disclosure is expressly permitted by the written consent of the person to whom it pertains or is authorized by law. A general authorization for the release of medical or other information is not sufficient for this purpose. Hospital accepts no responsibility if the information is made available to any other person, INCLUDING THE PATIENT. Interpretation Summary * Name: PRUDENCIO GUERRA Study Date: 08/31/2017 10:38 AM BP: 135/75 mmHg * Patient Location: .[facility]ICU\S\E103\S\1 HR: 110 * : 1975 (M/d/yyyy) Gender: Male Height: 71 in * Age: 41 yrs Ethnicity: CA Weight: 443 lb * Ordering Physician: Birgit Falcon * Referring Physician: Self, Referred * Performed By: Sonia Duke RCS * * Reason For Study: CHF * BSA: 3.0 m2 * Limited views were obtained. * The study was technically difficult. * -- Conclusions -- * Qualitative LV systolic function appears normal in isolated subcostal view. * Grossly normal right ventricular size and function in subcostal view. * Normal inferior vena cava size and collapsability with sniff indicates a normal right atrial pressure of 3 mmHg Procedure Details * A two-dimensional transthoracic echocardiogram was performed. * A two-dimensional transthoracic echocardiogram, with color flow Doppler was performed. * A two-dimensional transthoracic echocardiogram with pulsed and continuous Doppler was performed. * Limited views were obtained. * The study was technically difficult. * The study was technically limited. * A contrast injection of Definity was performed to improve assessment of LV function. * Contrast was injected into an intravenous site in the right arm. * One vial of Definity ultrasound contrast was diluted in normal saline to a total volume of 10 ml. A total of '2' ml of solution was administered during imaging. * Lot # [id number] of Definity utilized for procedure. * Expiration date . * The attending nurse who injected the contrast agent was Carlo Bird RN. * There were technical limitations due to patient'sbody habitus * Patient sitting for imagining. Left Ventricle * The left ventricle is not well visualized. * Qualitative LV systolic function appears normal in isolated subcostal view. * Regional wall motion abnormalities cannot be excluded due to limited visualization. Right Ventricle * Grossly normal right ventricular size and function in subcostal view. Mitral Valve * The mitral valve is not well visualized. Tricuspid Valve * The tricuspid valve is not well visualized. Aortic Valve * The aortic valve is not well visualized. Pulmonic Valve * The pulmonic valve is not well visualized. Pericardium/Pleural * There is no pericardial effusion. Great Vessels * Normal inferior vena cava size and collapsability with sniff indicates a normal right atrial pressure of 3 mmHg Doppler Measurements and Calculations Ao V2 max 162.5 cm/sec Ao max PG 10.6 mmHg Ao max PG (full) 2.6 mmHg LV V1 max PG 7.9 mmHg LV V1 max 140.9 cm/sec
[2017-08-31] MEDS: ROPINIROLE HCL 0.25 MG TAB PO SCH (20:36)
[2017-08-31] MEDS: DAPTOmycin IV 750 MG in SYRINGE 0 ML IV SCH (20:36)
[2017-08-31] MEDS ORDERED: VANCOMYCIN IV 1,000 MG in SODIUM CHLORIDE 0.9% 250ML 250 ML IV SCH (21:00)
[2017-08-31] MEDS ORDERED: ROPINIROLE HCL 0.25 MG TAB PO SCH (21:00)
[2017-09-01] VITALS (26 sets, daily range): BP systolic 88–163; BP diastolic 46–91; PULSE 74–113; TEMP 36.2–37; O2SAT 84–98
[2017-09-01] MEDS: METHYLPREDNISOLONE IV 40 MG in SYRINGE 0 ML IV SCH ×3 (00:24→20:30)
[2017-09-01] MEDS: LEVALBUTEROL 1.25MG/0.5ML NEB INH SCH ×4 (02:22→21:00)
[2017-09-01] MEDS: IPRATROPIUM BROMIDE NEB SOLN 0.02% 2.5 ML VIAL INH SCH ×4 (02:22→21:00)
[2017-09-01 05:27] LABS: BASO % 0.1 %; BASO ABS # 0.01 K/uL (0-0.2); EOS % 0.1 %; EOS ABS # 0.01 K/uL (0-0.5); HEMATOCRIT 33.2 % (42-52); HEMOGLOBIN 9.9 g/dL (14.0-18.0); IG# 0.11 K/uL (0.00-0.02); LYMPH % 5.4 %; LYMPH ABS # 0.63 K/uL (1.2-3.4); MEAN CELL VOLUME 96.8 fL (80-100); MEAN CORPUSCULAR HEMOGLOBIN 28.9 pg (25-34); MEAN CORPUSCULAR HGB CONC 29.8 g/dl (32-36); MEAN PLATELET VOLUME 8.5 fL (7.4-10.4); MONO % 4.6 %; MONO ABS # 0.54 K/uL (0.11-0.59); NEUT % 88.9 %; NEUT ABS # 10.45 K/uL (1.4-6.5); NUCLEATED RED BLOOD CELL ABS 0.03 K/uL (0-0); PLATELET COUNT 350 K/uL (130-400); RED CELL DISTRIBUTION WIDTH CV 17.3 % (11.5-14.5); RED CELL DISTRIBUTION WIDTH SD 61.3 fL (36.4-46.3); WHITE BLOOD COUNT 11.75 K/uL (4.8-10.8)
[2017-09-01 05:38] LABS: CALCIUM 9.1 mg/dl (8.5-10.1); CREATININE 0.72 mg/dl (0.60-1.40); POTASSIUM 3.6 mmol/L (3.5-5.1)
[2017-09-01] MEDS: FUROSEMIDE INJ 40 MG in SYRINGE 0 ML IV SCH ×2 (05:45→17:49)
[2017-09-01] MEDS: ATORVASTATIN 40 MG TAB PO SCH (08:53)
[2017-09-01] MEDS: LISINOPRIL 10 MG TAB PO SCH (08:53)
[2017-09-01] MEDS: PANTOprazole SOD 40 MG TAB PO SCH (08:53)
[2017-09-01] MEDS: NYSTATIN POWDER 15GM BTL EXT SCH (08:54)
[2017-09-01] MEDS: INSULIN ASPART 100 UNITS/ML 3 ML PEN SC SCH ×4 (08:55→20:29)
[2017-09-01] MEDS: POTASSIUM CHLORIDE 20 MEQ TABCR PO SCH ×2 (08:56→20:31)
[2017-09-01] MEDS: INSULIN GLARGINE SOLOSTAR 100 UNITS/ML 3 ML PEN SC SCH ×2 (08:56→20:28)
[2017-09-01] MEDS ORDERED: LISINOPRIL 10 MG TAB PO SCH (09:00)
[2017-09-01] MEDS: CEFTRIAXONE SOD INJ 2,000 MG in DEXTROSE 5% 50ML 50 ML IV SCH (10:05)
--- NOTE | 2017-09-01 10:13 | CARDIOLOGY PROGRESS NOTE ---
DATE: 09/01/2017 The patient seen and examined. Chart, laboratory studies, telemetry reviewed. SUBJECTIVE: The patient appears improved from day prior. Has manifested greater than 4-liter diuresis. Was able to use BiPAP throughout the night, better oxygenation and mentation noted this morning. OBJECTIVE: VITAL SIGNS: Heart rate is 100, blood pressure is 118/48, O2 saturation is 93% on oxygen supplementation. Weight is down 3-4 kilograms with urinary outputs reflecting 3400 mL net loss. HEENT: Normocephalic and atraumatic. NECK: Thick. LUNGS: Reveal diminished breath sounds diffusely. CARDIOVASCULAR: Regular. Mildly elevated heart rate. There is no audible murmur or rub, with distant heart sounds. ABDOMEN: Obese with large panniculus. EXTREMITIES: Reveal chronic stasis changes and excoriated cellulitis both lower extremities. LABORATORY DATA: Sodium is 132, potassium is 3.6, chloride is 76, bicarb is 54, BUN is 20, creatinine is 0.72. White cell count is 11.7, hemoglobin is 9.9. Telemetry reveals sinus tachycardia. Echocardiogram done day prior demonstrates findings consistent with prior examinations with markedly diminished imaging quality secondary to body habitus. Grossly normal right ventricular size and function was noted and overall LV systolic function appeared grossly normal in one-view. No significant valvular disease was discerned, though limitations of imaging were noted. IMPRESSION: A 41-year-old male with history of morbid obesity, pickwickian syndrome, admitted with acute on chronic right heart failure, hypercapnic respiratory failure. The patient not using CPAP or BiPAP at home per records and the patient now clinically responded after therapies. Would continue diuresis as planned, though watch for contraction alkalosis. Potassium supplement has been ordered. The patient has been encouraged to discontinue tobacco use which he adamantly states he will do. No other intervention at this time.
--- NOTE | 2017-09-01 11:42 | Pharmacy Progress Note ---
Glycemic Control Progress Note Date of Service Sep 01, 2017. Scope Glycemic Pharmacist consulted for glycemic control to write orders per [facility] inpatient glycemic control protocol. Objective Accuchecks BSG (last 24hrs): Test 08/31/17 16:33 08/31/17 20:34 09/01/17 05:09 09/01/17 06:22 Bedside Glucose 179 mg/dl (70-99) 188 mg/dl (70-99) 176 mg/dl (70-99) Random Glucose 177 mg/dl (70-99) HbA1c: Test 08/30/17 17:20 Hemoglobin A1c 7.2 % (4.5-5.6) H Recent Pertinent Medications The patient is currently receiving: * Basal insulin: Lantus 20 units every 12 hours * Correctional Insulin: Novolog Correction per scale ACHS Goal Range: Low 140 mg/dL - High 180 mg/dL Correction Factor: 20 mg/dL/unit * Prandial insulin: Per carb ratio of 1 unit per 7 grams CHO consumed Outpatient Anti-Diabetic Meds Metformin 500mg daily A1c = 7.2% 08/30/17 Assessment & Plan ASSESSMENT: 09/01/17 * BSGs have ranged 176-198 over the last 24 hours with the current insulin orders * Steroid dose is being reduced by 50% and diet is being advanced today * Fasting BSG 176 this AM with 45 units Lantus on board, will titrate up further this AM - keeping in mind that insulin sensitivity may improve over the next 24 hours * Will lower goal range for Novolog scale to allow for larger correctional doses * Will follow post-prandial BSGs and adjust CR later today if advance in diet results in post-prandial hyperglycemia PLAN FOR INPATIENT GLYCEMIC CONTROL: * Increasing Lantus 25 units SQ BID * Continuing correction factor of 20 mg/dl/unit * Continuing carb ratio of 1 unit per 7 grams CHO consumed * Changing goal range to Low 120 mg/dL - High 150 mg/dL * Please note that the plan above was derived based on current level of insulin resistance and hospital stress. These recommendations are appropriate for inpatient admission only. Plan of care upon discharge will need to be reassessed to avoid potential outpatient hypo/hyperglycemia. Thank you.
[2017-09-01] MEDS: ACETAMINOPHEN 325 MG TAB PO PRN ×2 (16:03→21:53)
[2017-09-01] MEDS: RIVAROXABAN 20 MG TAB PO SCH (16:21)
--- NOTE | 2017-09-01 16:57 | Progress Note ---
Medicine Progress Note Date & Time of Visit: Sep 01, 2017 at 13:26. Subjective 41 yo morbidly obese man with COPD, CHF and ESTEFANI with chronic hypoxia (on 4L O2 at home) presents with worsening SOB x 2-3 days and skin irritation on his legs in setting of cellulitis and multiple skin wounds. He was obtunded on 08/31 secondary to acute CO2 retention and was moved to the ICU. There he was continued on diuresis and high flow O2 as well as BiPAP with improvement in respiratory status and mentation. He was placed on steroids for presumed COPD exacerbation. He was placed on antibiotics for severe cellulitis of the legs. Today he was moved to telemetry. He reports an improvement in his breathing overall. Objective Last 8 Hrs Date Time Temp Pulse Resp B/P (MAP) Pulse Ox O2 Delivery O2 Flow Rate FiO2 09/01/17 11:29 37.0 103 22 105/78 (87) 91 Nasal Cannula 6.0 09/01/17 11:25 Nasal Cannula 6.0 09/01/17 09:44 37.0 102 22 93 45.0 09/01/17 09:01 93 25 118/48 (71) 86 09/01/17 09:00 99 20 84 09/01/17 08:01 113 15 129/78 (95) 90 09/01/17 08:00 106 30 90 09/01/17 07:33 102 93 45 09/01/17 07:32 103 22 93 BiPAP/CPAP 45 09/01/17 07:30 37.0 85 20 149/79 (102) 95 BiPAP 45.0 45 09/01/17 07:30 92 BiPAP 45.0 45 09/01/17 07:01 102 23 146/79 (101) 92 09/01/17 07:00 107 28 94 09/01/17 06:01 88 22 152/87 (108) 92 BiPAP 45 Physical Exam: GEN: morbid obesity, appears comfortable without tachypnea, minimal conversational dyspnea HEENT: NC/AT, normal sclerae CARDIO: Regular rate, S1/2 heard without m/g/r LUNGS: Clear to auscultation bilaterally ABD: soft, obese EXTREMITY: warm and well perfused. NEURO: Cranial nerves II through XII grossly intact, no gross focal deficits MUSC: Able to sit up in bed on his own, moves all extremities equally. SKIN: warm, dry, multiple wounds all over legs and in various different skin folds all over body. Continuous erythema of legs with increased warmth to touch bilaterally up to knee level. Leg wraps present bilaterally Laboratory Results: 09/01/17 05:09 Red Blood Count 3.43, Mean Corpuscular Volume 96.8, Mean Corpuscular Hemoglobin 28.9, Mean Corpuscular Hemoglobin Concent 29.8, Mean Platelet Volume 8.5, Neutrophils (%) (Auto) 88.9, Lymphocytes (%) (Auto) 5.4, Monocytes (%) (Auto) 4.6, Eosinophils (%) (Auto) 0.1, Basophils (%) (Auto) 0.1, Neutrophils # (Auto) 10.45, Lymphocytes # (Auto) 0.63, Monocytes # (Auto) 0.54, Eosinophils # (Auto) 0.01, Basophils # (Auto) 0.01 09/01/17 05:09 Test 08/30/17 17:20 08/30/17 17:29 08/30/17 20:06 08/30/17 21:07 Prothrombin Time 9.8 SECONDS (9.0-12.0) Prothromb Time International Ratio 0.9 (0.9-1.1) Activated Partial Thromboplast Time 25.4 SECONDS (21.0-31.0) Partial Thromboplastin Ratio 1.0 Estimated Average Glucose 160 mg/dl Hemoglobin A1c 7.2 % (4.5-5.6) Magnesium Level 2.0 mg/dl (1.8-2.4) Total Bilirubin 0.2 mg/dl (0.2-1) Direct Bilirubin < 0.1 mg/dl (0-0.2) Aspartate Amino Transf (AST/SGOT) 11 U/L (15-37) Alanine Aminotransferase (ALT/SGPT) 13 U/L (12-78) Alkaline Phosphatase 72 U/L (45-117) Pro-B-Type Natriuretic Peptide 51 pg/ml (0-450) Total Protein 7.6 gm/dl (6.4-8.2) Albumin 2.7 gm/dl (3.4-5.0) Thyroid Stimulating Hormone (TSH) 2.680 uIu/ml (0.300-4.500) Bedside Lactic Acid Venous 1.07 mmol/L (0.90-1.70) Ammonia 29.6 umol/L (11-32) Venous Blood pH 7.39 (7.36-7.41) Venous Blood Partial Pressure CO2 87 mmHg (38.0-50.0) Venous Blood Partial Pressure O2 46 mmHg Venous Blood HCO3 52 mmol/L Venous Blood Oxygen Saturation 78.6 % Venous Blood Base Excess 22.7 mEq/L Test 08/31/17 05:56 08/31/17 07:24 08/31/17 09:31 08/31/17 11:45 Absolute Reticulocyte Count 0.14 10^6/uL (0.02-0.10) Percent Reticulocyte Count 4.1 % (0.5-2.0) Iron Level 42 mcg/dl (35-175) Total Iron Binding Capacity 328 mcg/dl (250-450) Transferrin 238 mg/dl (200-360) Transferrin % Saturation 13 % (20-50) Ferritin 81.9 ng/ml (8.0-388.0) Troponin I < 0.015 ng/ml (0-0.045) Vitamin B12 Level 335 pg/mL (211-911) Folate 7.96 ng/mL (>5.38) Arterial Blood pH 7.37 (7.35-7.45) Arterial Blood Partial Pressure CO2 95 mmHg (35-46) Arterial Blood Partial Pressure O2 65 mm/Hg (80-95) Arterial Blood HCO3 54 mmol/L (19-24) Arterial Blood Oxygen Saturation 89.4 % (90-95) Arterial Blood Base Excess 24.4 mEq/L (-9-1.8) Arterial Blood Gas Delivery BIPAP 30/5 60% Fran Test POS (POS) Anti-Streptolysin O Antibody Screen POS IU/ml (<200 IU) Anti-Streptolysin O Antibody Titer 200 IU/ml (<200 IU) Test 09/01/17 05:09 09/01/17 16:34 White Blood Count 11.75 K/uL (4.8-10.8) Red Blood Count 3.43 M/uL (4.7-6.1) Hemoglobin 9.9 g/dL (14.0-18.0) Hematocrit 33.2 % (42-52) Mean Corpuscular Volume 96.8 fL (80-100) Mean Corpuscular Hemoglobin 28.9 pg (25-34) Mean Corpuscular Hemoglobin Concent 29.8 g/dl (32-36) Platelet Count 350 K/uL (130-400) Mean Platelet Volume 8.5 fL (7.4-10.4) Neutrophils (%) (Auto) 88.9 % Lymphocytes (%) (Auto) 5.4 % Monocytes (%) (Auto) 4.6 % Eosinophils (%) (Auto) 0.1 % Basophils (%) (Auto) 0.1 % Neutrophils # (Auto) 10.45 K/uL (1.4-6.5) Lymphocytes # (Auto) 0.63 K/uL (1.2-3.4) Monocytes # (Auto) 0.54 K/uL (0.11-0.59) Eosinophils # (Auto) 0.01 K/uL (0-0.5) Basophils # (Auto) 0.01 K/uL (0-0.2) RDW Standard Deviation 61.3 fL (36.4-46.3) RDW Coefficient of Variation 17.3 % (11.5-14.5) Immature Granulocyte % (Auto) 0.9 % Immature Granulocyte # (Auto) 0.11 K/uL (0.00-0.02) Nucleated RBC Absolute Count (auto) 0.03 K/uL (0-0) Nucleated Red Blood Cells % 0.3 % Anion Gap 2.0 mmol/L (3-11) Est Creatinine Clear Calc Drug Dose 242.2 ml/min Estimated GFR () 135.2 Estimated GFR (Non- 116.7 BUN/Creatinine Ratio 27.0 (10-20) Calcium Level 9.1 mg/dl (8.5-10.1) Bedside Glucose 163 mg/dl (70-99) Date/Time Source Procedure Growth Status 08/30/17 17:47 Blood Blood Culture - Preliminary NO GROWTH TO DATE. Resulted 08/31/17 10:20 Nasal MRSA DNA Surveillance Screen - Final Specimen Positive for MRSA by DNA Probe Complete Last 24 Hours Test 08/31/17 16:33 08/31/17 20:34 09/01/17 05:09 09/01/17 06:22 Bedside Glucose 179 mg/dl 188 mg/dl 176 mg/dl White Blood Count 11.75 K/uL Red Blood Count 3.43 M/uL Hemoglobin 9.9 g/dL Hematocrit 33.2 % Mean Corpuscular Volume 96.8 fL Mean Corpuscular Hemoglobin 28.9 pg Mean Corpuscular Hemoglobin Concent 29.8 g/dl Platelet Count 350 K/uL Mean Platelet Volume 8.5 fL Neutrophils (%) (Auto) 88.9 % Lymphocytes (%) (Auto) 5.4 % Monocytes (%) (Auto) 4.6 % Eosinophils (%) (Auto) 0.1 % Basophils (%) (Auto) 0.1 % Neutrophils # (Auto) 10.45 K/uL Lymphocytes # (Auto) 0.63 K/uL Monocytes # (Auto) 0.54 K/uL Eosinophils # (Auto) 0.01 K/uL Basophils # (Auto) 0.01 K/uL RDW Standard Deviation 61.3 fL RDW Coefficient of Variation 17.3 % Immature Granulocyte % (Auto) 0.9 % Immature Granulocyte # (Auto) 0.11 K/uL Nucleated RBC Absolute Count (auto) 0.03 K/uL Nucleated Red Blood Cells % 0.3 % Sodium Level 132 mmol/L Potassium Level 3.6 mmol/L Chloride Level 76 mmol/L Carbon Dioxide Level 54 mmol/L Anion Gap 2.0 mmol/L Blood Urea Nitrogen 20 mg/dl Creatinine 0.72 mg/dl Est Creatinine Clear Calc Drug Dose 242.2 ml/min Estimated GFR () 135.2 Estimated GFR (Non- 116.7 BUN/Creatinine Ratio 27.0 Random Glucose 177 mg/dl Calcium Level 9.1 mg/dl Test 09/01/17 11:11 Bedside Glucose 189 mg/dl Assessment & Plan 41 yo morbidly obese man with COPD, CHF and ESTEFANI with chronic hypoxia (on 4L O2 at home) presents with worsening SOB x 2-3 days and skin irritation on his legs in setting of cellulitis and multiple skin wounds. He was obtunded on 08/31 secondary to acute CO2 retention and was moved to the ICU. There he was continued on diuresis and high flow O2 as well as BiPAP with improvement in respiratory status and mentation. He was placed on steroids for presumed COPD exacerbation. He was placed on antibiotics for severe cellulitis of the legs. Today he was moved to telemetry. He reports an improvement in his breathing overall. 1. Acute respiratory failure in setting of chronic hypoxemia 2/2 COPD on 4L oxygen at home-improved. Patient has chronic respiratory failure and is at baseline O2 requirements. Trilogy machine is being ordered through case management for home use. Continue BiPAP overnight. Continue steroids and bronchodilator therapy for COPD exacerbation. Patient on antibiotics for cellulitis as below. 2. Acute diastolic CHF exacerbation. Appreciate cardiology recommendations. Continue diuresis with IV Lasix. 3. Bilateral lower extremity cellulitis-patient has multiple wounds all over legs and a body habitus that precludes thorough examination. There are multiple scratches on his legs. Continue dapsone and ceftriaxone for cellulitis. Of note patient is MRSA positive. 4. 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 Justin Beck. Had a DVT with PE in 2005 prior to cancer, however, was recommended to continue anticoagulant therapy per Oncology recs while he was here in May 2017. Currently on xarelto. 5. h/o metastatic adenocarcinoma of L axilla with unknown primary site-in remission as above. 6. DMII-metformin held, cont ISS/Lantus while inpatient. Currently at goal. 7. HTN-cont lisinopril, currently at goal 8. Morbid obesity 9. smoker 10. Noncompliance 11. Anemia-likely related to chronic disease. Slightly decreased from H/H in May 2017, but has been around this level in the past consistently. Heme positive stool in the ER poss 2/2 hemorrhoids. No active bleeding at this time. Cont to monitor. Cont Xarelto. DVT proph-Xarelto Full Code Dispo-to telemetry Zo Guerrero DO [facility] Hospitalist Consultants: Cardiology-Ronnie Garcia MD Pulmonary-Birgit Falcon MD Current Inpatient Medications: Current Inpatient Medications Medications (Trade) Dose Ordered Sig/Karissa Route Start Time Stop Time Status Last Admin Dose Admin Ipratropium [place] (Atrovent 0.02% 0.5MG/2.5ML Neb) 0.5 mg Q4H PRN INH 08/30/17 21:30 09/29/17 21:29 Levalbuterol (Xopenex 1.25MG/ 0.5ML Neb) 1.25 mg Q4H PRN INH 08/30/17 21:30 09/29/17 21:29 Acetaminophen (Tylenol Tab) 325 mg Q6H PRN PO 08/30/17 22:15 09/29/17 22:14 08/31/17 11:33 325 MG Nitroglycerin (Nitrostat Tab) 0.4 mg UD PRN SL 08/30/17 22:15 09/29/17 22:14 Glucose (Glucose 40% Gel) 15-30 GRAMS 15 GRAMS... UD PRN PO 08/30/17 22:15 09/29/17 22:14 Glucose (Glucose Chew Tab) 4-8 Tablets 4 Tabl... UD PRN PO 08/30/17 22:15 09/29/17 22:14 Dextrose (Dextrose 50% 50ML Syringe) 25-50ML OF 50% DW IV FOR... UD PRN IV 08/30/17 22:15 09/29/17 22:14 Glucagon (Glucagon Inj) 1 mg UD PRN SQ 08/30/17 22:15 09/29/17 22:14 Prochlorperazine Edisylate 5 mg/ Syringe 5 ml @ 5 mls/min Q6H PRN IV 08/30/17 22:15 09/29/17 22:14 Atorvastatin Calcium (Lipitor Tab) 40 mg DAILY PO 08/31/17 09:00 09/30/17 08:59 09/01/17 08:53 40 MG Ropinirole HCl (Requip Tab) 0.75 mg HS PO 08/31/17 21:00 09/30/17 20:59 08/31/17 20:36 0.75 MG Pantoprazole Sodium (Protonix Tab) 40 mg QAM PO 08/31/17 09:00 09/30/17 08:59 09/01/17 08:53 40 MG Lisinopril (Zestril Tab) 10 mg DAILY PO 08/31/17 09:00 10/01/17 08:59 09/01/17 08:53 10 MG Ipratropium [place] (Atrovent 0.02% 0.5MG/2.5ML Neb) 0.5 mg Q6R INH 08/31/17 03:00 09/30/17 02:59 09/01/17 07:31 0.5 MG Levalbuterol (Xopenex 1.25MG/ 0.5ML Neb) 1.25 mg Q6R INH 08/31/17 03:00 09/30/17 02:59 09/01/17 07:31 1.25 MG Insulin Aspart (novoLOG ASPART) SLIDING SCALE If C... ACHS SC 08/31/17 11:00 09/30/17 06:59 09/01/17 12:40 13 UNITS Rivaroxaban (Xarelto Tab) 20 mg DAILYBD PO 08/31/17 16:00 09/30/17 15:59 08/31/17 16:41 20 MG Oxycodone HCl (Roxicodone Immediate Rel Tab) 5 mg Q6H PRN PO 08/31/17 07:45 09/13/17 22:14 Ceftriaxone Sodium 2000 mg/ Dextrose 70 ml @ 100 mls/hr Q24H IV 08/31/17 10:00 09/07/17 09:59 09/01/17 10:05 100 MLS/HR Miscellaneous Information (Consult Glycemic Management Pharmacy) 1 UD PRN N/A 08/31/17 13:00 09/30/17 12:59 Nystatin (Mycostatin Powder) 1 appln DAILY EXT 09/01/17 09:00 10/01/17 08:59 09/01/17 08:54 1 APPLN Miscellaneous Information (Pharmacy Consult) 1 UD PRN N/A 08/31/17 13:30 09/30/17 13:29 Daptomycin 750 mg/ Syringe 15 ml @ 7.5 mls/min Q24H IV 08/31/17 20:00 09/10/17 19:59 08/31/17 20:36 7.5 MLS/MIN Insulin Glargine (Lantus Solostar Pen) 25 units BID SC 09/01/17 09:00 10/01/17 08:59 09/01/17 08:56 25 UNITS Furosemide 40 mg/ Syringe 4 ml @ 4 mls/min BID17 IV 09/01/17 17:00 10/01/17 16:59 Methylprednisolone Sodium Succinate 40 mg/Syringe 0.64 ml @ 1.5 mls/min Q12 IV 09/01/17 21:00 10/01/17 20:59 Potassium Chloride (Klor-Con Tab) 40 meq BID PO 3/21/18 09:00 10/01/17 08:59 09/01/17 08:56 40 MEQ
--- NOTE | 2017-09-01 18:03 | Critical Care Progress Note ---
Critical Care Progress Note Date of Service Sep 01, 2017. Attending Dr. Falcon Subjective No events overnight, the patient noted to have desaturation overnight part of his overlap syndrome. He responded well to the BiPAP. He is more awake following commands today. He denies any pain in his lower extremities. No shortness of breath. Is tolerating nasal cannula only. Objective Physical exam on 09/01/2018 showed morbidly obese gentleman currently not in respiratory distress, he speaks in full sentences, in fact he speaks loudly. S1 -S2 regular rate and rhythm, distant breath sounds bilaterally, abdomen is benign, bilateral lymphedema. Neurologically he is intact. His labs also were reviewed from today on rounds personally. Notes from Dr. Garcia was reviewed as well. Appreciated. Assessment & Plan 1. 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 The patient would benefit from trilogy versus adaptiveservo. Unfortunately the later is not available. 2. COPD in a patient whose active smoker, he is willing to quit smoking but he does have also secondhand exposure to smoking at home. 3. Morbid obesity. The patient should lose at least 100 pound over the next year or so in order for him to have longevity. 4. Resolved altered mental status, related to acute on chronic hypercapnic respiratory failure. 5. Altered mental status resolved, chronic hypercapnic respiratory failure persists, hypercarbia should be sustained to maintain his buffer. 6. Lower extremity cellulitis. 7. Poor overall body hygiene. Plan: 1. I will advance his diet with respect to glucose. 2. Decrease Solu-Medrol to twice daily. 3. Continue Lasix and decrease it to twice daily 40 mg each. 4. Change potassium to twice daily as well. 5. Stop doxycycline. 6. Continue ceftriaxone and daptomycin. 7. Arrange for noninvasive positive pressure ventilation at home. 8. I have discussed the case with the with the case briefer, I appreciate her input in arranging the above. 9. The patient can be transferred to regular floor, discussed with Dr. Guerrero, appreciate her acceptance of this case to the floor. 10. Continue with DVT and GI prophylaxis. 11. Glucose control. 12. Physical therapy. 13. Discussed with the family regarding group quitting smoking. The all in agreement. 14. Transfer to telemetry floor. Discussed with the staff on rounds and details. Critical care time spent with the patient was 45 minutes. Data Medications: Current Inpatient Medications Medications (Trade) Dose Ordered Sig/Karissa Route Start Time Stop Time Status Last Admin Dose Admin Ipratropium [place] (Atrovent 0.02% 0.5MG/2.5ML Neb) 0.5 mg Q4H PRN INH 08/30/17 21:30 09/29/17 21:29 Levalbuterol (Xopenex 1.25MG/ 0.5ML Neb) 1.25 mg Q4H PRN INH 08/30/17 21:30 09/29/17 21:29 Acetaminophen (Tylenol Tab) 325 mg Q6H PRN PO 08/30/17 22:15 09/29/17 22:14 09/01/17 16:03 325 MG Nitroglycerin (Nitrostat Tab) 0.4 mg UD PRN SL 08/30/17 22:15 09/29/17 22:14 Glucose (Glucose 40% Gel) 15-30 GRAMS 15 GRAMS... UD PRN PO 08/30/17 22:15 09/29/17 22:14 Glucose (Glucose Chew Tab) 4-8 Tablets 4 Tabl... UD PRN PO 08/30/17 22:15 09/29/17 22:14 Dextrose (Dextrose 50% 50ML Syringe) 25-50ML OF 50% DW IV FOR... UD PRN IV 08/30/17 22:15 09/29/17 22:14 Glucagon (Glucagon Inj) 1 mg UD PRN SQ 08/30/17 22:15 09/29/17 22:14 Prochlorperazine Edisylate 5 mg/ Syringe 5 ml @ 5 mls/min Q6H PRN IV 08/30/17 22:15 09/29/17 22:14 Atorvastatin Calcium (Lipitor Tab) 40 mg DAILY PO 08/31/17 09:00 09/30/17 08:59 09/01/17 08:53 40 MG Ropinirole HCl (Requip Tab) 0.75 mg HS PO 08/31/17 21:00 09/30/17 20:59 08/31/17 20:36 0.75 MG Pantoprazole Sodium (Protonix Tab) 40 mg QAM PO 08/31/17 09:00 09/30/17 08:59 09/01/17 08:53 40 MG Lisinopril (Zestril Tab) 10 mg DAILY PO 08/31/17 09:00 10/01/17 08:59 09/01/17 08:53 10 MG Ipratropium [place] (Atrovent 0.02% 0.5MG/2.5ML Neb) 0.5 mg Q6R INH 08/31/17 03:00 09/30/17 02:59 09/01/17 14:27 0.5 MG Levalbuterol (Xopenex 1.25MG/ 0.5ML Neb) 1.25 mg Q6R INH 08/31/17 03:00 09/30/17 02:59 09/01/17 14:27 1.25 MG Insulin Aspart (novoLOG ASPART) SLIDING SCALE If C... ACHS SC 08/31/17 11:00 09/30/17 06:59 09/01/17 17:52 8 UNITS Rivaroxaban (Xarelto Tab) 20 mg DAILYBD PO 08/31/17 16:00 09/30/17 15:59 09/01/17 16:21 20 MG Oxycodone HCl (Roxicodone Immediate Rel Tab) 5 mg Q6H PRN PO 08/31/17 07:45 09/13/17 22:14 Ceftriaxone Sodium 2000 mg/ Dextrose 70 ml @ 100 mls/hr Q24H IV 08/31/17 10:00 09/07/17 09:59 09/01/17 10:05 100 MLS/HR Miscellaneous Information (Consult Glycemic Management Pharmacy) 1 ea UD PRN N/A 08/31/17 13:00 09/30/17 12:59 Nystatin (Mycostatin Powder) 1 appln DAILY EXT 09/01/17 09:00 10/01/17 08:59 09/01/17 08:54 1 APPLN Miscellaneous Information (Pharmacy Consult) 1 ea UD PRN N/A 08/31/17 13:30 09/30/17 13:29 Daptomycin 750 mg/ Syringe 15 ml @ 7.5 mls/min Q24H IV 08/31/17 20:00 09/10/17 19:59 08/31/17 20:36 7.5 MLS/MIN Insulin Glargine (Lantus Solostar Pen) 25 units BID SC 09/01/17 09:00 10/01/17 08:59 09/01/17 08:56 25 UNITS Furosemide 40 mg/ Syringe 4 ml @ 4 mls/min BID17 IV 09/01/17 17:00 10/01/17 16:59 09/01/17 17:49 4 MLS/MIN Methylprednisolone Sodium Succinate 40 mg/Syringe 0.64 ml @ 1.5 mls/min Q12 IV 09/01/17 21:00 10/01/17 20:59 Potassium Chloride (Klor-Con Tab) 40 meq BID PO 09/01/17 09:00 10/01/17 08:59 09/01/17 08:56 40 MEQ I & O: 24-Hour Column 09/02/17 08:00 Intake Total 1050 ml Output Total 900 ml Balance 150 ml Vital Signs: Date Time Temp Pulse Resp B/P (MAP) Pulse Ox O2 Delivery O2 Flow Rate FiO2 09/01/17 17:03 36.9 93 20 88/46 (60) 95 BiPAP 09/01/17 16:39 36.9 93 20 88/46 (60) 95 BiPAP 09/01/17 14:40 92 96 45 09/01/17 14:28 74 22 88 Nasal Cannula 6.0 09/01/17 11:29 37.0 103 22 105/78 (87) 91 Nasal Cannula 6.0 09/01/17 11:25 Nasal Cannula 6.0 09/01/17 09:44 37.0 102 22 93 45.0 09/01/17 09:01 93 25 118/48 (71) 86 09/01/17 09:00 99 20 84 09/01/17 08:01 113 15 129/78 (95) 90 09/01/17 08:00 106 30 90 09/01/17 07:33 102 93 45 09/01/17 07:32 103 22 93 BiPAP/CPAP 45 09/01/17 07:30 37.0 85 20 149/79 (102) 95 BiPAP 45.0 45 09/01/17 07:30 92 BiPAP 45.0 45 09/01/17 07:01 102 23 146/79 (101) 92 09/01/17 07:00 107 28 94 09/01/17 06:01 88 22 152/87 (108) 92 BiPAP 45 09/01/17 04:00 37.0 104 24 163/91 (115) 86 BiPAP 45 09/01/17 04:00 86 BiPAP 45 09/01/17 02:23 108 97 45 09/01/17 02:22 108 25 95 BiPAP/CPAP 45 09/01/17 02:01 102 23 150/82 (104) 95 BiPAP 45 09/01/17 00:01 90 BiPAP 45 09/01/17 00:01 37.0 101 24 148/88 (108) 88 BiPAP 45 08/31/17 21:43 37.0 98 24 140/84 (102) 90 BiPAP 45 08/31/17 20:16 98 25 97 BiPAP/CPAP 45 08/31/17 19:30 95 BiPAP 45 08/31/17 19:30 36.8 105 24 109/73 (85) 95 BiPAP 45 08/31/17 19:23 98 97 45 08/31/17 18:01 106 23 130/90 (103) 87 High Flow Oxygen 35 Laboratory Results: Last 24 Hours Test 08/31/17 20:34 09/01/17 05:09 09/01/17 06:22 09/01/17 11:11 Bedside Glucose 188 mg/dl 176 mg/dl 189 mg/dl White Blood Count 11.75 K/uL Red Blood Count 3.43 M/uL Hemoglobin 9.9 g/dL Hematocrit 33.2 % Mean Corpuscular Volume 96.8 fL Mean Corpuscular Hemoglobin 28.9 pg Mean Corpuscular Hemoglobin Concent 29.8 g/dl Platelet Count 350 K/uL Mean Platelet Volume 8.5 fL Neutrophils (%) (Auto) 88.9 % Lymphocytes (%) (Auto) 5.4 % Monocytes (%) (Auto) 4.6 % Eosinophils (%) (Auto) 0.1 % Basophils (%) (Auto) 0.1 % Neutrophils # (Auto) 10.45 K/uL Lymphocytes # (Auto) 0.63 K/uL Monocytes # (Auto) 0.54 K/uL Eosinophils # (Auto) 0.01 K/uL Basophils # (Auto) 0.01 K/uL RDW Standard Deviation 61.3 fL RDW Coefficient of Variation 17.3 % Immature Granulocyte % (Auto) 0.9 % Immature Granulocyte # (Auto) 0.11 K/uL Nucleated RBC Absolute Count (auto) 0.03 K/uL Nucleated Red Blood Cells % 0.3 % Sodium Level 132 mmol/L Potassium Level 3.6 mmol/L Chloride Level 76 mmol/L Carbon Dioxide Level 54 mmol/L Anion Gap 2.0 mmol/L Blood Urea Nitrogen 20 mg/dl Creatinine 0.72 mg/dl Est Creatinine Clear Calc Drug Dose 242.2 ml/min Estimated GFR () 135.2 Estimated GFR (Non- 116.7 BUN/Creatinine Ratio 27.0 Random Glucose 177 mg/dl Calcium Level 9.1 mg/dl Test 09/01/17 16:34 Bedside Glucose 163 mg/dl
[2017-09-01] MEDS ORDERED: SODIUM CHLORIDE 0.9% 1000ML 1,000 ML IV ONE (20:15)
[2017-09-01] MEDS ORDERED: NURSING VERBAL MED ORDER ONE (20:15)
[2017-09-01] MEDS: ROPINIROLE HCL 0.25 MG TAB PO SCH (20:31)
[2017-09-01] MEDS: DAPTOmycin IV 750 MG in SYRINGE 0 ML IV SCH (20:34)
--- NOTE | 2017-09-01 22:40 | ENT CONSULTATION ---
DATE OF CONSULTATION: 09/01/2017 OTOLARYNGOLOGY HEAD AND NECK SURGERY CONSULTATION AND PROCEDURE NOTE I have been asked by Dr. Rivers from the [facility] service to evaluate this patient with a left external auditory canal foreign body. The patient is a 41-year-old male who was listening to his headphones and he sneezed and his ear bud got stuck in his left external auditory canal causing pain. I have been asked to evaluate this patient for left external auditory canal foreign body. On examination, the patient had an obvious black plastic foreign body in his deep external auditory canal. This was removed using an empty alligator forceps and a headlight. After removal, the patient had complete relief of his symptomatology. Otoscopic examination shows that there was no external auditory canal laceration, abrasion, or other pathology. His tympanic membrane was clear without middle ear effusion. I will sign off on this consultation. His left external auditory canal foreign body was removed without incident. Feel free to call me if you have any questions or concerns.
[2017-09-02] VITALS (16 sets, daily range): BP systolic 109–180; BP diastolic 52–84; PULSE 84–103; TEMP 36.6–37; O2SAT 91–100
[2017-09-02] MEDS: IPRATROPIUM BROMIDE NEB SOLN 0.02% 2.5 ML VIAL INH SCH ×4 (01:58→19:17)
[2017-09-02] MEDS: LEVALBUTEROL 1.25MG/0.5ML NEB INH SCH ×4 (01:59→19:17)
[2017-09-02 06:56] LABS: BASO % 0.1 %; BASO ABS # 0.01 K/uL (0-0.2); HEMATOCRIT 32.9 % (42-52); HEMOGLOBIN 9.8 g/dL (14.0-18.0); IG# 0.09 K/uL (0.00-0.02); LYMPH % 7.4 %; LYMPH ABS # 0.88 K/uL (1.2-3.4); MEAN CELL VOLUME 96.2 fL (80-100); MEAN CORPUSCULAR HEMOGLOBIN 28.7 pg (25-34); MEAN CORPUSCULAR HGB CONC 29.8 g/dl (32-36); MEAN PLATELET VOLUME 8.7 fL (7.4-10.4); MONO % 9.3 %; MONO ABS # 1.11 K/uL (0.11-0.59); NEUT % 82.4 %; NEUT ABS # 9.88 K/uL (1.4-6.5); NUCLEATED RED BLOOD CELL ABS 0.05 K/uL (0-0); PLATELET COUNT 363 K/uL (130-400); RED CELL DISTRIBUTION WIDTH CV 17.7 % (11.5-14.5); RED CELL DISTRIBUTION WIDTH SD 61.5 fL (36.4-46.3); WHITE BLOOD COUNT 11.97 K/uL (4.8-10.8)
[2017-09-02 07:21] LABS: CALCIUM 8.9 mg/dl (8.5-10.1); CREATININE 0.88 mg/dl (0.60-1.40); POTASSIUM 3.5 mmol/L (3.5-5.1)
--- NOTE | 2017-09-02 07:47 | Progress Note ---
Post ICU Progress Note Date & Time Sep 02, 2017 at 07:45 Vital Signs Vital Signs Past 12 Hours Date Time Temp Pulse Resp B/P (MAP) Pulse Ox O2 Delivery O2 Flow Rate FiO2 09/02/17 07:13 37.0 96 20 116/63 (80) 100 BiPAP 09/02/17 07:08 89 98 45 09/02/17 07:07 92 22 98 BiPAP/CPAP 45 09/02/17 05:59 89 92 45 09/02/17 05:02 84 22 91 BiPAP 45 09/02/17 04:18 87 95 45 09/02/17 04:00 BiPAP 45 09/02/17 03:35 37.0 96 22 135/76 (95) 98 CPAP 45 09/02/17 01:55 87 95 45 09/01/17 23:59 BiPAP 45 09/01/17 23:33 36.2 97 18 137/70 (92) 98 CPAP 45 09/01/17 23:09 87 94 45 09/01/17 21:50 97 109/56 (73) 09/01/17 20:26 36.8 105 22 89/80 (83) 91 Nasal Cannula 6.0 Notes Mental Status: participated in evaluation Nausea / Vomiting: adequately controlled Pain: adequately controlled Airway Patency, RR, SpO2: stable & adequate BP & HR: stable & adequate Patient admitted for hypercapnic respiratory failure requiring aggressive noninvasive techniques. Patient is currently resting comfortably. He is breathing much better and is much more alert and well in the ICU. Patient is awake, alert, and oriented. This is much improved from his stay while in the ICU. He reports that he cannot get comfortable in bed, but offers no other complaints to this point. Consider outpatient follow up in 1 to 2 weeks with: PCP, Pulmonary Repeat imaging needed: Per primary service. Follow up cultures: Pending response to IV antibiotics for cellulitis Reviewed progress notes, labs, and inpatient medication list Continue current management Additional recommendations: None at this time. Please feel free to reconsult as needed.
[2017-09-02] MEDS: CEFTRIAXONE SOD INJ 2,000 MG in DEXTROSE 5% 50ML 50 ML IV SCH (07:51)
[2017-09-02] MEDS: METHYLPREDNISOLONE IV 40 MG in SYRINGE 0 ML IV SCH (07:51)
[2017-09-02] MEDS: FUROSEMIDE INJ 40 MG in SYRINGE 0 ML IV SCH ×2 (07:51→17:03)
[2017-09-02] MEDS: LISINOPRIL 10 MG TAB PO SCH (07:52)
[2017-09-02] MEDS: PANTOprazole SOD 40 MG TAB PO SCH (07:52)
[2017-09-02] MEDS: ATORVASTATIN 40 MG TAB PO SCH (07:52)
[2017-09-02] MEDS: POTASSIUM CHLORIDE 20 MEQ TABCR PO SCH ×2 (07:53→20:42)
[2017-09-02] MEDS: INSULIN ASPART 100 UNITS/ML 3 ML PEN SC SCH ×4 (07:55→20:45)
[2017-09-02] MEDS: NYSTATIN POWDER 15GM BTL EXT SCH (07:57)
[2017-09-02] MEDS: INSULIN GLARGINE SOLOSTAR 100 UNITS/ML 3 ML PEN SC SCH ×2 (07:57→20:46)
--- NOTE | 2017-09-02 09:30 | Pharmacy Progress Note ---
Pharmacy Glycemic Short Note 2 Date of Service Sep 02, 2017. OUTPATIENT ANTIDIABETIC REGIMEN: * Metformin 500 mg daily * A1c 7.2% on 08/30/17 ASSESSMENT: 09/02/17 * Mr. Garcia received 77 units of insulin yesterday, BSGs ranging from 158-189 mg/dL * Steroids remain the same so far today * Fasting BSG = 158; basal dose seems appropriate * Postprandial BSGs = 189, 163, 181; CF/CR already tightened this AM so will continue for now and loosen if BSGs start to fall 09/01/17 * BSGs have ranged 176-198 over the last 24 hours with the current insulin orders * Steroid dose is being reduced by 50% and diet is being advanced today * Fasting BSG 176 this AM with 45 units Lantus on board, will titrate up further this AM - keeping in mind that insulin sensitivity may improve over the next 24 hours * Will lower goal range for Novolog scale to allow for larger correctional doses * Will follow post-prandial BSGs and adjust CR later today if advance in diet results in post-prandial hyperglycemia PLAN FOR INPATIENT GLYCEMIC CONTROL: * Hold outpatient oral diabetes medications * Basal insulin - no change * Lantus 25 units SQ BID * Bolus insulin * NovoLog per scale ACHS or Q6hrs while NPO * Goal Range: Low 110 mg/dL - High 140 mg/dL * Correction Factor: 18 mg/dL/unit * Nutritional / Prandial insulin per carb ratio of 1 unit per 6 grams CHO consumed PLAN FOR DISCHARGE: * A1c slightly above goal for patient age * Looks like patient was on metformin BID in the past, so I'm not sure if he had adverse events with this higher dose. If not, would recommend increasing back to BID to further improve A1c.
--- NOTE | 2017-09-02 12:25 | CARDIOLOGY PROGRESS NOTE ---
DATE: 09/02/2017 CARDIOLOGY CONSULTATION FOLLOWUP NOTE The patient seen and examined. Chart, medications, telemetry reviewed. SUBJECTIVE: The patient is currently wearing BiPAP. Notes no acute complaints. Does require supplemental oxygen and BIPAP to maintain oxygen saturations. Has manifested nearly 5 liters diuresis since admission. Legs feel less edematous per patient. OBJECTIVE: VITAL SIGNS: Heart rate is 90, blood pressure is 137/70. Weight is 198.1 kilograms. HEENT: Normocephalic, atraumatic. The patient is wearing BiPAP. NECK: Thick and bearded. There is no distinct jugular venous distention. LUNGS: Reveal coarse rhonchorous sounds with poor airway movement. CARDIOVASCULAR: Regular with very distant heart sounds. ABDOMEN: Obese, soft with large panniculus. EXTREMITIES: Reveal diffuse erythema and fluid retention with chronic stasis changes and open wounds of the lower extremities. LABORATORY STUDIES: Sodium is 130, potassium is 3.5, chloride 78, bicarb is 53, BUN is 33, creatinine 0.88. White cell count 11.9, hemoglobin is 9.8. IMPRESSION: Complex 41-year-old male presents with acute on chronic right heart failure secondary to pickwickian syndrome hypoventilation with associated cellulitis and lower extremity wound breakdown. The patient is currently on BiPAP. He has been diuresed aggressively since admission. PLAN: Will be to hold furosemide after evening dose today given declining sodium and rising BUN. Will likely reinstitute dosing depending on electrolytes in a.m. Will continue with BiPAP supplementation, potassium replacement, treatment with antibiotics and undergoing topical therapies for underlying cellulitis and vascular issues. [facility]
[2017-09-02] MEDS: RIVAROXABAN 20 MG TAB PO SCH (17:03)
--- NOTE | 2017-09-02 17:16 | Progress Note ---
Medicine Progress Note Date & Time of Visit: Sep 02, 2017 at 14:43. Subjective 41 yo morbidly obese man with COPD, CHF and ESTEFANI with chronic hypoxia (on 4L O2 at home) presents with worsening SOB x 2-3 days and skin irritation on his legs in setting of cellulitis and multiple skin wounds. He was obtunded on 08/31 secondary to acute CO2 retention and was moved to the ICU on 08/31. There he was continued on diuresis and high flow O2 as well as BiPAP with improvement in respiratory status and mentation. He was placed on steroids for presumed COPD exacerbation. He was placed on antibiotics for severe cellulitis of the legs. He was moved to telemetry on 09/01 and has continued to improve from a breathing standpoint. Cards held diuresis temporarily. Objective Last 8 Hrs Date Time Temp Pulse Resp B/P (MAP) Pulse Ox O2 Delivery O2 Flow Rate FiO2 09/02/17 12:00 Nasal Cannula 7.0 09/02/17 11:08 90 24 180/84 (116) 94 BiPAP 09/02/17 08:00 Nasal Cannula 7.0 09/02/17 07:13 37.0 96 20 116/63 (80) 100 BiPAP 09/02/17 07:08 89 98 45 09/02/17 07:07 92 22 98 BiPAP/CPAP 45 Physical Exam: GEN: morbid obesity, appears comfortable without tachypnea, +conversational dyspnea HEENT: NC/AT, normal sclerae CARDIO: Regular rate, S1/2 heard without m/g/r LUNGS: Clear to auscultation bilaterally ABD: soft, obese EXTREMITY: warm and well perfused. NEURO: Cranial nerves II through XII grossly intact, no gross focal deficits MUSC: Able to sit up in bed on his own, moves all extremities equally. SKIN: warm, dry, multiple wounds all over legs and in various different skin folds all over body. Continuous erythema of legs with increased warmth to touch bilaterally up to knee level. Leg wraps present bilaterally, nails have a black film around them. Laboratory Results: 09/02/17 06:28 Red Blood Count 3.42, Mean Corpuscular Volume 96.2, Mean Corpuscular Hemoglobin 28.7, Mean Corpuscular Hemoglobin Concent 29.8, Mean Platelet Volume 8.7, Neutrophils (%) (Auto) 82.4, Lymphocytes (%) (Auto) 7.4, Monocytes (%) (Auto) 9.3, Eosinophils (%) (Auto) 0.0, Basophils (%) (Auto) 0.1, Neutrophils # (Auto) 9.88, Lymphocytes # (Auto) 0.88, Monocytes # (Auto) 1.11, Eosinophils # (Auto) 0.00, Basophils # (Auto) 0.01 09/02/17 06:28 Test 08/30/17 17:20 08/30/17 17:29 08/30/17 20:06 08/30/17 21:07 Prothrombin Time 9.8 SECONDS (9.0-12.0) Prothromb Time International Ratio 0.9 (0.9-1.1) Activated Partial Thromboplast Time 25.4 SECONDS (21.0-31.0) Partial Thromboplastin Ratio 1.0 Estimated Average Glucose 160 mg/dl Hemoglobin A1c 7.2 % (4.5-5.6) Magnesium Level 2.0 mg/dl (1.8-2.4) Total Bilirubin 0.2 mg/dl (0.2-1) Direct Bilirubin < 0.1 mg/dl (0-0.2) Aspartate Amino Transf (AST/SGOT) 11 U/L (15-37) Alanine Aminotransferase (ALT/SGPT) 13 U/L (12-78) Alkaline Phosphatase 72 U/L (45-117) Pro-B-Type Natriuretic Peptide 51 pg/ml (0-450) Total Protein 7.6 gm/dl (6.4-8.2) Albumin 2.7 gm/dl (3.4-5.0) Thyroid Stimulating Hormone (TSH) 2.680 uIu/ml (0.300-4.500) Bedside Lactic Acid Venous 1.07 mmol/L (0.90-1.70) Ammonia 29.6 umol/L (11-32) Venous Blood pH 7.39 (7.36-7.41) Venous Blood Partial Pressure CO2 87 mmHg (38.0-50.0) Venous Blood Partial Pressure O2 46 mmHg Venous Blood HCO3 52 mmol/L Venous Blood Oxygen Saturation 78.6 % Venous Blood Base Excess 22.7 mEq/L Test 08/31/17 05:56 08/31/17 07:24 08/31/17 09:31 08/31/17 11:45 Absolute Reticulocyte Count 0.14 10^6/uL (0.02-0.10) Percent Reticulocyte Count 4.1 % (0.5-2.0) Iron Level 42 mcg/dl (35-175) Total Iron Binding Capacity 328 mcg/dl (250-450) Transferrin 238 mg/dl (200-360) Transferrin % Saturation 13 % (20-50) Ferritin 81.9 ng/ml (8.0-388.0) Troponin I < 0.015 ng/ml (0-0.045) Vitamin B12 Level 335 pg/mL (211-911) Folate 7.96 ng/mL (>5.38) Arterial Blood pH 7.37 (7.35-7.45) Arterial Blood Partial Pressure CO2 95 mmHg (35-46) Arterial Blood Partial Pressure O2 65 mm/Hg (80-95) Arterial Blood HCO3 54 mmol/L (19-24) Arterial Blood Oxygen Saturation 89.4 % (90-95) Arterial Blood Base Excess 24.4 mEq/L (-9-1.8) Arterial Blood Gas Delivery BIPAP 30/5 60% Fran Test POS (POS) Anti-Streptolysin O Antibody Screen POS IU/ml (<200 IU) Anti-Streptolysin O Antibody Titer 200 IU/ml (<200 IU) Urine Legionella Antigen NOT DETECTED (NOT DETECTED) Test 09/02/17 06:28 09/02/17 16:34 White Blood Count 11.97 K/uL (4.8-10.8) Red Blood Count 3.42 M/uL (4.7-6.1) Hemoglobin 9.8 g/dL (14.0-18.0) Hematocrit 32.9 % (42-52) Mean Corpuscular Volume 96.2 fL (80-100) Mean Corpuscular Hemoglobin 28.7 pg (25-34) Mean Corpuscular Hemoglobin Concent 29.8 g/dl (32-36) Platelet Count 363 K/uL (130-400) Mean Platelet Volume 8.7 fL (7.4-10.4) Neutrophils (%) (Auto) 82.4 % Lymphocytes (%) (Auto) 7.4 % Monocytes (%) (Auto) 9.3 % Eosinophils (%) (Auto) 0.0 % Basophils (%) (Auto) 0.1 % Neutrophils # (Auto) 9.88 K/uL (1.4-6.5) Lymphocytes # (Auto) 0.88 K/uL (1.2-3.4) Monocytes # (Auto) 1.11 K/uL (0.11-0.59) Eosinophils # (Auto) 0.00 K/uL (0-0.5) Basophils # (Auto) 0.01 K/uL (0-0.2) RDW Standard Deviation 61.5 fL (36.4-46.3) RDW Coefficient of Variation 17.7 % (11.5-14.5) Immature Granulocyte % (Auto) 0.8 % Immature Granulocyte # (Auto) 0.09 K/uL (0.00-0.02) Nucleated RBC Absolute Count (auto) 0.05 K/uL (0-0) Nucleated Red Blood Cells % 0.4 % Anion Gap -1.0 mmol/L (3-11) Est Creatinine Clear Calc Drug Dose 196.0 ml/min Estimated GFR () 124.5 Estimated GFR (Non- 107.5 BUN/Creatinine Ratio 36.9 (10-20) Calcium Level 8.9 mg/dl (8.5-10.1) Total Creatine Kinase 484 U/L (39-308) Bedside Glucose 174 mg/dl (70-99) Date/Time Source Procedure Growth Status 08/30/17 17:47 Blood Blood Culture - Preliminary NO GROWTH TO DATE. Resulted 08/31/17 10:20 Nasal MRSA DNA Surveillance Screen - Final Specimen Positive for MRSA by DNA Probe Complete Last 24 Hours Test 09/01/17 16:34 09/01/17 20:23 09/02/17 06:28 09/02/17 06:54 Bedside Glucose 163 mg/dl 181 mg/dl 158 mg/dl White Blood Count 11.97 K/uL Red Blood Count 3.42 M/uL Hemoglobin 9.8 g/dL Hematocrit 32.9 % Mean Corpuscular Volume 96.2 fL Mean Corpuscular Hemoglobin 28.7 pg Mean Corpuscular Hemoglobin Concent 29.8 g/dl Platelet Count 363 K/uL Mean Platelet Volume 8.7 fL Neutrophils (%) (Auto) 82.4 % Lymphocytes (%) (Auto) 7.4 % Monocytes (%) (Auto) 9.3 % Eosinophils (%) (Auto) 0.0 % Basophils (%) (Auto) 0.1 % Neutrophils # (Auto) 9.88 K/uL Lymphocytes # (Auto) 0.88 K/uL Monocytes # (Auto) 1.11 K/uL Eosinophils # (Auto) 0.00 K/uL Basophils # (Auto) 0.01 K/uL RDW Standard Deviation 61.5 fL RDW Coefficient of Variation 17.7 % Immature Granulocyte % (Auto) 0.8 % Immature Granulocyte # (Auto) 0.09 K/uL Nucleated RBC Absolute Count (auto) 0.05 K/uL Nucleated Red Blood Cells % 0.4 % Sodium Level 130 mmol/L Potassium Level 3.5 mmol/L Chloride Level 78 mmol/L Carbon Dioxide Level 53 mmol/L Anion Gap -1.0 mmol/L Blood Urea Nitrogen 33 mg/dl Creatinine 0.88 mg/dl Est Creatinine Clear Calc Drug Dose 196.0 ml/min Estimated GFR () 124.5 Estimated GFR (Non- 107.5 BUN/Creatinine Ratio 36.9 Random Glucose 148 mg/dl Calcium Level 8.9 mg/dl Total Creatine Kinase 484 U/L Test 09/02/17 11:07 Bedside Glucose 155 mg/dl Assessment & Plan 41 yo morbidly obese man with COPD, CHF and ESTEFANI with chronic hypoxia (on 4L O2 at home) presents with worsening SOB x 2-3 days and skin irritation on his legs in setting of cellulitis and multiple skin wounds. He was obtunded on 08/31 secondary to acute CO2 retention and was moved to the ICU on 08/31. There he was continued on diuresis and high flow O2 as well as BiPAP with improvement in respiratory status and mentation. He was placed on steroids for presumed COPD exacerbation. He was placed on antibiotics for severe cellulitis of the legs. He was moved to telemetry on 09/01 and has continued to improve from a breathing standpoint. Cards held diuresis temporarily. 1. Acute respiratory failure in setting of chronic hypoxemia 2/2 COPD on 4L oxygen at home-improved. Patient has chronic respiratory failure and is at baseline O2 requirements. He is not quite back to baseline yet. Trilogy machine is being ordered through case management for home use. Continue BiPAP overnight. Change methylprednisolone to prednisone 40 daily, continue bronchodilator therapy for COPD exacerbation. Patient on antibiotics for cellulitis as below. 2. Acute diastolic CHF exacerbation. Appreciate cardiology recommendations. Diuretics temporarily on hold with rising BUN and lowered sodium. Patient is on fluid restriction 3. Bilateral lower extremity cellulitis-patient has multiple wounds all over legs and a body habitus that precludes thorough examination. There are multiple scratches on his legs. Continue dapsone and ceftriaxone for cellulitis. Of note patient is MRSA positive. Consulted ID for definitive antibiotic recommendations 4. 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 Justin Beck. Had a DVT with PE in 2005 prior to cancer, however, was recommended to continue anticoagulant therapy per Oncology recs while he was here in May 2017. Currently on xarelto. 5. h/o metastatic adenocarcinoma of L axilla with unknown primary site-in remission as above. 6. DMII-metformin held, cont ISS/Lantus while inpatient. Currently at goal. 7. HTN-cont lisinopril, currently at goal 8. Morbid obesity 9. smoker 10. Noncompliance 11. Anemia-likely related to chronic disease. Slightly decreased from H/H in May 2017, but has been around this level in the past consistently. Heme positive stool in the ER poss 2/2 hemorrhoids. No active bleeding at this time. Cont to monitor. Cont Xarelto. DVT proph-Xarelto Full Code Dispo-telemetry Zo Guerrero DO [facility] Hospitalist Consultants: Cardiology-Ronnie Garcia MD Pulmonary-Birgit Falcon MD Current Inpatient Medications: Current Inpatient Medications Medications (Trade) Dose Ordered Sig/Karissa Route Start Time Stop Time Status Last Admin Dose Admin Ipratropium [place] (Atrovent 0.02% 0.5MG/2.5ML Neb) 0.5 mg Q4H PRN INH 08/30/17 21:30 09/29/17 21:29 Levalbuterol (Xopenex 1.25MG/ 0.5ML Neb) 1.25 mg Q4H PRN INH 08/30/17 21:30 09/29/17 21:29 Acetaminophen (Tylenol Tab) 325 mg Q6H PRN PO 08/30/17 22:15 09/29/17 22:14 09/01/17 21:53 325 MG Nitroglycerin (Nitrostat Tab) 0.4 mg UD PRN SL 08/30/17 22:15 09/29/17 22:14 Glucose (Glucose 40% Gel) 15-30 GRAMS 15 GRAMS... UD PRN PO 08/30/17 22:15 09/29/17 22:14 Glucose (Glucose Chew Tab) 4-8 Tablets 4 Tabl... UD PRN PO 08/30/17 22:15 09/29/17 22:14 Dextrose (Dextrose 50% 50ML Syringe) 25-50ML OF 50% DW IV FOR... UD PRN IV 08/30/17 22:15 09/29/17 22:14 Glucagon (Glucagon Inj) 1 mg UD PRN SQ 08/30/17 22:15 09/29/17 22:14 Prochlorperazine Edisylate 5 mg/ Syringe 5 ml @ 5 mls/min Q6H PRN IV 08/30/17 22:15 09/29/17 22:14 Atorvastatin Calcium (Lipitor Tab) 40 mg DAILY PO 08/31/17 09:00 09/30/17 08:59 09/02/17 07:52 40 MG Ropinirole HCl (Requip Tab) 0.75 mg HS PO 08/31/17 21:00 09/30/17 20:59 09/01/17 20:31 0.75 MG Pantoprazole Sodium (Protonix Tab) 40 mg QAM PO 08/31/17 09:00 09/30/17 08:59 09/02/17 07:52 40 MG Lisinopril (Zestril Tab) 10 mg DAILY PO 08/31/17 09:00 10/01/17 08:59 09/02/17 07:52 10 MG Ipratropium [place] (Atrovent 0.02% 0.5MG/2.5ML Neb) 0.5 mg Q6R INH 08/31/17 03:00 09/30/17 02:59 09/02/17 07:05 0.5 MG Levalbuterol (Xopenex 1.25MG/ 0.5ML Neb) 1.25 mg Q6R INH 08/31/17 03:00 09/30/17 02:59 09/02/17 07:05 1.25 MG Insulin Aspart (novoLOG ASPART) SLIDING SCALE If C... ACHS SC 08/31/17 11:00 09/30/17 06:59 09/02/17 11:42 10 UNITS Rivaroxaban (Xarelto Tab) 20 mg DAILYBD PO 08/31/17 16:00 09/30/17 15:59 09/01/17 16:21 20 MG Oxycodone HCl (Roxicodone Immediate Rel Tab) 5 mg Q6H PRN PO 08/31/17 07:45 09/13/17 22:14 Ceftriaxone Sodium 2000 mg/ Dextrose 70 ml @ 100 mls/hr Q24H IV 08/31/17 10:00 09/07/17 09:59 09/02/17 07:51 100 MLS/HR Miscellaneous Information (Consult Glycemic Management Pharmacy) 1 ea UD PRN N/A 08/31/17 13:00 09/30/17 12:59 Nystatin (Mycostatin Powder) 1 appln DAILY EXT 09/01/17 09:00 10/01/17 08:59 09/02/17 07:57 1 APPLN Miscellaneous Information (Pharmacy Consult) 1 ea UD PRN N/A 08/31/17 13:30 09/30/17 13:29 Daptomycin 750 mg/ Syringe 15 ml @ 7.5 mls/min Q24H IV 08/31/17 20:00 09/10/17 19:59 09/01/17 20:34 7.5 MLS/MIN Insulin Glargine (Lantus Solostar Pen) 25 units BID SC 09/01/17 09:00 10/01/17 08:59 09/02/17 07:57 25 UNITS Furosemide 40 mg/ Syringe 4 ml @ 4 mls/min BID17 IV 09/01/17 17:00 10/01/17 16:59 Future Hold 09/02/17 07:51 4 MLS/MIN Methylprednisolone Sodium Succinate 40 mg/Syringe 0.64 ml @ 1.5 mls/min Q12 IV 09/01/17 21:00 10/01/17 20:59 09/02/17 07:51 1.5 MLS/MIN Potassium Chloride (Klor-Con Tab) 40 meq BID PO 09/01/17 09:00 10/01/17 08:59 09/02/17 07:53 40 MEQ
--- NOTE | 2017-09-02 18:49 | Progress Note ---
Post ICU Progress Note Date & Time Sep 02, 2017 at 18:32 Vital Signs Vital Signs Past 12 Hours Date Time Temp Pulse Resp B/P (MAP) Pulse Ox O2 Delivery O2 Flow Rate FiO2 09/02/17 16:00 98 Nasal Cannula 7.0 09/02/17 15:38 36.8 91 24 118/71 (87) Oxymask 15.0 09/02/17 14:52 84 22 98 Nasal Cannula 6.0 45 09/02/17 12:00 Nasal Cannula 7.0 09/02/17 11:08 90 24 180/84 (116) 94 BiPAP 09/02/17 08:00 Nasal Cannula 7.0 09/02/17 07:13 37.0 96 20 116/63 (80) 100 BiPAP 09/02/17 07:08 89 98 45 09/02/17 07:07 92 22 98 BiPAP/CPAP 45 Notes Mental Status: alert / awake, participated in evaluation Nausea / Vomiting: adequately controlled Pain: adequately controlled Airway Patency, RR, SpO2: stable & adequate BP & HR: stable & adequate The patient was seen in room 216. He was admitted to intensive care unit on for hypercapnia and acute on chronic respiratory failure. He was placed on BiPAP with an SaO2 goal of 85%. Comorbidities include cor pulmonale which was treated with 40 mg of Lasix every 8 hours. The patient was started on doxycycline and and vancomycin. The patient was continued on ceftriaxone and daptomycin for better antibiotic control. The patient has a history of PE and was continued on Xarelto. The patient showed improvement overnight and on doxycycline was stopped. Patient was continued on ceftriaxone and daptomycin. Patient responded well with BiPAP. A nocturnal pulse oximetry study was completed and shows significant desaturation below 88% for greater than 35% of his sleeping hours. Patient showed significant improvement with noninvasive ventilation which was continued on the floor when transferred from the surgical ICU. The patient continues to be a current smoker and indicates desire to quit smoking. Significant counseling was provided regarding smoking cessation. Reviewed progress notes, labs, and inpatient medication list Continue current management Additional recommendations: Noninvasive home mechanical ventilator Due to chronic respiratory failure consequent to COPD, patient now requires a noninvasive home ventilator. Patient COPD has progressed to a stage where testing shows elevated PCO2. ABG showed improvement from 102 1095 with use of BiPAP but required elevated pressure of 30/5. The patient has overlap syndrome with COPD and obstructive sleep apnea. Bilevel therapy with and without a rate would be ineffective as patient requires a volume targeted mode. Ventilation is required to decrease the work of breathing and improve pulmonary status. Interruption of ventilator support would lead to decline of health status. A noninvasive mechanical ventilator would be appropriate with AVAPS-AE PS min 10, PS max 30, EPAP 8 IPAP 18 AVAPS rate 5 and Max Pressure 40. Patient interface should be a mask and this should be used during sleep and as needed throughout the day. Thank you for including us in the care of this patient. We will sign off at this time. Please feel free to reconsult as needed. Consults & Procedures Consultants: Otolaryngology -Dr. Pickens Wound care nurse Cardiology -Dr. Garcia Critical care medicine -Dr. Falcon Procedures: Echocardiogram
[2017-09-02] MEDS: ROPINIROLE HCL 0.25 MG TAB PO SCH (20:42)
[2017-09-02] MEDS: DAPTOmycin IV 750 MG in SYRINGE 0 ML IV SCH (20:51)
[2017-09-02] MEDS: ACETAMINOPHEN 325 MG TAB PO PRN (20:51)
[2017-09-03] VITALS (14 sets, daily range): BP systolic 123–148; BP diastolic 47–91; PULSE 92–112; TEMP 36.4–37.1; O2SAT 90–100
[2017-09-03] MEDS: IPRATROPIUM BROMIDE NEB SOLN 0.02% 2.5 ML VIAL INH SCH ×4 (02:09→19:03)
[2017-09-03] MEDS: LEVALBUTEROL 1.25MG/0.5ML NEB INH SCH ×4 (02:10→19:04)
[2017-09-03] MEDS: INSULIN ASPART 100 UNITS/ML 3 ML PEN SC SCH ×4 (07:51→21:47)
[2017-09-03] MEDS: POTASSIUM CHLORIDE 20 MEQ TABCR PO SCH ×4 (07:53→19:55)
[2017-09-03] MEDS: PANTOprazole SOD 40 MG TAB PO SCH (07:54)
[2017-09-03] MEDS: LISINOPRIL 10 MG TAB PO SCH (07:54)
[2017-09-03] MEDS: ATORVASTATIN 40 MG TAB PO SCH (07:54)
[2017-09-03 08:01] LABS: CALCIUM 9.1 mg/dl (8.5-10.1); CREATININE 0.7 mg/dl (0.60-1.40); POTASSIUM 3.1 mmol/L (3.5-5.1)
[2017-09-03] MEDS: NYSTATIN POWDER 15GM BTL EXT SCH (08:51)
[2017-09-03] MEDS ORDERED: INSULIN GLARGINE SOLOSTAR 100 UNITS/ML 3 ML PEN SC SCH ×2 (09:00→21:00)
--- NOTE | 2017-09-03 09:45 | Pharmacy Progress Note ---
Glycemic: Assessment & Plan Date of Service Sep 03, 2017. Assessment & Plan The patient is currently receiving 81 units of insulin per day. BSGs ranging 107 - 182 mg/dl over the past 24hrs. Given downtrend of fast AM BSG and tapering of steroids, I will slightly reduce morning lantus dose and place an evening scale. It is noted that the patient has been transitioned to PO prednisone starting this morning. * Basal insulin: Lantus 22 units this morning, then 10-20 units based on BSG scale this evening. * Correctional Insulin: Novolog Correction per scale ACHS Goal Range: Low 110 mg/dL - High 140 mg/dL Correction Factor: 18 mg/dL/unit * Prandial insulin: Per carb ratio of 1 unit per 6 grams CHO consumed Pharmacy will continue to monitor patient daily and write orders per [facility] inpatient glycemic control protocol. Thanks. * Please note that the plan above was derived based on current level of insulin resistance and hospital stress. These recommendations are appropriate for inpatient admission only. Plan of care upon discharge will need to be reassessed to avoid potential outpatient hypo/hyperglycemia.
[2017-09-03] MEDS ORDERED: SPIRONOLACTONE 25 MG TAB PO ONE (10:00)
--- NOTE | 2017-09-03 10:18 | PROGRESS NOTE ---
DATE: 09/03/2017 The patient seen and examined. Chart, medications, telemetry reviewed. SUBJECTIVE: The patient is now sitting out of bed this morning, had significant diuresis yesterday with greater than 10 kilogram weight loss since admission. The patient continues to have lower extremity edema. He has been using CPAP and BiPAP in the hospital faithfully. Notes no fevers or chills. Notes no productive cough. OBJECTIVE: VITAL SIGNS: Heart rate is 99, blood pressure is 123/56. Telemetry reveals sinus and sinus tachycardia. HEENT: Normocephalic, atraumatic. NECK: Thick. LUNGS: Reveal markedly diminished breath sounds diffusely. No rhonchi or wheeze. CARDIOVASCULAR: Regular. There is no S3 gallop. ABDOMEN: Obese with large panniculus. EXTREMITIES: Revealed diffuse stasis changes and erythema of the lower extremities, though diminished edema. LABORATORY STUDIES: Sodium is 134, potassium is 3.1, chloride is 82, bicarb is 52, BUN is 29, creatinine is 0.7. IMPRESSION: A 41-year-old male with pickwickian syndrome, acute on chronic right heart failure and respiratory failure reflecting continued relapse. Discussed in detail with the patient goals today, now reinitiate on oral diuretics and we will add furosemide at 80 mg twice per day. The patient was taking 80 mg p.o. once per day at home along with metolazone. Given persistent hypokalemia, spironolactone will be ordered initially at 25 mg per day, may ultimately would need to reduce potassium dosing. Continued use of CPAP and oxygen which has been most effective in aiding patient's diuresis currently. Will liberalize fluid intake slightly to 1800 mL per day. Discussed in detail with the patient it will be mandatory that the patient have CPAP or BIPAP at home on his return.
[2017-09-03] MEDS ORDERED: FUROSEMIDE 80 MG TAB PO ONE (10:30)
--- NOTE | 2017-09-03 11:01 | Progress Note ---
Progress Note Date of Service Sep 03, 2017. Progress Note ID Consult Dictated #[id number] A/P: 1. Lower ext ulcerations -Ok from ID standpoint to transition to po doxy 100mg po bid 10-14 days -Ok for d/c from ID standpoint when otherwise stable -thank you
[2017-09-03] MEDS: CEFTRIAXONE SOD INJ 2,000 MG in DEXTROSE 5% 50ML 50 ML IV SCH (11:17)
--- NOTE | 2017-09-03 11:52 | INFECT. DISEASE CONSULTATION ---
DATE OF CONSULTATION: 09/03/2017 HISTORY OF PRESENT ILLNESS: This is a 41-year-old gentleman who was admitted to the hospital with worsening respiratory failure. He does have a history of COPD requiring CPAP. He is noncompliant with his therapy. He does have a history of PE, he is on chronic Xarelto. He also has history of lymphoma and he is found to have a right-sided heart dysfunction. He has a chronic superficial ulcerations on his lower extremities. He was admitted to the hospital and started on antibiotics. He did have an isolated fever on the as high as 38.8, but since that time he has been afebrile. He is currently on daptomycin, Rocephin and prednisone. His blood cultures from the are negative. His white blood cell count is mildly elevated at 11.9, but he is also on prednisone. His creatinine has been normal. His x-ray was most recently done on the and was consistent with congestive heart failure. He has no recent micro to review, but does have a history of MRSA in the remote past. He currently is tolerating antibiotics well. On my exam, he is out of bed to chair. He is on nasal cannula oxygen. He denies any fevers or chills. He denies any shortness of breath or cough. He has no abdominal pain or diarrhea. He denies any pain in his lower extremities. He states that he was to follow with the wound care center with a woman by the name of Dori. He is unable to tell me what location that wound center was at; however, he has been noncompliant with his followup. His remaining review of systems is unremarkable. PAST MEDICAL HISTORY: Congestive heart failure, right failure dysfunction, COPD on chronic home oxygen, ongoing tobacco use, obstructive sleep apnea on CPAP, PE, hypertension, type 2 diabetes, history of adenocarcinoma, and lymphoma. SURGICAL HISTORY: Knee surgery, lymph node biopsies and sinus surgery. FAMILY HISTORY: Noncontributory. ALLERGIES: IODINE. SOCIAL HISTORY: Significant for tobacco use. He denies any alcohol or drug use. CURRENT MEDICATIONS: Aldactone, Lasix, prednisone, Lantus, potassium, Nystatin, Requip, daptomycin, Xarelto, Rocephin, Lipitor, Protonix, lisinopril, Atrovent, Xopenex, Tylenol. PHYSICAL EXAMINATION: VITAL SIGNS: He is afebrile, pulse 99, respiratory rate 20, blood pressure 123/56, oxygen saturation is 91-97%. GENERAL: He is awake, alert and oriented x3. He is in no acute distress. HEENT: Mucous membranes are moist. Extraocular muscles are intact. HEART: Regular. LUNGS: Clear. ABDOMEN: Soft. EXTREMITIES: There is lower extremity edema bilaterally dressings are intact. LABORATORY STUDIES: CBC yesterday reveals a white blood cell count of 11.9, hemoglobin 9.8, platelets 363. Chemistry panel today reveals a sodium of 134, potassium 3.1, chloride 82, bicarbonate 52, BUN 29, creatinine 0.7, glucose is 121. Blood cultures are negative x2 sets. A chest x-ray on the again showed congestive heart failure. ASSESSMENT AND PLAN: Lower extremity edema with superficial ulcerations. Certainly I think intravenous antibiotics could be discontinued at this time. He could be followed up by a short course of doxycycline in the range of 10-14 days. I do not see any contraindication for discharge when otherwise stable. Thank you for this consultation.
[2017-09-03] MEDS: FUROSEMIDE 80 MG TAB PO SCH (17:25)
[2017-09-03] MEDS: RIVAROXABAN 20 MG TAB PO SCH (17:25)
--- NOTE | 2017-09-03 18:22 | Progress Note ---
Medicine Progress Note Date & Time of Visit: Sep 03, 2017 at 18:16. Subjective 41 yo morbidly obese man with COPD, CHF and ESTEFANI with chronic hypoxia (on 4L O2 at home) presents with worsening SOB x 2-3 days and skin irritation on his legs in setting of cellulitis and multiple skin wounds. He was obtunded on 08/31 secondary to acute CO2 retention and was moved to the ICU. There he was continued on diuresis and high flow O2 as well as BiPAP with improvement in respiratory status and mentation. He was placed on steroids for COPD exacerbation. He was placed on antibiotics for severe cellulitis of the legs. He was continued on Lasix IV for diuresis. He was moved to telemetry on 09/01 and has continued to improve from a breathing standpoint. The patient reports not feeling much better from a breathing standpoint or cellulitis standpoint he does report some loosening of his skin possibly consistent with weight loss. He is constantly hungry and has issues with the fluid restriction. He was okay when hold the fluid restriction was liberalized 1800 mils day. He asks what he can snack on. Otherwise he is asymptomatic. Objective Last 8 Hrs Date Time Temp Pulse Resp B/P (MAP) Pulse Ox O2 Delivery O2 Flow Rate FiO2 09/03/17 16:00 Nasal Cannula 5.0 09/03/17 15:04 36.4 104 24 148/91 (110) 93 Nasal Cannula 5.0 09/03/17 13:43 98 45 09/03/17 13:42 104 24 97 BiPAP/CPAP 45 09/03/17 12:00 BiPAP 09/03/17 11:52 36.7 97 28 136/75 (95) 90 Room Air Physical Exam: GEN: morbid obesity, appears comfortable without tachypnea, +conversational dyspnea HEENT: NC/AT, normal sclerae CARDIO: Regular rate, S1/2 heard without m/g/r LUNGS: Clear to auscultation bilaterally ABD: soft, obese EXTREMITY: warm and well perfused. NEURO: Cranial nerves II through XII grossly intact, no gross focal deficits MUSC: Able to sit up in bed on his own, moves all extremities equally. SKIN: warm, dry, multiple wounds all over legs and in various different skin folds all over body. Continuous erythema of legs with increased warmth to touch bilaterally up to knee level. Leg wraps present bilaterally, nails have a black film around them. Laboratory Results: 09/02/17 06:28 Red Blood Count 3.42, Mean Corpuscular Volume 96.2, Mean Corpuscular Hemoglobin 28.7, Mean Corpuscular Hemoglobin Concent 29.8, Mean Platelet Volume 8.7, Neutrophils (%) (Auto) 82.4, Lymphocytes (%) (Auto) 7.4, Monocytes (%) (Auto) 9.3, Eosinophils (%) (Auto) 0.0, Basophils (%) (Auto) 0.1, Neutrophils # (Auto) 9.88, Lymphocytes # (Auto) 0.88, Monocytes # (Auto) 1.11, Eosinophils # (Auto) 0.00, Basophils # (Auto) 0.01 09/03/17 06:50 Test 08/30/17 17:20 08/30/17 17:29 08/30/17 20:06 08/30/17 21:07 Prothrombin Time 9.8 SECONDS (9.0-12.0) Prothromb Time International Ratio 0.9 (0.9-1.1) Activated Partial Thromboplast Time 25.4 SECONDS (21.0-31.0) Partial Thromboplastin Ratio 1.0 Estimated Average Glucose 160 mg/dl Hemoglobin A1c 7.2 % (4.5-5.6) Magnesium Level 2.0 mg/dl (1.8-2.4) Total Bilirubin 0.2 mg/dl (0.2-1) Direct Bilirubin < 0.1 mg/dl (0-0.2) Aspartate Amino Transf (AST/SGOT) 11 U/L (15-37) Alanine Aminotransferase (ALT/SGPT) 13 U/L (12-78) Alkaline Phosphatase 72 U/L (45-117) Pro-B-Type Natriuretic Peptide 51 pg/ml (0-450) Total Protein 7.6 gm/dl (6.4-8.2) Albumin 2.7 gm/dl (3.4-5.0) Thyroid Stimulating Hormone (TSH) 2.680 uIu/ml (0.300-4.500) Bedside Lactic Acid Venous 1.07 mmol/L (0.90-1.70) Ammonia 29.6 umol/L (11-32) Venous Blood pH 7.39 (7.36-7.41) Venous Blood Partial Pressure CO2 87 mmHg (38.0-50.0) Venous Blood Partial Pressure O2 46 mmHg Venous Blood HCO3 52 mmol/L Venous Blood Oxygen Saturation 78.6 % Venous Blood Base Excess 22.7 mEq/L Test 08/31/17 05:56 08/31/17 07:24 08/31/17 09:31 08/31/17 11:45 Absolute Reticulocyte Count 0.14 10^6/uL (0.02-0.10) Percent Reticulocyte Count 4.1 % (0.5-2.0) Iron Level 42 mcg/dl (35-175) Total Iron Binding Capacity 328 mcg/dl (250-450) Transferrin 238 mg/dl (200-360) Transferrin % Saturation 13 % (20-50) Ferritin 81.9 ng/ml (8.0-388.0) Troponin I < 0.015 ng/ml (0-0.045) Vitamin B12 Level 335 pg/mL (211-911) Folate 7.96 ng/mL (>5.38) Arterial Blood pH 7.37 (7.35-7.45) Arterial Blood Partial Pressure CO2 95 mmHg (35-46) Arterial Blood Partial Pressure O2 65 mm/Hg (80-95) Arterial Blood HCO3 54 mmol/L (19-24) Arterial Blood Oxygen Saturation 89.4 % (90-95) Arterial Blood Base Excess 24.4 mEq/L (-9-1.8) Arterial Blood Gas Delivery BIPAP 30/5 60% Fran Test POS (POS) Anti-Streptolysin O Antibody Screen POS IU/ml (<200 IU) Anti-Streptolysin O Antibody Titer 200 IU/ml (<200 IU) Urine Legionella Antigen NOT DETECTED (NOT DETECTED) Test 09/02/17 06:28 09/03/17 06:50 09/03/17 16:18 White Blood Count 11.97 K/uL (4.8-10.8) Red Blood Count 3.42 M/uL (4.7-6.1) Hemoglobin 9.8 g/dL (14.0-18.0) Hematocrit 32.9 % (42-52) Mean Corpuscular Volume 96.2 fL (80-100) Mean Corpuscular Hemoglobin 28.7 pg (25-34) Mean Corpuscular Hemoglobin Concent 29.8 g/dl (32-36) Platelet Count 363 K/uL (130-400) Mean Platelet Volume 8.7 fL (7.4-10.4) Neutrophils (%) (Auto) 82.4 % Lymphocytes (%) (Auto) 7.4 % Monocytes (%) (Auto) 9.3 % Eosinophils (%) (Auto) 0.0 % Basophils (%) (Auto) 0.1 % Neutrophils # (Auto) 9.88 K/uL (1.4-6.5) Lymphocytes # (Auto) 0.88 K/uL (1.2-3.4) Monocytes # (Auto) 1.11 K/uL (0.11-0.59) Eosinophils # (Auto) 0.00 K/uL (0-0.5) Basophils # (Auto) 0.01 K/uL (0-0.2) RDW Standard Deviation 61.5 fL (36.4-46.3) RDW Coefficient of Variation 17.7 % (11.5-14.5) Immature Granulocyte % (Auto) 0.8 % Immature Granulocyte # (Auto) 0.09 K/uL (0.00-0.02) Nucleated RBC Absolute Count (auto) 0.05 K/uL (0-0) Nucleated Red Blood Cells % 0.4 % Total Creatine Kinase 484 U/L (39-308) Anion Gap 0.0 mmol/L (3-11) Est Creatinine Clear Calc Drug Dose 244.2 ml/min Estimated GFR () 136.8 Estimated GFR (Non- 118.0 BUN/Creatinine Ratio 41.2 (10-20) Calcium Level 9.1 mg/dl (8.5-10.1) Bedside Glucose 193 mg/dl (70-99) Date/Time Source Procedure Growth Status 08/30/17 17:47 Blood Blood Culture - Preliminary NO GROWTH TO DATE. Resulted 08/31/17 10:20 Nasal MRSA DNA Surveillance Screen - Final Specimen Positive for MRSA by DNA Probe Complete Last 24 Hours Test 09/02/17 20:27 09/03/17 06:50 09/03/17 07:02 09/03/17 11:20 Bedside Glucose 182 mg/dl 121 mg/dl 170 mg/dl Sodium Level 134 mmol/L Potassium Level 3.1 mmol/L Chloride Level 82 mmol/L Carbon Dioxide Level 52 mmol/L Anion Gap 0.0 mmol/L Blood Urea Nitrogen 29 mg/dl Creatinine 0.70 mg/dl Est Creatinine Clear Calc Drug Dose 244.2 ml/min Estimated GFR () 136.8 Estimated GFR (Non- 118.0 BUN/Creatinine Ratio 41.2 Random Glucose 107 mg/dl Calcium Level 9.1 mg/dl Test 09/03/17 16:18 Bedside Glucose 193 mg/dl Assessment & Plan 41 yo morbidly obese man with COPD, CHF and ESTEFANI with chronic hypoxia (on 4L O2 at home) presents with worsening SOB x 2-3 days and skin irritation on his legs in setting of cellulitis and multiple skin wounds. He was obtunded on 08/31 secondary to acute CO2 retention and was moved to the ICU. There he was continued on diuresis and high flow O2 as well as BiPAP with improvement in respiratory status and mentation. He was placed on steroids for COPD exacerbation. He was placed on antibiotics for severe cellulitis of the legs. He was continued on Lasix IV for diuresis. He was moved to telemetry on 09/01 and has continued to improve from a breathing standpoint. The patient reports not feeling much better from a breathing standpoint or cellulitis standpoint he does report some loosening of his skin possibly consistent with weight loss. He is constantly hungry and has issues with the fluid restriction. He was okay when hold the fluid restriction was liberalized 1800 mils day. He asks what he can snack on. Otherwise he is asymptomatic. 1. Acute respiratory failure in setting of chronic hypoxemia 2/2 COPD on 4L oxygen at home-improved. Patient has chronic respiratory failure and is at baseline O2 requirements. He is not quite back to baseline yet. Trilogy machine is being ordered through case management for home use and has been approved. Continue BiPAP overnight. Continue prednisone 40 daily and bronchodilator therapy for COPD exacerbation. Patient on antibiotics for cellulitis as below. 2. Acute diastolic CHF exacerbation. Oral Lasix restarted. Metolazone continued to be held. Spironolactone started. As a result of starting spironolactone may need to reduce potassium supplementation. Sridhar PRP. 3. Bilateral lower extremity cellulitis-patient has multiple wounds all over legs and a body habitus that precludes thorough examination. There are multiple scratches on his legs. Per infectious disease will transition dapsone and ceftriaxone to doxycycline for total 10-14 days. Patient allowed to shower to help with wound healing and overall general cleanliness. 4. 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 Justin Beck. Had a DVT with PE in 2005 prior to cancer, however, was recommended to continue anticoagulant therapy per Oncology recs while he was here in May 2017. Continues on Xarelto 5. h/o metastatic adenocarcinoma of L axilla with unknown primary site-in remission as above. 6. DMII-metformin held, cont ISS/Lantus while inpatient. Currently at goal. 7. HTN-cont lisinopril, currently at goal 8. Morbid obesity 9. smoker 10. Noncompliance 11. Anemia-likely related to chronic disease. Slightly decreased from H/H in May 2017, but has been around this level in the past consistently. Heme positive stool in the ER poss 2/2 hemorrhoids. No active bleeding at this time. Cont to monitor. Cont Xarelto. 12. Hypokalemia-secondary to diuretic use, replaced Trend PRP in a.m. DVT proph-Xarelto Full Code Dispo-telemetry Zo Guerrero DO [facility] Hospitalist Consultants: Cardiology-Ronnie Garcia MD Pulmonary-Birgit Falcon MD Current Inpatient Medications: Current Inpatient Medications Medications (Trade) Dose Ordered Sig/Karissa Route Start Time Stop Time Status Last Admin Dose Admin Ipratropium Jefferson (Atrovent 0.02% 0.5MG/2.5ML Neb) 0.5 mg Q4H PRN INH 08/30/17 21:30 09/29/17 21:29 09/03/17 00:17 0.5 MG Levalbuterol (Xopenex 1.25MG/ 0.5ML Neb) 1.25 mg Q4H PRN INH 08/30/17 21:30 09/29/17 21:29 09/03/17 00:17 1.25 MG Acetaminophen (Tylenol Tab) 325 mg Q6H PRN PO 08/30/17 22:15 09/29/17 22:14 09/02/17 20:51 325 MG Nitroglycerin (Nitrostat Tab) 0.4 mg UD PRN SL 3/19/18 22:15 09/29/17 22:14 Glucose (Glucose 40% Gel) 15-30 GRAMS 15 GRAMS... UD PRN PO 08/30/17 22:15 09/29/17 22:14 Glucose (Glucose Chew Tab) 4-8 Tablets 4 Tabl... UD PRN PO 08/30/17 22:15 09/29/17 22:14 Dextrose (Dextrose 50% 50ML Syringe) 25-50ML OF 50% DW IV FOR... UD PRN IV 08/30/17 22:15 09/29/17 22:14 Glucagon (Glucagon Inj) 1 mg UD PRN SQ 08/30/17 22:15 09/29/17 22:14 Prochlorperazine Edisylate 5 mg/ Syringe 5 ml @ 5 mls/min Q6H PRN IV 08/30/17 22:15 09/29/17 22:14 Atorvastatin Calcium (Lipitor Tab) 40 mg DAILY PO 08/31/17 09:00 09/30/17 08:59 09/03/17 07:54 40 MG Ropinirole HCl (Requip Tab) 0.75 mg HS PO 08/31/17 21:00 09/30/17 20:59 09/02/17 20:42 0.75 MG Pantoprazole Sodium (Protonix Tab) 40 mg QAM PO 08/31/17 09:00 09/30/17 08:59 09/03/17 07:54 40 MG Lisinopril (Zestril Tab) 10 mg DAILY PO 08/31/17 09:00 10/01/17 08:59 09/03/17 07:54 10 MG Ipratropium Jefferson (Atrovent 0.02% 0.5MG/2.5ML Neb) 0.5 mg Q6R INH 08/31/17 03:00 09/30/17 02:59 09/03/17 13:40 0.5 MG Levalbuterol (Xopenex 1.25MG/ 0.5ML Neb) 1.25 mg Q6R INH 08/31/17 03:00 09/30/17 02:59 09/03/17 13:40 1.25 MG Insulin Aspart (novoLOG ASPART) SLIDING SCALE If C... ACHS SC 08/31/17 11:00 09/30/17 06:59 09/03/17 17:31 11 UNITS Rivaroxaban (Xarelto Tab) 20 mg DAILYBD PO 08/31/17 16:00 09/30/17 15:59 09/03/17 17:25 20 MG Ceftriaxone Sodium 2000 mg/ Dextrose 70 ml @ 100 mls/hr Q24H IV 08/31/17 10:00 09/07/17 09:59 09/03/17 11:17 100 MLS/HR Miscellaneous Information (Consult Glycemic Management Pharmacy) 1 ea UD PRN N/A 08/31/17 13:00 09/30/17 12:59 Nystatin (Mycostatin Powder) 1 appln DAILY EXT 09/01/17 09:00 10/01/17 08:59 09/03/17 08:51 1 APPLN Miscellaneous Information (Pharmacy Consult) 1 ea UD PRN N/A 08/31/17 13:30 09/30/17 13:29 Daptomycin 750 mg/ Syringe 15 ml @ 7.5 mls/min Q24H IV 08/31/17 20:00 09/10/17 19:59 09/02/17 20:51 7.5 MLS/MIN Furosemide 40 mg/ Syringe 4 ml @ 4 mls/min BID17 IV 09/01/17 17:00 10/01/17 16:59 Future Hold 09/02/17 17:03 4 MLS/MIN Potassium Chloride (Klor-Con Tab) 40 meq BID PO 09/01/17 09:00 10/01/17 08:59 09/03/17 07:53 40 MEQ Prednisone (PredniSONE TAB) 40 mg DAILY PO 09/03/17 09:00 10/03/17 08:59 09/03/17 08:51 40 MG Furosemide (Lasix Tab) 80 mg BID17 PO 09/03/17 17:00 10/03/17 16:59 09/03/17 17:25 80 MG Spironolactone (Aldactone Tab) 25 mg DAILY@0830 PO 09/04/17 08:30 10/04/17 08:29 Insulin Glargine (Lantus Solostar Pen) SEE PROTOCOL BID SC 09/03/17 21:00 10/03/17 20:59
[2017-09-03] MEDS: ROPINIROLE HCL 0.25 MG TAB PO SCH (19:55)
[2017-09-03] MEDS: DOXYCYCLINE HYCLATE 100 MG CAP PO SCH (19:59)
[2017-09-03] MEDS: ACETAMINOPHEN 325 MG TAB PO PRN (22:15)
[2017-09-04] VITALS (13 sets, daily range): BP systolic 106–153; BP diastolic 51–70; PULSE 86–107; TEMP 36.4–37; O2SAT 91–98
[2017-09-04] MEDS ORDERED: ZOLPIDEM TARTRATE 5 MG TAB PO STA (01:11)
[2017-09-04] MEDS: LEVALBUTEROL 1.25MG/0.5ML NEB INH SCH ×4 (01:43→19:20)
[2017-09-04] MEDS: IPRATROPIUM BROMIDE NEB SOLN 0.02% 2.5 ML VIAL INH SCH ×4 (01:43→19:20)
[2017-09-04 07:07] LABS: HEMATOCRIT 33.4 % (42-52); HEMOGLOBIN 10.1 g/dL (14.0-18.0); MEAN CELL VOLUME 95.4 fL (80-100); MEAN CORPUSCULAR HEMOGLOBIN 28.9 pg (25-34); MEAN CORPUSCULAR HGB CONC 30.2 g/dl (32-36); MEAN PLATELET VOLUME 8.5 fL (7.4-10.4); NUCLEATED RED BLOOD CELL ABS 0.02 K/uL (0-0); PLATELET COUNT 347 K/uL (130-400); RED CELL DISTRIBUTION WIDTH CV 17.6 % (11.5-14.5); RED CELL DISTRIBUTION WIDTH SD 61.2 fL (36.4-46.3); WHITE BLOOD COUNT 10.75 K/uL (4.8-10.8)
[2017-09-04 08:22] LABS: CALCIUM 9.3 mg/dl (8.5-10.1); CREATININE 0.69 mg/dl (0.60-1.40); POTASSIUM 3.6 mmol/L (3.5-5.1)
[2017-09-04] MEDS ORDERED: SPIRONOLACTONE 25 MG TAB PO SCH (08:30)
[2017-09-04] MEDS: NYSTATIN POWDER 15GM BTL EXT SCH (08:39)
[2017-09-04] MEDS: PANTOprazole SOD 40 MG TAB PO SCH (08:39)
[2017-09-04] MEDS: DOXYCYCLINE HYCLATE 100 MG CAP PO SCH ×2 (08:39→20:58)
[2017-09-04] MEDS: ATORVASTATIN 40 MG TAB PO SCH (08:39)
[2017-09-04] MEDS: FUROSEMIDE 80 MG TAB PO SCH ×2 (08:39→17:14)
[2017-09-04] MEDS: LISINOPRIL 10 MG TAB PO SCH (08:40)
[2017-09-04] MEDS: POTASSIUM CHLORIDE 20 MEQ TABCR PO SCH (08:40)
[2017-09-04] MEDS: INSULIN ASPART 100 UNITS/ML 3 ML PEN SC SCH ×4 (08:46→21:03)
[2017-09-04] MEDS: INSULIN GLARGINE SOLOSTAR 100 UNITS/ML 3 ML PEN SC SCH ×2 (08:46→21:04)
[2017-09-04] MEDS ORDERED: NURSING DECISION MEDICATION ORDER SCH (12:15)
[2017-09-04] MEDS ORDERED: EUCERIN CR 120 GM JAR EXT PRN (12:30)
--- NOTE | 2017-09-04 13:09 | Pharmacy Progress Note ---
Pharmacy Glycemic Short Note 2 Date of Service Sep 04, 2017. OUTPATIENT ANTIDIABETIC REGIMEN: * Metformin 500 mg daily * A1c 7.2% on 08/30/17 ASSESSMENT: 09/04/17 * Mr. Garcia received 76 units of insulin yesterday * Fasting BSG 124 this AM * Postprandial BSGs: 170, 193, 227 - all above goal * Remains on prednisone 40 mg daily * Est TDD ~100 units * Would like to keep basal at ~40% of TDD, and prandial ~60%, since steroids are on board * Current basal dose appropriate but will give larger dose in the AM to coincide with AM prednisone. If this doesn't work well, can consider transitioning to once daily NPH to match kinetics of once daily prednisone * CR will be tightened to provide more prandial coverage 09/03/17 * The patient is currently receiving 81 units of insulin per day. BSGs ranging 107 - 182 mg/dl over the past 24hrs. Given downtrend of fast AM BSG and tapering of steroids, I will slightly reduce morning lantus dose and place an evening scale. It is noted that the patient has been transitioned to PO prednisone starting this morning. PLAN FOR INPATIENT GLYCEMIC CONTROL: * Hold outpatient oral diabetes medications * Basal insulin * Change to Lantus 30 units qAM, 10 units qPM * Bolus insulin * NovoLog per scale ACHS or Q6hrs while NPO * Goal Range: Low 110 mg/dL - High 140 mg/dL * Correction Factor: 18 mg/dL/unit * TIGHTEN Nutritional / Prandial insulin per carb ratio of 1 unit per 3 grams CHO consumed (initially tightened to 4 with breakfast but postprandial BSG has risen by 100 mg/dL so tightened further) PLAN FOR DISCHARGE: * A1c slightly above goal for patient age * Looks like patient was on metformin BID in the past, so I'm not sure if he had adverse events with this higher dose. If not, would recommend increasing back to BID to further improve A1c.
--- NOTE | 2017-09-04 13:09 | PROGRESS NOTE ---
DATE: 09/04/2017 CARDIOLOGY CONSULTATION FOLLOWUP NOTE Laboratories and chart reviewed. SUBJECTIVE: The patient has no significant change and continued to manifest ongoing diuresis. Weight is down now 18 kilograms by bed scale. Diuretics have been changed to oral furosemide. RECOMMENDATIONS: We will continue current dosing of furosemide 80 mg twice per day. Once again add spironolactone at higher dosing at 25 mg twice per day. We will discontinue oral potassium supplement. BiPAP/CPAP is essential for this patient.
[2017-09-04] MEDS: RIVAROXABAN 20 MG TAB PO SCH (17:15)
--- NOTE | 2017-09-04 17:57 | Progress Note ---
Internal Med Progress Note Date of Service: Sep 04, 2017. Provider Documentation: SUBJECTIVE: sitting on the chair comfortably afebrile' says sob improved denies any chest pain or abdominal pain no headaches asking when he will be discharged and ok to stay until Wednesday OBJECTIVE: Vital Signs-as noted below Exam: General-alert and oriented. Not in distress. Obese ENT-Normal hearing Neck-no neck masses Lungs-cta b/l no wheezing or crackles Heart-S 1 and s2 heard regular no murmurs Abdomen-soft bowel sounds present non tender no distension Extremities-lower extremity in dressings Neuro-alert and awake moves extremities Lab data as noted below. ASSESSMENT & PLAN: 1. Acute on chronic respiratory failure in setting of chronic hypoxemia 2/2 COPD on 4L oxygen at home. ACute diastolic CHF ESTEFANI Improved plan for trilogy at home on prednisone and nebs 2. Acute diastolic CHF exacerbation. Received Lasix. appreciate cardiology inputs,. Currently on Lasix 80mg bid and Aldactone 25mg bid and KCL supplements stopped. 3. Bilateral lower extremity cellulitis-HAs multiple wounds all over legs and in dressings. Per infectious disease will transition dapsone and ceftriaxone to doxycycline for total 10-14 days. Needs help with shower and cleanliness. 4. 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 Justin Beck. Had a DVT with PE in 2005 prior to cancer, however, was recommended to continue anticoagulant therapy per Oncology recs while he was here in May 2017". On Xarelto. 5. h/o metastatic adenocarcinoma of L axilla with unknown primary site- as above. 6. DMII-metformin held, On ISS/Lantus while inpatient. Will monitor. 7. HTN-On lisinopril, currently at goal. Will monitor. 8. Morbid obesity 9. smoker 10. Noncompliance 11. Anemia-likely related to chronic disease. Slightly decreased from H/H in May 2017, but has been around this level in the past consistently. Heme positive stool in the ER poss 2/2 hemorrhoids. No active bleeding at this time. Cont to monitor. On Xarelto. 12. Hypokalemia-secondary to diuretic use, replaced .Started on Aldactone and kcl supplement stopped. will f/u labs. DVT proph-Xarelto DISPOSITION to be determined Vital Signs: Date Time Temp Pulse Resp B/P (MAP) Pulse Ox O2 Delivery O2 Flow Rate FiO2 09/04/17 16:00 Nasal Cannula 4.0 09/04/17 15:38 36.9 94 22 153/51 (85) 92 4.0 09/04/17 14:18 86 22 92 Nasal Cannula 5.0 09/04/17 12:51 36.4 103 22 106/56 (73) 91 Nasal Cannula 4.0 09/04/17 12:10 94 Nasal Cannula 4.5 09/04/17 11:51 36.7 98 16 126/69 (88) 94 09/04/17 08:00 37.0 92 26 121/70 (87) 96 Nasal Cannula 4.5 09/04/17 08:00 Nasal Cannula 4.5 09/04/17 07:05 97 24 92 Nasal Cannula 5.0 09/04/17 04:45 107 96 30 09/04/17 04:00 BiPAP 09/04/17 03:39 36.8 100 22 117/62 (80) 98 BiPAP 09/04/17 01:45 99 96 30 09/04/17 01:44 99 26 96 BiPAP/CPAP 30 09/04/17 00:00 BiPAP 09/03/17 23:39 36.6 99 20 124/62 (82) 96 Nasal Cannula 5.0 09/03/17 22:50 99 96 30 09/03/17 20:10 36.7 101 22 131/47 (75) 100 Nasal Cannula 5.0 09/03/17 20:00 BiPAP 09/03/17 19:05 107 22 92 Nasal Cannula 6.0 Lab Results: Results Past 24 Hours Test 09/03/17 20:28 09/04/17 06:36 09/04/17 06:48 09/04/17 11:36 Range/Units Bedside Glucose 227 124 140 70-99 mg/dl White Blood Count 10.75 4.8-10.8 K/uL Red Blood Count 3.50 4.7-6.1 M/uL Hemoglobin 10.1 14.0-18.0 g/dL Hematocrit 33.4 42-52 % Mean Corpuscular Volume 95.4 80-100 fL Mean Corpuscular Hemoglobin 28.9 25-34 pg Mean Corpuscular Hemoglobin Concent 30.2 32-36 g/dl RDW Standard Deviation 61.2 36.4-46.3 fL RDW Coefficient of Variation 17.6 11.5-14.5 % Platelet Count 347 130-400 K/uL Mean Platelet Volume 8.5 7.4-10.4 fL Nucleated RBC Absolute Count (auto) 0.02 0-0 K/uL Nucleated Red Blood Cells % 0.2 % Sodium Level 136 136-145 mmol/L Potassium Level 3.6 3.5-5.1 mmol/L Chloride Level 88 98-107 mmol/L Carbon Dioxide Level 45 21-32 mmol/L Anion Gap 3.0 3-11 mmol/L Blood Urea Nitrogen 24 7-18 mg/dl Creatinine 0.69 0.60-1.40 mg/dl Est Creatinine Clear Calc Drug Dose 244.6 ml/min Estimated GFR () 137.6 Estimated GFR (Non- 118.7 BUN/Creatinine Ratio 35.0 10-20 Random Glucose 113 70-99 mg/dl Calcium Level 9.3 8.5-10.1 mg/dl Magnesium Level 2.4 1.8-2.4 mg/dl Total Creatine Kinase 199 39-308 U/L Test 09/04/17 12:37 09/04/17 16:39 Range/Units Bedside Glucose 240 178 70-99 mg/dl
[2017-09-04] MEDS: SPIRONOLACTONE 25 MG TAB PO SCH (20:56)
[2017-09-04] MEDS: ROPINIROLE HCL 0.25 MG TAB PO SCH (20:57)
[2017-09-05] VITALS (10 sets, daily range): BP systolic 122–131; BP diastolic 52–64; PULSE 82–108; TEMP 36.7–37.3; O2SAT 92–98
[2017-09-05] MEDS: LEVALBUTEROL 1.25MG/0.5ML NEB INH SCH ×4 (02:08→19:28)
[2017-09-05] MEDS: IPRATROPIUM BROMIDE NEB SOLN 0.02% 2.5 ML VIAL INH SCH ×4 (02:08→19:28)
[2017-09-05] MEDS: SPIRONOLACTONE 25 MG TAB PO SCH ×2 (08:24→21:08)
[2017-09-05] MEDS: DOXYCYCLINE HYCLATE 100 MG CAP PO SCH ×2 (08:24→21:09)
[2017-09-05] MEDS: PANTOprazole SOD 40 MG TAB PO SCH (08:25)
[2017-09-05] MEDS: LISINOPRIL 10 MG TAB PO SCH (08:25)
[2017-09-05] MEDS: NYSTATIN POWDER 15GM BTL EXT SCH (08:26)
[2017-09-05] MEDS: ATORVASTATIN 40 MG TAB PO SCH (08:26)
[2017-09-05] MEDS: FUROSEMIDE 80 MG TAB PO SCH ×2 (08:28→16:42)
[2017-09-05 08:36] LABS: CALCIUM 8.9 mg/dl (8.5-10.1); CREATININE 0.74 mg/dl (0.60-1.40); POTASSIUM 3.5 mmol/L (3.5-5.1)
[2017-09-05] MEDS: INSULIN ASPART 100 UNITS/ML 3 ML PEN SC SCH ×4 (09:09→21:21)
[2017-09-05] MEDS: INSULIN GLARGINE SOLOSTAR 100 UNITS/ML 3 ML PEN SC SCH ×2 (09:09→21:22)
--- NOTE | 2017-09-05 09:24 | Pharmacy Progress Note ---
Pharmacy Glycemic Short Note 2 Date of Service Sep 05, 2017. OUTPATIENT ANTIDIABETIC REGIMEN: * Metformin 500 mg daily * A1c 7.2% on 08/30/17 Test 09/04/17 11:36 09/04/17 12:37 09/04/17 16:39 09/04/17 19:48 Bedside Glucose 140 mg/dl (70-99) 240 mg/dl (70-99) 178 mg/dl (70-99) 122 mg/dl (70-99) Test 09/05/17 07:31 09/05/17 07:49 Random Glucose 102 mg/dl (70-99) Bedside Glucose 108 mg/dl (70-99) ASSESSMENT: 09/05/17 * Mr. Garcia received 113 units of insulin yesterday * Fasting BSG is acceptable * Postprandial BSGs elevated yesterday but improved w/ tightened CR * No changes to causes of insulin resistance * Prednisone 40 mg daily continues 09/04/17 * Mr. Garcia received 76 units of insulin yesterday * Fasting BSG 124 this AM * Postprandial BSGs: 170, 193, 227 - all above goal * Remains on prednisone 40 mg daily * Est TDD ~100 units * Would like to keep basal at ~40% of TDD, and prandial ~60%, since steroids are on board * Current basal dose appropriate but will give larger dose in the AM to coincide with AM prednisone. If this doesn't work well, can consider transitioning to once daily NPH to match kinetics of once daily prednisone * CR will be tightened to provide more prandial coverage 09/03/17 * The patient is currently receiving 81 units of insulin per day. BSGs ranging 107 - 182 mg/dl over the past 24hrs. Given downtrend of fast AM BSG and tapering of steroids, I will slightly reduce morning lantus dose and place an evening scale. It is noted that the patient has been transitioned to PO prednisone starting this morning. PLAN FOR INPATIENT GLYCEMIC CONTROL: * Continue to hold outpatient oral diabetes medications * Basal insulin - no change * Lantus 30 units qAM, 10 units qPM * Bolus insulin - no change * NovoLog per scale ACHS or Q6hrs while NPO * Goal Range: Low 110 mg/dL - High 140 mg/dL * Correction Factor: 18 mg/dL/unit * Nutritional / Prandial insulin per carb ratio of 1 unit per 3 grams CHO consumed PLAN FOR DISCHARGE: * A1c slightly above goal for patient age * Looks like patient was on metformin BID in the past, so I'm not sure if he had adverse events with this higher dose. If not, would recommend increasing back to BID to further improve A1c.
[2017-09-05] MEDS ORDERED: POTASSIUM CHLORIDE 20 MEQ TABCR PO ONE (10:15)
--- NOTE | 2017-09-05 11:16 | PROGRESS NOTE ---
DATE: 09/05/2017 CARDIOLOGY CONSULTATION FOLLOWUP NOTE The patient seen and examined. Chart, laboratory studies reviewed. SUBJECTIVE: The patient feels slightly better today. He is complaining of fluid restriction. Notes no chest pains. Notes no tachypalpitations. Notes no dizziness. Has been using CPAP/BiPAP overnight. OBJECTIVE: VITAL SIGNS: Heart rate is 83, blood pressure is 131/50. HEENT: Normocephalic and atraumatic. NECK: Thick. There is no distinct jugular venous distention. LUNGS: Reveal markedly diminished breath sounds. CARDIOVASCULAR: Regular. There is no S3 gallop. ABDOMEN: Soft, obese with large panniculus. EXTREMITIES: Reveal chronic stasis changes in lower extremities. LABORATORY STUDIES: Sodium is 137, potassium is 3.5, chloride is 91, bicarbonate is 33, BUN is 26, and creatinine is 0.74. IMPRESSION: A 41-year-old male with acute on chronic mixed respiratory failure secondary to hypoventilation, pickwickian syndrome, complicated by right heart failure and acute lower extremity edema and cellulitis. The patient is gradually improving. Predominant reason being oxygen and BiPAP supplementation. RECOMMENDATIONS: Will continue diuretics with furosemide 80 mg twice per day, add back potassium 20 mEq q.a.m. Continue spironolactone 25 mg twice per day.
--- NOTE | 2017-09-05 15:49 | Progress Note ---
Internal Med Progress Note Date of Service: Sep 05, 2017. Provider Documentation: SUBJECTIVE: resting in bed comfortably family in room afebrile' denies sob or chest pain on cough wants to go home in am OBJECTIVE: Vital Signs-as noted below Exam: General-alert and oriented. Not in distress. Obese ENT-Normal hearing Neck-no neck masses Lungs-cta b/l no wheezing or crackles Heart-S 1 and s2 heard regular no murmurs Abdomen-soft bowel sounds present non tender no distension Extremities-lower extremity in dressings Neuro-alert and awake moves extremities Lab data as noted below. ASSESSMENT & PLAN: 1. Acute on chronic respiratory failure in setting of chronic hypoxemia 2/2 COPD on 4L oxygen at home. ACute diastolic CHF ESTEFANI Improved plan for trilogy at home on prednisone and nebs stable currently 2. Acute diastolic CHF exacerbation. Received Lasix. appreciate cardiology inputs,. Currently on Lasix 80mg bid and Aldactone 25mg bid and KCL supplement. will monitor. 3. Bilateral lower extremity cellulitis-HAs multiple wounds all over legs and in dressings. Per infectious disease will transition dapsone and ceftriaxone to doxycycline for total 10-14 days. Needs help with shower and cleanliness.needs followup 4. 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 Justin Beck. Had a DVT with PE in 2005 prior to cancer, however, was recommended to continue anticoagulant therapy per Oncology recs while he was here in May 2017". On Xarelto. 5. h/o metastatic adenocarcinoma of L axilla with unknown primary site- as above. 6. DMII-metformin held, On ISS/Lantus while inpatient. Will monitor. 7. HTN-On lisinopril, currently at goal. Will monitor. 8. Morbid obesity 9. smoker 10. Noncompliance 11. Anemia-likely related to chronic disease. Slightly decreased from H/H in May 2017, but has been around this level in the past consistently. Heme positive stool in the ER poss 2/2 hemorrhoids. No active bleeding at this time. Cont to monitor. On Xarelto. 12. Hypokalemia-secondary to diuretic use, replaced .Started on Aldactone and cut back on kcl supplement. will f/u labs. DVT proph-Xarelto DISPOSITION pt/ot possible d/c in am social service for d/c planning Vital Signs: Date Time Temp Pulse Resp B/P (MAP) Pulse Ox O2 Delivery O2 Flow Rate FiO2 09/05/17 16:00 Nasal Cannula 4.0 09/05/17 15:55 37.3 104 22 122/64 (83) 94 4.0 09/05/17 14:24 104 22 98 Nasal Cannula 4.0 09/05/17 08:30 94 Nasal Cannula 4.0 09/05/17 07:41 82 22 94 Nasal Cannula 4.0 09/05/17 07:32 36.7 83 20 131/52 (78) 94 4.0 09/05/17 02:06 106 22 94 Nasal Cannula 4.0 09/05/17 02:02 106 94 30 09/05/17 00:30 92 Nasal Cannula 4.0 30 CPAP Nebulizer 09/04/17 22:24 36.7 107 20 122/69 (86) 93 Nasal Cannula 4.0 09/04/17 19:22 88 22 92 Nasal Cannula 4.0 Lab Results: Results Past 24 Hours Test 09/04/17 19:48 09/05/17 07:31 09/05/17 07:49 09/05/17 11:55 Range/Units Bedside Glucose 122 108 118 70-99 mg/dl Sodium Level 137 136-145 mmol/L Potassium Level 3.5 3.5-5.1 mmol/L Chloride Level 91 98-107 mmol/L Carbon Dioxide Level 43 21-32 mmol/L Anion Gap 3.0 3-11 mmol/L Blood Urea Nitrogen 26 7-18 mg/dl Creatinine 0.74 0.60-1.40 mg/dl Est Creatinine Clear Calc Drug Dose 227.8 ml/min Estimated GFR () 133.7 Estimated GFR (Non- 115.4 BUN/Creatinine Ratio 34.6 10-20 Random Glucose 102 70-99 mg/dl Calcium Level 8.9 8.5-10.1 mg/dl Test 09/05/17 16:27 Range/Units Bedside Glucose 204 70-99 mg/dl
[2017-09-05] MEDS: RIVAROXABAN 20 MG TAB PO SCH (16:42)
[2017-09-05] MEDS: ACETAMINOPHEN 325 MG TAB PO PRN (21:08)
[2017-09-05] MEDS: ROPINIROLE HCL 0.25 MG TAB PO SCH (21:09)
[2017-09-05] MEDS ORDERED: GABAPENTIN 100 MG CAP PO STA (22:33)
[2017-09-06] VITALS (7 sets, daily range): BP systolic 130; BP diastolic 76; PULSE 98–116; TEMP 37; O2SAT 96–98
[2017-09-06] MEDS: IPRATROPIUM BROMIDE NEB SOLN 0.02% 2.5 ML VIAL INH SCH ×2 (01:30→07:00)
[2017-09-06] MEDS: LEVALBUTEROL 1.25MG/0.5ML NEB INH SCH ×2 (01:30→07:00)
[2017-09-06] MEDS ORDERED: POTASSIUM CHLORIDE 20 MEQ TABCR PO SCH (08:00)
[2017-09-06 08:06] LABS: CALCIUM 8.8 mg/dl (8.5-10.1); CREATININE 0.76 mg/dl (0.60-1.40); POTASSIUM 3.6 mmol/L (3.5-5.1)
[2017-09-06] MEDS: NYSTATIN POWDER 15GM BTL EXT SCH (08:06)
[2017-09-06] MEDS: SPIRONOLACTONE 25 MG TAB PO SCH (08:09)
[2017-09-06] MEDS: ATORVASTATIN 40 MG TAB PO SCH (08:10)
[2017-09-06] MEDS: PANTOprazole SOD 40 MG TAB PO SCH (08:12)
[2017-09-06] MEDS: DOXYCYCLINE HYCLATE 100 MG CAP PO SCH (08:14)
[2017-09-06] MEDS: LISINOPRIL 10 MG TAB PO SCH (08:15)
[2017-09-06] MEDS: FUROSEMIDE 80 MG TAB PO SCH (08:16)
[2017-09-06] MEDS: INSULIN GLARGINE SOLOSTAR 100 UNITS/ML 3 ML PEN SC SCH (08:39)
[2017-09-06] MEDS: INSULIN ASPART 100 UNITS/ML 3 ML PEN SC SCH ×2 (08:39→12:44)
[2017-09-06] MEDS ORDERED: DXY100 PO (12:16)
[2017-09-06] MEDS ORDERED: SPR25 PO (12:16)
[2017-09-06] MEDS ORDERED: MCRK20 PO (12:16)
[2017-09-06] MEDS ORDERED: LSX80 PO (12:16)
--- NOTE | 2017-09-06 12:21 | Discharge Instructions ---
Discharge Instructions Date of Service Sep 06, 2017. Admission Reason for Admission: Respiratory Failure Discharge Discharge Diagnosis / Problem: acute on chromnic resp failure, acute diastolic chf, ESTEFANI Discharge Goals Goal(s): Decrease discomfort, Improve function Activity Recommendations Activity Limitations: resume your previous activity . Instructions / Follow-Up Instructions / Follow-Up FOLLOWUP WITH FAMILY DOCTOR Sundar Mays ON August AT 10:45AM FOLLOW UP WITH CARDIOLOGY IN 1-2 WEEKS FOLLOWUP WITH WOUND CLINIC IN 1-2 WEEKS LAB: BMP WITH MG LEVELS IN 5-7 DAYS AND FOLLOW RESULTS WITH FAMILY DOCTOR LASIX DOSE INCREASED AND ALDACTONE ADDED. PLEASE GO THROUGH MEDICATION LIST CAREFULLY LASIX DOSE HAS BEEN CHANGED SPIRONOLACTONE ADDED, POTASSIUM SUPPLEMENT DOSE CHANGED. TO USE OXYGEN 3LTS CONTINUOUS AND TRILOGY WHILE SLEEPING. Call your Primary Care doctor if any of the following symptoms or problems start or get worse: * Shortness of breath or difficulty breathing * Wake up at night short of breath * Chest pain * Cough * Swelling of your hands, feet, or legs * More fatigued or tired with your normal activity * Palpitations - sudden fast heart beats WEIGHT * Weigh yourself every morning after using the bathroom. * Use the same scale. * Wear the same amount of clothing. * Write your weight down on a chart. * Call your Primary Care doctor if you gain more than 2-3 pounds in 1-2 days. MEDICATIONS * Use this discharge instruction sheet for medication instructions. * Take your medications at the time your doctor ordered. * Do not skip a dose of your medicines. * If you miss a dose of medicine, take it as soon as possible, but DO NOT DOUBLE A DOSE. * Read your medicine information when you get home. * Know all of the side effects of your medicine. If in doubt, ask your pharmacist * Call your Primary Care doctor's office if you have any side effects. * Be sure all of your doctors know what medicine and herbs you take (including cold, flu, and herbal medicine). Take the following with you to your follow-up doctor appointments: * Weight Chart * Medication List * List of questions Do not drink excessive alcohol, beer or wine. Current Hospital Diet Patient's current hospital diet: Diabetes Type 2 Diet Discharge Diet Recommended Diet: AHA Diet (Heart Healthy), Diabetes Type 2 Diet Fluid Restriction: 2000 ml (8 cups) Pending Studies Studies pending at discharge: no Laboratory Results Hemoglobin A1c Test 08/30/17 17:20 Range/Units Estimated Average Glucose 160 mg/dl Hemoglobin A1c 7.2 H 4.5-5.6 % Medical Emergencies . Who to Call and When: Call 911 or go to the Emergency Room if: * If at any time you feel your situation is an emergency * You have tightness or pain in your chest that does not go away with rest or Nitroglycerin * You are very short of breath even with rest . Non-Emergent Contact Non-Emergency issues call your: Primary Care Provider . . "Provider Documentation" section prepared by Juaquin Mccann. .
--- NOTE | 2017-09-06 14:38 | Progress Note ---
Internal Med Progress Note Date of Service: Sep 06, 2017. Provider Documentation: SUBJECTIVE: resting in chair comfortably denies sob or chest pain eating ok moved bowels afebrile want to be discharged OBJECTIVE: Vital Signs-as noted below Exam: General-alert and oriented. Not in distress. Obese ENT-Normal hearing Neck-no neck masses Lungs-cta b/l no wheezing or crackles Heart-S 1 and s2 heard regular no murmurs Abdomen-soft bowel sounds present non tender no distension Extremities-lower extremity in dressings Neuro-alert and awake moves extremities Lab data as noted below. ASSESSMENT & PLAN: 1. Acute on chronic respiratory failure in setting of chronic hypoxemia 2/2 COPD on 4L oxygen at home. ACute diastolic CHF ESTEFANI Improved plan for trilogy at home on prednisone and nebs stable currently discharged home f/u with pcp 2. Acute diastolic CHF exacerbation. Received Lasix. appreciate cardiology inputs,. Currently on Lasix 80mg bid and Aldactone 25mg bid and KCL supplement. f/u lab bmp in 5-7 days. stable. f/u with pcp and cardiology. 3. Bilateral lower extremity cellulitis-HAs multiple wounds all over legs and in dressings. Per infectious disease will transition dapsone and ceftriaxone to doxycycline for total 10-14 days. Needs help with shower and cleanliness.needs followup with pcp and wound clinic 4. 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 Justin Beck. Had a DVT with PE in 2005 prior to cancer, however, was recommended to continue anticoagulant therapy per Oncology recs while he was here in May 2017". On Xarelto. 5. h/o metastatic adenocarcinoma of L axilla with unknown primary site- as above. 6. DMII-metformin held, On ISS/Lantus while inpatient. hba1c 7.2 d/c on home meds 7. HTN-On lisinopril, currently at goal. Will monitor. 8. Morbid obesity 9. smoker 10. Noncompliance 11. Anemia-likely related to chronic disease. Slightly decreased from H/H in May 2017, but has been around this level in the past consistently. Heme positive stool in the ER poss 2/2 hemorrhoids. No active bleeding at this time. hb stable.Cont to monitor. On Xarelto. 12. Hypokalemia-secondary to diuretic use, replaced .Started on Aldactone and cut back on kcl supplement. f/u labs with pcp. discharged home with home health Vital Signs: Date Time Temp Pulse Resp B/P (MAP) Pulse Ox O2 Delivery O2 Flow Rate FiO2 09/06/17 12:40 37.0 116 22 97 Nasal Cannula BiPAP 09/06/17 10:00 Nasal Cannula 4.0 09/06/17 07:56 97 Nasal Cannula 4.0 09/06/17 07:47 37.0 116 22 130/76 (94) 97 Nasal Cannula 4.0 09/06/17 07:01 109 20 98 Nasal Cannula 4.0 09/06/17 01:34 102 25 97 BiPAP/CPAP 30 09/06/17 01:34 102 97 30 09/06/17 00:09 98 96 30 09/06/17 00:00 98 Nasal Cannula 4.0 09/05/17 23:19 36.8 108 20 123/63 (83) 95 Nasal Cannula 4.0 09/05/17 19:28 99 22 98 Nasal Cannula 4.0 09/05/17 16:00 Nasal Cannula 4.0 09/05/17 15:55 37.3 104 22 122/64 (83) 94 4.0 Lab Results: Results Past 24 Hours Test 09/05/17 16:27 09/05/17 20:45 09/06/17 07:12 09/06/17 07:23 Range/Units Bedside Glucose 204 104 96 70-99 mg/dl Sodium Level 137 136-145 mmol/L Potassium Level 3.6 3.5-5.1 mmol/L Chloride Level 94 98-107 mmol/L Carbon Dioxide Level 42 21-32 mmol/L Anion Gap 1.0 3-11 mmol/L Blood Urea Nitrogen 25 7-18 mg/dl Creatinine 0.76 0.60-1.40 mg/dl Est Creatinine Clear Calc Drug Dose 222.2 ml/min Estimated GFR () 132.3 Estimated GFR (Non- 114.1 BUN/Creatinine Ratio 32.8 10-20 Random Glucose 89 70-99 mg/dl Calcium Level 8.8 8.5-10.1 mg/dl Test 09/06/17 11:56 Range/Units Bedside Glucose 132 70-99 mg/dl
--- NOTE | 2017-09-06 16:48 | Discharge Summary ---
Discharge Summary Date of Service Sep 06, 2017. Discharge Summary Admission Date: Aug 30, 2017 at 21:22 Discharge Date: Sep 06, 2017 Discharge Disposition: Home with services Principal Diagnosis: ACUTE ON CHRONIC RESP FAILURE ACUTE DIASTOLIC CHF ESTEFANI Secondary Diagnoses/Problems: chronic respiratory failure on home O2, COPD, ongoing tobacco abuse, OHS/CPAP noncompliance, history of PE on Xarelto, HTN, DM2, on oral meds, history of adenocarcinoma, unknown primary status post chemotherapy, lymphoma as per records, chronic anemia (baseline hemoglobin of 9-11). Procedures: CXR: 1. Cardiomegaly and suspected mild pulmonary vascular congestion 2. No evidence of lobar consolidation 3. Technically limited study secondary to the patient's large body habitus CT HEAD: 1. Inflammatory changes within the left frontal ethmoid and maxillary sinuses 2. Otherwise no acute intracranial findings CT ABD/PELVIS: 1. Technically limited study secondary to the patient's large body habitus 2. No evidence of bowel obstruction. No evidence of free air 3. No acute inflammatory changes identified 4. Mildly enlarged left para-aortic, iliac and inguinal lymph nodes ECHO: Qualitative LV systolic function appears normal in isolated subcostal view. * Grossly normal right ventricular size and function in subcostal view. * Normal inferior vena cava size and collapsability with sniff indicates a normal right atrial pressure of 3 mmHg Consultations: Cardiology-Ronnie Garcia MD Pulmonary-Birgit Falcon MD Medication Reconciliation New Medications: Doxycycline Hyclate (Doxycycline Hyclate) 100 Mg Cap 100 MG PO BID for 10 Days, #20 CAP Furosemide (Furosemide) 80 Mg Tab 80 MG PO BID17, #60 TAB 2 Refills Potassium Chloride (Klor-Con M20) 20 Meq Tabcr 20 MEQ PO QAM, #30 2 Refills Spironolactone (Spironolactone) 25 Mg Tab 25 MG PO BID, #60 TAB 2 Refills Continued Medications: Albuterol Hfa (Ventolin Hfa) 200 Puffs/06726 Mcg Aers 2 PUFFS INH Q4H PRN for SOB/Wheezing Atorvastatin (Lipitor) 40 Mg Tab 40 MG PO DAILY Home O2 Therapy (Oxygen) Gas 3 LITERS NA CONTINOUS Ipratropium-Albuterol (Duoneb) 3 Ml Nebu 3 ML INH QID PRN for SOB/Wheezing, INHA Lisinopril (Lisinopril) 10 Mg Tab 10 MG PO DAILY Metformin Hcl (Glucophage) 500 Mg Tab 500 MG PO DAILY, TAB Omeprazole (Prilosec) 40 Mg Cap 40 MG PO DAILY TAKE THIS MEDICATION ONCE DAILY ONE HOUR BEFORE FIRST MEAL OF THE DAY Rivaroxaban (Xarelto) 20 Mg Tab 20 MG PO DAILY Ropinirole HCl (Ropinirole HCl) 0.25 Mg Tab 0.25 MG PO HS TAKE ONE 0.25 MG TABLET ALONG WITH ONE 0.5 MG TABLET TO EQUAL BEDTIME DOSE OF 0.75 MG. TAKE THIS MEDICATION WITH FOOD. Ropinirole Hydrochloride (Requip) 0.5 Mg Tab 0.5 MG PO HS TAKE ONE 0.5 MG TABLET ALONG WITH ONE 0.25 MG TABLET TO EQUAL BEDTIME DOSE OF 0.75 MG. TAKE THIS MEDICATION WITH FOOD. Discontinued Medications: Furosemide (Furosemide) 80 Mg Tab 80 MG PO QAM Metolazone (Metolazone) 5 Mg Tab 5 MG PO QAM Potassium Chloride Microencaps (Potassium Chloride Er) 20 Meq Tab 20 MEQ PO BID Admission Information HPI (per Admitting provider): History obtained from the patient, , and records. Medical history significant for chronic respiratory failure on home O2, COPD, ongoing tobacco abuse, OHS/CPAP noncompliance, history of PE on Xarelto, HTN, DM2, on oral meds, history of adenocarcinoma, unknown primary status post chemotherapy, lymphoma as per records, chronic anemia (baseline hemoglobin of 9-11). Recent confinement, last May 2017 for lower extremity edema secondary to RV dysfunction. Patient discharged home. Has not had follow up with PCP or Sleep Medicine for refitting of CPAP. A few days history of increasing shortness of breath, increased fluid retention , bilateral lower extremity pain, redness. Denies chest pain. Cough productive of some junk as per . Denies aspiration. Compliant with home diuretics. Achy abdominal pain from coughing. Patient brought to the Emergency Room Physical Exam (per Admitting): PHYSICAL EXAMINATION: Blood pressure noted to be 103/52, pulse rate 112, RR 26, temperature 37 O2 sats 93% on 2 liters. GENERAL: Noted to be morbidly obese, unkempt, min resp distress. Looks older for stated age. SKIN: Pallor, warm. HEENT: Pale palpebral conjunctivae. No ptosis. Dry mucosa. NECK: Short, supple. CHEST: Decreased effort, exp wheezes. HEART: Tachycardic, no murmur. ABDOMEN: Some distention. Hypogastric bulge, some tenderness. RECTAL: Brown stool, heme positive, as per ER provider. EXTREMITIES: Bilateral lower extremity edema, induration, tenderness. NEUROLOGIC: Coherent. No gross focality. Hospital Course 1. Acute on chronic respiratory failure in setting of chronic hypoxemia 2/2 COPD on 4L oxygen at home. ACute diastolic CHF ESTEFANI Improved plan for trilogy at home on prednisone and nebs stable currently discharged home f/u with pcp 2. Acute diastolic CHF exacerbation. Received Lasix. appreciate cardiology inputs,. Currently on Lasix 80mg bid and Aldactone 25mg bid and KCL supplement. f/u lab bmp in 5-7 days. stable. f/u with pcp and cardiology. 3. Bilateral lower extremity cellulitis-HAs multiple wounds all over legs and in dressings. Per infectious disease will transition dapsone and ceftriaxone to doxycycline for total 10-14 days. Needs help with shower and cleanliness.needs followup with pcp and wound clinic 4. 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 Justin Beck. Had a DVT with PE in 2005 prior to cancer, however, was recommended to continue anticoagulant therapy per Oncology recs while he was here in May 2017". On Xarelto. 5. h/o metastatic adenocarcinoma of L axilla with unknown primary site- as above. 6. DMII-metformin held, On ISS/Lantus while inpatient. hba1c 7.2 d/c on home meds 7. HTN-On lisinopril, currently at goal. Will monitor. 8. Morbid obesity 9. smoker 10. Noncompliance 11. Anemia-likely related to chronic disease. Slightly decreased from H/H in May 2017, but has been around this level in the past consistently. Heme positive stool in the ER poss 2/2 hemorrhoids. No active bleeding at this time. hb stable.Cont to monitor. On Xarelto. 12. Hypokalemia-secondary to diuretic use, replaced .Started on Aldactone and cut back on kcl supplement. f/u labs with pcp. discharged home with home health Total time spent on discharge = 40MINUTES This includes examination of the patient, discharge planning, medication reconciliation, and communication with other providers. Discharge Instructions Discharge Instructions Date of Service Sep 06, 2017. Admission Reason for Admission: Respiratory Failure Discharge Discharge Diagnosis / Problem: acute on chromnic resp failure, acute diastolic chf, ESTEFANI Discharge Goals Goal(s): Decrease discomfort, Improve function Activity Recommendations Activity Limitations: resume your previous activity . Instructions / Follow-Up Instructions / Follow-Up FOLLOWUP WITH FAMILY DOCTOR Sundar Mays ON August AT 10:45AM FOLLOW UP WITH CARDIOLOGY IN 1-2 WEEKS FOLLOWUP WITH WOUND CLINIC IN 1-2 WEEKS LAB: BMP WITH MG LEVELS IN 5-7 DAYS AND FOLLOW RESULTS WITH FAMILY DOCTOR LASIX DOSE INCREASED AND ALDACTONE ADDED. PLEASE GO THROUGH MEDICATION LIST CAREFULLY LASIX DOSE HAS BEEN CHANGED SPIRONOLACTONE ADDED, POTASSIUM SUPPLEMENT DOSE CHANGED. TO USE OXYGEN 3LTS CONTINUOUS AND TRILOGY WHILE SLEEPING. Call your Primary Care doctor if any of the following symptoms or problems start or get worse: * Shortness of breath or difficulty breathing * Wake up at night short of breath * Chest pain * Cough * Swelling of your hands, feet, or legs * More fatigued or tired with your normal activity * Palpitations - sudden fast heart beats WEIGHT * Weigh yourself every morning after using the bathroom. * Use the same scale. * Wear the same amount of clothing. * Write your weight down on a chart. * Call your Primary Care doctor if you gain more than 2-3 pounds in 1-2 days. MEDICATIONS * Use this discharge instruction sheet for medication instructions. * Take your medications at the time your doctor ordered. * Do not skip a dose of your medicines. * If you miss a dose of medicine, take it as soon as possible, but DO NOT DOUBLE A DOSE. * Read your medicine information when you get home. * Know all of the side effects of your medicine. If in doubt, ask your pharmacist * Call your Primary Care doctor's office if you have any side effects. * Be sure all of your doctors know what medicine and herbs you take (including cold, flu, and herbal medicine). Take the following with you to your follow-up doctor appointments: * Weight Chart * Medication List * List of questions Do not drink excessive alcohol, beer or wine. Current Hospital Diet Patient's current hospital diet: Diabetes Type 2 Diet Discharge Diet Recommended Diet: AHA Diet (Heart Healthy), Diabetes Type 2 Diet Fluid Restriction: 2000 ml (8 cups) Pending Studies Studies pending at discharge: no Laboratory Results Hemoglobin A1c Test 08/30/17 17:20 Range/Units Estimated Average Glucose 160 mg/dl Hemoglobin A1c 7.2 H 4.5-5.6 % Medical Emergencies . Who to Call and When: Call 911 or go to the Emergency Room if: * If at any time you feel your situation is an emergency * You have tightness or pain in your chest that does not go away with rest or Nitroglycerin * You are very short of breath even with rest . Non-Emergent Contact Non-Emergency issues call your: Primary Care Provider . .
== END 2017-09-06 13:50 | disposition home or self-care (01) | DRG 189 ==
LOC: C.EDB 16:26 → C.2E 21:22 → ENRESERV 22:46 → C.MSICU 08-31 09:01 → ENRESERV 09-01 08:35 → C.2T 09-01 14:51 → C.4E 09-04 11:44 → ENRESERV 09-04 11:51
PROVIDERS: ADMIT Internal Medicine; ATTEND Internal Medicine
DX: J96.21 Acute and chronic respiratory failure with hypoxia (principal); I50.31 Acute diastolic (congestive) heart failure; Z83.3 Family history of diabetes mellitus; Z82.49 Family history of ischemic heart disease and other diseases of the circulatory system; F17.200 Nicotine dependence, unspecified, uncomplicated; Z99.81 Dependence on supplemental oxygen; J44.9 Chronic obstructive pulmonary disease, unspecified; I11.0 Hypertensive heart disease with heart failure; E11.9 Type 2 diabetes mellitus without complications; Z85.72 Personal history of non-Hodgkin lymphomas; D64.9 Anemia, unspecified; Z91.19 Patient's noncompliance with other medical treatment and regimen; Z86.718 Personal history of other venous thrombosis and embolism; Z79.84 Long term (current) use of oral hypoglycemic drugs; E87.6 Hypokalemia; E66.01 Morbid (severe) obesity due to excess calories

== ENCOUNTER 2017-09-20 10:48 | Emergency (ER) | payer OTHER ==
[~2017-09-20] VITALS: Ht 180.3 cm; Wt 219.2 kg
[~2017-09-20 10:48] MED LIST changes: -FLUO20CA36 PO; -FURO40TA3 PO; +GLC/500 PO; -GLC500 PO; -IPRASOL4 INH; -LPT40 PO; +LSX80 PO; +MCRK20 PO; -OMEP40CA41 PO; -OXGN; -POTA20TA13 PO; -ROPI0.5T15 PO; -RQP25 PO; +SPR25 PO; -WARF-284 PO
[2017-09-20 10:55] VITALS: TEMP 36.5; Ht 180.3 cm; Wt 219.2 kg
--- NOTE | 2017-09-20 12:11 | EMERGENCY ROOM VISIT NOTE ---
History Report prepared by Hernandez: Vlad Duenas Under the Supervision of: Dr. Danni Osborn D.O. First contact with patient: 12:03 Chief Complaint: SWELLING TO EXTREMITY Stated Complaint: LEG EDEMA History of Present Illness The patient is a 41 year old male with a history of COPD who presents to the Emergency Room via EMS with complaints of worsening bilateral leg swelling that started 2 to 3 days ago. He states that he was hospitalized here 3 weeks ago for a week due to similar leg swelling, albeit this current swelling is not as bad as when he was here last time. The patient notes that he was given an extra water pill upon discharge, and his legs were fine when he went home. However, the patient states that his legs started swelling up again a few days ago, and they are worsening. Per the patient's , the patient could not even get in the car this morning and cannot walk due to pain. The patient adds that he has sores on his legs which are baseline. He notes no history of kidney problems, and says his heart has been noted to be fine. The patient adds that he has swelling on the skin above where the scrotum is located. He wears oxygen at home. He denies any excessive salt intake and says that he has been taking his water pills. Source of History: patient, spouse/significant other Onset: 2 to 3 days ago Position: leg (bilateral) Symptom Intensity: could not even get in the car this morning Quality: other (swelling, pain) Timing: worsening Note: Associated symptoms: Pain on skin above where scrotum is located. Review of Systems See HPI for pertinent positives & negatives. A total of 10 systems reviewed and were otherwise negative. Past Medical & Surgical Medical Problems: (1) Abscess or cellulitis of foot (2) Anticoagulants,Lt,Current Use (3) Asthma (4) Farley's esophagus (5) Cellulitis (6) Cellulitis of right lower extremity (7) CHF (congestive heart failure) (8) COPD (chronic obstructive pulmonary disease) (9) COPD exacerbation (10) Depression (11) Diaphragmatic Hernia (12) GERD (gastroesophageal reflux disease) (13) History of DVT (deep vein thrombosis) (14) History of metastatic adenocarcinoma (15) History of pulmonary embolus (PE) (16) Hypertension (17) Hypertension Nos (18) Morbid Obesity (19) Morbid obesity with BMI of 50.0-59.9, adult (20) Osteoarthros Nos-Unspec (21) Personal History Of Pulmonary Embolism (22) Reflux Esophagitis (23) Respiratory failure (24) S/p insertion of A port (25) S/p sinusotomy and septoplasty (26) Scrotal edema (27) Sleep apnea (28) Tobacco use disorder (29) Unspecified Sleep Apnea (30) UTI (urinary tract infection) Surgical Problems: (1) H/O arthroscopic knee surgery (2) H/O esophagogastroduodenoscopy (3) H/O lymph node biopsy Family History Cancer FATHER (colon CA age 56) Cardiac disorder Diabetes mellitus MOTHER Heart disease MOTHER (NC age 54) FATHER (NC) BROTHER (NC age 48) BROTHER (NC age 57) Hypertension MOTHER Social History Smoking Status: Former Smoker Alcohol Use: none Drug Use: none Marital Status: Housing Status: lives with family Occupation Status: unemployed, disabled Current/Historical Medications Scheduled Atorvastatin (Lipitor), 40 MG PO DAILY Doxycycline Hyclate (Doxycycline Hyclate), 100 MG PO BID Furosemide (Furosemide), 80 MG PO BID17 Home O2 Therapy (Oxygen), 3 LITERS NA CONTINOUS Lisinopril (Lisinopril), 10 MG PO DAILY Metformin Hcl (Glucophage), 500 MG PO DAILY Omeprazole (Prilosec), 40 MG PO DAILY Potassium Chloride (Klor-Con M20), 20 MEQ PO QAM Rivaroxaban (Xarelto), 20 MG PO DAILY Ropinirole HCl (Ropinirole HCl), 0.25 MG PO HS Ropinirole Hydrochloride (Requip), 0.5 MG PO HS Spironolactone (Spironolactone), 25 MG PO BID Scheduled PRN Albuterol Hfa (Ventolin Hfa), 2 PUFFS INH Q4H PRN for SOB/Wheezing Ipratropium-Albuterol (Duoneb), 3 ML INH QID PRN for SOB/Wheezing Allergies Coded Allergies: Morphine (Verified Allergy, Intermediate, 0, 09/20/17) oversedation Iodinated Diagnostic Agents (Unverified Allergy, Unknown, turns bright red and on fire feeling, RASH, 09/20/17) Physical Exam Vital Signs Date Time Temp Pulse Resp B/P (MAP) Pulse Ox O2 Delivery O2 Flow Rate FiO2 09/20/17 16:21 67 18 129/82 96 Nasal Cannula 4.0 09/20/17 15:06 107 22 113/60 95 Nasal Cannula 4.0 09/20/17 13:56 113 20 107/60 96 Nasal Cannula 4.0 09/20/17 12:44 112 20 112/55 99 Room Air 09/20/17 10:55 36.5 109 22 143/45 96 Nasal Cannula 3.0 Physical Exam GENERAL: morbidly obese, nasal cannula in place, alert, no distress EYE EXAM: normal conjunctiva, PERRL and EOM's grossly intact OROPHARYNX: no exudate, no erythema, lips, buccal mucosa, and tongue normal and mucous membranes are moist NECK: supple, no nuchal rigidity, no adenopathy, non-tender LUNGS: Clear to auscultation. Normal chest wall mechanics HEART: no murmurs, S1 normal and S2 normal ABDOMEN: abdomen soft, non-tender, normo-active bowel sounds, no masses, no rebound or guarding. : Scrotum not swollen, no evidence of acute erythema, bilaterally descended testicles noted, difficulty finding patient's penis due to body habitus and redundant tissue. No evidence of Raudel's gangrene. BACK: Back is symmetrical on inspection and there is no deformity, no midline tenderness, no CVA tenderness. SKIN: He has erythema noted to the skin folds at both the pannus as well as his breasts consistent with yeast infection. UPPER EXTREMITIES: upper extremities are grossly normal. LOWER EXTREMITIES: Diffuse chronic appearing edema to bilateral lower extremities. He has multiple wounds in various stages of healing. NEURO EXAM: Normal sensorium, cranial nerves II-XII grossly intact, normal speech, no gross weakness of arms, no gross weakness of legs. Medical Decision & Procedures Laboratory Results 09/20/17 13:26 Red Blood Count 3.45, Mean Corpuscular Volume 91.6, Mean Corpuscular Hemoglobin 28.4, Mean Corpuscular Hemoglobin Concent 31.0, Mean Platelet Volume 8.5, Neutrophils (%) (Auto) 81.0, Lymphocytes (%) (Auto) 8.8, Monocytes (%) (Auto) 6.5, Eosinophils (%) (Auto) 3.2, Basophils (%) (Auto) 0.2, Neutrophils # (Auto) 8.03, Lymphocytes # (Auto) 0.87, Monocytes # (Auto) 0.64, Eosinophils # (Auto) 0.32, Basophils # (Auto) 0.02 09/20/17 13:26 Test 09/20/17 13:26 White Blood Count 9.91 K/uL (4.8-10.8) Red Blood Count 3.45 M/uL (4.7-6.1) Hemoglobin 9.8 g/dL (14.0-18.0) Hematocrit 31.6 % (42-52) Mean Corpuscular Volume 91.6 fL (80-100) Mean Corpuscular Hemoglobin 28.4 pg (25-34) Mean Corpuscular Hemoglobin Concent 31.0 g/dl (32-36) Platelet Count 276 K/uL (130-400) Mean Platelet Volume 8.5 fL (7.4-10.4) Neutrophils (%) (Auto) 81.0 % Lymphocytes (%) (Auto) 8.8 % Monocytes (%) (Auto) 6.5 % Eosinophils (%) (Auto) 3.2 % Basophils (%) (Auto) 0.2 % Neutrophils # (Auto) 8.03 K/uL (1.4-6.5) Lymphocytes # (Auto) 0.87 K/uL (1.2-3.4) Monocytes # (Auto) 0.64 K/uL (0.11-0.59) Eosinophils # (Auto) 0.32 K/uL (0-0.5) Basophils # (Auto) 0.02 K/uL (0-0.2) RDW Standard Deviation 57.0 fL (36.4-46.3) RDW Coefficient of Variation 17.0 % (11.5-14.5) Immature Granulocyte % (Auto) 0.3 % Immature Granulocyte # (Auto) 0.03 K/uL (0.00-0.02) Prothrombin Time 10.2 SECONDS (9.0-12.0) Prothromb Time International Ratio 1.0 (0.9-1.1) Anion Gap 6.0 mmol/L (3-11) Est Creatinine Clear Calc Drug Dose 307.5 ml/min Estimated GFR () 145.8 Estimated GFR (Non- 125.8 BUN/Creatinine Ratio 22.9 (10-20) Calcium Level 9.1 mg/dl (8.5-10.1) Total Bilirubin 0.4 mg/dl (0.2-1) Aspartate Amino Transf (AST/SGOT) 9 U/L (15-37) Alanine Aminotransferase (ALT/SGPT) 15 U/L (12-78) Alkaline Phosphatase 78 U/L (45-117) Pro-B-Type Natriuretic Peptide 27 pg/ml (0-450) Total Protein 7.1 gm/dl (6.4-8.2) Albumin 2.7 gm/dl (3.4-5.0) Globulin 4.4 gm/dl (2.5-4.0) Albumin/Globulin Ratio 0.6 (0.9-2) Laboratory results per my review. Medications Administered Medications (Trade) Dose Ordered Sig/Karissa Route Start Time Stop Time Status Last Admin Dose Admin Acetaminophen (Tylenol Tab) 650 mg NOW STAT PO 09/20/17 13:11 09/20/17 13:12 DC 09/20/17 13:11 650 MG Metolazone (Zaroxolyn Tab) 5 mg NOW ONCE PO 09/20/17 14:45 09/20/17 14:47 DC 09/20/17 15:09 5 MG Furosemide 80 mg/ Syringe 8 ml @ 4 mls/min ONE ONCE IV 09/20/17 14:45 09/20/17 14:47 DC 09/20/17 15:09 4 MLS/MIN ECG Per My Interpretation Indication: other (infection) Rate (beats per minute): 108 Rhythm: sinus tachycardia Findings: RBBB, no acute ischemic change, other (normal QT) Change: no significant change (from 08/31/17) ED Course 1205: The patient was evaluated in room B6. A complete history and physical exam was performed. 1311: Tylenol Tab 650 mg PO. 1430: I reevaluated and updated the patient. 1434: I discussed the patient with Dr. Guerrero [facility] - he says to give the patient a dose of Zaroxolyn and Lasix, and he thinks that rehab is a good idea. If the patient refuses, Dr. Guerrero wants us to call him and let us set up a follow-up appointment before he leaves. 1445: Case management called the office, they are awaiting return call for a scheduled appointment time. 1457: Upon reevaluation, the patient is resting. I discussed the findings and the treatment plan with the patient. He verbalizes agreement and understanding. He was discharged home. Medical Decision Differential Diagnosis includes but is not limited to dehydration, stroke, anemia, hypoglycemia, hyponatremia, hypernatremia, urinary tract infection, pneumonia, bronchitis, sepsis, gastroenteritis, additional abdominal pathology, metabolic abnormalities and infections. Patient with multiple chronic comorbidities, here frequently and recently admitted for digestive heart failure, lower extremity edema, acute on chronic respiratory failure. Patient wears home oxygen chronically. Patient's labs reassuring and no evidence of acute kidney injury despite recent increase in Lasix daily. Patient denies missing any doses and denies any excessive salt in his diet. Given chronicity of patient's problems, case discussed with his PCP as patient refused admission. Discussed possible utility and placement into rehab for close monitoring and physical therapy which patient's PCP agreed would be beneficial for him. Patient declined rehab stating he wanted to go home. Patient given dose of Zaroxolyn an extra dose of Lasix here. Cautioned him about symptoms to watch and return for, importance of keeping scheduled follow-up appointment tomorrow with PCP, symptoms to watch and return for, he verbalized understanding was agreeable with plan. Feel patient likely has a poor understanding in general of his chronic medical conditions and his plan of treatment. In discussion with his PCP, patient with poor access to healthcare and multiple social issues also. No evidence of acute infectious etiology, legs do not appear cellulitic, no evidence of Raudel's gangrene, no evidence of acute respiratory failure, acute kidney injury, or acute electrolyte abnormality. I do not suspect bacteremia/sepsis, occult pneumonia or COPD exacerbation, acute congestive heart failure, ACS. I do not suspect DVT. Medication Reconcilliation Current Medication List: was personally reviewed by me Blood Pressure Screening Patient's blood pressure: Normal blood pressure Consults Time Called: [id number] Consulting Physician: Dr. Yolanda [facility] Returned Call: [phone] I discussed the patient with Dr. Yolanda [facility] - he says to give the patient a dose of Zaroxolyn and Lasix, and he thinks that rehab is a good idea. If the patient refuses, Dr. Guerrero wants us to call him and let us set up a follow-up appointment before he leaves. Impression Primary Impression: Bilateral lower extremity edema Additional Impressions: Morbid obesity with BMI of 50.0-59.9, adult COPD (chronic obstructive pulmonary disease) Scribe Attestation The scribe's documentation has been prepared under my direction and personally reviewed by me in its entirety. I confirm that the note above accurately reflects all work, treatment, procedures, and medical decision making performed by me. Departure Information Dispostion Home / Self-Care Referrals Sundar Guerrero M.D. ([facility]) (PCP) Patient Instructions My [facility] Additional Instructions Please go to the family doctors office to have an appointment tomorrow at 1 PM. Please continue all of your normal medications. If you have any new or worsening symptoms, please return to the emergency room. Problem Qualifiers Additional Impressions: COPD (chronic obstructive pulmonary disease) COPD type: unspecified COPD Qualified Codes: J44.9 - Chronic obstructive pulmonary disease, unspecified
[2017-09-20] MEDS ORDERED: ACETAMINOPHEN 325 MG TAB PO STA (13:11)
[2017-09-20 13:39] LABS: BASO % 0.2 %; BASO ABS # 0.02 K/uL (0-0.2); EOS % 3.2 %; EOS ABS # 0.32 K/uL (0-0.5); HEMATOCRIT 31.6 % (42-52); HEMOGLOBIN 9.8 g/dL (14.0-18.0); IG# 0.03 K/uL (0.00-0.02); LYMPH % 8.8 %; LYMPH ABS # 0.87 K/uL (1.2-3.4); MEAN CELL VOLUME 91.6 fL (80-100); MEAN CORPUSCULAR HEMOGLOBIN 28.4 pg (25-34); MEAN PLATELET VOLUME 8.5 fL (7.4-10.4); MONO % 6.5 %; MONO ABS # 0.64 K/uL (0.11-0.59); NEUT ABS # 8.03 K/uL (1.4-6.5); PLATELET COUNT 276 K/uL (130-400); WHITE BLOOD COUNT 9.91 K/uL (4.8-10.8)
[2017-09-20 13:55] LABS: ALBUMIN 2.7 gm/dl (3.4-5.0); CALCIUM 9.1 mg/dl (8.5-10.1); CREATININE 0.6 mg/dl (0.60-1.40)
[2017-09-20 14:00] LABS: TOTAL PROTEIN 7.1 gm/dl (6.4-8.2)
[2017-09-20] MEDS ORDERED: FUROSEMIDE INJ 80 MG in SYRINGE 0 ML IV ONE (14:45)
[2017-09-20] MEDS ORDERED: METOLAZONE 5 MG TAB PO ONE (14:45)
[2017-09-20 16:21] VITALS: BP 129/82; PULSE 67; O2SAT 96
[2017-09-24] MEDS ORDERED: RQP25 PO
[2017-09-24] MEDS ORDERED: IPRASOL4 NEB (10:03)
[2017-09-24] MEDS ORDERED: LPT40 PO (15:17)
[2017-09-24] MEDS ORDERED: OMEP40CA41 PO (15:17)
[2017-09-24] MEDS ORDERED: OXGN (15:21)
[2017-09-24] MEDS ORDERED: XRL20 PO (17:20)
[2017-09-24] MEDS ORDERED: ROPI0.5T PO (17:20)
== END 2017-09-20 16:33 | disposition home or self-care (01) ==
LOC: EDBD 10:48 → C.EDB 10:49
DX: R60.0 Localized edema (principal); E66.01 Morbid (severe) obesity due to excess calories; Z68.43 Body mass index [BMI] 50.0-59.9, adult; J44.9 Chronic obstructive pulmonary disease, unspecified

== ENCOUNTER 2017-09-24 19:24 | Inpatient (IN) | payer OTHER ==
[~2017-09-24] VITALS: Ht 177.8 cm; Wt 210.0 kg
[~2017-09-24 19:24] MED LIST changes: +IPRASOL4 NEB; +LPT40 PO; +OMEP40CA41 PO; +OXGN; +ROPI0.5T PO; +RQP25 PO; +XRL20 PO
--- NOTE | 2017-09-24 19:42 | EMERGENCY ROOM VISIT NOTE ---
History Report prepared by Hernandez: Pk Ruiz Under the Supervision of: Dr. Ba Krishna M.D. First contact with patient: 19:24 Chief Complaint: LEG PAIN,LEG INJURY Stated Complaint: LEG PAIN History of Present Illness The patient is a 41 year old white male with a past medical history of cancer, COPD, CHF, and HTN who presents to the ED with a cc of worsening bilateral lower extremity swelling beginning several days ago. The patient states he was recently here for bilateral lower extremity swelling a couple of days ago. Per the patient's report, he was given diuretics and was discharged home. He reports that since the visit, he his swelling has worsened. Positive distended abdomen, testicular swelling, testicular pain. Negative smoking, chemo use, urinary symptoms. The patient reports he uses 3 L of oxygen at home. He reports he takes a fluid pill. Source of History: patient Onset: several days ago Position: leg (bilateral) Timing: worsening Modifying Factors (Relieving): other (diuretic) Associated Symptoms: No urinary symptoms Note: Positive distended abdomen, testicular swelling, testicular pain Review of Systems See HPI for pertinent positives and negatives. A total of ten systems were reviewed and were otherwise negative. Past Medical & Surgical Medical Problems: (1) Abscess or cellulitis of foot (2) Anticoagulants,Lt,Current Use (3) Asthma (4) Farley's esophagus (5) Cellulitis (6) Cellulitis of right lower extremity (7) CHF (congestive heart failure) (8) COPD (chronic obstructive pulmonary disease) (9) COPD exacerbation (10) Depression (11) Diaphragmatic Hernia (12) GERD (gastroesophageal reflux disease) (13) History of DVT (deep vein thrombosis) (14) History of metastatic adenocarcinoma (15) History of pulmonary embolus (PE) (16) Hypertension (17) Hypertension Nos (18) Morbid Obesity (19) Morbid obesity with BMI of 50.0-59.9, adult (20) Osteoarthros Nos-Unspec (21) Personal History Of Pulmonary Embolism (22) Reflux Esophagitis (23) Respiratory failure (24) S/p insertion of A port (25) S/p sinusotomy and septoplasty (26) Scrotal edema (27) Sleep apnea (28) Tobacco use disorder (29) Unspecified Sleep Apnea (30) UTI (urinary tract infection) (31) Volume overload Surgical Problems: (1) H/O arthroscopic knee surgery (2) H/O esophagogastroduodenoscopy (3) H/O lymph node biopsy Family History Cancer FATHER (colon [place] age 56) Cardiac disorder Diabetes mellitus MOTHER Heart disease MOTHER ([place] age 54) FATHER ([place]) BROTHER ([place] age 48) BROTHER ([place] age 57) Hypertension MOTHER Social History Smoking Status: Former Smoker Alcohol Use: none Drug Use: none Marital Status: Housing Status: lives with family Occupation Status: unemployed, disabled Current/Historical Medications Scheduled Atorvastatin (Lipitor), 40 MG PO DAILY Furosemide (Furosemide), 80 MG PO BID17 Home O2 Therapy (Oxygen), 3 LITERS NA CONTINOUS Lisinopril (Lisinopril), 10 MG PO DAILY Metformin HCl (Metformin HCl), 500 MG PO DAILY Metolazone (Metolazone), 5 MG PO DAILY Omeprazole (Prilosec), 40 MG PO DAILY Potassium Chloride Microencaps (Potassium Chloride Er), 20 MEQ PO QAM Rivaroxaban (Xarelto), 20 MG PO DAILY Ropinirole HCl (Ropinirole HCl), 0.25 MG PO HS Ropinirole Hydrochloride (Requip), 0.5 MG PO HS Spironolactone (Aldactone), 25 MG PO BID Scheduled PRN Albuterol Hfa (Ventolin Hfa), 2 PUFFS INH Q4H PRN for SOB/Wheezing Ipratropium-Albuterol (Duoneb), 3 ML NEB QID PRN for SOB/Wheezing Allergies Coded Allergies: Morphine (Verified Allergy, Intermediate, 0, 09/20/17) oversedation Iodinated Diagnostic Agents (Unverified Allergy, Unknown, turns bright red and on fire feeling, RASH, 09/20/17) Physical Exam Vital Signs Date Time Temp Pulse Resp B/P (MAP) Pulse Ox O2 Delivery O2 Flow Rate FiO2 09/25/17 01:26 112 28 92/57 97 Nasal Cannula 4.0 09/25/17 00:14 113 32 109/54 93 Room Air 09/24/17 23:23 115 16 90/42 91 Room Air 09/24/17 22:28 100/48 09/24/17 21:58 112 28 88/52 94 Room Air 09/24/17 21:25 78/44 09/24/17 21:12 112 28 74/44 95 Room Air 09/24/17 20:04 96 Nasal Cannula 3.0 09/24/17 19:54 37.1 109 26 91/44 98 Nasal Cannula 3.0 Physical Exam GENERAL: Morbidly obese, wake, alert, well-appearing, NAD HENT: Normocephalic, atraumatic. EYES: Normal conjunctiva. Sclera non-icteric. NECK: Supple. No nuchal rigidity. FROM. RESPIRATORY: CTAB, no rhonchi, wheezing, crackles CARDIAC: RRR, no MRG ABDOMEN: Soft, NTND, BS+ MSK: No chest wall TTP, Diffuse bilateral LE edema. Significant scrotal swelling. No crepitus. NEURO: GCS 15, CN 2-12 intact, moves all 4s on command SKIN: No rash or jaundice noted. Maceration to his inguinal and folds of the pants. Scar above right upper chest. Medical Decision & Procedures ER Provider Diagnostic Interpretation: X-ray: Per my interpretation, radiologist review. CHEST ONE VIEW PORTABLE CLINICAL HISTORY: 41 years-old Male presenting with EVALUATE WEAKNESS. TECHNIQUE: Portable upright AP view of the chest was obtained. COMPARISON: 08/31/2017. FINDINGS: Evaluation limited by patient body habitus and portable technique. Cardiac silhouette enlarged. Pulmonary vascular prominence. Hazy bibasilar predominant opacities could relate to overlapping soft tissue. Evaluation for pleural effusions or pneumothorax highly limited. IMPRESSION: 1. Very limited examination. 2. Cardiomegaly and volume overload suggested. Electronically signed by: Bharat Dubois M.D. 09/24/2017 8:13 PM Dictated Date/Time: 09/24/2017 8:12 PM Laboratory Results 09/24/17 20:55 Red Blood Count 3.45, Mean Corpuscular Volume 89.6, Mean Corpuscular Hemoglobin 28.4, Mean Corpuscular Hemoglobin Concent 31.7, Mean Platelet Volume 8.9, Neutrophils (%) (Auto) 80.8, Lymphocytes (%) (Auto) 8.6, Monocytes (%) (Auto) 7.2, Eosinophils (%) (Auto) 2.9, Basophils (%) (Auto) 0.2, Neutrophils # (Auto) 8.68, Lymphocytes # (Auto) 0.92, Monocytes # (Auto) 0.77, Eosinophils # (Auto) 0.31, Basophils # (Auto) 0.02 09/24/17 20:55 Test 09/24/17 20:55 09/25/17 01:20 White Blood Count 10.73 K/uL (4.8-10.8) Red Blood Count 3.45 M/uL (4.7-6.1) Hemoglobin 9.8 g/dL (14.0-18.0) Hematocrit 30.9 % (42-52) Mean Corpuscular Volume 89.6 fL (80-100) Mean Corpuscular Hemoglobin 28.4 pg (25-34) Mean Corpuscular Hemoglobin Concent 31.7 g/dl (32-36) Platelet Count 332 K/uL (130-400) Mean Platelet Volume 8.9 fL (7.4-10.4) Neutrophils (%) (Auto) 80.8 % Lymphocytes (%) (Auto) 8.6 % Monocytes (%) (Auto) 7.2 % Eosinophils (%) (Auto) 2.9 % Basophils (%) (Auto) 0.2 % Neutrophils # (Auto) 8.68 K/uL (1.4-6.5) Lymphocytes # (Auto) 0.92 K/uL (1.2-3.4) Monocytes # (Auto) 0.77 K/uL (0.11-0.59) Eosinophils # (Auto) 0.31 K/uL (0-0.5) Basophils # (Auto) 0.02 K/uL (0-0.2) RDW Standard Deviation 54.2 fL (36.4-46.3) RDW Coefficient of Variation 16.4 % (11.5-14.5) Immature Granulocyte % (Auto) 0.3 % Immature Granulocyte # (Auto) 0.03 K/uL (0.00-0.02) Prothrombin Time 9.8 SECONDS (9.0-12.0) Prothromb Time International Ratio 0.9 (0.9-1.1) Activated Partial Thromboplast Time 25.5 SECONDS (21.0-31.0) Partial Thromboplastin Ratio 1.0 Anion Gap 8.0 mmol/L (3-11) Est Creatinine Clear Calc Drug Dose 84.8 ml/min Estimated GFR () 43.1 Estimated GFR (Non- 37.2 BUN/Creatinine Ratio 16.0 (10-20) Calcium Level 8.8 mg/dl (8.5-10.1) Magnesium Level 1.6 mg/dl (1.8-2.4) Total Bilirubin 0.3 mg/dl (0.2-1) Direct Bilirubin < 0.1 mg/dl (0-0.2) Aspartate Amino Transf (AST/SGOT) 10 U/L (15-37) Alanine Aminotransferase (ALT/SGPT) 13 U/L (12-78) Alkaline Phosphatase 67 U/L (45-117) Total Creatine Kinase 73 U/L (39-308) Pro-B-Type Natriuretic Peptide 48 pg/ml (0-450) Total Protein 7.0 gm/dl (6.4-8.2) Albumin 2.7 gm/dl (3.4-5.0) Thyroid Stimulating Hormone (TSH) 2.700 uIu/ml (0.300-4.500) Urine Color YELLOW Urine Appearance CLOUDY (CLEAR) Urine pH 5.0 (4.5-7.5) Urine Specific [place] 1.013 (1.000-1.030) Urine Protein NEG (NEG) Urine Glucose (UA) NEG (NEG) Urine Ketones NEG (NEG) Urine Occult Blood NEG (NEG) Urine Nitrite NEG (NEG) Urine Bilirubin NEG (NEG) Urine Urobilinogen NEG (NEG) Urine Leukocyte Esterase NEG (NEG) Laboratory results reviewed by me Medications Administered Medications (Trade) Dose Ordered Sig/Karissa Route Start Time Stop Time Status Last Admin Dose Admin Acetaminophen (Tylenol Tab) 650 mg NOW STAT PO 09/24/17 20:55 09/24/17 20:56 DC 09/24/17 21:10 650 MG Sodium Chloride 250 ml @ 500 mls/hr Q30M STAT IV 09/24/17 21:36 09/24/17 22:05 DC 09/24/17 21:30 500 MLS/HR Sodium Chloride 250 ml @ 500 mls/hr Q30M STAT IV 09/24/17 23:49 09/25/17 00:18 DC 09/25/17 00:10 500 MLS/HR Fentanyl Citrate (Fentanyl Inj) 50 mcg NOW ONCE IV 09/25/17 00:00 09/25/17 00:01 DC 09/25/17 00:13 50 MCG Ropinirole HCl (Requip Tab) 0.5 mg NOW STAT PO 09/25/17 01:41 09/25/17 01:42 DC 09/25/17 01:55 0.5 MG Furosemide 40 mg/ Albumin Human 54 ml @ 54 mls/hr NOW STAT IV 09/25/17 01:41 09/25/17 02:40 09/25/17 01:55 54 MLS/HR ED Course 1936: The patient was evaluated in room C10. A complete history and physical exam was performed. 2323: I reevaluated the patient and updated him on his results. I discussed the treatment plan, which he agrees to. The patient will be further evaluated. 0013: I discussed the patient's case with Dr. Dowling, [facility]. He understands the patient's condition and agrees to accept the patient. The patient will be further evaluated. Medical Decision Nursing notes reviewed. Ancillary studies and prior records reviewed. The patient is a 41 year old white male with a past medical history of cancer, COPD, CHF, and HTN who presents to the ED with a cc of worsening bilateral lower extremity swelling beginning several days ago. The patient's presentation and history were concerning for etiologies such as DVT, musculoskeletal, infection, joint effusion, trauma, lymphedema, idiopathic , CHF, as well as others were entertained. Patient was seen and evaluated the bedside. Patient of note was recently seen for lower extremity swelling had been given some diuretics and had a scheduled follow-up appointment. Patient is primarily complaining some leg pain. Patient does have diffuse bilateral lower extremity swelling that is fairly symmetrical it was difficult to ascertain given the patient's size. Patient also has complained of some scrotal swelling. Patient does have some notable macerations under his pannus as well as in his inguinal creases. Patient does not have any crepitus to the groin area. This is best less likely Raudel's this may be more likely related to volume overload which may be attributable to either kidney, liver, or cardiac dysfunction. Patient did blood work completed, BNP, chest x-ray. Patient's chest x-ray is consistent with likely volume overload. The patient did have some softer blood pressures but given the patient's volume overload he may be intravascularly volume down. The patient was given 250 IV fluid. Patient's blood pressure responded appropriately so he was given additional 2 50 cc IV fluid bolus. BNP within normal limits. Patient's blood work did show new hyponatremia as well as acute renal failure. Patient does have chronic but stable anemia. I discussed the patient's case with the on-call hospitalist who agreed to further evaluate and treat the patient. Patient was admitted to the medicine service. Medication Reconcilliation Current Medication List: was personally reviewed by me Blood Pressure Screening Patient's blood pressure: Elevated blood pressure Referred to Hospitalist Consults Time Called: 2300 Consulting Physician: Flakita Chambers Hospitalist Returned Call: [id number] I discussed the patient's case with Flakita [facility]. He understands the patient's condition and agrees to accept the patient. The patient will be further evaluated. Impression Primary Impression: Acute renal failure Additional Impressions: SOB (shortness of breath) Hyponatremia Anemia Scribe Attestation The scribe's documentation has been prepared under my direction and personally reviewed by me in its entirety. I confirm that the note above accurately reflects all work, treatment, procedures, and medical decision making performed by me. Departure Information Dispostion Being Evaluated By Hospitalist Referrals Sundar Guerrero M.D.([facility]) (PCP) Patient Instructions My [facility] Problem Qualifiers Primary Impression: Acute renal failure Acute renal failure type: unspecified Qualified Codes: N17.9 - Acute kidney failure, unspecified Additional Impressions: Anemia Anemia type: unspecified type Qualified Codes: D64.9 - Anemia, unspecified
--- NOTE | 2017-09-24 20:14 | DIAGNOSTIC IMAGING REPORT ---
CHEST ONE VIEW PORTABLE CLINICAL HISTORY: 41 years-old Male presenting with EVALUATE WEAKNESS. TECHNIQUE: Portable upright AP view of the chest was obtained. COMPARISON: 08/31/2017. FINDINGS: Evaluation limited by patient body habitus and portable technique. Cardiac silhouette enlarged. Pulmonary vascular prominence. Hazy bibasilar predominant opacities could relate to overlapping soft tissue. Evaluation for pleural effusions or pneumothorax highly limited. IMPRESSION: 1. Very limited examination. 2. Cardiomegaly and volume overload suggested. Electronically signed by: Bharat Dubois M.D. 09/24/2017 8:13 PM Dictated Date/Time: 09/24/2017 8:12 PM
[2017-09-24] MEDS ORDERED: VNTHFA/IN INH (20:51)
[2017-09-24] MEDS ORDERED: LISI-461 PO (20:51)
[2017-09-24] MEDS ORDERED: ACETAMINOPHEN 325 MG TAB PO STA (20:55)
[2017-09-24 21:22] LABS: BASO % 0.2 %; BASO ABS # 0.02 K/uL (0-0.2); EOS % 2.9 %; EOS ABS # 0.31 K/uL (0-0.5); HEMATOCRIT 30.9 % (42-52); HEMOGLOBIN 9.8 g/dL (14.0-18.0); IG# 0.03 K/uL (0.00-0.02); LYMPH % 8.6 %; LYMPH ABS # 0.92 K/uL (1.2-3.4); MEAN CELL VOLUME 89.6 fL (80-100); MEAN CORPUSCULAR HEMOGLOBIN 28.4 pg (25-34); MEAN CORPUSCULAR HGB CONC 31.7 g/dl (32-36); MEAN PLATELET VOLUME 8.9 fL (7.4-10.4); MONO % 7.2 %; MONO ABS # 0.77 K/uL (0.11-0.59); NEUT % 80.8 %; NEUT ABS # 8.68 K/uL (1.4-6.5); PLATELET COUNT 332 K/uL (130-400); RED CELL DISTRIBUTION WIDTH CV 16.4 % (11.5-14.5); RED CELL DISTRIBUTION WIDTH SD 54.2 fL (36.4-46.3); WHITE BLOOD COUNT 10.73 K/uL (4.8-10.8)
[2017-09-24 21:33] LABS: INR 0.9 (0.9-1.1); PTT PATIENT 25.5 SECONDS (21.0-31.0)
[2017-09-24] MEDS ORDERED: SODIUM CHLORIDE 0.9% 250ML 250 ML IV STA ×2 (21:36→23:49)
[2017-09-24 21:45] LABS: ALBUMIN 2.7 gm/dl (3.4-5.0); ALT/SGPT 13 U/L (12-78); BLOOD UREA NITROGEN 35 mg/dl (7-18); CALCIUM 8.8 mg/dl (8.5-10.1); CARBON DIOXIDE 33 mmol/L (21-32); CREATININE 2.15 mg/dl (0.60-1.40); GLUCOSE 115 mg/dl (70-99); POTASSIUM 3.8 mmol/L (3.5-5.1); SODIUM 129 mmol/L (136-145)
[2017-09-24] MEDS ORDERED: POTA20TA13 PO (21:50)
[2017-09-24] MEDS ORDERED: ZRX5 PO (21:50)
[2017-09-24] MEDS ORDERED: GLC500 PO (21:50)
[2017-09-24] MEDS ORDERED: SPIR25TA PO (21:50)
[2017-09-24 21:56] LABS: ALKALINE PHOSPHATASE 67 U/L (45-117); AST/SGOT 10 U/L (15-37)
[2017-09-25] VITALS (13 sets, daily range): BP systolic 89–109; BP diastolic 47–64; PULSE 112–131; TEMP 36.6–37.4; O2SAT 85–98; Ht 177.8 cm; Wt 210.0 kg
[2017-09-25] MEDS ORDERED: FENTANYL CITRATE INJ 50 MCG/1 ML 2 ML VIAL IV ONE
--- NOTE | 2017-09-25 00:19 | History and Physical ---
History & Physical Date & Time of Service: Sep 25, 2017 at 00:19 Chief Complaint: Leg Pain Primary Care Physician: Sundar Guerrero M.D.(ESTEFANY) History of Present Illness Source: patient, family Patient is a 41-year-old male with past medical history of diastolic CHF, COPD, ESTEFANI, DM II, H/O PE/DVT, Morbid Obesity, H/O metastatic adenocarcinoma of left axilla, hypertension, Farley's esophagus, GERD, Chronic oxygen dependency and other problems presents with history of worsening bilateral lower extremity swelling since 4-5 days duration. He was recently discharged from [facility] after being treated for acute on chronic respiratory failure secondary to COPD/CHF exacerbation and LE cellulitis. He states he was in the ED with similar symptoms a few days ago and was given IV lasix and was discharged home. Despite being compliant with medications, he states that his symptoms continue to worsen. He also noticed to have scrotal swelling associated with some discomfort. Reports associated weight gain and orthopnea but denies any worsening shortness of breath. He has chronic cough but denies any history of wheezing. He states being compliant with CPAP use. Also reports mild chronic abdominal pain which is unchanged. Denies any history of chest pain, SOB, dizziness, diaphoresis, fever, chills, headache, nausea, vomiting, diarrhea, dysuria, recent change in medications. Past Medical/Surgical History Medical Problems: (1) Abscess or cellulitis of foot (2) Anemia (3) Anticoagulants,Lt,Current Use (4) Asthma (5) Farley's esophagus (6) Bilateral cellulitis of lower leg (7) Bilateral lower extremity edema (8) Bilateral lower extremity edema (9) Bilateral lower leg cellulitis (10) Cellulitis (11) Cellulitis (12) Cellulitis (13) Cellulitis of perineum (14) Cellulitis of right leg (15) Cellulitis of right lower extremity (16) Cellulitis of thigh (17) CHF (congestive heart failure) (18) COPD (chronic obstructive pulmonary disease) (19) COPD exacerbation (20) COPD with exacerbation (21) Depression (22) Diaphragmatic Hernia (23) Failure of outpatient treatment (24) Fluid overload (25) GERD (gastroesophageal reflux disease) (26) History of DVT (deep vein thrombosis) (27) History of metastatic adenocarcinoma (28) History of pulmonary embolus (PE) (29) Hypercarbia (30) Hyperglycemia (31) Hypertension (32) Hypertension Nos (33) Hypokalemia (34) Hypokalemia (35) Hypoxia (36) Hypoxia (37) Infected stasis ulcer of right lower extremity (38) Intertrigo (39) Lower extremity edema (40) Morbid Obesity (41) Morbid obesity (42) Morbid obesity with BMI of 50.0-59.9, adult (43) Osteoarthros Nos-Unspec (44) Personal History Of Pulmonary Embolism (45) Rash and nonspecific skin eruption (46) Reflux Esophagitis (47) Respiratory failure (48) Restrictive lung disease (49) S/p insertion of A port (50) S/p sinusotomy and septoplasty (51) Scrotal edema (52) Shortness of breath (53) Sleep apnea (54) Tachycardia (55) Tobacco use disorder (56) Unspecified Sleep Apnea (57) UTI (urinary tract infection) (58) UTI (urinary tract infection) Surgical Problems: (1) H/O arthroscopic knee surgery (2) H/O esophagogastroduodenoscopy (3) H/O lymph node biopsy Family History Cancer FATHER (colon [place] age 56) Cardiac disorder Diabetes mellitus MOTHER Heart disease MOTHER ([place] age 54) FATHER [place] BROTHER [place] age 48) BROTHER ([place] age 57) Hypertension MOTHER Reviewed as above Social History Smoking Status: Current Every Day Smoker Alcohol Use: none Drug Use: none Marital Status: Housing status: lives with family Occupational Status: unemployed, disabled Immunizations History of Influenza Vaccine: No History of Tetanus Vaccine?: Unknown Tetanus Immunization Date: Oct 01, 2004 History of Pneumococcal: No History of Hepatitis B Vaccine: No Allergies Coded Allergies: Morphine (Verified Allergy, Intermediate, 0, 09/20/17) oversedation Iodinated Diagnostic Agents (Unverified Allergy, Unknown, turns bright red and on fire feeling, RASH, 09/20/17) Home Medications Scheduled Atorvastatin (Lipitor), 40 MG PO DAILY Furosemide (Furosemide), 80 MG PO BID17 Home O2 Therapy (Oxygen), 3 LITERS NA CONTINOUS Lisinopril (Lisinopril), 10 MG PO DAILY Metformin HCl (Metformin HCl), 500 MG PO DAILY Metolazone (Metolazone), 5 MG PO DAILY Omeprazole (Prilosec), 40 MG PO DAILY Potassium Chloride Microencaps (Potassium Chloride Er), 20 MEQ PO QAM Rivaroxaban (Xarelto), 20 MG PO DAILY Ropinirole HCl (Ropinirole HCl), 0.25 MG PO HS Ropinirole Hydrochloride (Requip), 0.5 MG PO HS Spironolactone (Aldactone), 25 MG PO BID Scheduled PRN Albuterol Hfa (Ventolin Hfa), 2 PUFFS INH Q4H PRN for SOB/Wheezing Ipratropium-Albuterol (Duoneb), 3 ML NEB QID PRN for SOB/Wheezing Review of Systems See HPI for pertinent positives & negatives. A total of 10 systems reviewed and were otherwise negative. Physical Exam Vital Signs Date Time Temp Pulse Resp B/P (MAP) Pulse Ox O2 Delivery O2 Flow Rate FiO2 09/25/17 00:14 113 32 109/54 93 Room Air 09/24/17 23:23 115 16 90/42 91 Room Air 09/24/17 22:28 100/48 09/24/17 21:58 112 28 88/52 94 Room Air 09/24/17 21:25 78/44 09/24/17 21:12 112 28 74/44 95 Room Air 09/24/17 20:04 96 Nasal Cannula 3.0 09/24/17 19:54 37.1 109 26 91/44 98 Nasal Cannula 3.0 General Appearance: no apparent distress, + obese Head: normocephalic, atraumatic Eyes: normal inspection, PERRL, EOMI, sclerae normal ENT: normal ENT inspection, hearing grossly normal Neck: supple, trachea midline Respiratory/Chest: chest non-tender, no respiratory distress, no accessory muscle use, + decreased breath sounds, + pertinent finding (Scattered basal crackles, wheezes) Cardiovascular: regular rate, rhythm, + tachycardia, + pertinent finding (B/L LE edema ) Abdomen/GI: normal bowel sounds, non tender, soft, + distended Genitourinary - Male: + pertinent finding (Significant scrotal swelling, mild erythema) Back: normal inspection Extremities/Musculoskelatal: normal inspection, + pedal edema, + pertinent finding (B/L LE wounds, chronic venous stasis changes) Neurologic/Psych: 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, no motor/sensory deficits, alert, oriented x 3 Skin: normal color, warm/dry Diagnostics Laboratory Results Results Past 24 Hours Test 09/24/17 20:55 Range/Units White Blood Count 10.73 4.8-10.8 K/uL Red Blood Count 3.45 4.7-6.1 M/uL Hemoglobin 9.8 14.0-18.0 g/dL Hematocrit 30.9 42-52 % Mean Corpuscular Volume 89.6 80-100 fL Mean Corpuscular Hemoglobin 28.4 25-34 pg Mean Corpuscular Hemoglobin Concent 31.7 32-36 g/dl Platelet Count 332 130-400 K/uL Mean Platelet Volume 8.9 7.4-10.4 fL Neutrophils (%) (Auto) 80.8 % Lymphocytes (%) (Auto) 8.6 % Monocytes (%) (Auto) 7.2 % Eosinophils (%) (Auto) 2.9 % Basophils (%) (Auto) 0.2 % Neutrophils # (Auto) 8.68 1.4-6.5 K/uL Lymphocytes # (Auto) 0.92 1.2-3.4 K/uL Monocytes # (Auto) 0.77 0.11-0.59 K/uL Eosinophils # (Auto) 0.31 0-0.5 K/uL Basophils # (Auto) 0.02 0-0.2 K/uL RDW Standard Deviation 54.2 36.4-46.3 fL RDW Coefficient of Variation 16.4 11.5-14.5 % Immature Granulocyte % (Auto) 0.3 % Immature Granulocyte # (Auto) 0.03 0.00-0.02 K/uL Prothrombin Time 9.8 9.0-12.0 SECONDS Prothromb Time International Ratio 0.9 0.9-1.1 Activated Partial Thromboplast Time 25.5 21.0-31.0 SECONDS Partial Thromboplastin Ratio 1.0 Sodium Level 129 136-145 mmol/L Potassium Level 3.8 3.5-5.1 mmol/L Chloride Level 89 98-107 mmol/L Carbon Dioxide Level 33 21-32 mmol/L Anion Gap 8.0 3-11 mmol/L Blood Urea Nitrogen 35 7-18 mg/dl Creatinine 2.15 0.60-1.40 mg/dl Est Creatinine Clear Calc Drug Dose 84.8 ml/min Estimated GFR () 43.1 Estimated GFR (Non- 37.2 BUN/Creatinine Ratio 16.0 10-20 Random Glucose 115 70-99 mg/dl Calcium Level 8.8 8.5-10.1 mg/dl Magnesium Level 1.6 1.8-2.4 mg/dl Total Bilirubin 0.3 0.2-1 mg/dl Direct Bilirubin < 0.1 0-0.2 mg/dl Aspartate Amino Transf (AST/SGOT) 10 15-37 U/L Alanine Aminotransferase (ALT/SGPT) 13 12-78 U/L Alkaline Phosphatase 67 45-117 U/L Total Creatine Kinase 73 39-308 U/L Pro-B-Type Natriuretic Peptide 48 0-450 pg/ml Total Protein 7.0 6.4-8.2 gm/dl Albumin 2.7 3.4-5.0 gm/dl Thyroid Stimulating Hormone (TSH) 2.700 0.300-4.500 uIu/ml Diagnostic Radiology CXR: 1. Very limited examination. 2. Cardiomegaly and volume overload suggested. EKG EKG pending Impression Assessment and Plan Volume Overload Presented with worsening bilateral lower extremity edema, scrotal swelling Likely secondary to acute on chronic diastolic CHF, Hypoalbuminemia CXR: suggestive of cardiomegaly and volume overload Hold PO diuretics IV albumin and IV Lasix as seemed to be intravascularly volume depleted Daily weight, I/Os Cardiology consulted Last ECHO in August: * Qualitative LV systolic function appears normal in isolated subcostal view. * Grossly normal right ventricular size and function in subcostal view. * Normal inferior vena cava size and collapsibility with sniff indicates a normal right atrial pressure of 3 mmHg JINNY: Likely secondary to diuretics Seems to be intravascularly volume depleted IV albumin monitor renal function check renal ultrasound Nephrology consulted Hold lisinopril Chronic Hyponatremia: Likely 2/2 diuretics/Volume overload status monitor sodium levels Hypomagnesemia: Replace and monitor COPD Chronic oxygen dependency: 3L at baseline No signs of exacerbation ESTEFANI: continue CPAP QHS DM II: Last A1C:7.2 Hold oral meds ISS, Lantus Monitor BGs H/O PE/DVT: Continued Xarelto Morbid Obesity: BMI:66.3 H/O metastatic adenocarcinoma of left axilla: S/P surgery, chemotherapy HTN: Currently hypotensive Hold HTN meds H/O Farley's esophagus GERD continue PPI Restless leg Syndrome: Continue Requip DVT Px: On Xarelto Code Status: Full Code Resuscitation Status VTE Prophylaxis Will order VTE Prophylaxis: Yes
[2017-09-25] MEDS ORDERED: ONDANSETRON INJ 2 MG/ML 2 ML VIAL IV PRN (01:00)
[2017-09-25] MEDS ORDERED: GLUCAGON FOR INJ 1 MG VIAL SQ PRN (01:15)
[2017-09-25] MEDS ORDERED: GLUCOSE 40% GEL 15 GM TUBE PO PRN (01:15)
[2017-09-25] MEDS ORDERED: GLUCOSE 10 TABS/TUBE PO PRN (01:15)
[2017-09-25] MEDS ORDERED: DEXTROSE 50% 50 ML SYR IV PRN (01:15)
[2017-09-25] MEDS ORDERED: MAGNESIUM SULFATE 1GM / D5W 1 GM in PREMIXED IN D5W 100 ML IV STA (01:25)
[2017-09-25] MEDS ORDERED: ROPINIROLE HCL 0.25 MG TAB PO STA (01:41)
[2017-09-25] MEDS ORDERED: ALBUMIN 25% 50 ML with FUROSEMIDE INJ 40 MG IV STA ×2 (01:41)
[2017-09-25] MEDS ORDERED: MAGNESIUM SULFATE 1GM / D5W 1 GM BAG ONE (02:52)
[2017-09-25] MEDS ORDERED: HEPARIN SOD 5000 UNIT/0.5 ML CARP SQ SCH (06:00)
--- NOTE | 2017-09-25 06:07 | DIAGNOSTIC IMAGING REPORT ---
EXAMINATION: RENAL ULTRASOUND CLINICAL HISTORY: Acute renal insufficiency COMPARISON STUDY: CT scan dated 08/30/2017 FINDINGS: The right kidney measures 14.2 cm. The left kidney measures 13.3 cm. There is no evidence of hydronephrosis. There are no renal masses. The bladder was not visualized. Study was very limited from a technical standpoint the patient's large body habitus (BMI 66) IMPRESSION : 1. Technically limited study 2. No renal masses identified. No evidence of hydronephrosis. Electronically signed by: Jonathan Squires M.D. 09/25/2017 6:06 AM Dictated Date/Time: 09/25/2017 6:05 AM
[2017-09-25] MEDS: ALBUT/IPRATROP 3MG/0.5MG NEB 3 ML VIAL INH SCH ×4 (07:07→19:33)
[2017-09-25] MEDS: ATORVASTATIN 40 MG TAB PO SCH (07:56)
[2017-09-25] MEDS: POTASSIUM CHLORIDE 20 MEQ TABCR PO SCH (07:56)
[2017-09-25] MEDS: RIVAROXABAN 20 MG TAB PO SCH (07:57)
[2017-09-25] MEDS: PANTOprazole SOD 40 MG TAB PO SCH (07:57)
[2017-09-25 08:44] LABS: HEMATOCRIT 31.1 % (42-52); MEAN CELL VOLUME 89.1 fL (80-100); MEAN CORPUSCULAR HEMOGLOBIN 28.7 pg (25-34); MEAN CORPUSCULAR HGB CONC 32.2 g/dl (32-36); MEAN PLATELET VOLUME 8.7 fL (7.4-10.4); PLATELET COUNT 306 K/uL (130-400); RED CELL DISTRIBUTION WIDTH CV 16.6 % (11.5-14.5); RED CELL DISTRIBUTION WIDTH SD 54.2 fL (36.4-46.3); WHITE BLOOD COUNT 8.82 K/uL (4.8-10.8)
[2017-09-25] MEDS ORDERED: FUROSEMIDE INJ 60 MG in SYRINGE 0 ML IV SCH (09:00)
[2017-09-25 09:03] LABS: ALBUMIN 2.5 gm/dl (3.4-5.0); CALCIUM 8.6 mg/dl (8.5-10.1); CREATININE 1.52 mg/dl (0.60-1.40); POTASSIUM 3.6 mmol/L (3.5-5.1)
[2017-09-25] MEDS: ALBUMIN HUMAN 25% 12.5 GM/50 ML VIAL IV SCH ×5 (09:13→20:51)
[2017-09-25] MEDS: INSULIN GLARGINE SOLOSTAR 100 UNITS/ML 3 ML PEN SC SCH ×2 (09:25→21:18)
[2017-09-25] MEDS: INSULIN ASPART 100 UNITS/ML 3 ML PEN SC SCH ×4 (09:26→21:18)
--- NOTE | 2017-09-25 12:19 | NEPHROLOGY CONSULTATION ---
DATE OF CONSULTATION: 09/25/2017 ATTENDING OF RECORD: Sridhar Dowling MD REASON FOR CONSULTATION: JINNY. HISTORY OF PRESENT ILLNESS: This is a 41-year-old morbidly obese male. His baseline creatinine is around 0.6 on 09/20/2017, repeat on admission today was 2.15. The patient had a renal ultrasound done showed right kidney 14.2 cm and the left kidney 13.3 cm. No hydronephrosis. The patient is complaining of significant scrotal swelling and worsening edema. Chest x-ray showed cardiomegaly and volume overload. The patient now with ambulatory dysfunction, difficulty walking, who has history of metastatic adenocarcinoma of the left axilla, type 2 diabetes, diastolic heart failure, obstructive sleep apnea with underlying COPD, chronic oxygen dependency, who was recently in the hospital for cellulitis/COPD and CHF exacerbation. He has been compliant with his CPAP, taking his medications, but states over the last several days, his scrotum has significantly swollen and he presents with worsening kidney function. The patient was discharged, at last admission from 08/30/2017-09/06/2017, on doxycycline, Lasix 80 mg p.o. b.i.d. and spironolactone 25 mg p.o. b.i.d. PAST MEDICAL HISTORY: Morbid obesity, COPD, diastolic heart failure, oxygen dependency, obstructive sleep apnea, metastatic adenocarcinoma, history of PE, hypertension. PAST SURGICAL HISTORY: Lymph node biopsy, septoplasty. FAMILY HISTORY: Significant for colon cancer and heart disease. SOCIAL HISTORY: Active smoker. No alcohol, no drugs. and lives with family. HOME MEDICATIONS: Significant for Lasix 80 mg p.o. b.i.d., spironolactone 25 mg p.o. b.i.d., potassium 20 mEq daily. REVIEW OF SYSTEMS: Positive scrotal edema and worsening edema. Positive ambulatory dysfunction. No headaches, no blurry vision, no dysphagia. Positive shortness of breath at rest. No chest pain, no nausea, vomiting, diarrhea or constipation. No dysuria or hematuria. No rash or itching. All other review of systems otherwise negative. CURRENT MEDICATIONS: Requip 0.75 mg at night, Lantus 10 units subQ q. 12, Lipitor 40 mg daily, potassium 20 mEq daily, Xarelto 20 mg daily, Protonix 40 mg daily, Lasix 60 IV b.i.d., DuoNebs. PHYSICAL EXAMINATION: VITAL SIGNS: Temperature 36.6, pulse 120, respiratory rate 24, blood pressure 109/64, satting 98% on 4 liters. GENERAL: Awake, alert, oriented x3, morbidly obese. EYES: No scleral icterus. ENT: Moist mucous membranes. NECK: Supple. PULMONARY: Positive end expiratory wheeze. CARDIAC: Distant heart sounds, tachycardic. ABDOMEN: Bowel sounds positive, soft, nontender. EXTREMITIES: Some mild ulcers in the lower extremities, significant scrotal edema. NEUROLOGIC: Some ambulatory dysfunction. DERMATOLOGIC: Mild ulcers in the lower extremities. LABORATORIES: Pending for this morning. Last night, sodium level 129, potassium 3.8, chloride 89, bicarbonate 33, BUN 35, creatinine 2.15, glucose 115, calcium 8.8, mag 1.6, AST 10, albumin is 2.7. TSH 2.7, proBNP 48. Hemoglobin 9.8. INR 0.9. UA with pH of 5. Specific gravity of 1.013, relatively bland sediment. IMPRESSION AND PLAN: Acute kidney injury. This is a 41-year-old male with baseline creatinine of 0.7, who presents with a creatinine of 2.15 with albumin of 2.7 with blood pressures in the 80s-90s with significant scrotal swelling and signs of volume overload on chest x-ray. Difficult to corset maker volume status in this morbidly obese male. Given his low blood pressures and worsening kidney function, I feel patient is intravascularly volume depleted, would screen for infection and blood cultures are pending. The patient is on Lasix as well as albumin with Lasix combination. I will discuss further with the hospitalist. I would like to hold diuretics for 24 hours and give albumin to try to help improve the blood pressures. The patient appears to be tachycardic at his baseline during previous admissions, but systolics were normally in the low 100s, below 100 is abnormal for the patient. Once blood pressures have stabilized and volume intravascularly has improved we then start the albumin with Lasix combination to try to remove the excess fluid. Concerned about removing fluid when the blood pressures are low at this time. I will discuss case further with the hospitalist. FIDEL
[2017-09-25] MEDS ORDERED: ROPINIROLE HCL 0.25 MG TAB PO ONE (14:00)
--- NOTE | 2017-09-25 15:22 | Progress Note ---
Medicine Progress Note Date & Time of Visit: Sep 25, 2017 at 15:02. Subjective Pt was seen and examined Lying in bed with no distress Pt said that his back is tender he said that he has been compliant with his CPAP and lasix but still readmitted to the hospital He said that his breathing slightly improves He said that he is having restlessness in his legs Denies any chest pain, palpitation, dizziness and fever Objective Last 8 Hrs Date Time Temp Pulse Resp B/P (MAP) Pulse Ox O2 Delivery O2 Flow Rate FiO2 09/25/17 14:34 116 18 92 Nasal Cannula 3.0 09/25/17 12:06 37.4 131 22 102/55 (71) 93 Nasal Cannula 3.0 09/25/17 12:00 94 Nasal Cannula 3.0 09/25/17 11:29 119 18 85 Room Air 09/25/17 08:10 36.8 125 22 105/47 (66) 90 Nasal Cannula 3.0 09/25/17 08:00 94 Nasal Cannula 3.0 09/25/17 07:30 119 18 94 Nasal Cannula 3.0 Physical Exam: General- Morbid obesity Head- atraumatic Eyes- PERRL, EOMI ENT- oropharynx clear Neck- supple, no JVD Lungs- Decrease BS, mild wheezing Heart- regular rhythm Abdomen- normal bowel sounds, NT Extremities- no calf tenderness, +edema Neuro- alert, oriented x 3; PERRL Skin- warm & dry Laboratory Results: Last 24 Hours Test 09/24/17 20:55 09/25/17 01:20 09/25/17 06:57 09/25/17 08:23 White Blood Count 10.73 K/uL 8.82 K/uL Red Blood Count 3.45 M/uL 3.49 M/uL Hemoglobin 9.8 g/dL 10.0 g/dL Hematocrit 30.9 % 31.1 % Mean Corpuscular Volume 89.6 fL 89.1 fL Mean Corpuscular Hemoglobin 28.4 pg 28.7 pg Mean Corpuscular Hemoglobin Concent 31.7 g/dl 32.2 g/dl Platelet Count 332 K/uL 306 K/uL Mean Platelet Volume 8.9 fL 8.7 fL Neutrophils (%) (Auto) 80.8 % Lymphocytes (%) (Auto) 8.6 % Monocytes (%) (Auto) 7.2 % Eosinophils (%) (Auto) 2.9 % Basophils (%) (Auto) 0.2 % Neutrophils # (Auto) 8.68 K/uL Lymphocytes # (Auto) 0.92 K/uL Monocytes # (Auto) 0.77 K/uL Eosinophils # (Auto) 0.31 K/uL Basophils # (Auto) 0.02 K/uL RDW Standard Deviation 54.2 fL 54.2 fL RDW Coefficient of Variation 16.4 % 16.6 % Immature Granulocyte % (Auto) 0.3 % Immature Granulocyte # (Auto) 0.03 K/uL Prothrombin Time 9.8 SECONDS Prothromb Time International Ratio 0.9 Activated Partial Thromboplast Time 25.5 SECONDS Partial Thromboplastin Ratio 1.0 Sodium Level 129 mmol/L 132 mmol/L Potassium Level 3.8 mmol/L 3.6 mmol/L Chloride Level 89 mmol/L 91 mmol/L Carbon Dioxide Level 33 mmol/L 37 mmol/L Anion Gap 8.0 mmol/L 4.0 mmol/L Blood Urea Nitrogen 35 mg/dl 35 mg/dl Creatinine 2.15 mg/dl 1.52 mg/dl Est Creatinine Clear Calc Drug Dose 84.8 ml/min 116.8 ml/min Estimated GFR () 43.1 65.5 Estimated GFR (Non- 37.2 56.5 BUN/Creatinine Ratio 16.0 23.1 Random Glucose 115 mg/dl 132 mg/dl Calcium Level 8.8 mg/dl 8.6 mg/dl Magnesium Level 1.6 mg/dl 1.8 mg/dl Total Bilirubin 0.3 mg/dl Direct Bilirubin < 0.1 mg/dl Aspartate Amino Transf (AST/SGOT) 10 U/L Alanine Aminotransferase (ALT/SGPT) 13 U/L Alkaline Phosphatase 67 U/L Total Creatine Kinase 73 U/L Pro-B-Type Natriuretic Peptide 48 pg/ml Total Protein 7.0 gm/dl Albumin 2.7 gm/dl 2.5 gm/dl Thyroid Stimulating Hormone (TSH) 2.700 uIu/ml Urine Color YELLOW Urine Appearance CLOUDY Urine pH 5.0 Urine Specific Sumner 1.013 Urine Protein NEG Urine Glucose (UA) NEG Urine Ketones NEG Urine Occult Blood NEG Urine Nitrite NEG Urine Bilirubin NEG Urine Urobilinogen NEG Urine Leukocyte Esterase NEG Urine WBC (Auto) 1-5 /hpf Urine RBC (Auto) 0-4 /hpf Urine Hyaline Casts (Auto) 10-30 /lpf Urine Epithelial Cells (Auto) >30 /lpf Urine Bacteria (Auto) NEG Urine Renal Epithelial Cells /lpf Urine Pathogenic Casts /lpf Bedside Glucose 135 mg/dl Test 09/25/17 12:41 Bedside Glucose 149 mg/dl Assessment & Plan Acute on Chronic Diastolic CHF Presented with worsening bilateral lower extremity edema, scrotal swelling CXR showed cardiomegaly and volume overload Received Lasix 40mg IV in the ER Lasix on hold due to JINNY with creatine 2.1 on admission and Low BP Daily weight, I/O--> -5.6 L Clinically improved Cardiology consulted Last ECHO in August: * Qualitative LV systolic function appears normal in isolated subcostal view. * Grossly normal right ventricular size and function in subcostal view. * Normal inferior vena cava size and collapsibility with sniff indicates a normal right atrial pressure of 3 mmHg JINNY Likely secondary to diuretics Creatine on admission 2.1, improved to 1.5 But unable to assess that since his CXR showed Volume overload Nephrology on board Lasix on hold Continue IV albumin q6hr as per nephro, then once once BP improves, we can restart lasix Renal u/s showed no renal masses identified. No evidence of hydronephrosis. Continue monitor BMP Avoid nephrotoxic agents Chronic Hyponatremia mostly due to diuretics/Volume overload status Na on admission 129, that improves to 132 Monitor BMP Hypomagnesemia: Mg replaced Monitor COPD Chronic oxygen dependency: 3L at baseline No signs of exacerbation ESTEFANI: continue CPAP QHS DM II: Last A1C:7.2 Hold oral meds ISS, Lantus Monitor BGs H/O PE/DVT: Continued Xarelto Morbid Obesity: BMI:66.3 Counseling on diet and exercise H/O metastatic adenocarcinoma of left axilla: S/P surgery, chemotherapy HTN: BP in the low side Hold HTN meds Monitor BP H/O Farley's esophagus GERD continue PPI Restless leg Syndrome: Continue Requip DVT Px: On Xarelto Code Status Full Code Disposition Continue monitor in tele Current Inpatient Medications: Current Inpatient Medications Medications (Trade) Dose Ordered Sig/Karissa Route Start Time Stop Time Status Last Admin Dose Admin Acetaminophen (Tylenol Tab) 650 mg Q4H PRN PO 09/25/17 01:00 10/25/17 00:59 Ondansetron HCl (Zofran Inj) 4 mg Q6H PRN IV 09/25/17 01:00 10/25/17 00:59 Insulin Glargine (Lantus Solostar Pen) 10 units Q12 SC 09/25/17 09:00 10/25/17 08:59 09/25/17 09:25 10 UNITS Insulin Aspart (novoLOG ASPART) SLIDING SCALE If C... ACHS SC 09/25/17 07:00 10/25/17 06:59 09/25/17 12:59 8 UNITS Glucose (Glucose 40% Gel) 15-30 GRAMS 15 GRAMS... UD PRN PO 09/25/17 01:15 10/25/17 01:14 Glucose (Glucose Chew Tab) 4-8 Tablets 4 Tabl... UD PRN PO 09/25/17 01:15 10/25/17 01:14 Dextrose (Dextrose 50% 50ML Syringe) 25-50ML OF 50% DW IV FOR... UD PRN IV 09/25/17 01:15 10/25/17 01:14 Glucagon (Glucagon Inj) 1 mg UD PRN SQ 09/25/17 01:15 10/25/17 01:14 Albuterol/ Ipratropium (Duoneb) 3 ml QIDR INH 09/25/17 08:00 10/25/17 07:59 09/25/17 14:32 3 ML Atorvastatin Calcium (Lipitor Tab) 40 mg DAILY PO 09/25/17 09:00 10/25/17 08:59 09/25/17 07:56 40 MG Potassium Chloride (Klor-Con Tab) 20 meq QAM PO 09/25/17 09:00 10/25/17 08:59 09/25/17 07:56 20 MEQ Rivaroxaban (Xarelto Tab) 20 mg DAILY PO 09/25/17 09:00 10/25/17 08:59 09/25/17 07:57 20 MG Ropinirole HCl (Requip Tab) 0.75 mg HS PO 09/25/17 21:00 10/25/17 20:59 Pantoprazole Sodium (Protonix Tab) 40 mg QAM PO 09/25/17 09:00 10/25/17 08:59 09/25/17 07:57 40 MG Albumin Human (Albumin 25%) 25 gm QID IV 09/25/17 13:00 09/25/17 21:01 09/25/17 13:49 25 GM Albumin Human (Albumin 25%) 12.5 gm 0900,1000 IV 09/25/17 09:00 09/28/17 08:59 09/25/17 12:53 12.5 GM
--- NOTE | 2017-09-25 16:48 | Cardiology Consultation ---
Cardiology Consultation Date of Consultation: Sep 25, 2017 History of Present Illness Bharathi Garcia is a 41 year old male seen in cardiology consultation per the request of Dr Dowling for the evaluation of right heart failure. The patient has a history of [place]wickian obesity hypoventilation syndrome with resultant right heart failure. Per his chart his calculated body mass index is 66.4 kg/m. He had recently been hospitalized last month in August 2017 having been discharged about 20 days ago. He was readmitted with complaints of progressive scrotal swelling. Admission labs included findings of acute kidney injury with creatinine of 2.15 up from a baseline of 0.6 mg/dL which has improved to 1.52 after hold diuretics this morning. He had already been seen by nephrology earlier today. The patient's only concern at present when I talked to him is that he did not want to be placed on a fluid restriction. Past Medical/Surgical History Problem List: Medical Problems: (1) Abscess or cellulitis of foot (2) Anticoagulants,Lt,Current Use (3) Asthma (4) Farley's esophagus (5) Cellulitis (6) Cellulitis of right lower extremity (7) CHF (congestive heart failure) (8) COPD (chronic obstructive pulmonary disease) (9) COPD exacerbation (10) Depression (11) Diaphragmatic Hernia (12) GERD (gastroesophageal reflux disease) (13) History of DVT (deep vein thrombosis) (14) History of metastatic adenocarcinoma (15) History of pulmonary embolus (PE) (16) Hypertension (17) Hypertension Nos (18) Morbid Obesity (19) Morbid obesity with BMI of 50.0-59.9, adult (20) Osteoarthros Nos-Unspec (21) Personal History Of Pulmonary Embolism (22) Reflux Esophagitis (23) Respiratory failure (24) S/p insertion of A port (25) S/p sinusotomy and septoplasty (26) Scrotal edema (27) Sleep apnea (28) Tobacco use disorder (29) Unspecified Sleep Apnea (30) UTI (urinary tract infection) (31) Volume overload Surgical Problems: (1) H/O arthroscopic knee surgery (2) H/O esophagogastroduodenoscopy (3) H/O lymph node biopsy Review Of Systems 10 point review of systems is reviewed and is negative with exception of that above Allergies Coded Allergies: Morphine (Verified Allergy, Intermediate, 0, 09/20/17) oversedation Iodinated Diagnostic Agents (Unverified Allergy, Unknown, turns bright red and on fire feeling, RASH, 09/20/17) Medications Reported Home Medications Medications Dose Route/Sig Max Daily Dose Days Date Category Dose Instructions Metolazone 5 Mg Tab 5 Mg PO DAILY 09/24/17 Reported Metformin HCl 500 Mg Tab 500 Mg PO DAILY 09/24/17 Reported Aldactone (Spironolactone) 25 Mg Tab 25 Mg PO BID 09/24/17 Reported Potassium Chloride Er (Potassium Chloride Microencaps) 20 Meq Tab 20 Meq PO QAM 09/24/17 Reported Furosemide 80 Mg Tab 80 Mg PO BID17 09/06/17 Rx Xarelto (Rivaroxaban) 20 Mg Tab 20 Mg PO DAILY 08/30/17 Reported Requip (Ropinirole Hydrochloride) 0.5 Mg Tab 0.5 Mg PO HS 08/30/17 Reported TAKE ONE 0.5 MG TABLET ALONG WITH ONE 0.25 MG TABLET TO EQUAL BEDTIME DOSE OF 0.75 MG. TAKE THIS MEDICATION WITH FOOD. Ropinirole HCl 0.25 Mg Tab 0.25 Mg PO HS 01/19/17 Reported TAKE ONE 0.25 MG TABLET ALONG WITH ONE 0.5 MG TABLET TO EQUAL BEDTIME DOSE OF 0.75 MG. TAKE THIS MEDICATION WITH FOOD. Oxygen Gas 3 Liters NA CONTINOUS 02/17/16 Reported Prilosec (Omeprazole) 40 Mg Cap 40 Mg PO DAILY 02/17/16 Reported TAKE THIS MEDICATION ONCE DAILY ONE HOUR BEFORE FIRST MEAL OF THE DAY Lipitor (Atorvastatin Calcium) 40 Mg Tab 40 Mg PO DAILY 02/17/16 Reported Duoneb (Ipratropium-Albuterol) 3 Ml Nebu 3 Ml NEB QID PRN 08/22/15 Reported Ventolin Hfa (Albuterol) 200 Puffs/59923 Mcg Aers 2 Puffs INH Q4H PRN 04/28/15 Reported Lisinopril 10 Mg Tab 10 Mg PO DAILY 04/28/15 Reported Physical Exam Vital Signs (Last 8hrs): Last 8 Hrs Date Time Temp Pulse Resp B/P (MAP) Pulse Ox O2 Delivery O2 Flow Rate FiO2 09/25/17 16:00 94 Nasal Cannula 3.0 09/25/17 15:44 36.9 112 20 109/60 (76) 95 Nasal Cannula 3.0 09/25/17 14:34 116 18 92 Nasal Cannula 3.0 09/25/17 12:06 37.4 131 22 102/55 (71) 93 Nasal Cannula 3.0 09/25/17 12:00 94 Nasal Cannula 3.0 09/25/17 11:29 119 18 85 Room Air General Appearance: Alert and Oriented x3. Chronically ill in appearance Head: Normocephalic Atraumatic. Eyes: PERRLA, EOMI, conjunctiva and sclera clear Neck: Supple. No carotid bruits noted. No JVD. No HJD. Respiratory: Breath sounds clear to auscultation bilaterally. No w/r/r. Cardiovascular: Reg rate and rhythm. S1 and S2 noted. No murmurs, rubs, gallops. PMI non displace. Abdomen: Normal bowel sounds, soft nontender. no abdominal bruits. Extremities: 1-2+ lower extremity edema, severe scrotal swelling, no focal skin breakdown. Neuro: No focal deficits. Psychiatric: Normal affect. Data EKG on admission revealed sinus tachycardia 124 bpm with right bundle branch block revealed repolarization changes. Assessment & Plan Impression: 41-year-old male Obesity hypoventilation syndrome, right heart failure. Recommendations: -Agree with nephrology assessment that he appears to be intravascularly volume depleted, but has extravascular fluid retention. Agree with holding diuretic at present. On the administration of albumin is not evidence based, would proceed with administration in order to increase his oncotic pressure. Based on telemetry and EKG, sinus tachycardia appears to be present he remains in the 120 bpm range. This could be atrial flutter. If so he is already anticoagulated due to his history of venous thromboembolic disease and recommend continuation of Xarelto. -Continue CPAP as tolerated. -Patient had an echocardiogram during his admission last month. He was technically limited, at present, I do not think we need to repeat this as I do not think it would change our management.
[2017-09-25] MEDS ORDERED: ROPINIROLE HCL 0.25 MG TAB PO SCH (21:00)
[2017-09-25] MEDS: ROPINIROLE HCL 0.25 MG TAB PO SCH (21:16)
[2017-09-26] VITALS (12 sets, daily range): BP systolic 95–117; BP diastolic 48–61; PULSE 101–119; TEMP 36.8–37.2; O2SAT 90–94
[2017-09-26] MEDS: ALBUT/IPRATROP 3MG/0.5MG NEB 3 ML VIAL INH SCH ×4 (07:02→19:02)
[2017-09-26 07:44] LABS: HEMATOCRIT 30.4 % (42-52); HEMOGLOBIN 9.5 g/dL (14.0-18.0); MEAN CELL VOLUME 90.7 fL (80-100); MEAN CORPUSCULAR HEMOGLOBIN 28.4 pg (25-34); MEAN CORPUSCULAR HGB CONC 31.3 g/dl (32-36); PLATELET COUNT 349 K/uL (130-400); RED CELL DISTRIBUTION WIDTH CV 16.8 % (11.5-14.5); RED CELL DISTRIBUTION WIDTH SD 55.8 fL (36.4-46.3); WHITE BLOOD COUNT 8.07 K/uL (4.8-10.8)
[2017-09-26 08:02] LABS: CALCIUM 8.9 mg/dl (8.5-10.1); CREATININE 0.78 mg/dl (0.60-1.40); POTASSIUM 4.4 mmol/L (3.5-5.1)
[2017-09-26] MEDS: POTASSIUM CHLORIDE 20 MEQ TABCR PO SCH (08:15)
[2017-09-26] MEDS: PANTOprazole SOD 40 MG TAB PO SCH (08:15)
[2017-09-26] MEDS: RIVAROXABAN 20 MG TAB PO SCH (08:15)
[2017-09-26] MEDS: ATORVASTATIN 40 MG TAB PO SCH (08:15)
[2017-09-26] MEDS: INSULIN GLARGINE SOLOSTAR 100 UNITS/ML 3 ML PEN SC SCH ×2 (08:20→21:29)
[2017-09-26] MEDS: INSULIN ASPART 100 UNITS/ML 3 ML PEN SC SCH ×4 (08:23→21:28)
[2017-09-26] MEDS: ALBUMIN HUMAN 25% 12.5 GM/50 ML VIAL IV SCH ×2 (08:26→09:43)
--- NOTE | 2017-09-26 12:23 | Nephrology Progress Note ---
Nephrology Progress Note Date of Service: Sep 26, 2017. Subjective 41 yo male with hesham and volume overload with obesity. given albumin and diuresed very well. sodium levels improved and kidney function improved. pts scrotal swelling also much better. pt interested in going home tomorrow. Objective Date Time Temp Pulse Resp B/P (MAP) Pulse Ox O2 Delivery O2 Flow Rate FiO2 09/26/17 12:00 93 Nasal Cannula 4.0 09/26/17 11:09 119 18 90 Nasal Cannula 3.0 09/26/17 08:00 94 Nasal Cannula 4.0 09/26/17 07:38 119 18 90 Nasal Cannula 4.0 09/26/17 04:02 36.8 114 18 112/48 (69) 92 09/26/17 04:00 Nasal Cannula 4.0 09/26/17 00:33 37.1 119 20 95/57 (70) 92 09/26/17 00:02 Nasal Cannula 4.0 09/25/17 20:00 Nasal Cannula 4.0 09/25/17 19:35 118 18 92 Nasal Cannula 4.0 09/25/17 16:00 94 Nasal Cannula 3.0 09/25/17 15:44 36.9 112 20 109/60 (76) 95 Nasal Cannula 3.0 09/25/17 14:34 116 18 92 Nasal Cannula 3.0 Physical Exam: General-aaox3, obese Eyes-no scleral icterus ENT-mmm Neck-supple Lungs-cta Heart-tachycardia Abdomen-bs+ s/nt/nd Extremities-+2 non pitting edema Neuro-nonfocal Current Inpatient Medications Medications (Trade) Dose Ordered Sig/Karissa Route Start Time Stop Time Status Last Admin Dose Admin Acetaminophen (Tylenol Tab) 650 mg Q4H PRN PO 09/25/17 01:00 10/25/17 00:59 Ondansetron HCl (Zofran Inj) 4 mg Q6H PRN IV 09/25/17 01:00 10/25/17 00:59 Insulin Glargine (Lantus Solostar Pen) 10 units Q12 SC 09/25/17 09:00 10/25/17 08:59 09/26/17 08:20 10 UNITS Insulin Aspart (novoLOG ASPART) SLIDING SCALE If C... ACHS SC 09/25/17 07:00 10/25/17 06:59 09/26/17 08:23 6 UNITS Glucose (Glucose 40% Gel) 15-30 GRAMS 15 GRAMS... UD PRN PO 09/25/17 01:15 10/25/17 01:14 Glucose (Glucose Chew Tab) 4-8 Tablets 4 Tabl... UD PRN PO 09/25/17 01:15 10/25/17 01:14 Dextrose (Dextrose 50% 50ML Syringe) 25-50ML OF 50% DW IV FOR... UD PRN IV 09/25/17 01:15 10/25/17 01:14 Glucagon (Glucagon Inj) 1 mg UD PRN SQ 09/25/17 01:15 10/25/17 01:14 Albuterol/ Ipratropium (Duoneb) 3 ml QIDR INH 09/25/17 08:00 10/25/17 07:59 09/26/17 11:09 3 ML Atorvastatin Calcium (Lipitor Tab) 40 mg DAILY PO 09/25/17 09:00 10/25/17 08:59 09/26/17 08:15 40 MG Potassium Chloride (Klor-Con Tab) 20 meq QAM PO 09/25/17 09:00 10/25/17 08:59 09/26/17 08:15 20 MEQ Rivaroxaban (Xarelto Tab) 20 mg DAILY PO 09/25/17 09:00 10/25/17 08:59 09/26/17 08:15 20 MG Ropinirole HCl (Requip Tab) 0.75 mg HS PO 09/25/17 21:00 10/25/17 20:59 09/25/17 21:16 0.75 MG Pantoprazole Sodium (Protonix Tab) 40 mg QAM PO 09/25/17 09:00 10/25/17 08:59 09/26/17 08:15 40 MG Albumin Human (Albumin 25%) 12.5 gm 0900,1000 IV 09/25/17 09:00 09/28/17 08:59 09/26/17 09:43 12.5 GM Furosemide 60 mg/ Syringe 6 ml @ 4 mls/min BID IV 09/26/17 12:00 10/26/17 11:59 Last 24 Hours Test 09/25/17 12:41 09/25/17 16:44 09/25/17 20:39 09/26/17 06:36 Bedside Glucose 149 mg/dl 117 mg/dl 164 mg/dl 129 mg/dl Test 09/26/17 06:52 White Blood Count 8.07 K/uL Red Blood Count 3.35 M/uL Hemoglobin 9.5 g/dL Hematocrit 30.4 % Mean Corpuscular Volume 90.7 fL Mean Corpuscular Hemoglobin 28.4 pg Mean Corpuscular Hemoglobin Concent 31.3 g/dl RDW Standard Deviation 55.8 fL RDW Coefficient of Variation 16.8 % Platelet Count 349 K/uL Mean Platelet Volume 9.0 fL Sodium Level 136 mmol/L Potassium Level 4.4 mmol/L Chloride Level 93 mmol/L Carbon Dioxide Level 39 mmol/L Anion Gap 4.0 mmol/L Blood Urea Nitrogen 19 mg/dl Creatinine 0.78 mg/dl Est Creatinine Clear Calc Drug Dose 227.6 ml/min Estimated GFR () 130.9 Estimated GFR (Non- 112.9 BUN/Creatinine Ratio 24.5 Random Glucose 114 mg/dl Calcium Level 8.9 mg/dl Magnesium Level 1.9 mg/dl Assessment & Plan [id number] total body volume overload with intravascular volume depletion. on albumin and diuresed well. to give lasix as well to continue to remove fluid. hyponatremia-sodium levels are low and improved with volume redistribution and diuresis.
--- NOTE | 2017-09-26 12:30 | Cardiology Follow-Up ---
Subjective General Date of Service: Sep 26, 2017. Chief Complaint: follow up edema, shortness of breath Pt evaluation today including: conversation w/ patient, physical exam History of Present Illness The patient is a 41 year old male seen in follow up . Pt diuresed 9 Liters of fluid yesterday after receiving IV albumin without diuretic. Renal function has improved dramatically . Allergies Coded Allergies: Morphine (Verified Allergy, Intermediate, 0, 09/20/17) oversedation Iodinated Diagnostic Agents (Unverified Allergy, Unknown, turns bright red and on fire feeling, RASH, 09/20/17) Social History Smoking Status: Former Smoker Hx Tobacco Use In Past Year?: Yes Hx Alcohol Use - Type And Amou: No Hx Substance Use - Type And Am: No Problem List Medical Problems: (1) Acute renal failure Status: Acute (2) Anemia Status: Acute (3) Bilateral lower extremity edema Status: Acute (4) Bilateral lower extremity edema Status: Acute (5) Bilateral lower leg cellulitis Status: Acute (6) Cellulitis Status: Acute (7) Cellulitis Status: Acute (8) Cellulitis of perineum Status: Acute (9) Cellulitis of right leg Status: Acute (10) Cellulitis of thigh Status: Acute (11) COPD with exacerbation Status: Acute (12) Failure of outpatient treatment Status: Acute (13) Fluid overload Status: Acute (14) Hypercarbia Status: Acute (15) Hyperglycemia Status: Acute (16) Hypokalemia Status: Acute (17) Hyponatremia Status: Acute (18) Hypoxia Status: Acute (19) Hypoxia Status: Acute (20) Infected stasis ulcer of right lower extremity Status: Acute (21) Intertrigo Status: Acute (22) Lower extremity edema Status: Acute (23) Morbid obesity Status: Acute (24) Restrictive lung disease Status: Acute (25) Shortness of breath Status: Acute (26) SOB (shortness of breath) Status: Acute (27) Tachycardia Status: Acute (28) UTI (urinary tract infection) Status: Acute Physical Exam Vital Signs Last Vital Signs Documentation Date Time Temp Pulse Resp B/P (MAP) Pulse Ox O2 Delivery O2 Flow Rate FiO2 09/26/17 12:00 93 Nasal Cannula 4.0 09/26/17 11:09 119 18 09/26/17 04:02 36.8 112/48 (69) Physical Exam Constitutional: Level of Distress: chronically ill Head: atraumatic Neck: trachea midline Lungs: Auscultation: pertinent finding (mildly decreased BS at bases ) Cardiovascular: Heart Auscultation: RRR, no murmurs Extremities: pertinent finding (1-2+ edema, scrotal edema is present , however improved. ) Assessment and Plan Assessment and Plan Impression: 41-year-old male Obesity hypoventilation syndrome, right heart failure. Plan: Agree with initiating diuretic therapy with caution. Continue Xarelto given history of venous thrombo-embolic disease. Laboratory Results Last 24 Hours Test 09/25/17 12:41 09/25/17 16:44 09/25/17 20:39 09/26/17 06:36 Bedside Glucose 149 mg/dl 117 mg/dl 164 mg/dl 129 mg/dl Test 09/26/17 06:52 White Blood Count 8.07 K/uL Red Blood Count 3.35 M/uL Hemoglobin 9.5 g/dL Hematocrit 30.4 % Mean Corpuscular Volume 90.7 fL Mean Corpuscular Hemoglobin 28.4 pg Mean Corpuscular Hemoglobin Concent 31.3 g/dl RDW Standard Deviation 55.8 fL RDW Coefficient of Variation 16.8 % Platelet Count 349 K/uL Mean Platelet Volume 9.0 fL Sodium Level 136 mmol/L Potassium Level 4.4 mmol/L Chloride Level 93 mmol/L Carbon Dioxide Level 39 mmol/L Anion Gap 4.0 mmol/L Blood Urea Nitrogen 19 mg/dl Creatinine 0.78 mg/dl Est Creatinine Clear Calc Drug Dose 227.6 ml/min Estimated GFR () 130.9 Estimated GFR (Non- 112.9 BUN/Creatinine Ratio 24.5 Random Glucose 114 mg/dl Calcium Level 8.9 mg/dl Magnesium Level 1.9 mg/dl
[2017-09-26] MEDS: FUROSEMIDE INJ 60 MG in SYRINGE 0 ML IV SCH ×2 (12:38→21:27)
[2017-09-26] MEDS: ACETAMINOPHEN 325 MG TAB PO PRN ×2 (15:58→21:31)
--- NOTE | 2017-09-26 18:10 | Progress Note ---
Medicine Progress Note Date & Time of Visit: Sep 26, 2017 at 11:05. Subjective Pt was seen and examined Lying in bed with no distress with and kids at bedside Pt said that he feels much better He would to go home tomorrow he said that his breathing feels much better denies any chest pain, palpitation, dizziness and SOB Objective Last 8 Hrs Date Time Temp Pulse Resp B/P (MAP) Pulse Ox O2 Delivery O2 Flow Rate FiO2 09/26/17 16:00 93 Nasal Cannula 4.0 09/26/17 15:38 37.2 114 18 114/61 (78) 90 Room Air 09/26/17 14:48 101 18 91 BiPAP/CPAP 3.0 09/26/17 12:43 37.1 118 20 117/54 (75) 90 Nasal Cannula 5.0 09/26/17 12:00 93 Nasal Cannula 4.0 09/26/17 11:09 119 18 90 Nasal Cannula 3.0 Physical Exam: General- Morbid obesity Head- atraumatic Eyes- PERRL, EOMI ENT- oropharynx clear Neck- supple, no JVD Lungs- Decrease BS, mild wheezing Heart- regular rhythm Abdomen- normal bowel sounds, NT Extremities- no calf tenderness, +edema Neuro- alert, oriented x 3; PERRL Skin- warm & dry Laboratory Results: Last 24 Hours Test 09/25/17 20:39 09/26/17 06:36 09/26/17 06:52 09/26/17 11:40 Bedside Glucose 164 mg/dl 129 mg/dl 189 mg/dl White Blood Count 8.07 K/uL Red Blood Count 3.35 M/uL Hemoglobin 9.5 g/dL Hematocrit 30.4 % Mean Corpuscular Volume 90.7 fL Mean Corpuscular Hemoglobin 28.4 pg Mean Corpuscular Hemoglobin Concent 31.3 g/dl RDW Standard Deviation 55.8 fL RDW Coefficient of Variation 16.8 % Platelet Count 349 K/uL Mean Platelet Volume 9.0 fL Sodium Level 136 mmol/L Potassium Level 4.4 mmol/L Chloride Level 93 mmol/L Carbon Dioxide Level 39 mmol/L Anion Gap 4.0 mmol/L Blood Urea Nitrogen 19 mg/dl Creatinine 0.78 mg/dl Est Creatinine Clear Calc Drug Dose 227.6 ml/min Estimated GFR () 130.9 Estimated GFR (Non- 112.9 BUN/Creatinine Ratio 24.5 Random Glucose 114 mg/dl Calcium Level 8.9 mg/dl Magnesium Level 1.9 mg/dl Test 09/26/17 16:24 Bedside Glucose 156 mg/dl Assessment & Plan Acute on Chronic Diastolic CHF Presented with worsening bilateral lower extremity edema, scrotal swelling CXR showed cardiomegaly and volume overload Received Lasix 40mg IV in the ER Daily weight, I/O--> about -12.5 L (total) Starting on lasix Monitor renal function Clinically improved Cardiology consulted Last ECHO in August: * Qualitative LV systolic function appears normal in isolated subcostal view. * Grossly normal right ventricular size and function in subcostal view. * Normal inferior vena cava size and collapsibility with sniff indicates a normal right atrial pressure of 3 mmHg JINNY Likely secondary to diuretics Creatine on admission 2.1, improved to 1.5 But unable to assess that since his CXR showed Volume overload Nephrology on board Lasix on hold Continue IV albumin q6hr as per nephro, then once once BP improves, we can restart lasix Renal u/s showed no renal masses identified. No evidence of hydronephrosis. 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, chemotherapy HTN: BP in the low side Hold HTN meds Monitor BP H/O Farley's esophagus GERD continue PPI Restless leg Syndrome: Continue Requip DVT Px: On Xarelto Code Status Full Code Disposition Continue monitor in tele Current Inpatient Medications: Current Inpatient Medications Medications (Trade) Dose Ordered Sig/Karissa Route Start Time Stop Time Status Last Admin Dose Admin Acetaminophen (Tylenol Tab) 650 mg Q4H PRN PO 09/25/17 01:00 10/25/17 00:59 09/26/17 15:58 650 MG Ondansetron HCl (Zofran Inj) 4 mg Q6H PRN IV 09/25/17 01:00 10/25/17 00:59 Insulin Glargine (Lantus Solostar Pen) 10 units Q12 SC 09/25/17 09:00 10/25/17 08:59 09/26/17 08:20 10 UNITS Insulin Aspart (novoLOG ASPART) SLIDING SCALE If C... ACHS SC 09/25/17 07:00 10/25/17 06:59 09/26/17 17:32 6 UNITS Glucose (Glucose 40% Gel) 15-30 GRAMS 15 GRAMS... UD PRN PO 09/25/17 01:15 10/25/17 01:14 Glucose (Glucose Chew Tab) 4-8 Tablets 4 Tabl... UD PRN PO 09/25/17 01:15 10/25/17 01:14 Dextrose (Dextrose 50% 50ML Syringe) 25-50ML OF 50% DW IV FOR... UD PRN IV 09/25/17 01:15 10/25/17 01:14 Glucagon (Glucagon Inj) 1 mg UD PRN SQ 09/25/17 01:15 10/25/17 01:14 Albuterol/ Ipratropium (Duoneb) 3 ml QIDR INH 09/25/17 08:00 10/25/17 07:59 09/26/17 14:45 3 ML Atorvastatin Calcium (Lipitor Tab) 40 mg DAILY PO 09/25/17 09:00 10/25/17 08:59 09/26/17 08:15 40 MG Potassium Chloride (Klor-Con Tab) 20 meq QAM PO 09/25/17 09:00 10/25/17 08:59 09/26/17 08:15 20 MEQ Rivaroxaban (Xarelto Tab) 20 mg DAILY PO 09/25/17 09:00 10/25/17 08:59 09/26/17 08:15 20 MG Ropinirole HCl (Requip Tab) 0.75 mg HS PO 09/25/17 21:00 10/25/17 20:59 09/25/17 21:16 0.75 MG Pantoprazole Sodium (Protonix Tab) 40 mg QAM PO 09/25/17 09:00 10/25/17 08:59 09/26/17 08:15 40 MG Albumin Human (Albumin 25%) 12.5 gm 0900,1000 IV 09/25/17 09:00 09/28/17 08:59 09/26/17 09:43 12.5 GM Furosemide 60 mg/ Syringe 6 ml @ 4 mls/min BID IV 09/26/17 12:00 10/26/17 11:59 09/26/17 12:38 4 MLS/MIN
[2017-09-26] MEDS: ROPINIROLE HCL 0.25 MG TAB PO SCH (21:27)
[2017-09-27] VITALS (12 sets, daily range): BP systolic 111–141; BP diastolic 59–73; PULSE 97–113; TEMP 36.8–37.4; O2SAT 90–94
[2017-09-27] MEDS: ALBUT/IPRATROP 3MG/0.5MG NEB 3 ML VIAL INH SCH ×4 (04:42→15:27)
[2017-09-27] MEDS: ACETAMINOPHEN 325 MG TAB PO PRN ×2 (05:09→12:21)
[2017-09-27 07:21] LABS: CALCIUM 8.8 mg/dl (8.5-10.1); CREATININE 0.71 mg/dl (0.60-1.40)
[2017-09-27 07:22] LABS: POTASSIUM 3.5 mmol/L (3.5-5.1)
[2017-09-27] MEDS: FUROSEMIDE INJ 60 MG in SYRINGE 0 ML IV SCH (08:44)
[2017-09-27] MEDS: ALBUMIN HUMAN 25% 12.5 GM/50 ML VIAL IV SCH ×2 (08:48→09:22)
[2017-09-27] MEDS: POTASSIUM CHLORIDE 20 MEQ TABCR PO SCH (08:49)
[2017-09-27] MEDS: ATORVASTATIN 40 MG TAB PO SCH (08:49)
[2017-09-27] MEDS: PANTOprazole SOD 40 MG TAB PO SCH (08:49)
[2017-09-27] MEDS: RIVAROXABAN 20 MG TAB PO SCH (08:49)
[2017-09-27] MEDS: INSULIN ASPART 100 UNITS/ML 3 ML PEN SC SCH ×3 (08:52→16:59)
[2017-09-27] MEDS: INSULIN GLARGINE SOLOSTAR 100 UNITS/ML 3 ML PEN SC SCH (08:54)
--- NOTE | 2017-09-27 14:48 | Cardiology Follow-Up ---
Subjective General Date of Service: Sep 27, 2017. Chief Complaint: follow up edema, shortness of breath Pt evaluation today including: conversation w/ patient, physical exam History of Present Illness The patient is a 41 year old male seen in follow up. Patient feeling better subjectively. Wore CPAP last night per nursing notes. Pt eager for discharge. Allergies Coded Allergies: Morphine (Verified Allergy, Intermediate, 0, 09/20/17) oversedation Iodinated Diagnostic Agents (Unverified Allergy, Unknown, turns bright red and on fire feeling, RASH, 09/20/17) Social History Smoking Status: Former Smoker Hx Tobacco Use In Past Year?: Yes Hx Alcohol Use - Type And Amou: No Hx Substance Use - Type And Am: No Problem List Medical Problems: (1) Acute renal failure Status: Acute (2) Anemia Status: Acute (3) Bilateral lower extremity edema Status: Acute (4) Bilateral lower extremity edema Status: Acute (5) Bilateral lower leg cellulitis Status: Acute (6) Cellulitis Status: Acute (7) Cellulitis Status: Acute (8) Cellulitis of perineum Status: Acute (9) Cellulitis of right leg Status: Acute (10) Cellulitis of thigh Status: Acute (11) COPD with exacerbation Status: Acute (12) Failure of outpatient treatment Status: Acute (13) Fluid overload Status: Acute (14) Hypercarbia Status: Acute (15) Hyperglycemia Status: Acute (16) Hypokalemia Status: Acute (17) Hyponatremia Status: Acute (18) Hypoxia Status: Acute (19) Hypoxia Status: Acute (20) Infected stasis ulcer of right lower extremity Status: Acute (21) Intertrigo Status: Acute (22) Lower extremity edema Status: Acute (23) Morbid obesity Status: Acute (24) Restrictive lung disease Status: Acute (25) Shortness of breath Status: Acute (26) SOB (shortness of breath) Status: Acute (27) Tachycardia Status: Acute (28) UTI (urinary tract infection) Status: Acute Physical Exam Vital Signs Last Vital Signs Documentation Date Time Temp Pulse Resp B/P (MAP) Pulse Ox O2 Delivery O2 Flow Rate FiO2 09/27/17 12:05 37.2 112 20 112/73 (86) 94 5.0 09/27/17 12:00 Nasal Cannula Physical Exam Constitutional: Level of Distress: chronically ill Head: atraumatic Neck: trachea midline Lungs: Auscultation: pertinent finding (mildly decreased BS at bases ) Cardiovascular: Heart Auscultation: RRR, no murmurs Extremities: pertinent finding (1-2+ edema, scrotal edema is present , however improved. ) Assessment and Plan Assessment and Plan Impression: 41-year-old male Obesity hypoventilation syndrome, right heart failure. Presented with JINNY, renal function improved. Plan: Patient is eager for discharge. I counseled him that I would recommend additional inpatient diuretic therapy, but he has concerns at home. Would consider discharge on PLATE SENSITIZER regimen. Perhaps with metolazone every other day instead of daily. Laboratory Results Last 24 Hours Test 09/26/17 16:24 09/26/17 21:22 09/27/17 06:03 09/27/17 06:40 Bedside Glucose 156 mg/dl 220 mg/dl 138 mg/dl Sodium Level 136 mmol/L Potassium Level 3.5 mmol/L Chloride Level 89 mmol/L Carbon Dioxide Level 43 mmol/L Anion Gap 4.0 mmol/L Blood Urea Nitrogen 15 mg/dl Creatinine 0.71 mg/dl Est Creatinine Clear Calc Drug Dose 250.0 ml/min Estimated GFR () 136.0 Estimated GFR (Non- 117.4 BUN/Creatinine Ratio 21.2 Random Glucose 133 mg/dl Calcium Level 8.8 mg/dl Test 09/27/17 11:40 Bedside Glucose 143 mg/dl
--- NOTE | 2017-09-27 17:11 | Progress Note ---
Medicine Progress Note Date & Time of Visit: Sep 27, 2017 at 16:52. Subjective Pt was seen and examined sitting in recliner with no distress Pt said that he is back to his baseline He said that his breathing cannot be better than that He is very eager to go home He said that he feels fine and breathing better Advised pt to spend one more night that we can continue diuresis him He does not want to stay for an extra night Denies any chest pain, palpitation and fever Objective Last 8 Hrs Date Time Temp Pulse Resp B/P (MAP) Pulse Ox O2 Delivery O2 Flow Rate FiO2 09/27/17 16:00 94 Nasal Cannula 5.0 09/27/17 15:54 36.8 107 17 117/59 (78) 92 09/27/17 15:27 106 20 94 Nasal Cannula 5.0 09/27/17 12:05 37.2 112 20 112/73 (86) 94 5.0 09/27/17 12:00 Nasal Cannula 5.0 09/27/17 11:16 113 20 94 Nasal Cannula 5.0 Physical Exam: General- Morbid obesity Head- atraumatic Eyes- PERRL, EOMI ENT- oropharynx clear Neck- supple, no JVD Lungs- Decrease BS, mild wheezing Heart- regular rhythm Abdomen- normal bowel sounds, NT Extremities- no calf tenderness, +edema Neuro- alert, oriented x 3; PERRL Skin- warm & dry Laboratory Results: Last 24 Hours Test 09/26/17 21:22 09/27/17 06:03 09/27/17 06:40 09/27/17 11:40 Bedside Glucose 220 mg/dl 138 mg/dl 143 mg/dl Sodium Level 136 mmol/L Potassium Level 3.5 mmol/L Chloride Level 89 mmol/L Carbon Dioxide Level 43 mmol/L Anion Gap 4.0 mmol/L Blood Urea Nitrogen 15 mg/dl Creatinine 0.71 mg/dl Est Creatinine Clear Calc Drug Dose 250.0 ml/min Estimated GFR () 136.0 Estimated GFR (Non- 117.4 BUN/Creatinine Ratio 21.2 Random Glucose 133 mg/dl Calcium Level 8.8 mg/dl Assessment & Plan Acute on Chronic Diastolic CHF Presented with worsening bilateral lower extremity edema, scrotal swelling CXR showed cardiomegaly and volume overload Received Lasix 40mg IV in the ER Daily weight, I/O--> about -18L (total) Pt will benefit for an additional day of diuresis, but refused to spend 1 more night Will discharge on his home dose diuresis Monitor renal function Clinically improved case discussed with cardiology Last ECHO in August: * Qualitative LV systolic function appears normal in isolated subcostal view. * Grossly normal right ventricular size and function in subcostal view. * Normal inferior vena cava size and collapsibility with sniff indicates a normal right atrial pressure of 3 mmHg JINNY Likely secondary to diuretics Creatine on admission 2.1, improved to 1.5 But unable to assess that since his CXR showed Volume overload Nephrology on board Lasix on hold Continue IV albumin q6hr as per nephro, then once once BP improves, we can restart lasix Renal u/s showed no renal masses identified. No evidence of hydronephrosis. Continue monitor BMP Avoid nephrotoxic agents\ 09/27 Creatine back to baseline Received IV lasix case discussed with nephrology and ok from nephrology standpoint to discharge home As per nephrology continue home dose diuretic Check renal function in 4 to 5 days Chronic Hyponatremia mostly due to diuretics/Volume overload status Na on admission 129, that improves to 136 Monitor BMP Hypomagnesemia: Mg stable Monitor COPD Chronic oxygen dependency: 3L at baseline No signs of exacerbation ESTEFANI: continue CPAP QHS DM II: Last A1C:7.2 Hold oral meds ISS, Lantus Monitor BGs H/O PE/DVT: Continued Xarelto Morbid Obesity: BMI:66.3 Counseling on diet and exercise 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 Guerrero tomorrow 09/28 @ 12:55 PM Follow up with Cardiology Check BMP between 4-5 days Follow a low salt diet fluid restriction to 1.5L Continue oxygen supplement Follow up with nephrology Current Inpatient Medications: Current Inpatient Medications Medications (Trade) Dose Ordered Sig/Karissa Route Start Time Stop Time Status Last Admin Dose Admin Acetaminophen (Tylenol Tab) 650 mg Q4H PRN PO 09/25/17 01:00 10/25/17 00:59 09/27/17 12:21 650 MG Ondansetron HCl (Zofran Inj) 4 mg Q6H PRN IV 09/25/17 01:00 10/25/17 00:59 Insulin Glargine (Lantus Solostar Pen) 10 units Q12 SC 09/25/17 09:00 10/25/17 08:59 09/27/17 08:54 10 UNITS Insulin Aspart (novoLOG ASPART) SLIDING SCALE If C... ACHS SC 09/25/17 07:00 10/25/17 06:59 09/27/17 12:23 7 UNITS Glucose (Glucose 40% Gel) 15-30 GRAMS 15 GRAMS... UD PRN PO 09/25/17 01:15 10/25/17 01:14 Glucose (Glucose Chew Tab) 4-8 Tablets 4 Tabl... UD PRN PO 09/25/17 01:15 10/25/17 01:14 Dextrose (Dextrose 50% 50ML Syringe) 25-50ML OF 50% DW IV FOR... UD PRN IV 09/25/17 01:15 10/25/17 01:14 Glucagon (Glucagon Inj) 1 mg UD PRN SQ 09/25/17 01:15 10/25/17 01:14 Albuterol/ Ipratropium (Duoneb) 3 ml QIDR INH 09/25/17 08:00 10/25/17 07:59 09/27/17 15:27 3 ML Atorvastatin Calcium (Lipitor Tab) 40 mg DAILY PO 09/25/17 09:00 10/25/17 08:59 09/27/17 08:49 40 MG Potassium Chloride (Klor-Con Tab) 20 meq QAM PO 09/25/17 09:00 10/25/17 08:59 09/27/17 08:49 20 MEQ Rivaroxaban (Xarelto Tab) 20 mg DAILY PO 09/25/17 09:00 10/25/17 08:59 09/27/17 08:49 20 MG Ropinirole HCl (Requip Tab) 0.75 mg HS PO 09/25/17 21:00 10/25/17 20:59 09/26/17 21:27 0.75 MG Pantoprazole Sodium (Protonix Tab) 40 mg QAM PO 09/25/17 09:00 10/25/17 08:59 09/27/17 08:49 40 MG Albumin Human (Albumin 25%) 12.5 gm 0900,1000 IV 09/25/17 09:00 09/28/17 08:59 09/27/17 09:22 12.5 GM Furosemide 60 mg/ Syringe 6 ml @ 4 mls/min BID IV 09/26/17 12:00 10/26/17 11:59 09/27/17 08:44 4 MLS/MIN
--- NOTE | 2017-09-27 17:23 | Discharge Instructions ---
Discharge Instructions Date of Service Sep 27, 2017. Admission Reason for Admission: Acute Renal Failure, Volume Overload Discharge Discharge Diagnosis / Problem: Acute on Chronic Diastolic CHF, Acute kidney failure Discharge Goals Goal(s): Decrease discomfort, Improve function, Improve disease control Activity Recommendations Activity Limitations: resume your previous activity (as tolerated) . Instructions / Follow-Up Instructions / Follow-Up Discharge home today with home health services Follow up with your primary care provider Dr. Guerrero tomorrow (09/28) @ 12:55 PM Follow up with Cardiology Check BMP between 4-5 days to monitor your kidney function Follow a low salt diet fluid restriction to 1.5L Continue oxygen supplement Follow up with nephrology Continue physical therapy Call your Primary Care doctor if any of the following symptoms or problems start or get worse: * Shortness of breath or difficulty breathing * Wake up at night short of breath * Chest pain * Cough * Swelling of your hands, feet, or legs * More fatigued or tired with your normal activity * Palpitations - sudden fast heart beats WEIGHT * Weigh yourself every morning after using the bathroom. * Use the same scale. * Wear the same amount of clothing. * Write your weight down on a chart. * Call your Primary Care doctor if you gain more than 2-3 pounds in 1-2 days. MEDICATIONS * Use this discharge instruction sheet for medication instructions. * Take your medications at the time your doctor ordered. * Do not skip a dose of your medicines. * If you miss a dose of medicine, take it as soon as possible, but DO NOT DOUBLE A DOSE. * Read your medicine information when you get home. * Know all of the side effects of your medicine. If in doubt, ask your pharmacist * Call your Primary Care doctor's office if you have any side effects. * Be sure all of your doctors know what medicine and herbs you take (including cold, flu, and herbal medicine). Take the following with you to your follow-up doctor appointments: * Weight Chart * Medication List * List of questions Do not drink excessive alcohol, beer or wine. Current Hospital Diet Patient's current hospital diet: Diabetes Type 2 Diet, AHA Diet (Heart Healthy) Discharge Diet Recommended Diet: AHA Diet (Heart Healthy), Low Sodium Diet (2gm Na), Diabetes Type 2 Diet Pending Studies Studies pending at discharge: no Laboratory Results Hemoglobin A1c Test 08/30/17 17:20 Range/Units Estimated Average Glucose 160 mg/dl Hemoglobin A1c 7.2 H 4.5-5.6 % Medical Emergencies . Who to Call and When: Call 911 or go to the Emergency Room if: * If at any time you feel your situation is an emergency * You have tightness or pain in your chest that does not go away with rest or Nitroglycerin * You are very short of breath even with rest . Non-Emergent Contact Non-Emergency issues call your: Primary Care Provider, Substation Manager Call Non-Emergent contact if: you have any medication questions . . "Provider Documentation" section prepared by Sue Camacho. .
--- NOTE | 2017-09-28 00:31 | Discharge Summary ---
Discharge Summary Date of Service Sep 27, 2017. 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 The left kidney measures 13.3 cm. There is no evidence of hydronephrosis. There are no renal masses. The bladder was not visualized. Study was very limited from a technical standpoint the patient's large body habitus (BMI 66) IMPRESSION : 1. Technically limited study 2. No renal masses identified. No evidence of hydronephrosis. Electronically signed by: Jonathan Squires M.D. 09/25/2017 6:06 AM Dictated Date/Time: 09/25/2017 6:05 AM Medication Reconciliation Continued Medications: Albuterol Hfa (Ventolin Hfa) 200 Puffs/93885 Mcg Aers 2 PUFFS INH Q4H PRN for SOB/Wheezing Atorvastatin (Lipitor) 40 Mg Tab 40 MG PO DAILY Furosemide (Furosemide) 80 Mg Tab 80 MG PO BID17, #60 TAB 2 Refills Home O2 Therapy (Oxygen) Gas 3 LITERS NA CONTINOUS Ipratropium-Albuterol (Duoneb) 3 Ml Nebu 3 ML NEB QID PRN for SOB/Wheezing, INHA Lisinopril (Lisinopril) 10 Mg Tab 10 MG PO DAILY Metformin HCl (Metformin HCl) 500 Mg Tab 500 MG PO DAILY Metolazone (Metolazone) 5 Mg Tab 5 MG PO DAILY Omeprazole (Prilosec) 40 Mg Cap 40 MG PO DAILY TAKE THIS MEDICATION ONCE DAILY ONE HOUR BEFORE FIRST MEAL OF THE DAY Potassium Chloride Microencaps (Potassium Chloride Er) 20 Meq Tab 20 MEQ PO QAM Rivaroxaban (Xarelto) 20 Mg Tab 20 MG PO DAILY Ropinirole HCl (Ropinirole HCl) 0.25 Mg Tab 0.25 MG PO HS TAKE ONE 0.25 MG TABLET ALONG WITH ONE 0.5 MG TABLET TO EQUAL BEDTIME DOSE OF 0.75 MG. TAKE THIS MEDICATION WITH FOOD. Ropinirole Hydrochloride (Requip) 0.5 Mg Tab 0.5 MG PO HS TAKE ONE 0.5 MG TABLET ALONG WITH ONE 0.25 MG TABLET TO EQUAL BEDTIME DOSE OF 0.75 MG. TAKE THIS MEDICATION WITH FOOD. Spironolactone (Aldactone) 25 Mg Tab 25 MG PO BID, TAB Admission Information HPI (per Admitting provider): Patient is a 41-year-old male with past medical history of diastolic CHF, COPD, ESTEFANI, DM II, H/O PE/DVT, Morbid Obesity, H/O metastatic adenocarcinoma of left axilla, hypertension, Farley's esophagus, GERD, Chronic oxygen dependency and other problems presents with history of worsening bilateral lower extremity swelling since 4-5 days duration. He was recently discharged from [facility] after being treated for acute on chronic respiratory failure secondary to COPD/CHF exacerbation and LE cellulitis. He states he was in the ED with similar symptoms a few days ago and was given IV lasix and was discharged home. Despite being compliant with medications, he states that his symptoms continue to worsen. He also noticed to have scrotal swelling associated with some discomfort. Reports associated weight gain and orthopnea but denies any worsening shortness of breath. He has chronic cough but denies any history of wheezing. He states being compliant with CPAP use. Also reports mild chronic abdominal pain which is unchanged. Denies any history of chest pain, SOB, dizziness, diaphoresis, fever, chills, headache, nausea, vomiting, diarrhea, dysuria, recent change in medications. Physical Exam (per Admitting): General Appearance: no apparent distress, + obese Head: normocephalic, atraumatic Eyes: normal inspection, PERRL, EOMI, sclerae normal ENT: normal ENT inspection, hearing grossly normal Neck: supple, trachea midline Respiratory/Chest: chest non-tender, no respiratory distress, no accessory muscle use, + decreased breath sounds, + pertinent finding (Scattered basal crackles, wheezes) Cardiovascular: regular rate, rhythm, + tachycardia, + pertinent finding (B/ L LE edema ) Abdomen/GI: normal bowel sounds, non tender, soft, + distended Genitourinary - Male: + pertinent finding (Significant scrotal swelling, mild erythema) Back: normal inspection Extremities/Musculoskelatal: normal inspection, + pedal edema, + pertinent finding (B/L LE wounds, chronic venous stasis changes) Neurologic/Psych: cake tester II-XII nml as tested, no motor/sensory deficits, alert , oriented x 3 Skin: normal color, warm/dry Hospital Course Acute on Chronic Diastolic CHF Presented with worsening bilateral lower extremity edema, scrotal swelling CXR showed cardiomegaly and volume overload Received Lasix 40mg IV in the ER Daily weight, I/O--> about -18L (total) Pt will benefit for an additional day of diuresis, but refused to spend 1 more night Will discharge on his home dose diuresis Monitor renal function Clinically improved case discussed with cardiology Last ECHO in August: * Qualitative LV systolic function appears normal in isolated subcostal view. * Grossly normal right ventricular size and function in subcostal view. * Normal inferior vena cava size and collapsibility with sniff indicates a normal right atrial pressure of 3 mmHg JINNY Likely secondary to diuretics Creatine on admission 2.1, improved to 1.5 But unable to assess that since his CXR showed Volume overload Nephrology on board Lasix on hold Continue IV albumin q6hr as per nephro, then once once BP improves, we can restart lasix Renal u/s showed no renal masses identified. No evidence of hydronephrosis. Continue monitor BMP Avoid nephrotoxic agents\\ 09/27 Creatine back to baseline Received IV lasix case discussed with nephrology and ok from nephrology standpoint to discharge home As per nephrology continue home dose diuretic Check renal function in 4 to 5 days Chronic Hyponatremia mostly due to diuretics/Volume overload status Na on admission 129, that improves to 136 Monitor BMP Hypomagnesemia: Mg stable Monitor COPD Chronic oxygen dependency: 3L at baseline No signs of exacerbation ESTEFANI: continue CPAP QHS DM II: Last A1C:7.2 Hold oral meds ISS, Lantus Monitor BGs H/O PE/DVT: Continued Xarelto Morbid Obesity: BMI:66.3 Counseling on diet and exercise 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 Guerrero tomorrow 09/28 @ 12:55 PM Follow up with Cardiology Check BMP between 4-5 days Follow a low salt diet fluid restriction to 1.5L Continue oxygen supplement Follow up with nephrology Total time spent on discharge = 35 minutes This includes examination of the patient, discharge planning, medication reconciliation, and communication with other providers. Discharge Instructions Discharge Instructions Date of Service Sep 27, 2017. Admission Reason for Admission: Acute Renal Failure, Volume Overload Discharge Discharge Diagnosis / Problem: Acute on Chronic Diastolic CHF, Acute kidney failure Discharge Goals Goal(s): Decrease discomfort, Improve function, Improve disease control Activity Recommendations Activity Limitations: resume your previous activity (as tolerated) . Instructions / Follow-Up Instructions / Follow-Up Discharge home today with home health services Follow up with your primary care provider Dr. Guerrero tomorrow (09/28) @ 12:55 PM Follow up with Cardiology Check BMP between 4-5 days to monitor your kidney function Follow a low salt diet fluid restriction to 1.5L Continue oxygen supplement Follow up with nephrology Continue physical therapy Call your Primary Care doctor if any of the following symptoms or problems start or get worse: * Shortness of breath or difficulty breathing * Wake up at night short of breath * Chest pain * Cough * Swelling of your hands, feet, or legs * More fatigued or tired with your normal activity * Palpitations - sudden fast heart beats WEIGHT * Weigh yourself every morning after using the bathroom. * Use the same scale. * Wear the same amount of clothing. * Write your weight down on a chart. * Call your Primary Care doctor if you gain more than 2-3 pounds in 1-2 days. MEDICATIONS * Use this discharge instruction sheet for medication instructions. * Take your medications at the time your doctor ordered. * Do not skip a dose of your medicines. * If you miss a dose of medicine, take it as soon as possible, but DO NOT DOUBLE A DOSE. * Read your medicine information when you get home. * Know all of the side effects of your medicine. If in doubt, ask your pharmacist * Call your Primary Care doctor's office if you have any side effects. * Be sure all of your doctors know what medicine and herbs you take (including cold, flu, and herbal medicine). Take the following with you to your follow-up doctor appointments: * Weight Chart * Medication List * List of questions Do not drink excessive alcohol, beer or wine. Current Hospital Diet Patient's current hospital diet: Diabetes Type 2 Diet, AHA Diet (Heart Healthy) Discharge Diet Recommended Diet: AHA Diet (Heart Healthy), Low Sodium Diet (2gm Na), Diabetes Type 2 Diet Pending Studies Studies pending at discharge: no Laboratory Results Hemoglobin A1c Test 08/30/17 17:20 Range/Units Estimated Average Glucose 160 mg/dl Hemoglobin A1c 7.2 H 4.5-5.6 % Medical Emergencies . Who to Call and When: Call 911 or go to the Emergency Room if: * If at any time you feel your situation is an emergency * You have tightness or pain in your chest that does not go away with rest or Nitroglycerin * You are very short of breath even with rest . Non-Emergent Contact Non-Emergency issues call your: Primary Care Provider, Maitre D' Call Non-Emergent contact if: you have any medication questions . . "Provider Documentation" section prepared by Sue Camacho. . Additional Copies To Sundar Guerrero M.D.(ESTEFANY)
== END 2017-09-27 18:17 | disposition home health service (06) | DRG 682 ==
LOC: C.EDC 19:24 → C.2T 09-25 00:59 → ENRESERV 09-25 01:24
PROVIDERS: ADMIT Internal Medicine; ATTEND Internal Medicine
DX: N17.9 Acute kidney failure, unspecified (principal); I50.33 Acute on chronic diastolic (congestive) heart failure; E87.1 Hypo-osmolality and hyponatremia; E66.2 Morbid (severe) obesity with alveolar hypoventilation; Z68.44 Body mass index [BMI] 60.0-69.9, adult; E83.42 Hypomagnesemia; T50.2X5A Adverse effect of carbonic-anhydrase inhibitors, benzothiadiazides and other diuretics, initial encounter; D64.9 Anemia, unspecified; I11.0 Hypertensive heart disease with heart failure; E11.9 Type 2 diabetes mellitus without complications; J44.9 Chronic obstructive pulmonary disease, unspecified; J45.909 Unspecified asthma, uncomplicated; G25.81 Restless legs syndrome; K22.70 Barrett's esophagus without dysplasia; F17.200 Nicotine dependence, unspecified, uncomplicated; Z79.899 Other long term (current) drug therapy; Z79.84 Long term (current) use of oral hypoglycemic drugs; Z79.01 Long term (current) use of anticoagulants; Z99.81 Dependence on supplemental oxygen; Z86.718 Personal history of other venous thrombosis and embolism; Z86.711 Personal history of pulmonary embolism; Z85.89 Personal history of malignant neoplasm of other organs and systems; Z92.21 Personal history of antineoplastic chemotherapy; Z88.5 Allergy status to narcotic agent; Z91.041 Radiographic dye allergy status; Z80.0 Family history of malignant neoplasm of digestive organs; Z83.3 Family history of diabetes mellitus; Z82.49 Family history of ischemic heart disease and other diseases of the circulatory system